=== PATIENT | female | born 1945 | race Caucasian/White ===

== ENCOUNTER 2019-11-03 15:00 | Outpatient (RCR) | payer MEDICARE, SELFPAY ==
[2019-10-22 11:57] VITALS: BP 162/68; PULSE 76; RESP 16
--- NOTE | 2019-10-22 12:27 | PCCPR ---
Christine states she has Reynauds and sclera derma unable to obtain an accurate pulse oxymetry 83% was what we obtained. She was on intermittent pulsating O2 - placed on our continuous O2 concentrator
[2019-10-22 12:39] VITALS: PULSE 72
--- NOTE | 2019-11-06 14:38 | PCCPR ---
Absent-bowel & bladder issues
--- NOTE | 2019-11-12 16:05 | PCCPR ---
Absent due to hospitalization Spoke with Christine who is currently hospitalized here at [facility] with a left hip fracture. States she went to get her blood drawn and tripped. She was later taken to hospital ED and found to have the hop fracture. she is awaiting plan for surgery. States they are having some difficulty with too much fluid and her oxygenation.
--- NOTE | 2019-11-13 10:44 | PCCPR ---
Early dc Spoke with Christine she has been transferred to [facility] for her surgery and management of her cardiovascular system.Discussed the unknown length of time she will be off after surgery as well as rehab. Explained we can get a new referral for her Pulmonary rehab to return once she is ready.
== END 2019-11-13 09:07 | disposition other institution (70) ==
LOC: ANHCPREHAB 15:00
PROVIDERS: PCP Family Medicine
DX: I27.20 Pulmonary hypertension, unspecified (principal)
CPT/HCPCS: 97150; G0239; G0424

== ENCOUNTER 2019-11-10 17:14 | Inpatient (IN) | payer MEDICARE, SELFPAY ==
[2019-11-10] VITALS (13 sets, daily range): BP systolic 93–134; BP diastolic 60–76; PULSE 69–79; RESP 14–35; TEMP 36.3–37; O2SAT 75–99; BMI 25.9; BMI 25.7
--- NOTE | ~2019-11-10 | XR_ITS ---
EXAMINATION: XR chest 1V INDICATION: Shortness of breath TECHNIQUE: Portable AP view of the chest is obtained. COMPARISON: None FINDINGS: There are airspace opacities in the mid and lower lung zones, left greater than right. Smal l pleural effusions are suggested. No pneumothorax is identified. The heart size is normal for techni que. IMPRESSION: 1. Airspace opacities of the mid and lower lung zones, left greater than right, consistent with atele ctasis versus pneumonia. Reviewed, dictated and finalized at location A. ER TURNER IMPRESSION: 1. Airspace opacities of the mid and lower lung zones, left greater than right, consistent with atelectasis versus pneumonia.
--- NOTE | ~2019-11-10 | XR_ITS ---
EXAMINATION: XR hip LT min 2V INDICATION: Left hip pain, initial encounter TECHNIQUE: Two views of the left hip are obtained COMPARISON: None available FINDINGS: There is there is an acute subcapital fracture of the left femoral neck. The femoral head i s seated in the acetabula. Soft tissue swelling surrounds the fracture. No additional acute osseous f indings are evident. IMPRESSION: 1. Acute subcapital left femoral neck fracture. Reviewed, dictated and finalized at location A. GHT UNLOADER
--- NOTE | ~2019-11-10 | XR_ITS ---
EXAMINATION: XR chest 1V portable DATE: 11/11/2019 07:30 INDICATION: Hypoxia TECHNIQUE: frontal view of the chest was obtained. COMPARISON: Chest radiograph dated 11/10/2019 FINDINGS: Resolution of prior right pleural effusion and likely decreased small left pleural effusion with grad ient of hazy airspace opacity in the left mid to lower lung zone. Airspace opacities in the bilateral lower lung zones more prominent in the left retrocardiac region which could represent atelectasis or pneumonia. No pneumothorax or evident pulmonary edema. Cardiomegaly. Peripherally calcified left sherry ast implant. IMPRESSION: 1. Opacities in the bilateral lower lung zones consistent with atelectasis and/or pneumonia. 2. Decreased small left and resolution of prior right pleural effusions. 3. Cardiomegaly. Reviewed, dictated and finalized at location A. DOWELING MACHINE OPERATOR IMPRESSION: 1. Opacities in the bilateral lower lung zones consistent with atelectasis and/ or pneumonia. 2. Decreased small left and resolution of prior right pleural effusions. 3. Cardiomegaly.
--- NOTE | ~2019-11-10 | US_ITS ---
EXAMINATION: US venous doppler LE EXAM DATE: 11/11/2019 13:32 INDICATION: Bilateral leg edema. TECHNIQUE: Multiple grayscale, color flow and Doppler images of the lower extremity deep venous syste ms bilaterally were obtained and reviewed. There is no prior study for comparison. FINDINGS: Right side: The right common femoral, femoral and profunda veins demonstrate normal color flow, respi ratory variation, augmentation and compressibility. Compressibility, color flow confirmed within the right popliteal, posterior tibial, peroneal, and greater saphenous veins. Left side: The left common femoral, femoral and profunda veins demonstrate normal color flow, respira tory variation, augmentation and compressibility. Compressibility, color flow confirmed within the l eft popliteal, posterior tibial, peroneal, and greater saphenous veins. IMPRESSION: 1. No lower extremity deep venous thrombosis bilaterally. Reviewed, dictated and finalized at location B. OR ESTIMATOR
--- NOTE | 2019-11-10 17:32 | ED.GENADULT ---
HPI - General Adult General Chief complaint: Unspecified Stated complaint: fall Time Seen by Provider: 11/10/19 17:32 Source: patient and family Mode of arrival: ambulatory Limitations: no limitations History of Present Illness HPI narrative: A 74 y/o female pt presents to the ED, via private car, with c/o SOB and a fall that occurred at 1400 today (3.5 hours ago). Per spouse at bedside, pt missed a step and fell leaving [facility], after having her blood drawn. Pt's spouse notes that pt had no LOC, but required assistance to get up and to get in and out of the car d/t her leg weakness. Pt's spouse states that, pt was having blood drawn because of her recent weight gain. Pt is currently complaining of SOB, leg weakness, lt hip pain, and chronic BLE swelling. Pt has a PMHx of Pulmonary Hypertension and Scleroderma. Pt notes being on 6 L of O2 via NC at all times, but pt's current O2 sat is 90% on 15L of O2, via non-rebreather in the ED bed. MD complaint: Fall Onset (ago): hour(s) (3.5) Location: pelvis (lt hip) Associated symptoms: shortness of breath, weakness (BLE) and other (difficulty walking, lt hip pain, chronic BLE swelling) Related Data Home Medications Medication Instructions Recorded Confirmed aspirin 81 mg tablet,delayed 81 mg PO DAILY 09/05/19 10/22/19 release calcium carbonate 500 mg calcium 500 mg PO BID 09/05/19 (1,250 mg) tablet diltiazem HCl 180 mg capsule,24 180 mg PO DAILY 09/05/19 10/22/19 hr,extended release metoprolol succinate 25 mg 25 mg PO DAILY 09/05/19 10/22/19 tablet,extended release 24 hr omeprazole 20 mg capsule,delayed 20 mg PO DAILY 09/05/19 10/22/19 release ambrisentan 10 mg PO DAILY 10/22/19 10/22/19 cholecalciferol (vitamin D3) 1,000 unit PO DAILY 10/22/19 10/22/19 [Vitamin D3] cyanocobalamin (vitamin B-12) 500 mcg PO DAILY 10/22/19 10/22/19 [Vitamin B-12] hydroxychloroquine [Plaquenil] 100 mg PO BID 10/22/19 10/22/19 mycophenolate mofetil [CellCept] 1,000 mg PO Q12H 10/22/19 10/22/19 tadalafil 40 mg PO DAILY 10/22/19 11/03/19 Allergies Allergy/AdvReac Type Severity Reaction Status Date / Time No Known Allergies Allergy Verified 11/10/19 17:40 Review of Systems Review of Systems: All systems reviewed & are unremarkable except as noted in HPI and below Constitutional: Constitutional: Reports weakness (BLE) and Reports weight gain Respiratory: Respiratory: Reports dyspnea Musculoskeletal: Musculoskeletal: Reports arthralgias (lt hip) and Reports other (difficulty walking) Integumentary/Breasts: Skin/Breast: Reports swelling (chronic BLE) Neurologic: Denies other (LOC) [facility] Social History Social History (Updated 11/10/19 @ 18:59 by Abhishek Urbano, [place]) Smoking status: Never smoker Alcohol intake: current Living arrangements: with family Gender identity (if verbalized by the patient): Female Exam Narrative: Exam Narrative: General appearance: Well-developed, well-nourished, in labored breathing, family at the bedside Skin: Normal color, tight skin of the distal extremities, Raynaud's phenomena with cyanotic discoloration of the hands and feet, cold 2+ edema lower extremity bilaterally up to the thigh Head: Normocephalic, nontraumatic Eyes: Clear conjunctiva ENT: Oropharynx normal, ears normal, nose normal Neck: Supple, nontender Chest and respiratory: Airway patent, mild respiratory distress, mild accessory muscle use Heart: Regular rate/rhythm Abdomen: Soft, nontender, no organomegaly, quiet bowel sounds Vascular: Normal peripheral pulses, normal capillary refill. Musculoskeletal: Normal range of motion, nontender back Neurologic: Alert and oriented ?3, MEDICAL ADMINISTRATIVE TECHNICIAN is normal as tested, no gross motor deficit
--- NOTE | 2019-11-10 17:39 | PC.NURSE ---
Unable to establish IVx3, requesting RN to start IV with ultrasound. EDP notified.
--- NOTE | 2019-11-10 17:46 | ECG_ITS ---
Measurements Intervals [place] Rate: 71 P: 66 DC: 173 QRS: 108 QRSD: 104 T: 60 QT: 416 QTc: 455 Interpretive Statements SINUS RHYTHM POSSIBLE LEFT ATRIAL ENLARGEMENT RIGHT AXIS DEVIATION LOW QRS VOLTAGE IN PRECORDIAL LEADS INCOMPLETE RIGHT BUNDLE BRANCH BLOCK NONSPECIFIC ST & T-WAVE ABNORMALITY- ANT/INF LEADS BASELINE ARTIFACT- I, II, III, AVR, AVL, AVF, V1-V2 BORDERLINE ECG Electronically Signed On 11-11-2019 7:03:13 CERTIFIED BREASTFEEDING EDUCATOR by Fermín Hernandes D.O.
[2019-11-10 18:12] LABS: Basophils Percent Auto 0.3 % (0.2-1.2); Hematocrit 35.2 % (37.0-47.0); Hemoglobin 10.5 g/dL (12.0-15.0); Immature Granulocyte Absolute 0.05 K/mm3 (0.00-0.031); Immature Granulocyte Percent A 0.6 % (0-0.5); Lymphocytes Absolute Auto 0.39 K/mm3 (0.9-3.2); Lymphocytes Percent Auto 4.3 % (18.3-44.2); Mean Corpuscular HGB Conc 29.8 g/dl (32-36); Mean Corpuscular Hemoglobin 26.6 pg (26-34); Mean Corpuscular Volume 89.1 fl (80-100); Mean Platelet Volume 11.4 fl (7.4-10.4); Monocytes Absolute Auto 0.6 K/mm3 (0.1-0.6); Monocytes Percent Auto 6.3 % (2.6-8.5); Neutrophils Percent Auto 88.5 % (45.5-73.1); Platelet Count Result 163 k/mm3 (150-375); Red Blood Count 3.95 M/mm3 (4.2-5.4); Red Cell Distribution Width 17.9 % (11.5-14.5)
[2019-11-10] MEDS: FUROSEMIDE INJ 40 MG/4 ML VIAL 60 MG IV PUSH (18:21)
[2019-11-10] MEDS: ONDANSETRON INJ 4 MG/2 ML VIAL IV PUSH (18:21)
[2019-11-10] MEDS: NITROGLYCERIN OINTMENT 1 INCH DOSE 0.5 INCH TRANSDERM (18:22)
[2019-11-10 18:25] LABS: Alveolar/Arterial O2 Gradient 630.7 mmHg; Base Excess ABG -3.1 mEq/l (+/-2.0); Fractional Inspired Oxygen 100 %; HCO3 ABG 20.7 mEq/l (22.0-26.0); Oxygen Content ABG 13.5 %vol (16.0-22.0); Oxyhemoglobin 83.5 % THb (90.0-100.0); PCO2 ABG 32.6 mmHg (35.0-45.0); Total Hemoglobin 11.5 g/dL (12.0-18.0)
[2019-11-10 18:26] LABS: INR 1.3; Prothrombin Time 15.4 Seconds (11.1-14.7)
[2019-11-10 18:27] LABS: Partial Thromboplastin Time 25.7 SECONDS (22.3-36.8)
[2019-11-10 18:27] LABS: Modified Allen's Test Pass; Oxygen Saturation ABG 86.4 % (95.0-100.0); PO2 ABG 49.7 mmHg (80.0-100.0); Site Drawn LEFT RADIAL
[2019-11-10 18:28] LABS: Alanine Aminotransferase 30 U/L (4-35); Albumin Level 3.4 g/dL (3.5-5.1); Alkaline Phosphatase 78 U/L (38-126); Aspartate Amino Transferase 38 U/L (14-36); Bilirubin,Total 0.7 mg/dL (0.2-1.3); Blood Urea Nitrogen 19 mg/dL (7-17); Carbon Dioxide 20 mmol/L (22-30); Chloride 102 mmol/L (98-107); Estimated Glomerular Filt Rate > 60; Glucose 107 mg/dL (65-105); Potassium 3.8 mmol/L (3.4-5.0); Sodium 136 mmol/L (137-145)
[2019-11-10 18:28] LABS: Device NON-REBREATHER MASK
[2019-11-10 18:37] LABS: NT Pro B Type Natriuretic Pept 6630 PG/ML (5-100)
[2019-11-10 19:13] LABS: Add Urine Microscopic? YES; Appearance Urine Clear (Clear); Bacteria Urine Trace /hpf; Bilirubin Urine Negative (Negative); Blood Urine Negative (Negative); Color Urine Straw (Yellow); Glucose Urine UA Negative (Negative); Ketones Urine Negative (Negative); Leukocyte Esterase Ur Negative LEU/UL (Negative); Mucus Urine Rare /lpf; Nitrate Urine Negative (Negative); Protein Urine 1+ mg/dL (Negative); RBC Urine 0-2 /hpf (0-2); Specific Grav Ur 1.012 (1.001-1.035); Squamous Epithelial Cell Urine Rare /hpf (Few); Urobilinogen Urine Negative mg/dL (<2.0); WBC Urine 0-3 /hpf
[2019-11-10 19:27] LABS: Burr Cells 3+ (NORMAL)
[2019-11-10 19:29] LABS: Ovalocytes 1+ (NORMAL); Platelet Estimate Adequate (Adequate)
--- NOTE | 2019-11-10 19:40 | PC.NURSE ---
assume care of pt at this time. RACHEL Love
--- NOTE | 2019-11-10 20:30 | PM.IMHP ---
H&P: HPI History of Present Illness Chief complaint: Left hip pain after fall. Narrative: Christine Ellis is a very pleasant 74 year old female with CREST syndrome, pulmonary hypertension, chronic respiratory failure with hypoxia on home oxygen, hypothyroidism, hypertension, and history of breast cancer who presented to the emergency department earlier this evening via private vehicle for evaluation of left hip pain after a fall. She had labs drawn earlier this afternoon, presumably to evaluate her electrolytes as she was started on furosemide within the past several weeks due to weight gain and lower extremity edema. She used her backside to push open the door while exiting the lab as her hands were full with her oxygen tank and purse. Unfortunately, she lost her balance down onto her left side. She has difficult time getting up, and had help from bystanders. She was able to walk to the car, albeit was in quite a bit of pain in the left hip, and came in for evaluation. On arrival to the emergency department, she was complaining of increasing shortness of breath with an SpO2 of 78% on her 6 liters nasal cannula. She demonstrated pursed lip breathing and was started on a BiPAP, which has helped her significantly. It sounds as though she was diagnosed with pulmonary hypertension fairly recently, and has been on oxygen at home for about 6 months. She is followed by a generalist and roof shingler out of [facility], and she notes having a right heart catheterization fairly recently. Not long after that, she developed significant lower extremity edema and has had a 10 pound weight gain. She was thus started on furosemide as detailed above, however she has not had much benefit from that. In fact, she thinks her urine output has been dropping off a bit. With regards to the shortness of breath, she notes that this has progressively gotten worse since she developed the edema, and says it is not unusual for her SpO2 to drop to 85% at times. She feels better at this time, and her main complaint is of an aching pain in the left hip. She denies head trauma and loss of consciousness with the fall. She sustained no other injuries to her knowledge. No cold or flu symptoms. She denies chest pain and pleuritic pain. No calf pain or tenderness. No palpitations or feeling of racing heart. She denies nausea, vomiting, and diarrhea. Review of Systems Review of Systems: All systems reviewed & are unremarkable except as noted in HPI and below PMFSH Past Medical History Medical History (Updated 11/11/19 @ 03:19 by Sandie Palomo PA-C) Anxiety Chronic respiratory failure with hypoxia CREST syndrome GERD (gastroesophageal reflux disease) History of breast cancer Status post chemotherapy and mastectomy. Hypertension Hypothyroidism Osteopenia Other spondylosis, cervical region Pulmonary hypertension Surgical History Surgical History Cataract extraction status (11/05/18) H/O bilateral mastectomy (08/31/00) H/O: hysterectomy (1997) History of appendectomy (1953) Family History Family History Father Diabetes mellitus Family history of Alzheimer's disease Mother Diabetes mellitus Family history of chronic obstructive pulmonary disease Family history of cardiomyopathy Grandparent Family history of malignant neoplasm of breast Social History Social History (Updated 11/11/19 @ 03:15 by Sandie Palomo PA-C) Social History: The patient lives in [place] with her . He is in poor health and she has to help take care of him. She designates her as her surrogate decision maker and she wishes to be a full code. She is a lifelong nonsmoker and denies alcohol and drug abuse. Spiritual care concerns: No Agree to blood products: Yes Meds Home Medications and Allergies Home Medications
--- NOTE | 2019-11-10 21:15 | PC.NURSE ---
called respiratory to take pt up to ICU
--- NOTE | 2019-11-10 21:25 | PC.NURSE ---
required redraw on pt to send pt up to unit after blood draw
--- NOTE | 2019-11-10 21:37 | PC.NURSE ---
respiratory called to take patient up w/ another patient at time.
--- NOTE | 2019-11-10 21:40 | PC.NURSE ---
pt placed on NRB pt's pulse oxy dropped to 83%. pt placed back on bipap. ed respiratory at bedside and to get a transportable bipap.
[2019-11-10 21:46] LABS: INR 1.4; Prothrombin Time 16.4 Seconds (11.1-14.7)
[2019-11-10 21:47] LABS: Partial Thromboplastin Time 31.9 SECONDS (22.3-36.8)
[2019-11-10 21:48] LABS: Lactic Acid Reflex 1.9 mmol/L (0.7-2.1)
--- NOTE | 2019-11-10 22:00 | ADMGEN ---
This patient, Christine Ellis, was admitted to Intensive Care Unit-8. Patient/family oriented to hospital policies and general routines including ID bracelet, bed and alarms, visiting hours, pain management, procedures, bathroom and other care routines, personal items, smoking policy, room service/diet, and visiting hours. Valuables list has been completed. Information on how to activate the Rapid Response Team has been discussed. Patient/Family are encouraged to report perceived risks to care and to ask questions if they do not understand what they are told or what they should do.
[2019-11-10 22:02] LABS: CRP 1.6 mg/dL (<1.0)
[2019-11-11] VITALS (26 sets, daily range): BP systolic 96–117; BP diastolic 54–95; PULSE 71–100; RESP 15–20; TEMP 36.5–36.8; O2SAT 90–97
--- NOTE | 2019-11-11 | ECHO_ITS ---
Patient Info Name: Christine Ellis Age: 74 years : 1945 Gender: Female Ht: 64 in Wt: 150 lbs BSA: 1.77 m2 HR: 90 bpm BP: 101 / 60 mmHg Heart Rhythm: Sinus Rhythm Technical Quality: Good Exam Date: 11/11/2019 9:21 AM Exam Location: [facility] Pulmonary Patient Status: Inpatient Admit Date: 11/10/2019 Staff Ordering Physician: Mario Oliver MD Sterilizer Operator: David Weir RDCS Attending Provider: Nathaniel Ibarra MD Referring Physician: Benito HERRERA; Exam Type: CA echo doppler color flow Study Info Indications R60.0 - Localized edema Complete two-dimensional, color flow and Doppler transthoracic echocardiogram is performed. History/Risk Factors LLE Edema; Chronic respiratory failure w/ hypoxia, HTN, pHTN, CREST Syndrome, SOB>. Summary 1. Left ventricular chamber dimension is normal. 2. Left ventricular systolic function is normal, estimated at 65-70%. 3. D shape LV septum with systole and diastole suggesting RV volume and pressure overload. 4. The left ventricular diastolic function is grade I diastolic dysfunction. 5. E/e' 12 is mildly elevated. 6. Right ventricular systolic function is severely reduced. 7. Right ventricular chamber dimension is severely enlarged. 8. Left atrial chamber dimension is mildly enlarged. 9. Right atrial chamber dimension is severely enlarged. 10. There is moderate aortic valve sclerosis. 11. There is mild aortic valve stenosis with a peak velocity of 199 cm/s, mean gradient of 8 mmHg, and aortic valve area of 2.0 cm2. 12. The mitral valve has moderately calcified annulus. 13. TV annulus is dilated at 6.2 cm. 14. There is moderate tricuspid valve regurgitation. 15. Severe pulmonary hypertension, estimated pulmonary arterial systolic pressure is 75 mmHg. 16. Small atheroma in anterior and posterior aortic root. 17. Dilated inferior vena cava with >50% collapse upon inspiration consistent with elevated right atrial pressure, 10 mmHg. 18. There is small pericardial effusion. Left Ventricle E/e' 12 is mildly elevated. D shape LV septum with systole and diastole suggesting RV volume and pressure overload. Left ventricular chamber dimension is normal. Left ventricular systolic function is normal, estimated at 65-70%. The left ventricular diastolic function is grade I diastolic dysfunction. Right Ventricle Right ventricular systolic function is severely reduced. Right ventricular chamber dimension is severely enlarged. Left Atria Left atrial chamber dimension is mildly enlarged. Right Atria Right atrial chamber dimension is severely enlarged. Atrial Septum Bowing of interatrial septum to left suggests increase in right atrial pressure. Aortic Valve The aortic valve is trileaflet. There is moderate aortic valve sclerosis. There is mild aortic valve stenosis with a peak velocity of 199 cm/s, mean gradient of 8 mmHg, and aortic valve area of 2.0 cm2. There is no aortic valve regurgitation. Pulmonic Valve There is no pulmonic regurgitation. Mitral Valve The mitral valve has moderately calcified annulus. There is no mitral valve stenosis. There is no mitral valve regurgitation. Tricuspid Valve TV annulus is dilated at 6.2 cm. There is moderate tricuspid valve regurgitation. Severe pulmonary hypertension, estimated pulmonary arterial systolic pressure is 75 mmHg. Pericardium/Pleural There is small pericardial effusion. Inferior Vena Cava Dilated inferior vena cava w
--- NOTE | 2019-11-11 06:00 | ECG_ITS ---
Measurements Intervals [place] Rate: 86 P: 53 MT: 156 QRS: 94 QRSD: 112 T: 3 QT: 367 QTc: 440 Interpretive Statements SINUS RHYTHM POSSIBLE LEFT ATRIAL ENLARGEMENT RIGHT AXIS DEVIATION INCOMPLETE RIGHT BUNDLE BRANCH BLOCK BORDERLINE ST-T WAVE ABNORMALITY- ANT/INF LEADS BASELINE ARTIFACT- V1-V2 BORDERLINE ECG Electronically Signed On 11-11-2019 10:09:43 EYEWEAR MANUFACTURING SUPERVISOR by Fermín Hernandes D.O.
[2019-11-11 07:26] LABS: Free T4 Free Thyroxine Reflex 1.77 ng/dL (0.78-2.19)
[2019-11-11 07:27] LABS: Basophils Percent Auto 0.4 % (0.2-1.2); Eosinophils Percent Auto 0.1 % (0-4.4); Hematocrit 30.9 % (37.0-47.0); Hemoglobin 9.4 g/dL (12.0-15.0); Immature Granulocyte Absolute 0.02 K/mm3 (0.00-0.031); Immature Granulocyte Percent A 0.3 % (0-0.5); Lymphocytes Absolute Auto 0.52 K/mm3 (0.9-3.2); Lymphocytes Percent Auto 6.8 % (18.3-44.2); Mean Corpuscular HGB Conc 30.4 g/dl (32-36); Mean Corpuscular Volume 88.8 fl (80-100); Mean Platelet Volume 11.8 fl (7.4-10.4); Monocytes Absolute Auto 0.8 K/mm3 (0.1-0.6); Monocytes Percent Auto 10.1 % (2.6-8.5); Neutrophils Absolute Auto 6.3 K/mm3 (1.3-6.7); Neutrophils Percent Auto 82.3 % (45.5-73.1); Platelet Count Result 149 k/mm3 (150-375); Red Blood Count 3.48 M/mm3 (4.2-5.4); White Blood Count 7.6 K/mm3 (4.5-10.0)
[2019-11-11 07:39] LABS: INR 1.3; Prothrombin Time 15.8 Seconds (11.1-14.7)
[2019-11-11 07:41] LABS: Partial Thromboplastin Time 30.8 SECONDS (22.3-36.8)
[2019-11-11 07:47] LABS: Alanine Aminotransferase 26 U/L (4-35); Albumin Level 2.8 g/dL (3.5-5.1); Alkaline Phosphatase 61 U/L (38-126); Aspartate Amino Transferase 32 U/L (14-36); Bilirubin,Total 0.5 mg/dL (0.2-1.3); Blood Urea Nitrogen 19 mg/dL (7-17); Calcium 8.8 mg/dL (8.4-10.2); Carbon Dioxide 21 mmol/L (22-30); Chloride 102 mmol/L (98-107); Estimated CRCL calculation 54 ml/min; Estimated Glomerular Filt Rate > 60; Glucose 66 mg/dL (65-105); Magnesium 1.9 mg/dL (1.6-2.3); Phosphorus 4.2 mg/dL (2.5-4.5); Potassium 3.9 mmol/L (3.4-5.0); Sodium 136 mmol/L (137-145)
[2019-11-11 07:49] LABS: Alveolar/Arterial O2 Gradient 314.9 mmHg; Base Excess ABG -2.2 mEq/l (+/-2.0); Carboxyhemoglobin 0.3 % THb (0-2.0); Fractional Inspired Oxygen 60 %; HCO3 ABG 21.7 mEq/l (22.0-26.0); Methemoglobin ABG 0.5 %THb (0-1.5); Oxygen Content ABG 14.3 %vol (16.0-22.0); Oxygen Saturation ABG 95.5 % (95.0-100.0); Oxyhemoglobin 93.4 % THb (90.0-100.0); PO2 ABG 75.5 mmHg (80.0-100.0); PO2 FiO2 Ratio Arterial Blood 1.26 %; Reduced Hemoglobin 5.8 %THb (0-5.0); Total Hemoglobin 10.8 g/dL (12.0-18.0); pH ABG 7.422 (7.350-7.450)
[2019-11-11 07:50] LABS: Device NON-INVASIVE VENT; Modified Allen's Test Pass; Site Drawn LEFT RADIAL
[2019-11-11 07:51] LABS: Non-Invasive Expiratory Pressure 5 CMH2O; Non-Invasive Inspiratory Pressure 10 CMH2O; Non-Invasive Vent Rate 10 /MIN
[2019-11-11 08:27] LABS: Total Triiodothyronine (T3) 0.81 NG/ML (0.97-1.69)
--- NOTE | 2019-11-11 08:39 | WPDCNINT ---
Assessment and Plan Assessment and plan (1) Acute and chronic respiratory failure: Qualifiers: Respiratory failure complication: hypoxia Qualified Code(s): J96.21 - Acute and chronic respiratory failure with hypoxia Code(s): J96.20 - Acute and chronic respiratory failure, unspecified whether with hypoxia or hypercapnia Status: Acute Assessment and Plan: patient presented with hypoxia likely related to her chronic patient is such as congestive heart failure, pulmonary hypertension - patient has been on BiPAP with much improvement in the chest x-ray and respiratory status. - Will place patient on her home 6 L oxygen and evaluate. patient may have to alternate between BiPAP and nasal cannula - continue Symbicort and bronchodilators - patient also diuretics - patient also started azithromycin and ceftriaxone (2) Closed left hip fracture: Qualifiers: Encounter type: initial encounter Qualified Code(s): S72.002A - Fracture of unspecified part of neck of left femur, initial encounter for closed fracture Code(s): S72.002A - Fracture of unspecified part of neck of left femur, initial encounter for closed fracture Status: Acute Assessment and Plan: patient with closed hip fracture - pain is not been an issue - ortho has been consulted and await evaluation and recommendation (3) CHF (congestive heart failure): Qualifiers: Heart failure chronicity: unspecified Heart failure type: unspecified Qualified Code(s): I50.9 - Heart failure, unspecified Code(s): I50.9 - Heart failure, unspecified Status: Acute Assessment and Plan: patient with history of congestive heart failure, chest x-ray does not reveal pulmonary vascular congestion - continue diuretics - Will check echocardiogram - lower extremity edema, venous Dopplers ordered (4) Hypothyroidism, unspecified: Qualifiers: Hypothyroidism type: unspecified Qualified Code(s): E03.9 - Hypothyroidism, unspecified Code(s): E03.9 - Hypothyroidism, unspecified Status: Chronic Assessment and Plan: continue levothyroxine (5) Cr(e)st syndrome: Code(s): M34.1 - CR(E)ST syndrome Status: Chronic Assessment and Plan: patient with CREST SYNDROME, 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 She is aware that orthopedic is going to see her for her left hip fracture. Code status: Full code Critical care time spent: [address] Guzman Due to a high probability of clinically significant, life threatening deterioration, the patient required my highest level of preparedness to intervene emergently and I personally spent this critical care time directly and personally managing the patient. This critical care time included obtaining a history; examining the patient; pulse oximetry; ordering and review of studies; arranging urgent treatment with development of a management plan; evaluation of patient's response to treatment; frequent reassessment; and discussions with other providers. It was exclusive of separately billable procedures and treating other patients and teaching time. Please see Assessment and Plan section and the rest of the note for further information on patient assessment and treatment Etched Circuit Processor Consult Note Consult date: 0
--- NOTE | 2019-11-11 09:22 | PM.IMPN ---
Progress Note: A&P Assessment and Plan (1) Acute and chronic respiratory failure: Qualifiers: Respiratory failure complication: hypoxia Qualified Code(s): J96.21 - Acute and chronic respiratory failure with hypoxia Code(s): J96.20 - Acute and chronic respiratory failure, unspecified whether with hypoxia or hypercapnia Status: Acute Assessment and Plan: Improved with BiPAP overnight. Now stable. Discussed with testing analyst. Will transfer to IMU. Telemetry reviewed on 11/11/2019 with sinus rhythm. Pulmonology also consulted and appreciate input. (2) Closed left hip fracture: Qualifiers: Encounter type: initial encounter Qualified Code(s): S72.002A - Fracture of unspecified part of neck of left femur, initial encounter for closed fracture Code(s): S72.002A - Fracture of unspecified part of neck of left femur, initial encounter for closed fracture Status: Acute Assessment and Plan: Result of mechanical fall. Dr. Dhillon has been consulted and appreciate input. (3) Fall from ground level: Code(s): W18.30XA - Fall on same level, unspecified, initial encounter Status: Acute Assessment and Plan: Now with fractured hip as noted above. Fall precautions. (4) Pulmonary hypertension: Code(s): I27.20 - Pulmonary hypertension, unspecified Status: Acute Assessment and Plan: Known significant disease. Echocardiogram with EF 65-70 %, severe pulmonary hypertension. Pulmonology also following as noted above. (5) Cr(e)st syndrome: Code(s): M34.1 - CR(E)ST syndrome Status: Chronic Assessment and Plan: Venous Dopplers negative for DVT of the lower extremities. Continue Plaquenil and CellCept. (6) Hypertension: Qualifiers: Hypertension type: essential hypertension Qualified Code(s): I10 - Essential (primary) hypertension Code(s): I10 - Essential (primary) hypertension Status: Acute Assessment and Plan: Blood pressure reviewed on 11/11/2019 and stable. Will continue to monitor on metoprolol. (7) CHF (congestive heart failure): Qualifiers: Heart failure chronicity: unspecified Heart failure type: unspecified Qualified Code(s): I50.9 - Heart failure, unspecified Code(s): I50.9 - Heart failure, unspecified Status: Acute Assessment and Plan: Known history. Echocardiogram as noted above. Presently compensated. On IV Lasix. Will monitor. (8) Hypothyroidism, unspecified: Qualifiers: Hypothyroidism type: unspecified Qualified Code(s): E03.9 - Hypothyroidism, unspecified Code(s): E03.9 - Hypothyroidism, unspecified Status: Chronic Assessment and Plan: TSH elevated at 7.230 with free T4 normal at 1.77. Will continue levothyroxine. (9) DVT prophylaxis: Code(s): Z29.9 - Encounter for prophylactic measures, unspecified Status: Acute Assessment and Plan: Now on Lovenox after discussion between Orthopedics and testing analyst. Time Spent With Patient Time with patient: 15 - 25 minutes Subjective Date/time seen: 11/11/19 09:22 Interval history: Date of Service: 11/11/2019. Admitted with left hip fracture, acute on chronic respiratory failure. Still on BiPAP this morning but feeling better. Denies shortness of breath. No chest pain. No headache. No abdominal pain. No significant pain in left hip. Does have swelling in legs. Review of Systems Constitutional: Constitutional: Denies chills and Denies fever(s) ENT: Denies epistaxis Cardiovascular: Cardiovascular: Denies chest pain and Reports leg edema Respiratory: Respiratory: Denies dyspnea Gastrointestinal: Gastrointestinal: Denies abdominal pain, Denies nausea and Denies vomiting Genitourinary: Comments: catheter in place Musculoskeletal: Musculoskeletal: Reports arthralgias (no significant left hip pain) Integumentary/Breasts: Skin/Breast:
[2019-11-11] MEDS: PANTOPRAZOLE 40 MG TABLET PO (11:44)
[2019-11-11] MEDS: CHOLECALCIFEROL 1,000 UNIT TABLET 1000 UNITS PO (11:44)
[2019-11-11] MEDS: CYANOCOBALAMIN 500 MCG TABLET PO (11:44)
[2019-11-11] MEDS: METOPROLOL SUCCINATE EXT REL 25 MG TABCR PO (11:44)
[2019-11-11] MEDS: HYDROXYCHLOROQUINE SULFATE 200 MG TABLET PO (11:44)
[2019-11-11] MEDS: CALCIUM CARBONATE (OSCAL) 500 MG TABLET PO ×2 (11:44→17:18)
[2019-11-11] MEDS: LEVOTHYROXINE SODIUM 50 MCG TABLET PO (11:44)
[2019-11-11] MEDS: FUROSEMIDE INJ 40 MG/4 ML VIAL 20 MG IV PUSH (11:46)
[2019-11-11] MEDS: mycophenolate mofetiL 250 MG CAPSULE 1000 MG PO ×2 (12:00→21:47)
--- NOTE | 2019-11-11 15:40 | PM.CNOR ---
Assessment and Plan Assessment and plan (1) Closed left hip fracture: Qualifiers: Encounter type: initial encounter Qualified Code(s): S72.002A - Fracture of unspecified part of neck of left femur, initial encounter for closed fracture Code(s): S72.002A - Fracture of unspecified part of neck of left femur, initial encounter for closed fracture Status: Acute Assessment and Plan: Displaced left femoral neck fracture. Will benefit from bipolar hemiarthroplasty. Discussed the timing of surgery with anesthesia and contracts representative. We agree to stabilize the patient medically prior to proceeding with surgery. Plan for Sunday. Ok to treat with anticoagulation for VTE prophylaxis. I discussed the care plan with the patient and her family. We discussed the risks, benefits, and alternatives to surgery. 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 - Systemic sclerosis, unspecified Status: Acute (3) Acute and chronic respiratory failure with hypoxia: Code(s): J96.21 - Acute and chronic respiratory failure with hypoxia Status: Acute (4) CHF (congestive heart failure): Qualifiers: Heart failure chronicity: unspecified Heart failure type: unspecified Qualified Code(s): I50.9 - Heart failure, unspecified Code(s): I50.9 - Heart failure, unspecified Status: Acute (5) Cr(e)st syndrome: Code(s): M34.1 - CR(E)ST syndrome Status: Chronic (6) Osteopenia: Qualifiers: Osteopenia location: unspecified Qualified Code(s): M85.80 - Other specified disorders of bone density and structure, unspecified site Code(s): M85.80 - Other specified disorders of bone density and structure, unspecified site Status: Chronic History of Present Illness HPI Consult date: 11/11/19 Chief complaint: Left hip pain after fall. Narrative: Presents with left hip femoral neck fracture. Admitted to the ICU with respiratory distress. History of CREST syndrome, pulmonary hypertension, chronic respiratory failure with hypoxia on home oxygen, hypothyroidism, hypertension, and history of breast cancer. Now clinically improving. Denies hip pain at rest. Review of Systems Constitutional: Constitutional: Reports as per HPI Cardiovascular: Cardiovascular: Reports leg edema Respiratory: Respiratory: Reports chest congestion and Reports dyspnea Genitourinary: Genitourinary: Reports as per HPI Musculoskeletal: Musculoskeletal: Reports stiffness Neurologic: Denies numbness Psychiatric: Psychiatric: Denies confusion [facility] Past Medical History Medical History Anxiety Chronic respiratory failure with hypoxia CREST syndrome GERD (gastroesophageal reflux disease) History of breast cancer Status post chemotherapy and mastectomy. Hypertension Hypothyroidism Osteopenia Other spondylosis, cervical region Pulmonary hypertension Surgical History Surgical History Cataract extraction status (11/05/18) H/O bilateral mastectomy (08/31/00) H/O: hysterectomy (1997) History of appendectomy (1953) Family History Family History Father Diabetes mellitus Family history of Alzheimer's disease Mother Diabetes mellitus Family history of chronic obstructive pulmonary disease Family history of cardiomyopathy Grandparent Family history of malignant neoplasm of breast Social History Social History Social History: The patient lives in [place] with her . He is in poor health and she has to help take care of him. She designates her as her surrogate decision maker and she wishes to be a full code. She is a lifelong nonsmoker and denies alcohol and drug abuse. Spiritual care concerns: No Agree to blood products: Ye
--- NOTE | 2019-11-11 16:21 | PHAR ---
HOME MEDICATIONS VERIFIED BY PHARMACY: MYCOPHENOLATE 500MG TABLETS TAKE 2 TABS PO BID RX#[id number] TADALAFIL 20MG TABLET 1 TABLET DAILY INITIALLY THEN INCREASE TO 2 TABLETS DAILY IF TOLERATED RX#[id number] AMBRISENTAN 10MG TABLET 1 TABLET PO DAILY RX#[id number]
--- NOTE | 2019-11-11 18:57 | PM.CNPUL ---
Assessment and Plan Assessment and plan (1) Acute on chronic right heart failure: Code(s): I50.813 - Acute on chronic right heart failure Status: Acute Assessment and Plan: Echo shows marked pulmonary hypertension RVSP 75 mmHg, enlarged RV size with poor function, volume overload pattern, with increased risk of operative complications. This patient has severe pulmonary hypertension with multiple issues that put her at increased risk for hip surgery. Will contact her doctors at [facility] regarding transfer If she is not stable enough at the time of transfer, intubation is an option. Does not need intubation now. (2) Pneumonia: Qualifiers: Laterality: bilateral Lung location: unspecified part of lung Pneumonia type: due to unspecified organism Qualified Code(s): J18.9 - Pneumonia, unspecified organism Code(s): J18.9 - Pneumonia, unspecified organism Status: Acute Assessment and Plan: CXR has perihilar and lower lung infiltrates; with secretions, increased O2 need, this may be consistent with pneumonia. She is on ceftriaxone and aztihromycin; will check urine antigens for pneumonia pathogens; does not appear to have ARDS. She is tolerating the 15 L high flow cannula with saturation 91%. She is on bronchodilator therapy, and continues her pulmonary hypertension meds. No history of tobacco use. (3) Scleroderma involving lung: Code(s): M34.9 - Systemic sclerosis, unspecified Status: Acute Assessment and Plan: She reports increasing shortness of breath and lung involvement associated with scleroderma, likely interstitial lung disease although it is not visible on plain CXR. Seh is on immunosuppressive therapy with mycophenolate. I will contact her tune up mechanic for additional information and recommendations, as she is at increased risk for melecio-operative complications with hypoxemia, scleroderma-associated lung disease. (4) Acute and chronic respiratory failure with hypoxia: Code(s): J96.21 - Acute and chronic respiratory failure with hypoxia Status: Acute Assessment and Plan: She has been on O2 since July with increasing requirement over the last few months; worsened when she fell and broke her left hip on Nov 10. CXR does not show ARDS; (5) Closed left hip fracture: Qualifiers: Encounter type: initial encounter Qualified Code(s): S72.002A - Fracture of unspecified part of neck of left femur, initial encounter for closed fracture Code(s): S72.002A - Fracture of unspecified part of neck of left femur, initial encounter for closed fracture Status: Acute Assessment and Plan: She has a non-displaced left hip fracture after a fall yesterday, and surgery is planned for SundayNov 14 after stabilization of other medical issues. (6) Pulmonary hypertension: Code(s): I27.20 - Pulmonary hypertension, unspecified Status: Acute Assessment and Plan: She is on tadalafil (PDE type 5 inhibitor) for systemic sclerosis pulmonary hypertension. History of Present Illness History of Present Illness Consult date: 11/12/19 Requesting physician: Oralia Rivera MD Chief complaint: Left hip pain after fall. Narrative: NEW CONSULT: acute on chronic respiratory failure; scleroderma with lung involvement; This 74 yo woman has CREST syndrome, scleroderma x 25 years with increase in symptoms in December, pulmonary hypertension, on treatment. See meds below. She started using O2 in July at 2 L/min, now on 5-6 L/min. She has had increased shortness of
[2019-11-11] MEDS: HYDROXYCHLOROQUINE SULFATE 100 MG TABLET PO (21:48)
[2019-11-12] VITALS (28 sets, daily range): BP systolic 88–157; BP diastolic 46–90; PULSE 75–96; RESP 14–22; TEMP 36.6–37.2; O2SAT 91–98
[2019-11-12] MEDS: KETOROLAC 15 MG/ML VIAL (*BKC) IV PUSH (00:42)
[2019-11-12 05:02] LABS: Basophils Percent Auto 0.3 % (0.2-1.2); Eosinophils Percent Auto 0.1 % (0-4.4); Hematocrit 28.8 % (37.0-47.0); Hemoglobin 8.9 g/dL (12.0-15.0); Immature Granulocyte Absolute 0.03 K/mm3 (0.00-0.031); Immature Granulocyte Percent A 0.4 % (0-0.5); Immature Platelet Fraction Pct 6.2 % (0.9-11.2); Lymphocytes Absolute Auto 0.76 K/mm3 (0.9-3.2); Lymphocytes Percent Auto 10.9 % (18.3-44.2); Mean Corpuscular HGB Conc 30.9 g/dl (32-36); Mean Corpuscular Hemoglobin 26.7 pg (26-34); Mean Corpuscular Volume 86.5 fl (80-100); Mean Platelet Volume 11.9 fl (7.4-10.4); Monocytes Percent Auto 14.2 % (2.6-8.5); Neutrophils Absolute Auto 5.1 K/mm3 (1.3-6.7); Neutrophils Percent Auto 74.1 % (45.5-73.1); Platelet Count Result 127 k/mm3 (150-375); Red Blood Count 3.33 M/mm3 (4.2-5.4); Red Cell Distribution Width 17.9 % (11.5-14.5)
[2019-11-12] MEDS: LEVOTHYROXINE SODIUM 50 MCG TABLET PO (05:09)
[2019-11-12 05:12] LABS: Base Excess ABG -0.1 mEq/l (+/-2.0); Carboxyhemoglobin 0.2 % THb (0-2.0); Device NON-INVASIVE VENT; Fractional Inspired Oxygen 50 %; HCO3 ABG 23.7 mEq/l (22.0-26.0); Methemoglobin ABG 0.4 %THb (0-1.5); Modified Allen's Test Pass; Oxygen Content ABG 13.2 %vol (16.0-22.0); Oxygen Saturation ABG 96.3 % (95.0-100.0); PCO2 ABG 34.9 mmHg (35.0-45.0); PO2 ABG 79.2 mmHg (80.0-100.0); PO2 FiO2 Ratio Arterial Blood 1.58 %; Reduced Hemoglobin 5.4 %THb (0-5.0); Site Drawn LEFT RADIAL; Total Hemoglobin 9.9 g/dL (12.0-18.0); pH ABG 7.449 (7.350-7.450)
[2019-11-12 05:13] LABS: Non-Invasive Expiratory Pressure 5 CMH2O; Non-Invasive Inspiratory Pressure 10 CMH2O; Non-Invasive Vent Rate 10 /MIN
[2019-11-12 05:16] LABS: Blood Urea Nitrogen 23 mg/dL (7-17); Calcium 8.7 mg/dL (8.4-10.2); Carbon Dioxide 25 mmol/L (22-30); Chloride 100 mmol/L (98-107); Estimated CRCL calculation 43 ml/min; Estimated Glomerular Filt Rate > 60; Glucose 100 mg/dL (65-105); Potassium 3.7 mmol/L (3.4-5.0); Sodium 134 mmol/L (137-145)
--- NOTE | 2019-11-12 07:48 | PM.IMPN ---
Progress Note: A&P Assessment and Plan (1) Acute and chronic respiratory failure: Qualifiers: Respiratory failure complication: hypoxia Qualified Code(s): J96.21 - Acute and chronic respiratory failure with hypoxia Code(s): J96.20 - Acute and chronic respiratory failure, unspecified whether with hypoxia or hypercapnia Status: Acute Assessment and Plan: Appreciate help from pulmonology. Patient with severe underlying pulmonary issues. ABG today with pH 7.449, pCO2 34.9, PO2 79.2. When not on BiPAP, using high-flow oxygen at 15 L with adequate oxygenation. Discussed with pulmonology last night. Dr. Grande plans to speak with patient's regular hogshead filler at [facility] today for possible transfer. Telemetry reviewed on 11/12/2019 with sinus rhythm. Continue nebulizer treatments and Symbicort. Continue to monitor closely. (2) CHF (congestive heart failure): Qualifiers: Heart failure chronicity: acute on chronic Heart failure type: right-sided Qualified Code(s): I50.813 - Acute on chronic right heart failure Code(s): I50.9 - Heart failure, unspecified Status: Acute Assessment and Plan: Known history. Echocardiogram with EF 65-70 %, severe pulmonary hypertension with RVSP 75, diastolic dysfunction grade 1. Remains on IV Lasix daily. Continue to monitor. (3) Pneumonia: Qualifiers: Laterality: bilateral Lung location: unspecified part of lung Pneumonia type: due to unspecified organism Qualified Code(s): J18.9 - Pneumonia, unspecified organism Code(s): J18.9 - Pneumonia, unspecified organism Status: Acute Assessment and Plan: As noted, appreciate help from pulmonology. Imaging and other clinical findings consistent with pneumonia. Will add IV ceftriaxone and azithromycin. Continue other respiratory treatments. (4) Scleroderma involving lung: Code(s): M34.9 - Systemic sclerosis, unspecified Status: Acute Assessment and Plan: Known underlying disease. Continue home mycophenolate. Continue respiratory treatments as noted. (5) Pulmonary hypertension: Code(s): I27.20 - Pulmonary hypertension, unspecified Status: Acute Assessment and Plan: Known significant disease. Pulmonology following as noted above. On tadalfil at home and may use home supply here as non-formulary. (6) Cr(e)st syndrome: Code(s): M34.1 - CR(E)ST syndrome Status: Chronic Assessment and Plan: Venous Dopplers negative for DVT of the lower extremities. Continue Plaquenil and CellCept. (7) Closed left hip fracture: Qualifiers: Encounter type: initial encounter Qualified Code(s): S72.002A - Fracture of unspecified part of neck of left femur, initial encounter for closed fracture Code(s): S72.002A - Fracture of unspecified part of neck of left femur, initial encounter for closed fracture Status: Acute Assessment and Plan: Result of mechanical fall. Dr. Dhillon has been consulted and appreciate input. Will need eventual repair. (8) Fall from ground level: Code(s): W18.30XA - Fall on same level, unspecified, initial encounter Status: Acute Assessment and Plan: Now with fractured hip as noted above. Fall precautions. (9) Hypertension: Qualifiers: Hypertension type: essential hypertension Qualified Code(s): I10 - Essential (primary) hypertension Code(s): I10 - Essential (primary) hypertension Status: Acute Assessment and Plan: Blood pressure reviewed on 11/12/2019 and stable. Will continue to monitor on metoprolol. (10) Hypothyroidism, unspecified: Qualifiers: Hypothyroidism type: unspecified Qualified Code(s): E03.9 - Hypothyroidism, unspecified Code(s): E03.9 - Hypothyroidism, unspecified Status: Chronic Assessment and Plan: TSH elevated at 7.230 with free T4 normal at 1.77. Will con
[2019-11-12] MEDS: FUROSEMIDE INJ 40 MG/4 ML VIAL 20 MG IV PUSH (10:24)
[2019-11-12] MEDS: ENOXAPARIN 40 MG/0.4 ML SYRINGE SUB-Q (10:27)
[2019-11-12] MEDS: CALCIUM CARBONATE (OSCAL) 500 MG TABLET PO ×2 (10:29→17:41)
[2019-11-12] MEDS: CHOLECALCIFEROL 1,000 UNIT TABLET 1000 UNITS PO (10:31)
[2019-11-12] MEDS: METOPROLOL SUCCINATE EXT REL 25 MG TABCR PO (10:32)
[2019-11-12] MEDS: PANTOPRAZOLE 40 MG TABLET PO (10:42)
[2019-11-12] MEDS: HYDROXYCHLOROQUINE SULFATE 200 MG TABLET PO (10:51)
[2019-11-12] MEDS: CYANOCOBALAMIN 500 MCG TABLET PO (10:52)
[2019-11-12] MEDS: mycophenolate mofetiL 250 MG CAPSULE 1000 MG PO ×2 (12:33→20:58)
[2019-11-12 14:43] LABS: Troponin I 0.043 ng/mL (0.000-0.034)
--- NOTE | 2019-11-12 16:38 | PM.PNPUL ---
Progress Note: A&P Assessment and Plan (1) Acute on chronic right heart failure: Code(s): I50.813 - Acute on chronic right heart failure Status: Acute Assessment and Plan: Echo shows marked pulmonary hypertension RVSP 75 mmHg, enlarged RV size with poor function, volume overload pattern, with increased risk of operative complications. This patient has severe pulmonary hypertension with multiple issues that put her at increased risk for hip surgery. Will contact her doctors at [facility] regarding transfer We will wean her O2 prior to transfer. (2) Pneumonia: Qualifiers: Laterality: bilateral Lung location: unspecified part of lung Pneumonia type: due to unspecified organism Qualified Code(s): J18.9 - Pneumonia, unspecified organism Code(s): J18.9 - Pneumonia, unspecified organism Status: Acute Assessment and Plan: CXR has perihilar and lower lung infiltrates; with secretions, increased O2 need; not convinced she has pneumonia; She is on ceftriaxone and aztihromycin; urine antigens for pneumonia pathogens are pending. does not appear to have ARDS. She is tolerating the 15 L high flow cannula with 60%, with saturation 91%- 94%. She is on bronchodilator therapy, and continues her pulmonary hypertension meds. No history of tobacco use. (3) Scleroderma involving lung: Code(s): M34.9 - Systemic sclerosis, unspecified Status: Acute Assessment and Plan: She reports increasing shortness of breath and lung involvement associated with scleroderma, likely interstitial lung disease although it is not visible on plain CXR. Seh is on immunosuppressive therapy with mycophenolate. I spoke with Dr. Pendleton at [facility], her inside sales coordinator. (4) Acute and chronic respiratory failure with hypoxia: Code(s): J96.21 - Acute and chronic respiratory failure with hypoxia Status: Acute Assessment and Plan: She has been on O2 since July with increasing requirement over the last few months; worsened when she fell and broke her left hip on Nov 10. CXR shows perihilar atelectasis/infitlrate. (5) Closed left hip fracture: Qualifiers: Encounter type: initial encounter Qualified Code(s): S72.002A - Fracture of unspecified part of neck of left femur, initial encounter for closed fracture Code(s): S72.002A - Fracture of unspecified part of neck of left femur, initial encounter for closed fracture Status: Acute Assessment and Plan: She has a non-displaced left hip fracture after a fall 11/10/2019. (6) Pulmonary hypertension: Code(s): I27.20 - Pulmonary hypertension, unspecified Status: Acute Assessment and Plan: She is on tadalafil (PDE type 5 inhibitor) for systemic sclerosis pulmonary hypertension. Subjective Date/time seen: 11/12/19 16:38 Patient was seen at 15:50. This 74 yo female is seen in follow up for acute on chronic hypoxemic respiratory failure after falling and breaking left hip 11/10/2019 after leaving the lab at [facility]; she was having lab work for her worsening right heart failure due to systemic sclerosis with lung involvement and pulmonary hypertension. Her is at the beside. She is now in Room 213, step down unit, on high flow O2 system; 15 L/min and 60 L /min with sat 94%. I spoke with branch operations coordinator at [facility] after speaking with her inside sales coordinator Dr. Yony Mayer at [facility]. She is not febrile, has normal WBC 7K, mild hyponatremia 134, BP 98/44. She is taking her pulmonary hypertension meds which she brought from
--- NOTE | 2019-11-12 16:40 | PM.TDS ---
Transfer Discharge Sum: Prov Provider Date of admission: 11/10/19 20:22 Primary care physician: Laly Kenny DO Admitting clinician: Mark Ibarra MD Attending physician on admission: Nathaniel Ibarra Consults: 11/10/19 20:26 Consult to Physician Routine Comment: Consulting Provider: Minoo Grande Reason for consultation: Pneumonia, history of pulmonary hypertension secondary to scleroderma, on B Has provider been notified: Yes Consult to Physician Routine Comment: Consulting Provider: Orestes Dhillon Reason for consultation: Left hip fracture Has provider been notified: Yes Attending physician on discharge: Nina Lowry Discharging clinician: Nina Lowry Anticipated date of transfer: 11/12/19 Receiving physician/facility: Dr. Cummings at [facility] in [place], [place] DS: Diagnosis Admitting Diagnosis Admitting Diagnosis: Fracture of unspecified part of neck of left femur, initial encounter for closed fracture Discharge Diagnosis (1) Acute and chronic respiratory failure: Qualifiers: Respiratory failure complication: hypoxia Qualified Code(s): J96.21 - Acute and chronic respiratory failure with hypoxia Code(s): J96.20 - Acute and chronic respiratory failure, unspecified whether with hypoxia or hypercapnia Status: Acute (2) CHF (congestive heart failure): Qualifiers: Heart failure chronicity: acute on chronic Heart failure type: right-sided Qualified Code(s): I50.813 - Acute on chronic right heart failure Code(s): I50.9 - Heart failure, unspecified Status: Acute (3) Pneumonia: Qualifiers: Laterality: bilateral Lung location: unspecified part of lung Pneumonia type: due to unspecified organism Qualified Code(s): J18.9 - Pneumonia, unspecified organism Code(s): J18.9 - Pneumonia, unspecified organism Status: Acute (4) Scleroderma involving lung: Code(s): M34.9 - Systemic sclerosis, unspecified Status: Acute (5) Pulmonary hypertension: Code(s): I27.20 - Pulmonary hypertension, unspecified Status: Acute (6) Cr(e)st syndrome: Code(s): M34.1 - CR(E)ST syndrome Status: Chronic (7) Closed left hip fracture: Qualifiers: Encounter type: initial encounter Qualified Code(s): S72.002A - Fracture of unspecified part of neck of left femur, initial encounter for closed fracture Code(s): S72.002A - Fracture of unspecified part of neck of left femur, initial encounter for closed fracture Status: Acute (8) Fall from ground level: Code(s): W18.30XA - Fall on same level, unspecified, initial encounter Status: Acute (9) Hypertension: Qualifiers: Hypertension type: essential hypertension Qualified Code(s): I10 - Essential (primary) hypertension Code(s): I10 - Essential (primary) hypertension Status: Acute (10) Hypothyroidism, unspecified: Qualifiers: Hypothyroidism type: unspecified Qualified Code(s): E03.9 - Hypothyroidism, unspecified Code(s): E03.9 - Hypothyroidism, unspecified Status: Chronic Transfer Discharge Sum: Med Medications Active and Home Medications: Home Medications aspirin 81 mg tablet,delayed release 81 mg PO 2XW 09/05/19 [History Confirmed 11/10/19] calcium carbonate 500 mg calcium (1,250 mg) tablet 500 mg PO BID 09/05/19 [History Confirmed 11/10/19] diltiazem HCl 180 mg capsule,24 hr,extended release 180 mg PO DAILY 09/05/19 [History Confirmed 11/10/19] metoprolol succinate 25 mg tablet,extended release 24 hr 25 mg PO DAILY 09/05/19 [History Confirmed 11/10/19] omeprazole 20 mg capsule,delayed release 20 mg PO DAILY 09/05/19 [History Confirmed 11/10/19] levothyroxine 50 mcg tablet 50 mcg PO DAILY #90 tablet 10/15/19 [Rx Confirmed 11/10/19] ambrisentan 10 mg PO DAILY 10/22/19 [History Confirmed 11/10/19] cholecalciferol (vitamin D3) [Vitamin D3] 1,000 unit PO
--- NOTE | 2019-11-12 19:30 | PC.NURSE ---
Report called to RACHEL Suh at [facility] in [place].
[2019-11-12] MEDS: HYDROXYCHLOROQUINE SULFATE 100 MG TABLET PO (20:58)
[2019-11-13 03:33] VITALS: O2SAT 99
[2019-11-13 18:48] LABS: Pneumococcal Antigen Urine Not Detected (Not Detected)
[2019-11-13 22:20] LABS: Legionella pneumophila Ag Ur Not Detected (Not Detected)
== END 2019-11-12 22:45 | disposition short-term general hospital (02) | DRG 189 ==
LOC: ANHED 20:21 → ANHICU 21:15 → ANHIMU 11-12 11:24 → ANHICU 11-17 09:02 → ANHIMU 11-17 09:02
PROVIDERS: Internal Medicine; Internal Medicine Critical Care Medicine; Physician Assistant; Admitting Provider Internal Medicine; Emergency Provider Emergency Medicine; PCP Family Medicine; Visit Provider Hospitalist
DX: J96.21 Acute and chronic respiratory failure with hypoxia (principal); S72.012A Unspecified intracapsular fracture of left femur, initial encounter for closed fracture; J18.9 Pneumonia, unspecified organism; M34.81 Systemic sclerosis with lung involvement; I11.0 Hypertensive heart disease with heart failure; I50.813 Acute on chronic right heart failure; W10.8XXA Fall (on) (from) other stairs and steps, initial encounter; E03.9 Hypothyroidism, unspecified; M34.1 CR(E)ST syndrome; I27.20 Pulmonary hypertension, unspecified; K21.9 Gastro-esophageal reflux disease without esophagitis; I73.00 Raynaud's syndrome without gangrene; F41.9 Anxiety disorder, unspecified; M85.80 Other specified disorders of bone density and structure, unspecified site; M47.892 Other spondylosis, cervical region; Z99.81 Dependence on supplemental oxygen; Z85.3 Personal history of malignant neoplasm of breast; Z98.42 Cataract extraction status, left eye; Z98.41 Cataract extraction status, right eye; Z90.710 Acquired absence of both cervix and uterus
CPT/HCPCS: 36415; 36600; 71045; 73502; 80048; 80053; 81001; 82375; 82805; 83050; 83605; 83735; 83880; 84100; 84439; 84443; 84480; 84484; 85025; 85055; 85610; 85730; 86140; 87040; 87081; 87449; 87899; 93005; 93306; 93970; 94002; 94003; 94640; 94660; 96365; 96375; 99291; A9270; J0456; J0696; J1650; J1885; J1940; J2405; J7517

== ENCOUNTER 2019-12-26 12:16 | Outpatient (RCR) | payer MEDICARE, SELFPAY ==
[2019-12-26 12:58] VITALS: BMI 25.9
== END 2020-03-01 08:30 | disposition home health service (06) ==
LOC: ANHWOC 12:16
PROVIDERS: PCP Family Medicine; Visit Provider Family Medicine
DX: S91.302D Unspecified open wound, left foot, subsequent encounter (principal); S91.301D Unspecified open wound, right foot, subsequent encounter
CPT/HCPCS: 99212; G0463

== ENCOUNTER 2020-06-01 08:06 | Outpatient (RCR) | payer MEDICARE, SELFPAY ==
[2020-03-04 12:01] VITALS: BMI 22.3
== END 2020-06-02 23:59 | disposition home or self-care (01) ==
LOC: ANHWOC 08:06
PROVIDERS: PCP Family Medicine; Visit Provider Family Medicine
DX: L97.429 Non-pressure chronic ulcer of left heel and midfoot with unspecified severity (principal); L89.024 Pressure ulcer of left elbow, stage 4
CPT/HCPCS: 99212; G0463

== ENCOUNTER 2020-07-28 07:37 | Outpatient (RCR) | payer MEDICARE, SELFPAY ==
[2020-06-03 00:05] VITALS: BMI 22.3
== END 2020-09-08 13:25 | disposition home or self-care (01) ==
LOC: ANHWOC 07:37
PROVIDERS: PCP Family Medicine; Visit Provider Family Medicine
DX: L97.429 Non-pressure chronic ulcer of left heel and midfoot with unspecified severity (principal)
CPT/HCPCS: 99212; G0463

== ENCOUNTER 2021-04-08 11:00 | Outpatient (RCR) | payer MEDICARE, SELFPAY ==
[2020-12-10 15:55] VITALS: PULSE 67
== END 2021-04-08 23:59 | disposition home or self-care (01) ==
LOC: ANHCPREHAB 11:00
PROVIDERS: PCP Family Medicine
DX: I27.20 Pulmonary hypertension, unspecified (principal)
CPT/HCPCS: 97150; G0239; G0424

== ENCOUNTER 2021-04-12 10:16 | Outpatient (RCR) | payer MEDICARE, SELFPAY ==
[2021-04-10 00:05] VITALS: PULSE 67
== END 2021-04-12 14:45 | disposition home or self-care (01) ==
LOC: ANHCPREHAB 10:16
PROVIDERS: PCP Family Medicine
DX: I27.20 Pulmonary hypertension, unspecified (principal)
CPT/HCPCS: G0239

== ENCOUNTER 2021-05-04 12:49 | Outpatient (CLI) | payer MEDICARE, SELFPAY ==
--- NOTE | 2021-05-05 09:50 | WPDSIXMINUTE ---
Six Minute Walk Procedure Procedure Performed Pulmonary Stress Test (6 min walk) Six Minute Walk This is a 6 minutes walk test. The test was performed and interpreted in accordance with the 2014 ERS/ATS task force guidelines. The test was performed on 1 L nasal cannula oxygen through a portable oxygen concentrator and the patient used a wheeled walker. Findings: The patient's resting oxygen saturation on 1 L NC measured by pulse oximetry was 98% and her heart rate was 84 bpm. Patient ambulated for 183 meters and oxygen saturation remained 90 to 98%. Heart rate at the end of the study was 99 bpm. There are no prior studies for comparison.
== END 2021-05-04 12:50 | disposition home or self-care (01) ==
PROVIDERS: PCP Family Medicine
DX: I27.20 Pulmonary hypertension, unspecified (principal)
CPT/HCPCS: 94618

== ENCOUNTER 2021-08-30 11:00 | Outpatient (RCR) | payer MEDICARE, SELFPAY ==
--- NOTE | 2021-08-02 14:18 | PTOPEVAL ---
INITIAL PHYSICAL THERAPY EVALUATION and PLAN OF CARE Thank you for referring Christine Gillette to [facility].? Christine is scheduled to be seen for physical therapy? 1x/week for 6 weeks. Please review, sign, date and return this plan of care ALEKSANDR. I agree with and certify that the following plan of care is medically necessary. Referring Physician Date Admitting Provider: Attending Provider: KAITLYNN Mercedes Referring Provider: MIKA Outpatient Evaluation Start: 08/02/21 12:44 Freq: Status: Active Protocol: Document 08/02/21 12:44 MCKENZIE (Rec: 08/02/21 14:18 MCKENZIE [id number]) Therapy Assessment Status Assessment Status Assessment Status Evaluation Outpatient Past Medical History Past Medical History Source of Past Medical History Recalled from Previous Visit, Confirmed with Patient/Family Neurological History Hx Migraine Yes: in her teens 20's and 30' s no longer Cardiovascular History Hx Hypertension Yes: pulmonary arteriol hypertension Hx Other Cardiac Disorders Yes: pulmonary htn, Raynauds syndrome Respiratory History Hx Other Respiratory Disorders Yes: 08/2019 diagnosed with Pulmonary HTN,1 L O2 day, 2L O2 at night Gastrointestinal History Hx Appendectomy Yes: 1951 Hx Gastroesophageal Reflux Disease Yes Hx Irritable Bowel Yes: medication side effects Genitourinary History Hx Genitourinary Disorders No Significant History Musculoskeletal History Hx Fractures Yes: left hip 2019 Hx Other Musculoskeletal Disorders Yes: does say intermittent rt shoulder discomfort she feels lifting her Hematological History Hx Hematological Disorders No Significant History Endocrine History Hx Hypothyroidism Yes HEENT History Hx Cataracts Yes: both eyes Integumentary History Hx Other Skin Disorders Yes: bilateral heel pressure ulcers, scleroderma Reproductive History Hx Other Reproductive Disorders Yes: hysterectomy 1991 or 1992 Psychosocial History Hx Anxiety Yes: panic's with SOB Hx Depression Yes Hx Recent Lifestyle Changes Yes Pain History History of Any Previous or Ongoing No Significant History Instance of Pain Anesthesia History Hx Anesthesia Reactions No Significant History Other History Hx Cancer Yes: bilateral breast Ca 1999 Hx Chemotherapy Yes: 1999 Hx Implanted Device Yes: reconstructive breast implants Evaluation Information Problem Diagnosi
--- NOTE | 2021-08-31 11:31 | PCPTNOTE ---
Attending Provider: KAITLYNN Mercedes Patient:Christine Gillette Date of :1945 Patient has completed her treatments since 08/30/2021, therefore she will be discharged at this time. Patient?s initial visit was on 08/02/2021 12:30 and she had a total of 5 visits. The goals have been met. Pt has received education, strengthening, and functional use of breath and pelvic floor guidance. Thank you for referring this patient to [facility]. Please review, sign, date and return this discharge summary ALEKSANDR. I have been updated about the patient's current status and I agree with discharge from the above service at this time. Referring Physician Date
== END 2021-09-01 12:40 | disposition home or self-care (01) ==
LOC: ANHPT 11:00
PROVIDERS: PCP Family Medicine; Visit Provider Nurse Practitioner Family
DX: R15.9 Full incontinence of feces (principal); M34.9 Systemic sclerosis, unspecified
CPT/HCPCS: 97110; 97162

== ENCOUNTER 2022-05-04 15:44 | Outpatient (CLI) | payer MEDICARE, SELFPAY ==
--- NOTE | ~2022-05-04 | DEXA_ITS ---
Bone Density Report Name: GEENA CERVANTES Age: 76 Sex: Female Ethnicity: White Date of : 1945 Indication: postmenopausal; screening for osteoporosis; height loss; cancer; hysterectomy; Referring Provider: GENE RAMIREZ Study: Bone densitometry was performed. Exam Date: May 04, 2022 Accession number: [id number] Bone Density: Region BMD T-score Z-score Classification AP Spine(L1-L4) 0.856 -1.7 0.6 Osteopenia Femoral Neck (Right) 0.574 -2.5 -0.4 Osteoporosis Total Hip (Right) 0.672 -2.2 -0.4 Osteopenia World Health Organization criteria for BMD impression classify patients as: Normal (T-score at or above -1.0), Osteopenia (T-score between -1.0 and -2.5), or Osteoporosis (T-score at or below -2.5). 10-year Fracture Risk: FRAX not reported because: Some T-score for Spine Total or Hip Total or Femoral Neck at or below -2.5 Clinical Information Provided by Patient: Has used the following medications: Vitamin D, Calcium Has the following medical conditions: Cancer, Hysterectomy Patient maximum height was 65 Menopause Age: 42 Drinks caffeinated beverages Onset of menses at age 15 Number of children 1 Impression: The patient has osteoporosis, based on the Right Femoral Neck T-score. Discussion: INCREASED RISK OF FRACTURE. BONE DENSITY IS UNDESIRABLY LOW AT ONE OR MORE SKELETAL SITES, CONSISTENT WITH POSTMENOPAUSAL OSTEOPOROSIS. This patient's lowest T-score meets the World Health Organization's (WHO) criteria for osteoporosis at one or more sites (T-score -2.5 or below). In untreated patients, the risk of osteoporotic fracture increases approximately two-fold for each 1.0 SD decrease in T-score. Low bone density is not the only risk factor for fracture; also consider factors such as patient's age, frailty or poor health, risk of falling, risk of injury, previous osteoporotic fracture, family history of osteoporosis, cigarette smoking, low body weight, etc. Not everyone with low bone mineral density has osteoporosis; osteomalacia and other metabolic bone disorders should also be considered. Patients who have osteoporosis should be evaluated for specific diseases and conditions (secondary causes) that may cause or contribute to bone loss. The [place] Association [employer] Clinical Endocrinologists (AACE) and National Osteoporosis Foundation (NOF) recommend pharmacologic intervention for all postmenopausal women whose T-score is in this range. The patient should follow a healthful lifestyle (good nutrition with adequate calcium and vitamin D, and appropriate weight-bearing exercise). Follow-Up: Consider a repeat BMD and Vertebral Fracture Assessment (VFA) exam in 2 years or sooner if medically necessary, to reassess this patient's status. Reported by: RADHA on 05/04/2022 4:16:00 PM. Reviewed
== END 2022-05-04 15:45 | disposition home or self-care (01) ==
PROVIDERS: PCP Family Medicine; Visit Provider Physician Assistant
DX: Z78.0 Asymptomatic menopausal state (principal); M85.88 Other specified disorders of bone density and structure, other site; M81.0 Age-related osteoporosis without current pathological fracture; M85.851 Other specified disorders of bone density and structure, right thigh
CPT/HCPCS: 77080

== ENCOUNTER 2022-09-29 18:13 | Emergency (ER) | payer MEDICARE, SELFPAY ==
--- NOTE | ~2022-09-29 | CT_ITS ---
EXAMINATION: CT brain wo con DATE: 09/29/2022 18:51 INDICATION: Head injury. TECHNIQUE: Computed tomography (CT) of the head was performed without intravenous contrast. The mA wa s adjusted according to patient size. Iterative reconstruction technique was employed. The dose-lengt h product was 605.33 mGy-cm. COMPARISON: None FINDINGS: There is no intracranial hemorrhage, acute infarction, or abnormal intracranial mass lesion . There are scattered areas of low attenuation in the cerebral white matter, which is within normal l imits for the patient's age. The ventricles are normal in size. The paranasal sinuses are clear. Ther e are likely changes of ocular lens replacement surgeries. The mastoid air cells are normal. There is left periorbital soft tissue swelling. IMPRESSION: 1. Normal aging brain. Reviewed, dictated and finalized at location A. BER GASFITTER IMPRESSION: 1. Normal aging brain.
--- NOTE | ~2022-09-29 | CT_ITS ---
EXAMINATION: CT facial & cervical spine wo DATE: 09/29/2022 18:51 INDICATION: Head injury. TECHNIQUE: Computed tomography (CT) of the maxillofacial region and cervical spine was performed with out intravenous contrast. Automated exposure control and iterative reconstruction technique were empl oyed. The dose-length product was 106.26 mGy-cm. COMPARISON: None FINDINGS: MAXILLOFACIAL CT: There is left periorbital soft tissue swelling. There is leftward deviation of the nasal septum. No f racture. There are likely changes of ocular lens replacement surgeries. There is a small right mastoi d effusion. CERVICAL SPINE CT: There is mild scarring at the lung apices. There is 8 degrees levocurvature of cervical spine. There is hypolordosis of cervical spine. Vertebral body heights are normal. There is 2 mm anterolisthesis o f C5 on C6 and C6 on C7. There is mildly decreased disc height at C2-C3, C3-C4, and C4-C5. The follow ing disc levels are specifically discussed: C2-C3: There is mild bilateral uncovertebral joint osteoarthritis. There is severe bilateral facet andrew int osteoarthritis. There is mild right neural foraminal stenosis. There is no central canal stenosis . C3-C4: There is severe bilateral uncovertebral joint osteoarthritis. There is severe right and modera te left facet joint osteoarthritis. There is mild bilateral neural foraminal stenosis. There is mild central canal stenosis. C4-C5: There is moderate right and mild left uncovertebral joint osteoarthritis. There is severe bila teral facet joint osteoarthritis. There is mild bilateral neural foraminal stenosis. There is no cent ral canal stenosis. C5-C6: There is mild bilateral uncovertebral joint osteoarthritis. There is severe bilateral facet andrew int osteoarthritis. There is no neural foraminal stenosis. There is no central canal stenosis. C6-C7: There is no uncovertebral joint osteoarthritis. There is severe bilateral facet joint osteoart hritis. There is no neural foraminal stenosis. There is no central canal stenosis. C7-T1: There is no uncovertebral joint osteoarthritis. There is severe right and mild left facet join t osteoarthritis. There is mild right neural foraminal stenosis. There is no central canal stenosis. IMPRESSION: 1. No fracture. 2. Mild cervical spondylosis. Reviewed, dictated and finalized at location A. EWATER RAFTING GUIDE
[2022-09-29 18:21] VITALS: PULSE 73; RESP 14; TEMP 36.7; O2SAT 100
[2022-09-29] MEDS: LIDO 1%/EPINEPHRINE/PF 1:200,000 30 ML VIAL (20:54)
--- NOTE | 2022-09-29 20:57 | ED.FALL ---
HPI - Fall General Chief Complaint: Fall Stated Complaint: Fall Time Seen by Provider: 09/29/22 18:14 History of Present Illness HPI Narrative: Patient is a 77-year-old female who presents ER after mechanical fall. She was walking out of a local restaurant and tripped over a curb landing on her face and right knee. No LOC. She is not on blood thinner. No change in vision or hearing. No headache. Brought in by EMS. Patient denies any pain to her extremities. Related Data Home Medications Medication Instructions Recorded Confirmed aspirin 81 mg tablet,delayed 81 mg PO 2XW 09/05/19 09/18/22 release calcium carbonate 500 mg calcium 500 mg PO BID 09/05/19 09/18/22 (1,250 mg) tablet (Calcium 500) omeprazole 20 mg capsule,delayed 20 mg PO DAILY 09/05/19 09/18/22 release cholecalciferol (vitamin D3) 50 1,000 unit PO DAILY 10/22/19 09/18/22 mcg (2,000 unit) tablet (Vitamin D3) cyanocobalamin (vitamin B-12) 500 500 mcg PO DAILY 10/22/19 09/18/22 mcg tablet (Vitamin B-12) tadalafil 20 mg tablet 40 mg PO DAILY 10/22/19 09/18/22 fluticasone furoate 100 1 inh inhalation DAILY 11/10/19 09/18/22 mcg-vilanterol 25 mcg/dose inhalation powder (Breo Ellipta) ferrous sulfate 325 mg (65 mg 325 mg PO EVERY OTHER DAY 12/10/20 09/18/22 iron) tablet furosemide 40 mg tablet 40 mg PO BID 12/10/20 09/18/22 hydroxychloroquine 200 mg tablet 100 mg PO QPM 12/10/20 09/18/22 hydroxychloroquine 200 mg tablet 200 mg PO QAM 12/10/20 09/18/22 multivitamin 1 tablet PO DAILY 12/10/20 09/18/22 mycophenolate mofetil 500 mg tablet 500 mg PO Q12H 12/10/20 09/18/22 selexipag 1,600 mcg tablet 1,600 mcg PO BID 12/10/20 09/18/22 (Uptravi) macitentan 10 mg tablet (Opsumit) 10 mg PO DAILY 08/15/22 12/19/22 Allergies Allergy/AdvReac Type Severity Reaction Status Date / Time No Known Drug Allergies Allergy Unknown unknown Verified 09/18/22 15:30 Review of Systems Review of Systems: All systems reviewed & are unremarkable except as noted in HPI and below Constitutional: Constitutional: Denies chills, Denies fatigue and Denies fever(s) Eyes: Eyes: Denies change in vision and Denies photophobia Gastrointestinal: Gastrointestinal: Denies abdominal pain, Denies nausea and Denies vomiting Musculoskeletal: Musculoskeletal: Denies myalgias, Denies arthralgias and Denies joint swelling Integumentary/Breasts: Skin/Breast: Denies erythema and Denies rash Comments: Facial laceration, right knee skin tear. Neurologic: Denies syncope, Denies headache(s), Denies focal weakness and Denies numbness PMFSH Past Medical History Medical History Anxiety Chronic respiratory failure with hypoxia CREST syndrome GERD (gastroesophageal reflux disease) Hepatitis C antibody test negative (08/26/17) History of breast cancer Status post chemotherapy and mastectomy. Hypertension Hypothyroidism Irritable bowel syndrome with diarrhea Osteopenia Other spondylosis, cervical region Pulmonary hypertension Surgical History Surgical History Cataract extraction status (11/05/18) H/O bilateral mastectomy (08/31/00) H/O: hysterectomy (1997) History of appendectomy (1953) Family History Family History Father Diabetes mellitus Family history of Alzheimer's disease Mother Diabetes mellitus Family history of chronic obstructive pulmonary disease Family history of cardiomyopathy Grandparent Family history of malignant neoplasm of breast Social History Social History Social History: The patient lives in [place] with her . He is in poor health and she has to help take care of him. She designates her as her surrogate decision maker and she wishes to be a full code. She is a lifelong nonsmoker and denies alcohol and
[2022-09-29 21:50] VITALS: BP 136/55; PULSE 74; RESP 18; O2SAT 100
== END 2022-09-29 21:50 | disposition home or self-care (01) ==
PROVIDERS: Emergency Provider Emergency Medicine; PCP Family Medicine
DX: S01.82XA Laceration with foreign body of other part of head, initial encounter (principal); S01.122A Laceration with foreign body of left eyelid and periocular area, initial encounter; S81.011A Laceration without foreign body, right knee, initial encounter; J96.11 Chronic respiratory failure with hypoxia; I10 Essential (primary) hypertension; E03.9 Hypothyroidism, unspecified; I27.20 Pulmonary hypertension, unspecified; K58.0 Irritable bowel syndrome with diarrhea; M85.80 Other specified disorders of bone density and structure, unspecified site; K21.9 Gastro-esophageal reflux disease without esophagitis; Z90.13 Acquired absence of bilateral breasts and nipples; Z90.710 Acquired absence of both cervix and uterus; Z85.3 Personal history of malignant neoplasm of breast; Z92.21 Personal history of antineoplastic chemotherapy; Z98.49 Cataract extraction status, unspecified eye; Z79.82 Long term (current) use of aspirin; W10.1XXA Fall (on)(from) sidewalk curb, initial encounter
CPT/HCPCS: 12015; 70450; 70486; 72125; 99284

== ENCOUNTER 2024-06-07 10:08 | Outpatient (CLI) | payer MEDICARE, SELFPAY ==
--- NOTE | ~2024-06-07 | DEXA_ITS ---
Bone Density Report Name: GEENA CAMPOS Age: 78 Sex: Female Ethnicity: White Date of : 1945 Indication: postmenopausal; screening for osteoporosis; height loss; history of glucocorticoids; prior fracture; cancer; hysterectomy; Referring Provider: GIOVANNI FRENCH Study: Bone densitometry was performed. Exam Date: June 07, 2024 Accession number: [id number] Bone Density: Region BMD T-score Z-score Classification AP Spine(L1-L4) 0.852 -1.8 0.7 Osteopenia Femoral Neck (Right) 0.551 -2.7 -0.5 Osteoporosis Total Hip (Right) 0.663 -2.3 -0.4 Osteopenia World Health Organization criteria for BMD impression classify patients as: Normal (T-score at or above -1.0), Osteopenia (T-score between -1.0 and -2.5), or Osteoporosis (T-score at or below -2.5). 10-year Fracture Risk: FRAX not reported because: Some T-score for Spine Total or Hip Total or Femoral Neck at or below -2.5 Prior hip or vertebral fracture Clinical Information Provided by Patient: Have had a previous hip or vertebral fracture Has had a low trauma fracture Has taken Glucocorticoids Has used the following medications: Vitamin D, Calcium Has the following medical conditions: Cancer, Hysterectomy Patient maximum height was 65.5 Menopause Age: 42 Drinks caffeinated beverages Onset of menses at age 15 Number of children 1 Impression: The patient has established osteoporosis, based on the Right Femoral Neck T-score and the existence of a prior fracture. The patient has risk factors, including: previous fracture, history of glucocorticoid therapy. Discussion: HIGH RISK OF FRACTURE. BONE DENSITY IS UNDESIRABLY LOW AT ONE OR MORE SKELETAL SITES, CONSISTENT WITH POSTMENOPAUSAL OSTEOPOROSIS. This patient's lowest T-score, in a patient who has previously fractured, meets the World Health Organization's (WHO) criteria for severe osteoporosis. In untreated patients, the risk of osteoporotic fracture increases approximately two-fold for each 1.0 SD decrease in T-score. Low bone density is not the only risk factor for fracture; also consider factors such as patient's age, frailty or poor health, risk of falling, risk of injury, previous osteoporotic fracture, family history of osteoporosis, cigarette smoking, low body weight, etc. Not everyone with low bone mineral density has osteoporosis; osteomalacia and other metabolic bone disorders should also be considered. Patients who have osteoporosis should be evaluated for specific diseases and conditions (secondary causes) that may cause or contribute to bone loss. The [place] Association [employer] Clinical Endocrinologists (AACE) and National Osteoporosis Foundation (NOF) recommend pharmacologic intervention for all postmenopausal women with a previous hip or vertebral fracture and a T-score in this range. The patient should follow a healthful lifestyle (
== END 2024-06-07 10:09 | disposition home or self-care (01) ==
LOC: ANHIMG 10:09
PROVIDERS: PCP Family Medicine; Visit Provider Nurse Practitioner Family
DX: M85.88 Other specified disorders of bone density and structure, other site (principal); M81.0 Age-related osteoporosis without current pathological fracture; M85.851 Other specified disorders of bone density and structure, right thigh
CPT/HCPCS: 77080

== ENCOUNTER 2024-06-16 14:00 | Outpatient (RCR) | payer MEDICARE, SELFPAY ==
--- NOTE | 2024-03-31 15:08 | OPREHPOC ---
Outpatient Therapy Plan of Care This is a Multidisciplinary Plan of Care that may contain components documented by all disciplines (PT, OT, and ST.) PT Problem 1 PT Problem #1 Knowledge Deficit PT Goal 1 Goal 1. Patient will perform independent HEP Target Visit 3 PT Problem 2 PT Problem #2 Impaired Strength PT Goal 1 Goal 1. Pelvic floor strength to 4/5 to reduce fecal incontinence 2. Pelvic floor endurance to 10 seconds to reduce fecal incontinence Target Visit 4 PT Problem 3 PT Problem #3 Pain PT Goal 1 Goal 1. Patient will report no pain with sitting for at least 1 week regardless of type of chair Target Visit 4
--- NOTE | 2024-03-31 15:09 | PTOPEVAL1 ---
Assessment and note entered by Faith Light DPT Evaluation Information Assessment Status Evaluation Diagnosis k62.3, m62.89 Subjective Information Pt reports she thought the had hemorrhoids but has been diagnosed with a rectal prolapse. Recently saw a specialist at [facility] and was given some surgical options but due to heart/lung issues her legal service specialist recommends avoiding other surgeries. Is taking a diuretic and voids often, also has some fecal incontinence. Previous pelvic PT but was right around covid and only had a couple visits. Voids 7-8 times a day and 3 more at night. Can hold urge sometimes 5 minutes, sometimes less and barely gets to the bathroom. Does not think she really gets urinary incontinence, if any it's a tiny amount. Denies pain with urination. BM 1 -7 times a day, stool frequency varies. Pain at times depending on consistency. Fecal incontinence daily, more than a smear and wears pads all the time. 3-4 pads a day. States she takes extra bathroom trips just in case before going out in the community. Bleeding with BM at times and pain sitting on hard chairs. Denies history of pelvic pain. Pt has been 1 time, 1 vaginal delivery without complications. History of diverticulitis. Complete hysterectomy in the early . Pt has pulmonary arterial hypertension. Diet: drinks 1 glass of water (1 per day), iced tea (1-2 glasses a day), 1 cup of coffee a day, alcoholic drink 3 times a week. Does not drink soda. Does not eat 3 meals a day, eats in the morning to take her pills, afternoon snack and then meal in the evening. States there are no specific food groups she avoids. Patient goal: more confidence that I can manage prolapse and symptoms Returns to MD in 4 months. Reported Pain Level Pain Score 0: Self Report Assessment PT Clinical Summary The patient is presenting to skilled therapy with rectal prolapse and frequent fecal incontinence. She presents with decreased pelvic floor strength and endurance, as well as decreased overall hip and core strength which are contributing to her incontinence and symptoms of prolapse. She will benefit from therap
--- NOTE | 2024-04-28 13:53 | OPREHPOC ---
Outpatient Therapy Plan of Care This is a Multidisciplinary Plan of Care that may contain components documented by all disciplines (PT, OT, and ST.) PT Problem 1 PT Problem #1 Knowledge Deficit PT Goal 1 Goal 1. Patient will perform independent HEP Target Visit 3 Progress Met PT Problem 2 PT Problem #2 Impaired Strength PT Goal 1 Goal 1. Pelvic floor strength to 4/5 to reduce fecal incontinence 2. Pelvic floor endurance to 10 seconds to reduce fecal incontinence Target Visit 9 Progress Partially Met Comment 1. not met 2. met PT Problem 3 PT Problem #3 Pain PT Goal 1 Goal 1. Patient will report no pain with sitting for at least 1 week regardless of type of chair Target Visit 9 Progress Partially Met Comment 1. improved pain but not gone PT Problem 4 PT Problem #4 Impaired Functional ADLs PT Goal 1 Goal New goal 04/28/24 1. Patient will report no more than 1 instance of fecal incontinence per month Target Visit 9
--- NOTE | 2024-04-28 13:53 | PTOPPROG ---
Assessment and note entered by Faith Light DPT Evaluation Information Assessment Status Progress Diagnosis k62.3, m62.89 Subjective Information Pt reports she thinks she is improving some. States she feels more awareness of when she needs to have a BM. Fecal incontinence continues to occur daily. Also notices less bleeding and improved stool consistency. BM 3-4 times a day. Can hold urine 10 minutes. Using 3-4 liners a day. Continued pain with sitting but it has improved, 4/10 highest and lowest 0/10. Uses a cushion but thinks she would be able to sit longer in a regular chair. Assessment PT Clinical Summary The patient has made some progress in therapy and reports improvements in her ability to hold urge to urinate, improved stool consistency and frequency, and less pain with sitting. She demonstrates improved pelvic floor endurance as well as core strength. She does continue to report daily fecal incontinence and will benefit from further therapy to address strength in order to reduce incontinence and other prolapse symptoms in order to improve function. Plan of Care Interventions Manual Therapy,Neuro Re-education,Patient/ Caregiver Education,Therapeutic Activities, Therapeutic Exercise PT Services Indicated Yes Treatment Frequency and 1 time a week for 5 visits Duration These treatments will address the objective and functional deficits as defined above. The patient will be advanced safely and appropriately in order for the patient to progress towards his/her prior level of function. Additional exercises will be introduced and as well as a comprehensive home exercise program upon discharge, if needed, ?to ensure carryover of functional gains achieved in the clinic. This treatment plan has been reviewed and agreement upon by the patient.
--- NOTE | 2024-06-03 16:08 | OPREHPOC ---
Outpatient Therapy Plan of Care This is a Multidisciplinary Plan of Care that may contain components documented by all disciplines (PT, OT, and ST.) PT Problem 1 PT Problem #1 Knowledge Deficit PT Goal 1 Goal / Goal Update 1. Patient will perform independent HEP Target Visit 3 Progress Met PT Problem 2 PT Problem #2 Impaired Strength PT Goal 1 Goal / Goal Update 1. Pelvic floor strength to 4/5 to reduce fecal incontinence 2. Pelvic floor endurance to 10 seconds to reduce fecal incontinence Target Visit 9 Progress Met PT Problem 3 PT Problem #3 Pain PT Goal 1 Goal / Goal Update 1. Patient will report no pain with sitting for at least 1 week regardless of type of chair Target Visit 12 Progress Partially Met PT Problem 4 PT Problem #4 Impaired Functional ADLs PT Goal 1 Goal / Goal Update New goal 04/28/24 1. Patient will report no more than 1 instance of fecal incontinence per month update 06/03/24 1. 5 days out of 7 Target Visit 12 Progress Partially Met
--- NOTE | 2024-06-03 16:08 | PTOPPROG ---
Assessment and note entered by Faith Light DPT Evaluation Information Assessment Status Progress Diagnosis k62.3, m62.89 Subjective Information Pt continues to report improvements with therapy. Feeling better control her bladder and somewhat with her bowels. Fecal incontinence she thinks 5 days out of the last 7. Has noticed a correlation with stool consistency and the incontinence. A little bit of bleeding over the last week. BM 4-5 times a day. Can hold urine 15 minutes if she is out and using urge suppression strategies. Using 4 liners a day. Highest pain with sitting 4/10 and lowest 0/10. Assessment PT Clinical Summary The patient has continued to make good progress in therapy. She reports decreased frequency of fecal incontinence to 5 days out of 7 and reports less bleeding. She demonstrates improved pelvic floor strength. Due to her progress but continued incontinence, she will benefit from further therapy to reduce incontinence, pain with sitting, and improve overall function. Plan of Care Interventions Manual Therapy,Neuro Re-education,Patient/ Caregiver Education,Therapeutic Activities PT Services Indicated Yes Treatment Frequency and 1 visit every other week x 3 visits Duration These treatments will address the objective and functional deficits as defined above. The patient will be advanced safely and appropriately in order for the patient to progress towards his/her prior level of function. Additional exercises will be introduced and as well as a comprehensive home exercise program upon discharge, if needed, ?to ensure carryover of functional gains achieved in the clinic. This treatment plan has been reviewed and agreement upon by the patient.
--- NOTE | 2024-06-30 12:24 | PCPTNOTE ---
This treatment is being continued on visit number [id number]. Please see documentation on both accounts to view progress. Completed interventions, outcomes, and problems have been marked as Inactive to facilitate the copying of the Care plan routine for recurring accounts.
== END 2024-06-27 16:12 | disposition still patient (30) ==
LOC: ANHGOSHPT 14:00
PROVIDERS: PCP Family Medicine; Visit Provider Nurse Practitioner
DX: K62.3 Rectal prolapse (principal); M62.89 Other specified disorders of muscle
CPT/HCPCS: 97110; 97112; 97161; 97530

== ENCOUNTER 2024-07-15 15:00 | Outpatient (RCR) | payer MEDICARE, SELFPAY ==
--- NOTE | 2024-06-30 12:25 | PCPTNOTE ---
The treatment documented on this account is a continuation of the treatment documented on visit number [id number]. Please see documentation on both accounts to view progress. The Plan of Care has been transitioned and updated within the new V#. I have addressed and agree with the discipline specific Problems, Interventions, and Goals for the current certification period. Completed interventions, outcomes, and problems have been marked as Inactive to facilitate the copying of the Care plan routine for recurring accounts.
--- NOTE | 2024-07-15 15:44 | OPREHPOC ---
Outpatient Therapy Plan of Care This is a Multidisciplinary Plan of Care that may contain components documented by all disciplines (PT, OT, and ST.) PT Problem 1 PT Problem #1 Knowledge Deficit PT Goal 1 Goal / Goal Update 1. Patient will perform independent HEP Target Visit 3 Progress Met PT Problem 2 PT Problem #2 Impaired Strength PT Goal 1 Goal / Goal Update 1. Pelvic floor strength to 4/5 to reduce fecal incontinence 2. Pelvic floor endurance to 10 seconds to reduce fecal incontinence Target Visit 9 Progress Met PT Problem 3 PT Problem #3 Pain PT Goal 1 Goal / Goal Update 1. Patient will report no pain with sitting for at least 1 week regardless of type of chair Target Visit 12 Progress Partially Met PT Problem 4 PT Problem #4 Impaired Functional ADLs PT Goal 1 Goal / Goal Update New goal 04/28/24 1. Patient will report no more than 1 instance of fecal incontinence per month update 06/03/24 1. 5 days out of 7 update 07/15/24 1. 3-4 days out of 7 Target Visit 12 Progress Partially Met
--- NOTE | 2024-07-15 15:44 | PTOPEVAL1 ---
Assessment and note entered by Faith Light DPT Evaluation Information Assessment Status Discharge Diagnosis k62.3, m62.89 Subjective Information Pt reports she is not having as much incontinence and is better able to recognize when she needs to use the bathroom. Reports no bleeding over the last week. BM 3-4 times a day. Fecal incontinence 3-4 days of the last 7. Using 4 liners a day. Highest pain with sitting 4/10 and lowest 0/10. Also reports continued improved stool consistency and less diarrhea. Reported Pain Level Pain Score 0: Self Report Assessment PT Clinical Summary The patient has continued to make good progress in therapy and reports decreased frequency of fecal incontinence. She demonstrates overall improved pelvic floor strength and endurance as well as improved hip and core strength. Due to her progress, discharge is recommended at this time. She has been educated to follow up with MD and/or PT as needed. Plan of Care Interventions Patient/Caregiver Education,Manual Therapy,Neuro Re- education,Therapeutic Activities PT Services Indicated No Treatment Frequency and - Duration These treatments will address the objective and functional deficits as defined above. The patient will be advanced safely and appropriately in order for the patient to progress towards his/her prior level of function. Additional exercises will be introduced and as well as a comprehensive home exercise program upon discharge, if needed, ?to ensure carryover of functional gains achieved in the clinic. This treatment plan has been reviewed and agreement upon by the patient.
== END 2024-07-16 08:38 | disposition home or self-care (01) ==
LOC: ANHGOSHPT 15:00
PROVIDERS: PCP Family Medicine; Visit Provider Nurse Practitioner
DX: K62.3 Rectal prolapse (principal); M62.89 Other specified disorders of muscle
CPT/HCPCS: 97112; 97530

== ENCOUNTER 2025-03-11 11:44 | Inpatient (IN) | payer MEDICARE, SELFPAY ==
[2025-03-11] VITALS (15 sets, daily range): BP systolic 90–113; BP diastolic 40–78; PULSE 69–76; RESP 16–20; TEMP 36.8–37; O2SAT 92–100; BMI 21.7
--- NOTE | ~2025-03-11 | XR_ITS ---
Portable chest x-ray Comparison: 11/11/2019 Clinical History: Hypoxia Findings: Moderate left pleural effusion and possible minimal right pleural effusion are present. Th ere is central congestive change of bibasilar pulmonary edema/atelectasis. Cardiomediastinal silhoue tte is stable. Bones and soft tissues are unremarkable. Impression: Moderate left pleural effusion with bibasilar pulmonary edema/atelectasis and central congestive martinez ge. Possible minimal right pleural effusion. Reviewed, dictated and finalized at location M. Impression: Moderate left pleural effusion with bibasilar pulmonary edema/atelectasis and c entral congestive change. Possible minimal right pleural effusion.
--- NOTE | ~2025-03-11 | NM_ITS ---
EXAMINATION: NM bone scan whole body DATE: 03/13/2025 14:41 INDICATION: Sclerotic lesion at L5. TECHNIQUE: 22.3 mCi Tc-99m HDP was administered intravenously. Delayed whole-body scintigrams were o btained. COMPARISON: CT dated 03/11/2025 and 09/29/2022 FINDINGS: Mild likely degenerative joint centered uptake at the bilateral lower cervical facet joints, the radi al aspect of the right carpus and at the sternomanubrial articulation. No other lesions suspicious fo r metastatic disease. Specifically no abnormal uptake associated with the small sclerotic lesions in the the right hemipelvis where at the L5 vertebral body seen on the recent CT which most likely repre sent bone islands. No other atypical foci of abnormal bone uptake to suggest metastatic disease. Phot openic defect at the left hip and proximal femur corresponding to a bipolar type left hip hemiarthrop lasty. IMPRESSION: 1. No foci of abnormal bone uptake to suggest osseous metastatic disease. Reviewed, dictated and finalized at location A.
--- NOTE | ~2025-03-11 | CT_ITS ---
Clinical Indication: Pulmonary embolus CT Scan of the Chest with Contrast: Technique: Contiguous sections were acquired throughout the chest after intravenous administration of 100 cc of Omnipaque 350. Dose reduction technique was used on this scan by utilizing automated expos ure control and iterative reconstruction technique. The dose-length product (DLP) was 222.74 mGy-cm. Findings: There is no evidence of any significant mediastinal, hilar or axillary lymphadenopathy. There is no f illing defect in the pulmonary arterial tree to suggest pulmonary embolus. There is no evidence of ao rtic dissection or aneurysm. No pericardial effusion. There is extensive distention of the esophagus with debris or ingested material present. Moderate bilateral pleural effusions are present with bibasilar atelectatic change. There is hazy bia undglass opacities in the aerated lungs, compatible with pulmonary edema. Images through the upper abdomen reveal no abnormalities. Intracapsular rupture left breast implant n oted. Impression: No evidence of pulmonary embolus, aortic dissection, or aortic aneurysm. Moderate bilateral pleural effusions with bibasilar atelectasis and mild pulmonary edema. Distended esophagus with debris or ingested material. Stricture at the GE junction is a consideration . Consider esophagram for further evaluation as indicated. Reviewed, dictated and finalized at location . Impression: No evidence of pulmonary embolus, aortic dissection, or aortic aneurysm. Moderate bilateral pleural effusions with bibasilar atelectasis and mild pulmon annalisa edema. Distended esophagus with debris or ingested material. Stricture at the GE junct ion is a consideration. Consider esophagram for further evaluation as indicated .
--- NOTE | ~2025-03-11 | CT_ITS ---
EXAMINATION: CT abdomen pelvis w con DATE: 03/11/2025 14:02 INDICATION: Gastrointestinal bleed TECHNIQUE: Computed tomography (CT) of the abdomen and pelvis was performed with 100 mL Omnipaque-350 intravenous contrast. Automated exposure control and iterative reconstruction technique were employe d. The dose-length product was 206.44 mGy-cm. COMPARISON: None FINDINGS: Mild emphysema and dependent atelectasis in the bilateral lower lobes. Very small bilateral posterior layering pleural effusions. Cardiomegaly. Small pericardial effusion. Atherosclerotic coronary arter y calcification as well as aortic valve and dense mitral annular calcification. There is a large amou nt of ingested debris within the esophagus with relatively decompressed stomach. Bilateral breast imp lants with saline on the right and with high attenuation Silicone with intracapsular rupture and melecio pheral capsular calcifications on the left. There are a few small low-attenuation hepatic cysts measuring up to 1.1 cm in maximal diameter in the left hepatic lobe. There is mild intrahepatic biliary ductal dilation. No dilation the common bile d uct which measures up to 8 mm. Minimal perihepatic and pericholecystic ascites. The partially decompr essed gallbladder appears otherwise unremarkable with no wall thickening or surrounding from trace st randing to suggest acute cholecystitis. There are numerous small cystic lesions scattered throughout the pancreas and the head to the tail which suggests dilated pancreatic ductal side branches related to chronic pancreatitis. Spleen, bilateral adrenal glands and left kidney are normal. 8 mm cyst at th e upper pole of the right kidney and 3-4 mm nonobstructing stone at a lower pole calyx of the right k idney. There is mild edematous wall thickening of multiple loops of small bowel throughout the abdome n and pelvis, sparing the terminal ileum which is suspicious for an enteritis. Colon is unremarkable. The appendix is not visualized. No pericecal inflammatory change to suggest acute appendicitis. Blad yaz is normal. The uterus is not identified and has likely been surgically resected. No abscess or fr ee intraperitoneal gas. No pathologically enlarged abdominal or pelvic lymphadenopathy. Partially vis ualized bipolar type right hip hemiarthroplasty. Severe disc height loss at L5-S1. Otherwise mild spo ndylosis and more cephalad lumbar and lower thoracic spine. A few small sclerotic bone islands in the right pelvis and right femoral head. More subtle sclerotic lesion in the L5 vertebral body. IMPRESSION: 1. Enteritis which could be infectious or inflammatory in etiology. 2. Mild intrahepatic biliary ductal dilation but without evident dilation the common bile duct. Corre late with liver function tests and if clinically indicated could consider further evaluation with [facility] P. 3. Multiple cystic lesions diffusely throughout the pancreas which suggests dilated sidebranches rela alexa to chronic pancreatitis. Correlate with clinical history. This can be further evaluated same time with pre and postcontrast MRI/MRCP. 4. Cardiomegaly and small pericardial effusion. 5. Very small bilateral posterior layering pleural effusions and minimal hepatic and pericholecystic ascites. 6. Large amount of ingested debris within the stomach patulous distal esophagus and with relatively d ecompressed stomach which suggests possible esophageal dysmotility or stricture. 7. Silicone left breast implant with intracapsular rupture. 8. Indeterminate subtle sclerotic lesion at L5. The patient has known history of prior malignancy wou ld consider bone scan for further evaluation. Reviewed, dictated and finalized at location A. IMPRESSION: 1. Enteritis which could be infectious or inflammatory in etiology. 2. Mild intrahepatic biliary ductal dilation but without evident dilation the c ommon bile duct. Correlate with liver function tests and if clinically indicate d could consider further evaluation with MRCP. 3. Multiple cystic lesions diffusely throughout the pancreas which suggests dil ated sidebranches related to chronic pancreatitis. Correlate with clinical hist ory. This can be further evaluated same time with pre and postcontrast MRI/MRCP . 4. Cardiomegaly and small pericardial effusion. 5. Very small bilateral posterior layering pleural effusions and minimal hepati c and pericholecystic ascites. 6. Large amount of ingested debris within the stomach patulous distal esophagus and with relatively decompressed stomach which suggests possible esophageal dy smotility or stricture. 7. Silicone left breast implant with intracapsular rupture. 8. Indeterminate subtle sclerotic lesion at L5. The patient has known history o f prior malignancy would consider bone scan for further evaluation.
--- NOTE | 2025-03-11 12:00 | ECG_ITS ---
Test Date: 2025-03-11 12:01:48 Measurements Intervals Manning Rate: 68 P: 56 CA: 178 QRS: 85 QRSD: 122 T: 15 QT: 411 QTc: 439 Interpretive Statements SINUS RHYTHM RIGHT BUNDLE BRANCH BLOCK CANNOT R/O SEPTAL INFARCT, AGE INDETERMINATE MODERATE T-WAVE ABNORMALITY, CONSIDER ANTERIOR ISCHEMIA BASELINE ARTIFACT- I, II, III, AVR, AVL, AVF, V5 ABNORMAL ECG No previous ECG available for comparison Electronically Signed On 03-11-2025 12:47:22 CDT by Fermín Hernandes D.O.
[2025-03-11 12:38] LABS: Basophils Percent Auto 0.7 % (0.2-1.2); Eosinophils Percent Auto 0.2 % (0-4.4); Hematocrit 22.6 % (37.0-47.0); Lymphocytes Percent Auto 6.7 % (18.3-44.2); Mean Corpuscular HGB Conc 27.9 g/dl (32-36); Mean Corpuscular Hemoglobin 27.4 pg (26-34); Mean Corpuscular Volume 98.3 fl (80-100); Mean Platelet Volume 10.4 fl (7.4-10.4); Monocytes Absolute Auto 0.4 K/mm3 (0.1-0.6); Monocytes Percent Auto 6.4 % (2.6-8.5); Neutrophils Absolute Auto 4.8 K/mm3 (1.3-6.7); Nucleated Red Blood Cells Perc 0.7 % (0.0-0.2); Platelet Count Result 143 k/mm3 (150-375); Red Cell Distribution Width 17.5 % (11.5-14.5)
[2025-03-11 12:40] LABS: Hemoglobin 6.3 g/dL (12.0-15.0)
[2025-03-11 12:49] LABS: INR 1.2; Prothrombin Time 14.9 Seconds (11.1-14.7)
[2025-03-11 12:50] LABS: Partial Thromboplastin Time 27.6 Seconds (22.3-36.8)
[2025-03-11 12:54] LABS: Alanine Aminotransferase 8 U/L (6-35); Albumin Level 3.8 g/dL (3.5-5.1); Alkaline Phosphatase 39 U/L (38-126); Anion Gap 10 mmol/L (4-12); Aspartate Amino Transferase 19 U/L (14-36); Bilirubin,Total 0.2 mg/dL (0.2-1.3); Blood Urea Nitrogen 40 mg/dL (7-17); Calcium 8.8 mg/dL (8.4-10.2); Carbon Dioxide 27 mmol/L (22-30); Chloride 96 mmol/L (98-107); Estimated CRCL calculation 29 ml/min; Estimated Glomerular Filt Rate 45; Glucose 96 mg/dL (65-110); Potassium 2.5 mmol/L (3.4-5.0); Sodium 133 mmol/L (137-145); Total Protein 5.7 g/dL (6.3-8.2)
[2025-03-11 13:04] LABS: Anisocytosis 1+; Hypochromasia 2+; Platelet Estimate Slightly Decreased (Adequate)
[2025-03-11 13:05] LABS: Acanthocytes 1+; Ovalocytes 1+; Poikilocytosis 1+; Schistocytes Rare; Stomatocytes 1+; Tear Drop Cells 1+
--- NOTE | 2025-03-11 13:10 | ED_ITS ---
HPI - Recheck/Abnormal Lab/Rx General Chief Complaint: Recheck/Abnormal Lab/Rx Stated Complaint: LOW BLOOD COUNT Time Seen by Provider: 03/11/25 12:03 History of Present Illness HPI narrative: 79-year-old female with a past medical history including scleroderma, CKD, hypertension, hypothyroidism, pulmonary hypertension. Patient presents to the emergency department after having outpatient laboratory studies showing anemia. Patient was called by her primary care provider and told to go the hospital as she had a precipitous decline in her hemoglobin count. Patient has been complaining of feeling tired and having to use increased oxygen at night. She normally wears 1 L nasal cannula 247 but now increased to 2 L per she endorses having dark tarry stools and some diarrhea. No bright red blood per rectum. History of rectal prolapse. No abdominal pain, nausea, vomiting. No cough shortness of breath. She was otherwise in her normal state of health. She states her last colonoscopy was 3 years ago. No history of GI bleeding to her knowledge. Related Data Home Medications ?Medication ?Instructions ?Recorded ?Confirmed ?Last Taken ?Type calcium carbonate (Calcium 500) 500 mg PO BID 09/05/19 07/28/24 11/10/19 08:00 History omeprazole 20 mg capsule,delayed 20 mg PO DAILY 09/05/19 07/28/24 11/10/19 08:00 History release cholecalciferol (vitamin D3) 50 1,000 unit PO DAILY 10/22/19 07/28/24 11/10/19 08:00 History mcg (2,000 unit) tablet (Vitamin D3) tadalafil 20 mg tablet 40 mg PO DAILY 10/22/19 07/28/24 11/10/19 08:00 History ferrous sulfate 325 mg (65 mg 325 mg PO EVERY OTHER DAY 12/10/20 07/28/24 Unknown History iron) tablet furosemide 40 mg tablet 40 mg PO BID 12/10/20 07/28/24 Unknown History hydroxychloroquine 200 mg tablet 200 mg PO QAM 12/10/20 07/28/24 Unknown History multivitamin 1 tablet PO DAILY 12/10/20 07/28/24 Unknown History mycophenolate mofetil 500 mg tablet 500 mg PO Q12H 12/10/20 07/28/24 Unknown History selexipag 1,600 mcg tablet 1,600 mcg PO BID 12/10/20 07/28/24 Unknown History (Uptravi) macitentan 10 mg tablet (Opsumit) 10 mg PO DAILY 05/15/22 07/28/24 Unknown History aspirin 81 mg tablet,delayed 81 mg PO DAILY 03/19/23 07/28/24 Unknown History release fluticasone propionate 50 See Rx Instructions .Route 03/19/23 07/28/24 Unknown History mcg/actuation nasal .COMPLEX PRN spray,suspension metolazone 2.5 mg tablet 2.5 mg PO DAILY 07/19/23 07/28/24 Unknown History fluticasone 250 mcg-salmeterol 50 1 inh inhalation BID 11/24/24 11/24/24 Unknown History mcg/dose blistr powdr for inhalation (Wixela Inhub) sotatercept-csrk 45 mg 45 mg subcut .Q3PDEUS 11/24/24 11/24/24 Unknown History subcutaneous kit (Winrevair) Allergies Allergy/AdvReac Type Severity Reaction Status Date / Time No Known Drug Allergies Allergy Unknown unknown Verified 03/11/25 12:05 Review of Systems 2 Review of Systems: As reviewed above in [facility] Past Medical History Medical History Fecal incontinence Rectal bleeding Rectal prolapse Irritable bowel syndrome with diarrhea Hepatitis C antibody test negative (08/26/17) Chronic respiratory failure with hypoxia Pulmonary hypertension History of breast cancer Status post chemotherapy and mastectomy. Anxiety GERD (gastroesophageal reflux disease) Hypothyroidism Hypertension CREST syndrome Osteopenia Other spondylosis, cervical region Surgical History Surgical History Cataract extraction status (11/05/18) History of appendectomy (1953) H/O: hysterectomy (1997) H/O bilateral mastectomy (08/31/00) Family History Family History Father Diabetes mellitus Family history of Alzheimer's disease Mother Diabetes mellitus Family history of chronic obstructive pulmonary disease Family history of cardiomyopathy Grandparent Family history of malignant neoplasm of breast Social History Social History Social History: The patient lives in [place] with her . He is in poor health and she has to help take care of him. She designates her as her surrogate decision maker and she wishes to be a full code. She is a lifelong nonsmoker and denies alcohol and drug abuse. 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 Gender identity (if verbalized by the patient): Female Spiritual care concerns: No Agree to blood products: Yes Exam 2 Narrative: GENERAL: Elderly and chronically ill-appearing but not any acute distress HEAD: [Normocephalic, atraumatic.] EYES: [PERRLA and EOMI.] ENT: Nares clear, no rhinorrhea or epistaxis. Mucous membranes moist. NECK: Supple. CHEST: [Clear to auscultation. No respiratory distress.] HEART: [Regular rate and rhythm]. No murmur heard. [Normal peripheral pulses.] ABDOMEN: [Soft, nondistended], [nontender], [No rigidity or guarding] : Rectum with some surrounding erythema, dark stool on digital rectal examination with guaiac-positive on stool card. EXTREMITIES: Normal range of motion. [No edema.] SKIN: Warm, dry, no rash. NEURO: [No focal deficits]. Alert and oriented [x3.] PSYCH: [Normal mood and affect.] Course Vital Signs Vital signs: Vital Signs Temperature 36.8 C 03/11/25 12:02 Pulse Rate 69 03/11/25 12:02 Respiratory Rate 16 03/11/25 12:02 Blood Pressure 113/62 03/11/25 12:02 Pulse Oximetry 100 03/11/25 12:02 Oxygen Delivery Nasal Cannula 03/11/25 12:02 Oxygen Flow Rate 2 03/11/25 12:02 Temperature 36.8 C 03/11/25 12:02 Pulse Rate 70 03/11/25 14:29 Respiratory Rate 18 03/11/25 14:29 Blood Pressure 98/54 L 03/11/25 14:29 Pulse Oximetry 93 03/11/25 14:29 Oxygen Delivery Nasal Cannula 03/11/25 12:02 Oxygen Flow Rate 2 03/11/25 12:02 MDM - Recheck/Abnormal Lab/Rx MDM Narrative Medical decision making narrative: 79-year-old female with a past medical history including scleroderma, CKD, hypertension, hypothyroidism, pulmonary hypertension. Patient presents to the emergency department after having outpatient laboratory studies showing anemia. Patient's hemoglobin out outside labs were 6.8 with her previous levels being in the 9-10 range. Repeat blood draw here shows precipitous decline to 6.3. Patient endorses dark tarry stools but no history of rectal bleeding bright red blood or GI bleeding to her knowledge. She has a soft nontender nondistended abdomen. Her vital signs are reassuring without any tachycardia, fever, hypoxia or hypotension. Considerations presently for an active GI bleed, diverticular bleed, AVM, less likely ischemic bowel or other potential source of bleeding as she denies any other symptomatology. CT of the abdomen pelvis with contrast GI bleed protocol was ordered, CBC, CMP, PT, PTT, type and cross for 2 units of PRBCs obtained. Patient's CMP came back with profound hypokalemia. EKG shows ST depression likely secondary to demand ischemia from low blood count and needing additional oxygen. She was given IV and p.o. potassium. Vascular access was difficult requiring vascular access nurse to come to bedside for additional blood draw and IV. Chaperoned examination reveals rectum with some surrounding erythema, dark stool on digital rectal examination with guaiac- positive on stool card concerning for upper possible GI bleed. Patient is on aspirin. Patient's laboratory studies show a hemoglobin of 6.3 lower than her outpatient labs yesterday. She was given 2 units packed red blood cells. Platelets are slightly low at 143 but consistent with her normal levels. No leukocytosis. Coagulation panel with a slightly prolonged PT but otherwise normal INR PTT. Electrolytes are severely deranged with a potassium 2.5 and elevated BUN of 40 with a creatinine 1.16. Could be GI losses of blood causing both the hypokalemia and elevated BUN. CT scan shows numerous findings including diffuse enteritis likely inflammatory as she has no white count or fever. Mild biliary duct dilatation, cystic lesions throughout the pancreas, mild cardiomegaly and small pericardial effusion, layering pleural effusions and pericholecystic ascites, large amounts of ingested material in the stomach possibly dysmotility or stricture. Sclerotic lesions of L5, silicone breast implants with intracapsular rupture. Spoke to Dr. Vergara from Gastroenterology regarding patient's CT findings as well as guaiac-positive blood and hemoglobin drop. Patient will be made NPO and aspirin held for likely scope tomorrow morning. Patient agreeable to the plan and will be admitted for further care. He remains hemodynamically stable and blood products awaiting infusion from [facility]. Patient left repeat BMP for potassium correction and admitted to the IMU. EKG shows no signs of ectopy, sinus rhythm, right bundle branch block, possible ST depression V3 but not contiguous or any elevations. Awaiting discussion with hospitalist for admission. Spoke to the hospitalist who accepted the patient to the IMU after we went over patient's clinical exam, historical features, plan would Gastroenterology for scope tomorrow morning, plan for blood products and potassium replacement. Patient comfortable the plan as well. Medical Records Attestation: I reviewed the patient's medical records. Lab Data Attestation: I reviewed the patient's lab results. 03/11/25 12:23 03/11/25 12:22 Labs: Lab Results 03/11/25 03/11/25 Range/Units 12:22 12:23 WBC 6.0 (4.5-10.0) K/mm3 RBC 2.30 L (4.2-5.4) M/mm3 Hgb 6.3 L* (12.0-15.0) g/dL Hct 22.6 L (37.0-47.0) % MCV 98.3 (80-100) fl MCH 27.4 (26-34) pg MCHC 27.9 L (32-36) g/dl RDW 17.5 H (11.5-14.5) % Plt Count 143 L (150-375) k/mm3 MPV 10.4 (7.4-10.4) fl Immature Gran % (Auto) 5.0 H (0-0.5) % Neut % (Auto) 81.0 H (45.5-73.1) % Lymph % (Auto) 6.7 L (18.3-44.2) % Vance % (Auto) 6.4 (2.6-8.5) % Eos % (Auto) 0.2 (0-4.4) % Baso % (Auto) 0.7 (0.2-1.2) % Lymph # (Auto) 0.40 L (0.9-3.2) K/mm3 Vance # (Auto) 0.4 (0.1-0.6) K/mm3 Eos # (Auto) 0.0 (0-0.3) K/mm3 Baso # (Auto) 0.0 (0.0-0.1) K/mm3 Abs Immat Gran (auto) 0.30 H (0.00-0.031) K/mm3 Absolute Neuts (auto) 4.8 (1.3-6.7) K/mm3 Absolute Nucleated RBC 0.040 H (0.0-0.012) K/mm3 Band Neutrophils % Not Reportable Nucleated RBC % 0.7 H (0.0-0.2) % Platelet Estimate Slightly decreased (Adequate) Hypochromasia 2+ Poikilocytosis 1+ Anisocytosis 1+ Tear Drop Cells 1+ Ovalocytes 1+ Stomatocytes 1+ Acanthocytes (Spur) 1+ Schistocytes Rare PT 14.9 H (11.1-14.7) Seconds INR 1.2 APTT 27.6 (22.3-36.8) Seconds Sodium 133 L (137-145) mmol/L Potassium 2.5 L* (3.4-5.0) mmol/L Chloride 96 L (98-107) mmol/L Carbon Dioxide 27 (22-30) mmol/L Anion Gap 10 (4-12) mmol/L BUN 40 H D (7-17) mg/dL Creatinine 1.16 H (0.7-1.0) mg/dL Estim Creat Clear Calc 29 ml/min Estimated GFR 45 L (59 - ) Glucose 96 (65-110) mg/dL Calcium 8.8 (8.4-10.2) mg/dL Total Bilirubin 0.2 (0.2-1.3) mg/dL AST 19 (14-36) U/L ALT 8 (6-35) U/L Alkaline Phosphatase 39 (38-126) U/L Troponin I 0.022 (0.000-0.034) ng/mL Total Protein 5.7 L (6.3-8.2) g/dL Albumin 3.8 (3.5-5.1) g/dL Blood Type A Positive Antibody Screen Negative Crossmatch See Detail Imaging Data Attestation: I personally reviewed and interpreted this imaging study as follows: My impression: Impressions Abdomen/Pelvis CT 03/11/25 14:42 IMPRESSION: 1. Enteritis which could be infectious or inflammatory in etiology. 2. Mild intrahepatic biliary ductal dilation but without evident dilation the common bile duct. Correlate with liver function tests and if clinically indicated could consider further evaluation with MRCP. 3. Multiple cystic lesions diffusely throughout the pancreas which suggests dilated sidebranches related to chronic pancreatitis. Correlate with clinical history. This can be further evaluated same time with pre and postcontrast MRI/MRCP. 4. Cardiomegaly and small pericardial effusion. 5. Very small bilateral posterior layering pleural effusions and minimal hepatic and pericholecystic ascites. 6. Large amount of ingested debris within the stomach patulous distal esophagus and with relatively decompressed stomach which suggests possible esophageal dysmotility or stricture. 7. Silicone left breast implant with intracapsular rupture. 8. Indeterminate subtle sclerotic lesion at L5. The patient has known history of prior malignancy would consider bone scan for further evaluation. Critical Care Time Critical Care Time Critical Care Time: Yes Total Critical Care Time: 35 Discharge Plan Discharge Clinical Impression: GIB (gastrointestinal bleeding), ABLA (acute blood loss anemia), Enteritis, Acute hypokalemia Patient Disposition: Still a Patient Condition: Stable Patient Language: Thai Prescriptions: No Action omeprazole 20 mg capsule,delayed release(DR/EC) 20 mg PO DAILY calcium carbonate [Calcium 500] 500 mg calcium (1,250 mg) tablet 500 mg PO BID aspirin 81 mg tablet,delayed release (DR/EC) 81 mg PO DAILY Opsumit 10 mg tablet 10 mg PO DAILY fluticasone propionate 50 mcg/actuation spray,suspension See Rx Instructions .ROUTE .COMPLEX PRN Dose Instruction: SPRAY 2 SPRAYS IN EACH NOSTRIL DAILY Rx Instructions: SPRAY 2 SPRAYS IN EACH NOSTRIL DAILY PRN; metolazone 2.5 mg tablet 2.5 mg PO DAILY Rx Instructions: 1 tablet 2-3 times per week fluticasone propion-salmeterol [Wixela Inhub] 250-50 mcg/dose blister with device 1 inh inhalation BID Winrevair 45 mg kit 45 mg subcut .[id number] levothyroxine [Synthroid] 25 mcg tablet 25 mcg PO DAILY Qty: 90 1RF tadalafil 20 mg Tablet 40 mg PO DAILY cholecalciferol (vitamin D3) [Vitamin D3] 2,000 unit Tablet 1,000 unit PO DAILY multivitamin Tablet 1 tablet PO DAILY furosemide 40 mg Tablet 40 mg PO BID mycophenolate mofetil 500 mg Tablet 500 mg PO Q12H ferrous sulfate 325 mg (65 mg iron) Tablet 325 mg PO EVERY OTHER DAY hydroxychloroquine 200 mg Tablet 200 mg PO QAM Uptravi 1,600 mcg Tablet 1,600 mcg PO BID levothyroxine 50 mcg tablet See Rx Instructions .ROUTE .COMPLEX Qty: 90 0RF Dose Instruction: TAKE 1 TABLET BY MOUTH EVERY DAY Rx Instructions: TAKE 1 TABLET BY MOUTH EVERY DAY Follow-up/Referrals: Laly Kenny DO [Primary Care Provider] - Time of Disposition: 15:33
[2025-03-11] MEDS: POTASSIUM CHLORIDE INJ 40 MEQ in SODIUM CHLORIDE 0.9% IV 500 ML 130 MEQ IVPB (13:23)
--- OUTSIDE RECORDS SUMMARY | 2025-03-11 13:57 | XMS_ITS | Data Portability ---
Author Organization [facility] [employer], Main Office Address [address] [place] [address] Care Team Providers Care Rest Room Maid Name Role Phone RAMONE PORTILLO Primary Care Provider Assessment No assessment recorded. Plan of Treatment Reminders Order Date Submit Date Provider Last Modified By Organization Details Last Modified Time Details Appointments None record ed. Lab None record ed. Referral None record ed. Procedures None record ed. Surgeries None record ed. Imaging None record ed. Medication Orders None record ed. Patient TargetsNo targets recorded. Patient Instructions Encounter Date Encounter Id Patient Instructions Last Modified By Organization Details Last Modified Time 11/15/2023 [id number] She is cleared for hearing aids [email or web address] Not available 11/15/2023 16:20:19 Reason for Referral None Reported. Results Created Date Observation Date Name Description Value Unit Range Abnormal Flag Note LastModifiedBy Organization Detail LastModifiedTime 11/15/19 24 12/16/2017 audio gram + tympa nogra m No observ ation record ed. [email or web address] Not Available 2023 16:24:33 11/16/19 24 11/16/2023 audio gram + tympa nogra m No observ ation record ed. BARCODE Not Available 2023 08:30:35 11/21/19 24 11/21/2023 audio gram + tympa nogra m No observ ation record ed. BARCODE Not Available 2023 14:33:15 Result Notes None recorded. Problems Name Problem SNOMED Code Status Onset Date Resolution Date Notes Provider Name and Address Organization Details Recorded Time Sensorineural hearing loss [id number] Active 2023 Sesar Venegas MD [address] [place] [address], [facility] [address], [place], [address] , [facility] 16:19:55 Problem Notes None recorded. Procedures Surgical History Date Name Laterality Status Provider Name and Address Organization Details Recorded Time Appendectomy completed Sola alanis RN [facility] 11/15/2023 16:05:59 hysterectomy completed Sola alanis RN [facility] 11/15/2023 16:06:09 Masectomy completed Sola Garcia RN [facility] 11/15/2023 16:06:33 Imaging Results None recorded. Procedure Notes None recorded. Medical Equipment None Reported. Allergies No known drug allergies Medications Name Sig Start Date Stop Date Status Note LastModified by Organization Details LastModified Time furosemide 40 mg tablet Take 1 tablet every day by oral route. active Not Available Not Available No t Available metolazone 2.5 mg tablet Take 1 tablet 3 times a week by oral route. active Not Available Not Available Not Available nystatin 100,000 unit/mL oral suspension SWISH AND SWALLOW 1 MILLILITER BY MOUTH FOUR TIMES DAILY active Not Available Not Available No t Available mycophenolat e mofetil 500 mg tablet Take 1 tablet twice a day by oral route. active Not Available Not Available No t Available cyanocobalam in (vit B-12) 500 mcg tablet Take by oral route. active Not Available Not Available Not Available amoxicillin 250 mg/5 mL oral suspension TAKE 20 MILLILITERS BY MOUTH BEFORE APPOINTMENT FOR ANTIBIOTIC PROPHYLAXIS active Not Available Not Available Not Available levothyroxin e 50 mcg tablet Take 1 tablet every day by oral route. active Not Available Not Available No t Available ferrous sulfate 325 mg (65 mg iron) tablet Take 1 tablet every day by oral route. active Not Available Not Available No t Available omeprazole 20 mg capsule,poly yed release TAKE 1 CAPSULE BY MOUTH EVERY DAY active Not Available Not Available No t Available furosemide 20 mg tablet TAKE 2 TABLETS BY MOUTH TWICE A DAY active Not Available Not Available No t Available hydroxychlor oquine 200 mg tablet Take 1 tablet every day by oral route. active Not Available Not Available No t Available albuterol sulfate HFA 90 mcg/actuatio n aerosol inhaler TAKE 2 PUFFS BY MOUTH EVERY 6 HOURS NEEDED FOR SHORTNESS OF BREATH active Not Available Not Available No t Available amoxicillin 875 mg-potassium clavulanate 125 mg tablet TAKE 1 TABLET BY MOUTH TWICE A DAY active Not Available Not Available No t Available Denta 5000 Plus 1.1 % cream USE DIRECTED active Not Available Not Available No t Available tadalafil 20 mg tablet Take 1 tablet every day by oral route. active Not Available Not Available No t Available calcium carbonate 500 mg BID active Not Available Not Available Not Available omeprazole 20 mg daily active Not Available N ot Available Not Available fluticasone propionate 50 mcg / actuation PRN active Not Available Not Available No t Available Vitamin D3 2000 unit active Not Available Not Available Not Available multivitamin active Not Available Not Available Not Available Breo Ellipta 100 mcg-25 mcg/dose powder for inhalation Inhale 1 puff every day by inhalation route. active Not Available Not Available No t Available macitentan 10 mg tablet Take 1 tablet every day by oral route. active Not Available Not Available No t Available selexipag 1,600 mcg tablet Take 1 tablet twice a day by oral route. active Not Available Not Available No t Available tadalafil 20 mg tablet (pulmonary hypertension ) active Not Available Not Available Not Available aspirin 81 mg capsule Take 1 capsule every day by oral route. active Not Available Not Available No t Available hydroxychlor oquine 100 mg tablet Take 2 tablets every day by oral route. active Not Available Not Available No t Available Vitals Date Recorded Body height Body mass index (BMI) Body weight Body temperature Provider Name and Address Organization Details Last Updated DateTime 11/15/2023 160.02 cm 20 kg/m2 98673.94 g 98.8 [degF] Sola Garcia RN [place] [facility] 11/15/2023 16:07:10 Social History None recorded. Functional Status Question Answer Note LastModified by Organizat ion Details LastModified Time What is your level of alcohol consumption? Occasional [email or web address] Information not available 11/15/2023 Mental Status None recorded. Family History Relationship Description Onset Age of this Age Resolved Age Notes LastModified by Organization Details LastModified Time Father No current problems or disability [email or web address] Not available 11/15 16:03:54 Mother No current problems or disability [email or web address] Not available 11/15 16:03:54 Medical History Condition Response CANCER: SPECIFY Y Gynecological HistoryNo gynecological history recorded. Obstetrics History GPAL:G 0 P 0 0 0 0 Past Encounters Encounter ID Performer Location Encounter Start Date Encounter Closed Date Diagnosis/Indication Diagnosis SNOMED-CT Code Diagnosis ICD10 Code Diagnosis Note [id number] Sesar Venegas MD [facility] [place] [address] [place] [address] 11/15/2023 15:48:43 11/15/2023 17:01:07 Sensorineural hearing loss 48782181 H90.5 Health Concerns Section Related Observation LastModified by Organization Detai ls LastModified Time None Recorded Concern Status LastModified by Organization Details LastModified Time None Recorded Advance Directives Directive None Recorded Payers Encounter Date Sequence Insurance Name Policy Number Policy Groves Covered Member ID Groves Member ID Guarantor Name 11/15/2023 1 [employer] (MEDICARE REPLACEMENT/ ADVANTAGE - PPO) [id number] Christine ramirez [id number] Christine oneal Notes Date Note Type Note Provider Name and Address Organization Details Recorded Time 11/15/2023 text/html Progressing hearing loss. She is interested in hearing aids. Sesar Venegas MD [address] [place] [address], [place] [address], [place], [address], [place] [facility] 11/15/2023 16:20:37 OBGyn Episode No OBEpisode recorded.
--- OUTSIDE RECORDS SUMMARY | 2025-03-11 13:57 | XMS_ITS | Clinical Summary ---
Author Organization [place] [id number] [facility] Address [address] [place] [address] Care Team Providers Care Track Repairer Helper Name Role Phone Laly Kenny Primary Care Provider [phone] Danica Rehman NP Unavailable [phone] Avinash Becker MD Unavailable [phone] Sarthak Mueller MD Unavailable [phone] Allergies No known active allergies Medications aspirin 81 mg enteric coated tablet Take 1 tablet (81 mg total) by mouth daily Active cyanocobalamin (Vitamin B-12) 500 mcg tabletIndicatio ns:Prevention of Vitamin B12 Deficiency Take 1 tablet (500 mcg total) by mouth every other day Active hydroxychloroqu ine (PLAQUENIL) 200 mg tablet Take 1 tablet (200 mg total) by mouth daily Active multivitamin capsule Take 1 capsule by mouth daily Active omeprazole (PriLOSEC) 20 mg capsule Take 1 capsule (20 mg total) by mouth daily Active tadalafiL (CIALIS) 20 mg tablet Take 1 tablet (20 mg total) by mouth 2 (two) times a day Active ferrous sulfate 325 mg (65 mg of elemental iron) tabletIndicatio ns:Iron Deficiency Anemia Take 1 tablet (325 mg total) by mouth daily with breakfast Active furosemide (LASIX) 40 mg tablet Take 1 tablet (40 mg total) by mouth 2 (two) times a day Active mycophenolate mofetil (CELLCEPT) 500 mg tablet Take 1 tablet (500 mg total) by mouth 2 (two) times a day Active fluticasone prp-sod.chl,bic arb 50 mcg- 0.9 % kit,spray suspension and spray Active Breo Ellipta 100-25 mcg/dose diskus inhaler INHALE 1 PUFF BY MOUTH EVERY DAY 0 Active levothyroxine (SYNTHROID) 50 mcg tablet Take 1 tablet (50 mcg total) by mouth microchip specialist before breakfast Active selexipag (Uptravi) 1,600 mcg tablet 0 Active macitentan (Opsumit) 10 mg tablet 2 Active metOLazone (ZAROXOLYN) 5 mg tablet Take 1 tablet (5 mg total) by mouth 3 (three) times a week Active calcium carbonate-vitam in D3 1,250 mg (500 mg elemental)-400 unit tablet Take by mouth Acti ve Active Problems Problem Noted Date Diagnosed Date Nonrheumatic aortic valve stenosis 05/19/2022 Nonrheumatic mitral valve regurgitation 05/19/20 22 Pulmonary HTN (CMS/HCC) 01/30/2020 Chronic respiratory failure with hypoxia (CMS/HC C) 01/30/2020 Scleroderma (CMS/HCC) 01/30/2020 Chronic right-sided heart failure 01/30/2020 CREST syndrome (CMS/HCC) 01/30/2020 Anemia 01/30/2020 Acquired hypothyroidism 01/30/2020 History of malignant neoplasm of breast 06/29/20 15 Malignant neoplasm of breast 06/24/2013 Osteopenia 04/29/2012 Malignant neoplasm of upper-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 08/09/2011 Overview (01/10/2018): Description: Malignant Female Breast Neoplasm Of The Upper Outer Quadrant Surgical History Surgery Date Site/Laterality Comments APPENDECTOMY MASTECTOMY Bilateral HYSTERECTOMY BREAST SURGERY 1999 CATARACT EXTRACTION 2017 FRACTURE SURGERY 2019 Medical History Medical History Date Comments Malignant neoplasm of female breast (HCC) Breast cancer - (Added by TW Conv) Acid indigestion Anemia Hypertension Scleroderma (HCC) GERD (gastroesophageal reflux disease) 1993 Cataract 2018 Autoimmune disease 1994 Family History Medical History Relation Name Comments Alzheimer's disease Father Joaquin Adkins Diabetes Mother Luz Adkins Alzheimer's disease Sister Mayela Griffin Relation Name Status Comments Father Joaquin Adkins (Age 93) Mother Luz Adkins (Age 86) Sister Mayela Griffin Social History Tobacco Use Types Packs/Day Years Used Date Smoking Tobacco: Never Passive Smoke Exposure: Never Smokeless Tobacco: Never Tobacco Cessation:Counseling Given: Not Answered Alcohol Use Standard Drinks/Week Comments Yes 0 (1 standard drink = 0.6 oz pur e alcohol) Very rarely Comments Unknown Sex and Gender Information Value Date Recorded Sex Assigned at Not on file Legal Sex Female 8:05 PM INDOOR PLANT TECHNICIAN Gender Identity Female 10/04/2020 6:40 PM INDOOR PLANT TECHNICIAN Sexual Orientation Not on file Obstetrics History Last Filed Vital Signs Vital Sign Reading Time Taken Comments Blood Pressure 118/52 09/09/2024 10:56 AM INDOOR PLANT TECHNICIAN Pulse 68 09/09/2024 10:56 AM INDOOR PLANT TECHNICIAN Temperature 36.6 C (97.9 F) 11/23/2023 3:13 PM INDOOR PLANT TECHNICIAN Respiratory Rate 20 11/20/2022 2:19 PM INDOOR PLANT TECHNICIAN Oxygen Saturation 98% 01/03/2024 11:50 AM CDT Inhaled Oxygen Concentration - - Weight 49.2 kg (108 lb 8 oz) 09/09/2024 10:56 AM INDOOR PLANT TECHNICIAN Height 162.6 cm (5' 4) 09/09/2024 10:56 AM INDOOR PLANT TECHNICIAN Body Mass Index 18.62 09/09/2024 10:56 AM INDOOR PLANT TECHNICIAN Plan of Treatment Health Maintenance Due Date Last Done Comments Depression Screening 1945 Fall Risk Assessment 1945 Hepatitis C Screening 1945 Hepatitis B Screening 1965 Pneumococcal vaccine 65+ (1 of 2 - PCV) 1966 Zoster Vaccine (1 of 2) 1966 Well Visit 65+ 2012 DTaP/Tdap/Td Vaccine (1 - Tdap) 08/30/2018 8, 03/02/2005 Osteoporosis Screening-Bone Density Scan 02/24/2022 02/25/2020, 02/25/2020, 06/05/2018, Additional history exists Influenza Vaccine (Season Ended) 2025 07/22/2019, 07/14/2019, 06/10/2018, Additional history exists Procedures Procedure Name Priority Date/Time Associated Diagnosis Comments DEXA AXIAL SKELETON BONE DENSITY 1 OR MORE SITES Schedule Routine, Read Routine (OP Routine) 06/05/2018 10:14 AM CDT Post-menopause from Last 3 Months or Most Recently Relevant to Health Maintenance Results * Dexa Axial Skeleton Bone Density 1 or 2 Site (06/05/2018 10:14 AM CDT) Anatomical Region Laterality Modality Body N/A Digital Radiogra phy 06/05/2018 11:0 6 AM CDT Impressions 06/05/2018 11:44 AM CDT 1. The bone mineral density of the lumbar spine is normal. 2. The bone mineral density of the left femoral neck is mildly decreased. 3. The bone mineral density of the left total hip is mildly decreased. 4. Overall, the above findings are diagnostic of low bone mass (osteopenia) by WHO criteria. 5. Calculation of fracture risk using the FRAX model is not appropriate in certain settings. It was not performed in this patient because the patient met the following condition(s): Use of antiresorptive therapy. General comments regarding interpretation of bone density measurements: A) In children, premenopausal woman and males under age 50 not at increased risk for fractures only Z-scores, not T-scores are used to indicate risk. A Z-score above -2.0 is defined as within the expected range for age and Z-score at or less than -2.0 is below the expected range for age. A Z-score below the expected range for age in a patient with recent fractures and/or chronic corticosteroid treatment is consistent with a diagnosis of osteoporosis. B) In post menopausal women and males over 50, comparison of the measured bone mineral density with the average value in young normal subjects (the T-score) has been found to be useful in assessing fracture risk. Fracture risk approximately doubles for each 1.0 standard deviation (SD) in individual's hip or spine bone mineral density is below the average value of young normal subjects. The World Health Organization (WHO) has defined T-scores of -1.0 to -2.5 as diagnostic of low bone mass (OSTEOPENIA), and T-scores of -2.5 or lower to be diagnostic of OSTEOPOROSIS, based on the site of lowest bone density. Note that there will be a change in reporting format and reference databases as patients move from the younger population (group A) to the older population (group B) The National Osteoporosis Foundation (www.nof.org) recommends adequate intake of calcium and vitamin D and regular weight-bearing exercise in all patients. They recommend pharmacologic treatment in postmenopausal women and men age 50 and older presenting with any of the followin) Osteoporosis, after appropriate evaluation to exclude secondary causes. 2) A hip or vertebral (clinical or radiographic) fracture, regardless of the bone density. 3) Low bone mass (Osteopenia) and one or more of: other prior fractures, secondary causes associated with high risk of fracture (such as glucocorticoid use or total immobilization), or computed high risk of fracture (10-yr probability of hip fracture >= 3% or a 10-yr probability of any major osteoporosis-related fracture >= 20% based on the [place].-adapted WHO algorithm), available at http://www.shef.ac.uk/FRAX). Electronically signed by: Ellen Clark M.D. Narrative 06/05/2018 11:44 AM CDT BONE DENSITOMETRY OF THE SPINE AND HIP DATE OF STUDY: 06/05/2018 HISTORY: 72-year-old postmenopausal woman with hysterectomy and bilateral oophorectomy at age 44 and prior breast cancer treated with chemotherapy in the past. She is being treated with calcium, vitamin D, and raloxifene. Evaluate bone mineral density. Additional risk factors for fracture: none. FINDINGS (SPINE): The bone mineral density of L1-L4 was assessed by dual-energy x-ray absorptiometry. The average bone mineral density within this region is 0.960 gm/sq-cm. This is 1.4 standard deviations above the mean of the average bone mineral density for age- and gender-matched subjects (the Z-score). It is 0.8 standard deviations below the mean peak bone mineral density in young adults (the T-score). FINDINGS (FEMORAL NECK): The bone mineral density of the left femoral neck was assessed by dual-energy x-ray absorptiometry. The average bone mineral density within the femoral neck region is 0.642 gm/sq-cm. This is equal to the mean of the average bone mineral density for age- and gender-matched subjects (the Z-score). It is 1.9 standard deviations below the mean peak bone mineral density in young adults (the T-score). FINDINGS (TOTAL HIP): The bone mineral density of the left hip was assessed by dual-energy x-ray absorptiometry. The average bone mineral density within the total hip region is 0.745 gm/sq-cm. This is 0.1 standard deviations below the mean of the average bone mineral density for age- and gender-matched subjects (the Z-score). It is 1.6 standard deviations below the mean peak bone mineral density in young adults (the T-score). SUMMARY OF CURRENT RESULTS: Region BMD T-score Z-score AP Spine (L1-L4) 0.960 -0.8 1.4 Femoral Neck (Left) 0.642 -1.9 0.0 Total Hip (Left) 0.745 -1.6 -0.1 Procedure Note Ellen Clark MD - 06/05/2018 BONE DENSITOMETRY OF THE SPINE AND HIP DATE OF STUDY: 06/05/2018 HISTORY: 72-year-old postmenopausal woman with hysterectomy and bilateral oophorectomy at age 44 and prior breast cancer treated with chemotherapy in the past. She is being treated with calcium, vitamin D, and raloxifene. Evaluate bone mineral density. Additional risk factors for fracture: none. FINDINGS (SPINE): The bone mineral density of L1-L4 was assessed by dual-energy x-ray absorptiometry. The average bone mineral density within this region is 0.960 gm/sq-cm. This is 1.4 standard deviations above the mean of the average bone mineral density for age- and gender-matched subjects (the Z-score). It is 0.8 standard deviations below the mean peak bone mineral density in young adults (the T-score). FINDINGS (FEMORAL NECK): The bone mineral density of the left femoral neck was assessed by dual-energy x-ray absorptiometry. The average bone mineral density within the femoral neck region is 0.642 gm/sq-cm. This is equal to the mean of the average bone mineral density for age- and gender-matched subjects (the Z-score). It is 1.9 standard deviations below the mean peak bone mineral density in young adults (the T-score). FINDINGS (TOTAL HIP): The bone mineral density of the left hip was assessed by dual-energy x-ray absorptiometry. The average bone mineral density within the total hip region is 0.745 gm/sq-cm. This is 0.1 standard deviations below the mean of the average bone mineral density for age- and gender-matched subjects (the Z-score). It is 1.6 standard deviations below the mean peak bone mineral density in young adults (the T-score). SUMMARY OF CURRENT RESULTS: Region BMD T-score Z-score AP Spine (L1-L4) 0.960 -0.8 1.4 Femoral Neck (Left) 0.642 -1.9 0.0 Total Hip (Left) 0.745 -1.6 -0.1 IMPRESSION: 1. The bone mineral density of the lumbar spine is normal. 2. The bone mineral density of the left femoral neck is mildly decreased. 3. The bone mineral density of the left total hip is mildly decreased. 4. Overall, the above findings are diagnostic of low bone mass (osteopenia) by WHO criteria. 5. Calculation of fracture risk using the FRAX model is not appropriate in certain settings. It was not performed in this patient because the patient met the following condition(s): Use of antiresorptive therapy. General comments regarding interpretation of bone density measurements: A) In children, premenopausal woman and males under age 50 not at increased risk for fractures only Z-scores, not T-scores are used to indicate risk. A Z-score above -2.0 is defined as within the expected range for age and Z-score at or less than -2.0 is below the expected range for age. A Z-score below the expected range for age in a patient with recent fractures and/or chronic corticosteroid treatment is consistent with a diagnosis of osteoporosis. B) In post menopausal women and males over 50, comparison of the measured bone mineral density with the average value in young normal subjects (the T-score) has been found to be useful in assessing fracture risk. Fracture risk approximately doubles for each 1.0 standard deviation (SD) in individual's hip or spine bone mineral density is below the average value of young normal subjects. The World Health Organization (WHO) has defined T-scores of -1.0 to -2.5 as diagnostic of low bone mass (OSTEOPENIA), and T-scores of -2.5 or lower to be diagnostic of OSTEOPOROSIS, based on the site of lowest bone density. Note that there will be a change in reporting format and reference databases as patients move from the younger population (group A) to the older population (group B) The National Osteoporosis Foundation (www.nof.org) recommends adequate intake of calcium and vitamin D and regular weight-bearing exercise in all patients. They recommend pharmacologic treatment in postmenopausal women and men age 50 and older presenting with any of the followin) Osteoporosis, after appropriate evaluation to exclude secondary causes. 2) A hip or vertebral (clinical or radiographic) fracture, regardless of the bone density. 3) Low bone mass (Osteopenia) and one or more of: other prior fractures, secondary causes associated with high risk of fracture (such as glucocorticoid use or total immobilization), or computed high risk of fracture (10-yr probability of hip fracture >= 3% or a 10-yr probability of any major osteoporosis-related fracture >= 20% based on the [place].-adapted WHO algorithm), available at http://www.shef.ac.uk/FRAX). Electronically signed by: Ellen Clark M.D. Dejon Murcia MD IMG DXA PROCEDURES Final Res ult from Last 3 Months or Most Recently Relevant to Health Maintenance Insurance T MEDICARE T MEDICARE AETNA MEDICARE Care Teams Track Repairer Helper Relationship Specialty Start Date End Date Laly Kenny DO PCP - General Family Medicine 01/30/20 Danica Rehman NP [address] [place], [place] [id number] Nurse Practitioner 10/16/23 [place] [address] [place] [address] Consulting Physician Gastroenterology 11/15/23 Sarthak Mueller MD [address] [facility] [phone] [place] [address] Surgeon Colon and Rectal Surgery 11/23/23
--- OUTSIDE RECORDS SUMMARY | 2025-03-11 13:57 | XMS_ITS | Referral Summary ---
Author Organization [place] [id number] [facility] Address [address] [place] [address] Care Team Providers Care Biologics Specialist Name Role Phone Laly Kenny Primary Care Provider [phone] Danica Rehman NP Unavailable [phone] Avinash Becker MD Unavailable Sarthak Mueller MD Unavailable [phone] Allergies No known active allergies Medications [...] 1 tablet (50 mcg total) by mouth treatment coordinator before breakfast Active selexipag (Uptravi) 1,600 mcg [...] failure with hypoxia (CMS/HC C) 01/30/2020 Scleroderma ([facility]/HCC) 01/30/2020 Chronic right-sided heart failure 01/30/2020 CREST syndrome ([facility]/HCC) 01/30/2020 Anemia 01/30/2020 Acquired hypothyroidism 01/30/2020 History of malignant neoplasm of breast 06/29/20 15 Malignant neoplasm of breast 06/24/2013 Osteopenia 04/29/2012 Malignant neoplasm of upper-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 08/09/2011 Overview (01/10/2018): Description: Malignant Female Breast Neoplasm Of The Upper Outer Quadrant Social History Tobacco Use Types Packs/Day Years Used Date Smoking Tobacco: Never Passive Smoke Exposure: Never Smokeless Tobacco: Never Tobacco Cessation:Counseling Given: Not Answered Alcohol Use Standard Drinks/Week Comments Yes 0 (1 standard drink = 0.6 oz pur e alcohol) Very rarely Comments Unknown Sex and Gender Information Value Date Recorded Sex Assigned at Not on file Legal Sex Female 8:05 PM SENIOR SERVICE TECHNICIAN Gender Identity Female 10/04/2020 6:40 PM SENIOR SERVICE TECHNICIAN Sexual Orientation Not on file Last Filed Vital Signs Vital Sign Reading Time Taken Comments Blood Pressure 118/52 09/09/2024 10:56 AM SENIOR SERVICE TECHNICIAN Pulse 68 09/09/2024 10:56 AM SENIOR SERVICE TECHNICIAN Temperature 36.6 C (97.9 F) 11/23/2023 3:13 PM SENIOR SERVICE TECHNICIAN Respiratory Rate 20 11/20/2022 2:19 PM SENIOR SERVICE TECHNICIAN Oxygen Saturation 98% 01/03/2024 11:50 AM CDT Inhaled Oxygen Concentration - - Weight 49.2 kg (108 lb 8 oz) 09/09/2024 10:56 AM SENIOR SERVICE TECHNICIAN Height 162.6 cm (5' 4) 09/09/2024 10:56 AM SENIOR SERVICE TECHNICIAN Body Mass Index 18.62 09/09/2024 10:56 AM SENIOR SERVICE TECHNICIAN Plan of Treatment Not on file Procedures Procedure Name Priority Date/Time Associated Diagnosis [...] Relevant to Health Maintenance Insurance T MEDICARE [facility] MEDICARE Address: [facility] [id number] [place] [address] AETNA MEDICARE AETNA MEDICARE Care Teams Biologics Specialist Relationship Specialty Start Date End Date Laly Kenny DO PCP - General Family Medicine 01/30/20 Danica Rehman NP [address] [facility] [address] [place] [address] Nurse Practitioner 10/16/23 [place] [address] [place] [address] Consulting Physician Gastroenterology 11/15/23 Sarthak Mueller MD [address] [facility] [phone] [place] [address] Surgeon Colon and Rectal Surgery 11/23/23
--- OUTSIDE RECORDS SUMMARY | 2025-03-11 13:58 | XMS_ITS | Clinical Summary ---
Author Organization [facility] Care Team Providers Care Executive Chef Assistant Name Role Phone Unavailable Primary Care Provider Unavailabl e Social History Tobacco Use Types Packs/Day Years Used Date Smoking Tobacco: Never Assessed Comments Unknown Sex and Gender Information Value Date Recorded Sex Assigned at Not on file Legal Sex Female 1:52 PM LEARNING STRATEGIST Gender Identity Not on file Sexual Orientation Not on file Plan of Treatment Health Maintenance Due Date Last Done Comments DEXA Bone Density 1945 Hepatitis C Virus (HCV) Screening 1945 TdaP Immunization 1945 Pneumococcal Immunization (50+ years) (1 of 1 - PCV) 1997 Zoster Immunization (1 of 2) 1997 Respiratory Syncytial Virus (RSV) Immunization (Adult) (1 - 1-dose 75+ series) 2022 Influenza Immunization (#1) 06/01/202406/01, 07/14/2019, 06/10/2018, Additional history exists SARS-COV-2 Immunization ( season) 2024 06/02/2021, 12/07/2020, 11/03/2020 DTaP/Tdap/Td Immunization Discontinued 08/29/2018, 11/2004 Hepatitis B Immunization Aged Out No longer eligible based on patient's age to complete this topic Meningococcal Immunization (ACWY) Aged Out No longer eligible based on patient's age to complete this topic Rotavirus Immunization Aged Out No lo nger eligible based on patient's age to complete this topic
--- OUTSIDE RECORDS SUMMARY | 2025-03-11 13:58 | XMS_ITS | Clinical Summary ---
Author Organization [facility] Address [address] [place] [address] Phone Care Team Providers Care Policy Director Name Role Phone Laly Kenny DO Primary Care Provider [phone] Allergies No known active allergies Medications fluticasone propionate (FLONASE) 50 mcg/spray [place], Suspension nasal inhaler Administer 2 Sprays in each nostril daily. Active omeprazole (PriLOSEC) 20 mg Capsule, Delayed Release(E.C.) Take 20 mg by mouth daily. Active cholecalciferol , vitamin D3, (VITAMIN D3 ORAL) Take by mouth. Activ e cyanocobalamin (VITAMIN B-12) 500 mcg tablet Take 500 mcg by mouth daily. Active aspirin (ECOTRIN EC) 81 mg Tablet, Delayed Release (E.C.) Take 1 Tablet (81 mg) by mouth daily. 30 Tablet 12/11/19 20 Active hydroxychloroqu ine (PLAQUENIL) 200 mg tabletIndicatio ns:1 tab in AM an 1/2 Take 1 Tablet (200 mg) by mouth daily. 30 Tablet 12/10/19 20 Active Additional Information Patient taking differently:200 mg OralTWO TIMES DAILY, 1 IN AM 1/2 TAB PM, Indications: 1 tab in AM an 1/2, Reported on 09/08/2022 levothyroxine 50 mcg tablet Take 1 Tablet (50 mcg) by mouth daily line leader. 30 Tablet 12/10/19 20 Active mycophenolate mofetil (CellCept) 500 mg tablet Take 1 Tablet (500 mg) by mouth 2 times daily. 60 Tablet 12/10/19 20 Active multivitamin (DAILY-ELOISA) tablet 1 tab(s) Active ferrous sulfate 325 mg (65 mg iron) tablet Take 325 mg by mouth daily. Active metOLazone (ZAROXOLYN) 2.5 mg tablet TAKE 1 TABLET BY MOUTH DAILY NEEDED FOR 2 - 3 DAYS WHEN WEIGHT IS UP BY 5 LBS. 30 Tablet 3 10/31/19 23 Active albuterol sulfate HFA 90 mcg/actuation aerosol inhaler Take 2 Puffs by inhalation every 6 hours as needed for Shortness of Breath. 8.5 Gram 3 03/14/20 23 Active furosemide (LASIX) 20 mg tabletIndicatio ns:Pulmonary hypertension (CMS/HCC) take 2 tablets by mouth twice a day 360 Tablet 3 05/01/20 24 Active tadalafil (ADCIRCA) 20 mg Tablet tablet TAKE 2 TABLETS BY MOUTH 1 TIME A DAY 180 Tablet 3 09/11/20 24 Active sotatercept-desk representative k (Winrevair) 45 mg Kit Self inject 0.3 mL every 3 weeks subQ for the first 3 doses. After that increase to target dose of 0.7 mL every 3 weeks subQ 09/15/20 24 Active fluticasone propion-salmete roL (ADVAIR DISKUS,WIXELA INHUB) 250-50 mcg/dose disk inhalerIndicati ons:Pulmonary hypertension (CMS/HCC) Take 1 Puff by inhalation 2 times daily. 60 Each 6 10/08/19 25 Active selexipag (Uptravi) 1,600 mcg Tablet Take 1 tablet two times a day 60 Tablet 6 02/25/20 25 Active macitentan (Opsumit) 10 mg Tablet tablet TAKE 1 TABLET DAILY. 30 Tablet 5 03/06/20 25 Active selexipag (Uptravi) 1,600 mcg Tablet Take 1 tablet two times a day 60 Tablet 11 03/18/20 24 025 Discontinued Opsumit 10 mg Tablet tablet TAKE 1 TABLET DAILY. 30 Tablet 10 04/01/20 24 025 Discontinued Active Problems Problem Noted Date Diagnosed Date Protein-calorie malnutrition, moderate 0 Hypothyroidism 11/15/2019 Closed fracture of left hip 11/15/2019 Lung infiltrate Pulmonary hypertension Acute on chronic respiratory failure with hypoxi a Closed fracture of left femur SS (systemic sclerosis) Encounters Date Type Department Care Team Description 03/06/2025 Refill [facility] [address] [place] [address] Yony Mayer MD 03/02/2025 [facility] [address], [place] [address] Yony Mayer MD PAH (pulmonary artery hypertension) ([facility]); Encounter for medication monitoring 02/23/2025 [facility] [address], [place] [address] Yony Mayer MD 02/19/2025 External Device Data STL ABSTRACTION Provider, Abstract 02/18/2025 External Device Data STL ABSTRACTION Provider, Abstract 02/09/2025 [facility] [address], [place] [address] Yony Mayer MD PAH (pulmonary artery hypertension) ([facility]); Encounter for medication monitoring 01/27/2025 Telephone [facility] [address], [place] [address] Yony Mayer MD Medication Review 01/19/2025 Orders Only [facility] [address] [place] [address] Yony Mayer MD PAH (pulmonary artery hypertension) ([facility]); Encounter for medication monitoring 01/13/2025 External Device Data STL ABSTRACTION Provider, Abstract 12/29/2024 Orders Only [facility] [address], [place] [address] Yony Mayer MD PAH (pulmonary artery hypertension) ([facility]); Encounter for medication monitoring from Last 3 Months Immunizations Immunization Administration Dates Next Due (PREVNAR 13)(6 WKS UP) PNEUM OCOCCAL CONJUGATE (PCV13) 0.5 ML, IM 11/22/2019() INFLUENZA VACCINE HIGH DOSE QUADRIVALENT 65 YR U P PF IM 06/11/2020 Influenza Seasonal Unspecified Formulation IM Social History Tobacco Use Types Packs/Day Years Used Date Smoking Tobacco: Never Cigarettes Smokeless Tobacco: Never Tobacco Cessation:Counseling Given: Not Answered Alcohol Use Standard Drinks/Week Comments Not Currently 0 (1 standard drink = 0.6 oz pur e alcohol) Feeling Safe Answer Date Recorded Within the last year, have y ou been afraid of your partner or ex-partner? Patient declined 08/22/2019 Within the last year, have y ou been humiliated or emotionally abused in other ways by your partner or ex-partner? Patient declined 08/22/2019 Within the last year, have y ou been kicked, hit, slapped, or otherwise physically hurt by your partner or ex-partner? Patient declined 08/22/2019 Within the last year, have y ou been raped or forced to have any kind of sexual activity by your partner or ex-partner? Patient declined 08/22/2019 Social Connections Answer Date Recorded In a typical week, how many times do you talk on the phone with family, friends, or neighbors? Patient declined 08/22/2019 How often do you get togethe r with friends or relatives? Patient declined 08/22/2019 How often do you attend gnosticism or voodoo serv ices? Patient declined 08/22/2019 Do you belong to any clubs o r organizations such as gnosticism groups, unions, fraternal or athletic groups, or school groups? Patient declined 08/22/2019 How often do you attend meet ings of the clubs or organizations you belong to? Patient declined 08/22/2019 Are you , , di vorced, , never , or living with a partner? Patient declined 08/22/2019 Financial Resource Strain Answer Date R ecorded How hard is it for you to pa y for the very basics like food, housing, medical care, and heating? Patient declined 08/22/2019 Food Insecurity Answer Date Recorded Within the past 12 months, y ou worried that your food would run out before you got the money to buy more. Patient declined Within the past 12 months, t he food you bought just didn't last and you didn't have money to get more. Patient declined Transportation Needs Answer Date Record ed In the past 12 months, has l ack of transportation kept you from medical appointments or from getting medications? Patient declined 08/22/2019 In the past 12 months, has l ack of transportation kept you from meetings, work, or from getting things needed for daily living? Patient declined 08/22/2019 Comments No Sex and Gender Information Value Date Recorded Sex Assigned at Female 10/03/2024 12:21 PM CAMPAIGN MARKETING SPECIALIST Legal Sex Female 1:49 PM CDT Gender Identity Female 10/03/2024 12:21 PM CAMPAIGN MARKETING SPECIALIST Sexual Orientation Choose not to disclose 2024 12:21 PM CAMPAIGN MARKETING SPECIALIST Last Filed Vital Signs Vital Sign Reading Time Taken Comments Blood Pressure 92/40 09/11/2024 10:39 AM CAMPAIGN MARKETING SPECIALIST Pulse 91 09/11/2024 10:39 AM CAMPAIGN MARKETING SPECIALIST Temperature 36.4 C (97.6 F) 01/30/2020 4:03 PM CDT Respiratory Rate 18 09/08/2021 1:10 PM CAMPAIGN MARKETING SPECIALIST 1 L O2 pulse Oxygen Saturation 94% 03/14/2023 3:12 PM CDT Ox set at 1 Inhaled Oxygen Concentration - - Weight 49 kg (108 lb) 09/11/2024 10:39 AM CAMPAIGN MARKETING SPECIALIST Height 162.6 cm (5' 4) 09/11/2024 10:39 AM CAMPAIGN MARKETING SPECIALIST Body Mass Index 18.54 09/11/2024 10:39 AM CAMPAIGN MARKETING SPECIALIST Plan of Treatment Upcoming Encounters Date Type Department Care Team (Late st Contact Info) Description 03/16/2025 2:30 PM CDT Office Visit [facility] [address] [place] [address] Yony Mayer MD [address] [place] [address] Health Maintenance Due Date Last Done Comments DTAP/TDAP/TD VACCINES (1 - Tdap) 1966 PNEUMOCOCCAL VACCINE 50+ YEA RS (1 of 2 - PCV) 1966 ZOSTER VACCINE (1 of 2) 1966 RSV VACCINE (60+ or ) (1 - 1-dose 75+ series) 2022 INFLUENZA VACCINE (#1) 2024 06/11/2020, 2018 [place] Preventative Visit/Annual Wellness Visit 10/01/2024 OSTEOPOROSIS SCREENING 02/24/2025 0, 02/25/2020, 06/05/2018, Additional history exists Medical Devices Implanted Type Area Tile Applicator Device Identifier Shelf Expiration Date Model / Serial / Lot Head Fem Mod Cocr 28mm -3mm [id number] - [id number] Implanted:Qty: 1 on 11/17/2019 by Alvarez Braxton DO at [facility] Hip Left: Hip DESMOND BIOMET 10/14/2029 [id number] / / [id number] Stem Fem Echo Pf 13mm [id number] - [id number] Implanted:Qty: 1 on 11/17/2019 by Alvarez Braxton DO at [facility] Hip Left: Hip DESMOND BIOMET 10/30/[id number] / / [id number] Liner Acet Bipolar [id number] Implanted:Qty: 1 on 11/17/2019 by Alvarez Braxton DO at [facility] Hip Left: Hip DESMOND BIOMET 10/06/[id number] / / [id number] Procedures Procedure Name Priority Date/Time Associated Diagnosis Comments XR DEXA BONE DENSITY AXIAL 1 OR MORE SITES Routine 02/25/2020 10:43 AM CDT Closed fracture of neck of left femur with routine healing, subsequent encounter from Last 3 Months or Most Recently Relevant to Health Maintenance Results * XR DEXA BONE DENSITY AXIAL 1 OR MORE SITES (02/25/2020 10:43 AM CDT) Anatomical Region Laterality Modality Digital Radiogra phy 02/25/2020 10:4 4 AM CDT Narrative 02/25/2020 10:55 AM CDT XR DEXA BONE DENSITY AXIAL 1 OR MORE SITES DATE: 02/25/2020 10:43 AM HISTORY: 74 years old Female with post menopausal symptoms. PROCEDURE: Planar images of the lumbar spine, forearm and hip(s) using a [employer] DEXA scanner for bone mineral density determination (BMD). FINDINGS: Lumbar Spine (L1-L4) 1.026 gm/cm2, T-score: -1.3 Right femoral neck 0.750 gm/cm2, T-score: -2.1 Right Radius 33% 0.837 gm/cm2, T-score: -0.4 Comments: The left hip was excluded from bone mineral density measurements secondary to the presence of orthopedic hardware. IMPRESSION Osteopenic bone mineral density. DEFINITIONS: Normal: T-score above -1.0 Osteopenia T-score less than -1.0 and above -2.5 Osteoporosis: T-score < -2.5 FRAX FRACTURE RISK ASSESSMENT: Risk factors: History of fracture, secondary osteoporosis 10 Year Probability Of Fracture -Major Osteoporotic: 20.5% -Hip: 4.6% -Comparison population: [place], A major osteoporotic fracture is defined as a fracture of the spine, forearm, hip or shoulder. FOLLOW-UP RECOMMENDATIONS: Patients without high risk factors for osteoporosis: T-score -1.0 to -1.5 - Consider repeat BMD in 5-10 years T-score -1.5 to -2.0 - Consider repeat BMD in 3-5 years T-score -2.0 to - 2.5 - Consider repeat BMD every 2 years Patients on treatment for osteoporosis: 1-2 years after initiation of treatment and every 2 [address] Mark Geiger DO DICTATION LOCATION: Location 1 - [facility] Procedure Note Mark Geiger DO - 02/25/2020 XR DEXA BONE DENSITY AXIAL 1 OR MORE SITES DATE: 02/25/2020 10:43 AM HISTORY: 74 years old Female with post menopausal symptoms. PROCEDURE: Planar images of the lumbar spine, forearm and hip(s) using a [employer] DEXA scanner for bone mineral density determination (BMD). FINDINGS: Lumbar Spine (L1-L4) 1.026 gm/cm2, T-score: -1.3 Right femoral neck 0.750 gm/cm2, T-score: -2.1 Right Radius 33% 0.837 gm/cm2, T-score: -0.4 Comments: The left hip was excluded from bone mineral density measurements secondary to the presence of orthopedic hardware. IMPRESSION Osteopenic bone mineral density. DEFINITIONS: Normal: T-score above -1.0 Osteopenia T-score less than -1.0 and above -2.5 Osteoporosis: T-score < -2.5 FRAX FRACTURE RISK ASSESSMENT: Risk factors: History of fracture, secondary osteoporosis 10 Year Probability Of Fracture -Major Osteoporotic: 20.5% -Hip: 4.6% -Comparison population: [place], A major osteoporotic fracture is defined as a fracture of the spine, forearm, hip or shoulder. FOLLOW-UP RECOMMENDATIONS: Patients without high risk factors for osteoporosis: T-score -1.0 to -1.5 - Consider repeat BMD in 5-10 years T-score -1.5 to -2.0 - Consider repeat BMD in 3-5 years T-score -2.0 to - 2.5 - Consider repeat BMD every 2 years Patients on treatment for osteoporosis: 1-2 years after initiation of treatment and every 2 years thereafter [address] Mark Geiger DO DICTATION LOCATION: Location 1 - [facility] Nasreen Doe MD DIAGNOSTIC IMAGING [facility]AVAN [facility]ILKINS Final Result from Last 3 Months or Most Recently Relevant to Health Maintenance [facility] Advance Directives For more information, please contact: [phone] * Full Code (Latest Code Status on File) Date Activated Date Inactivated Comments 11/27/2019 3:25 PM 12/11/2019 4:25 PM * Full Code Date Activated Date Inactivated Comments 11/13/2019 12:50 AM 11/27/2019 2:59 PM Care Teams Policy Director Relationship Specialty Start Date End Date Laly Kenny DO [address] [place] [address] PCP - General Family Practice 05/16/21
--- NOTE | 2025-03-11 14:19 | PC.NURSE ---
waiting for vascular access to place a second line at this time
[2025-03-11] MEDS: POTASSIUM CHLORIDE 20 MEQ PACKET (FOR LIQUID) 40 MEQ PO (14:37)
--- OUTSIDE RECORDS SUMMARY | 2025-03-11 14:37 | XMS_ITS | Referral Summary ---
Author Organization [place] [id number] Address [address] [place] [address] Care Team Providers Care Rehab Spec Name Role Phone Laly Kenny Primary Care Provider [phone] Danica Rehman NP Unavailable [phone] Avniash Becker MD Unavailable [phone] Sarthak Mueller MD Unavailable [phone] Allergies No known active allergies Medications [...] 1 tablet (50 mcg total) by mouth automotive leasing sales representative before breakfast Active selexipag (Uptravi) 1,600 mcg [...] failure with hypoxia (CMS/HC C) 01/30/2020 Scleroderma ([facility]/HCC) 01/30/2020 Chronic right-sided heart failure 01/30/2020 CREST syndrome ([facility]/HCC) 01/30/2020 Anemia 01/30/2020 Acquired hypothyroidism 01/30/2020 History [...] on file Legal Sex Female 8:05 PM DIRECTOR OF OUTSIDE SALES Gender Identity Female 10/04/2020 6:40 PM DIRECTOR OF OUTSIDE SALES Sexual Orientation Not on file Last Filed Vital Signs Vital Sign Reading Time Taken Comments Blood Pressure 118/52 09/09/2024 10:56 AM DIRECTOR OF OUTSIDE SALES Pulse 68 09/09/2024 10:56 AM DIRECTOR OF OUTSIDE SALES Temperature 36.6 C (97.9 F) 11/23/2023 3:13 PM DIRECTOR OF OUTSIDE SALES Respiratory Rate 20 11/20/2022 2:19 PM DIRECTOR OF OUTSIDE SALES Oxygen Saturation 98% 01/03/2024 11:50 AM CDT Inhaled Oxygen Concentration - - Weight 49.2 kg (108 lb 8 oz) 09/09/2024 10:56 AM DIRECTOR OF OUTSIDE SALES Height 162.6 cm (5' 4) 09/09/2024 10:56 AM DIRECTOR OF OUTSIDE SALES Body Mass Index 18.62 09/09/2024 10:56 AM DIRECTOR OF OUTSIDE SALES Plan of Treatment Not on file Procedures [...] Relevant to Health Maintenance Insurance T MEDICARE [facility] Address: [facility] [id number] [place] [address] AETNA MEDICARE AETNA MEDICARE Care Teams Rehab Spec Relationship Specialty Start Date End Date Laly Kenny DO PCP - General Family Medicine 01/30/20 Danica Rehman NP [address] [facility] [address] [place] [address] Nurse Practitioner 10/16/23 [place] [address] [place] [address] Consulting Physician Gastroenterology 11/15/23 Sarthak Mueller MD [phone] [place] [address] Surgeon Colon and Rectal Surgery 11/23/23
--- OUTSIDE RECORDS SUMMARY | 2025-03-11 14:37 | XMS_ITS | Clinical Summary ---
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 30 Tablet 12/10/19 20 Active mycophenolate mofetil [...] DAY 180 Tablet 3 09/11/20 24 Active sotatercept-customer counter associate k (Winrevair) 45 mg Kit Self inject [...] Type Department Care Team Description 03/06/2025 Refill [facility] [address] [place] [address] Yony Mayer MD 03/02/20[address] Orders [facility] [address], [place] [address] Yony Mayer MD PAH (pulmonary artery hypertension) ([facility]); Encounter for medication monitoring 02/23/2025 Refill [facility] [address], [place] [address] Yony Mayer MD 02/19/2025 External Device Data STL ABSTRACTION Provider, Abstract 02/18/2025 External Device Data STL ABSTRACTION Provider, Abstract 02/09/2025 Orders Only [facility] [address], [place] [address] Yony Mayer MD PAH (pulmonary artery hypertension) ([facility]); Encounter for medication monitoring 01/27/2025 Telephone [facility] [address], [place] [address] Yony Mayer MD Medication Review 01/19/2025 Orders [facility] [address] [place] [address] Yony Mayer MD PAH (pulmonary artery hypertension) ([facility]); Encounter for medication monitoring 01/13/2025 External Device Data STL ABSTRACTION Provider, Abstract 12/29/2024 Orders Only [facility] [address], [place] [address] Yony Mayer MD PAH (pulmonary artery hypertension) ([facility]); Encounter for medication monitoring from Last 3 [...] declined 08/22/2019 How often do you attend quaker or hinduism serv ices? Patient declined 08/22/2019 Do you belong to any clubs o r organizations such as quaker groups, unions, fraternal or athletic groups, or [...] Sex Assigned at Female 10/03/2024 12:21 PM FWS FACULTY ASSISTANT Legal Sex Female 1:49 PM CDT Gender Identity Female 10/03/2024 12:21 PM FWS FACULTY ASSISTANT Sexual Orientation Choose not to disclose 2024 12:21 PM FWS FACULTY ASSISTANT Last Filed Vital Signs Vital Sign Reading Time Taken Comments Blood Pressure 92/40 09/11/2024 10:39 AM FWS FACULTY ASSISTANT Pulse 91 09/11/2024 10:39 AM FWS FACULTY ASSISTANT Temperature 36.4 C (97.6 F) 01/30/2020 4:03 PM CDT Respiratory Rate 18 09/08/2021 1:10 PM FWS FACULTY ASSISTANT 1 L O2 pulse Oxygen Saturation 94% 03/14/2023 3:12 PM CDT Ox set at 1 Inhaled Oxygen Concentration - - Weight 49 kg (108 lb) 09/11/2024 10:39 AM FWS FACULTY ASSISTANT Height 162.6 cm (5' 4) 09/11/2024 10:39 AM FWS FACULTY ASSISTANT Body Mass Index 18.54 09/11/2024 10:39 AM FWS FACULTY ASSISTANT Plan of Treatment Upcoming Encounters Date Type Department Care Team (Late st Contact Info) Description 03/16/2025 2:30 PM CDT Office Visit [facility] Pulmonology [facility] [address] [place] [address] Yony Mayer MD [address] [place] [address] Health Maintenance Due Date Last Done Comments DTAP/TDAP/TD VACCINES (1 - Tdap) 1964 PNEUMOCOCCAL VACCINE 50+ YEA RS (1 of 2 - PCV) 1966 ZOSTER VACCINE (1 of 2) 1966 RSV VACCINE (60+ or ) (1 - 1-dose 75+ series) 2022 INFLUENZA VACCINE (#1) 2024 06/11/2020, 2018 [place] Preventative Visit/Annual Wellness Visit 10/01/2024 OSTEOPOROSIS SCREENING 02/24/2025 0, 02/25/2020, 06/05/2018, Additional history exists Medical Devices Implanted Type Area Warehouse Shipping Associate Device Identifier Shelf Expiration Date Model / Serial / Lot Head Fem Mod Cocr 28mm -3mm [id number] - [id number] Implanted:Qty: 1 on 11/17/2019 by Alvarez Braxton DO at [facility] Hip Left: Hip DESMOND BIOMET 10/14/2029 [id number] / / [id number] Stem Fem Echo Pf 13mm [id number] - [id number] Implanted:Qty: 1 on 11/17/2019 by Alvarez Braxton DO at [facility] Hip Left: Hip DESMOND BIOMET 10/30/2024-342691 / / [id number] Liner Acet Bipolar [id number] Implanted:Qty: 1 on 11/17/2019 by Alvarez Braxton DO at [facility] Hip Left: Hip DESMOND BIOMET 10/06/[id number] / / [id number] Procedures Procedure Name Priority Date/Time Associated Diagnosis [...] lumbar spine, forearm and hip(s) using a [employer] DEXA scanner for bone mineral density determination [...] Geiger DO DICTATION LOCATION: Location 1 - [facility] Procedure Note Mark Geiger DO - 02/25/2020 XR DEXA BONE DENSITY AXIAL 1 OR MORE SITES DATE: 02/25/2020 10:43 AM HISTORY: 74 years old Female with post menopausal symptoms. PROCEDURE: Planar images of the lumbar spine, forearm and hip(s) using a [employer] DEXA scanner for bone mineral density determination [...] Geiger DO DICTATION LOCATION: Location 1 - [facility] Nasreen Doe MD DIAGNOSTIC IMAGING PAVAN WILKINS Final Result from Last 3 Months or Most Recently Relevant to Health Maintenance [facility] Advance Directives For more information, please contact: [phone] * Full Code (Latest Code Status on File) Date Activated Date Inactivated Comments 11/27/2019 3:25 PM 12/11/2019 4:25 PM * Full Code Date Activated Date Inactivated Comments 11/13/2019 12:50 AM 11/27/2019 2:59 PM Care Teams Medical Office Administrator Relationship Specialty Start Date End Date Laly Kenny DO [address] [place] [phone] PCP - General Family Practice 05/16/21
--- OUTSIDE RECORDS SUMMARY | 2025-03-11 14:37 | XMS_ITS ---
Author Organization [facility] Address [address] [place], [place] [id number] Care Team Providers Care House Calls Nurse Practitioner Name Role Phone Laly Kenny Primary Care Provider UnavailKatrina Mckeon Unavailable [phone] NADJA WATERMAN MD Unavailable Unavailable Elsa Hernandez Unavailable [phone] ALLERGIES No Known Allergies MEDICATIONS Medication SIG [...] Encounter Location Date Provider Diagnosis [facility] [address] [place], [place] [id number] 11/12/2024 Elsa Hernandez Other group home (current) drug therapy Z79.899 and CREST syndrome M34.1 ASSESSMENTS Encounter Date Diagnosis Assessment Notes Treatment Notes Treatment Clinical Notes Section Notes 11/12/2024 Other termite treater (current) drug therapy (ICD-10 - Z79.899) CREST [...] Up: 3 Months, Reason: Provider Name:Elsa hernandez, 06/10/2025 02:20:00 PM, [address] [facility], [address], [place], [place], [id number], Progress Notes * Examination Category Sub-Category Detail [...] be starting a new medication from her Rn Neonatal Icu. Winredair is an every 3 week injection. [...]
--- OUTSIDE RECORDS SUMMARY | 2025-03-11 14:37 | XMS_ITS | Clinical Summary ---
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 before breakfast Active selexipag (Uptravi) 1,600 mcg [...] on file Legal Sex Female 8:[address] MECHANIC Gender Identity Female 10/04/2020 6:[address] CAR MECHANIC Sexual Orientation Not on file Obstetrics History Last Filed Vital Signs Vital Sign Reading Time Taken Comments Blood Pressure 118/52 09/09/2024 10:[address] CAR MECHANIC Pulse 68 09/09/2024 10:[address] CAR MECHANIC Temperature 36.6 C (97.9 F) 11/23/2023 3:[address] CAR MECHANIC Respiratory Rate 20 11/20/2022 2:[address] CAR MECHANIC Oxygen Saturation 98% 01/03/2024 11:50 AM CDT Inhaled Oxygen Concentration - - Weight 49.2 kg (108 lb 8 oz) 09/09/2024 10:[address] CAR MECHANIC Height 162.6 cm (5' 4) 09/09/2024 10:[address] CAR MECHANIC Body Mass Index 18.62 09/09/2024 10:[address] CAR MECHANIC Plan of Treatment Health Maintenance Due Date [...] MEDICARE T MEDICARE AETNA MEDICARE Care Teams Lay Out Maker Relationship Specialty Start Date End Date Laly Kenny DO PCP - General Family Medicine 01/30/20 Danica Rehman NP [address] [place], [place] [address] Nurse Practitioner 10/16/23 [place] [address] [place] [address] Consulting Physician Gastroenterology 11/15/23 Sarthak Mueller MD [address] [facility] [phone] [place] [address] Surgeon Colon and Rectal Surgery 11/23/23
--- OUTSIDE RECORDS SUMMARY | 2025-03-11 14:37 | XMS_ITS ---
Author Organization [facility] Address [address] [place], [place] [address] Care Team Providers Care Nitroglycerin Distributor Name Role Phone PericobernardinoLaly Primary Care Provider UnavailKatrina Mckeon Unavailable [phone] NADJA WATERMAN MD Unavailable Unavailable Elsa Hernandez Unavailable [phone] ALLERGIES No Known Allergies RESULTS Component Value Reference Range Notes CBC With Differential/Platel et Reviewed date:03/11/2025 01:41:04 PM Interpretation: Performing Lab[facility], [address] [facility], [place], Phone - [phone], Director - PhDRicfrancis Notes/Report: WBC 6.8 3.4-10.8 [...] show increased immature granulocytes without clinical significance.) [facility] Hematology Comments: Comp. Metabolic Panel (14) Reviewed date:03/11/2025 01:41:10 PM Interpretation: Performing Lab:[facility] [place], [address] [facility], [place], Phone - [phone], Director - Jenifer Notes/Report: Glucose 92 70-99 [...] Location Date Provider Diagnosis [facility] 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 [facility], [address], [place], [place], [id number], Progress Notes * Examination Category Sub-Category Detail [...]
--- OUTSIDE RECORDS SUMMARY | 2025-03-11 14:37 | XMS_ITS | Patient Health Record ---
Author Organization [facility] Address [address] [facility] [facility] [address] [place], [place] [id number] Care Team Providers Care Extras Casting Director Name Role Phone Pericobernardino Laly Primary Care Provider UnavailKatrina Mckeon Unavailable [phone] COLUMBA JOHNSON, NADJA Lacy Unavailable Unavailable Elsa Hernandez Unavailable [phone] ALLERGIES No Known Allergies RESULTS Component Value Reference Range Notes CBC With Differential/Platel et Reviewed date:03/11/2025 01:41:04 PM Interpretation: Performing Lab:[facility] [place], [address] [facility], [place], Phone - [phone], Director - Jenifer Notes/Report: WBC 6.8 3.4-10.8 x10E3/uL Verified by [...] show increased immature granulocytes without clinical significance.) [facility] Hematology Comments: Comp. Metabolic Panel (14) Reviewed date:03/11/2025 01:41:10 PM Interpretation: Performing Lab:[facility] [place], [address] [facility], Phone - [phone], Director - Jenifer Notes/Report: Glucose 92 70-99 [...] ALT (SGPT) 7 0-32 IU/L REASON FOR REFERRAL No Information MEDICATIONS Medication SIG (Take, Route, Frequency, Duration) Notes Start Date End Date Status Vitamin D3 100 intl units 1 cap(s) orall y once a day Active Wixela Inhub 250 mcg-50 mcg/inh 1 INH inhaled 2 times a day Active Aspir 81 81 mg 1 tab(s) orally once a day Active ferrous sulfate 325 mg 1 tab(s) orally 3 times a day Active Winrevair csrk 45 mg (1 vial) as directed subcutaneously every 3 weeks Active mycophenolate mofetil 500 mg 1 tab orall y 2 times a day Active Opsumit 10 mg 1 tab(s) orally once a day Active omeprazole 20 mg 1 cap(s) orally once a day Active Uptravi 1600 mcg 1 tab(s) orally 2 ti mes a day Active tadalafil 20 mg 2tab(s) orally once a day Active multivitamin Multiple Vitamins 1 tab(s) orally once a day Active Vitamin B12 500 mcg 1 tab(s) orally once a day Active hydroxychloroquine 200 mg 1 tab in the m orning and 1/2 tab in the evening orally once a day Active furosemide 20 mg 2 tab(s) orally once a day Active PROBLEMS Problem Type ICD Code Onset Dates Problem Status W/U Status Risk SNOMED Code Notes Problem Other retirement (current) drug therapy (Z79.899) Active confirmed 624901479 Problem Cervicalgia (M54.2) Active confirmed 01037899 Problem Raynaud's syndrome (I73.00) Active confirmed 568878265 Problem CREST syndrome (M34.1) Active confirmed 53051141 Problem Never smoked cigarettes (Z78.9) Active confirmed 265729898 Problem 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) Active confirmed 8171243 VITAL SIGNS Heart Rate 90 /min 02/04/2025 Blood pressure diastolic 41 mm Hg 02/04/2025 Height 64 in 02/04/2025 Blood pressure systolic 88 mm Hg 02/04/2025 Weight 113 lbs 02/04/2025 BMI 19.39 kg/m2 02/04/2025 Encounters Encounter Location Date Provider [facility], [address] [phone] 07/02/2024 Elsa Hernandez CREST syndrome M34.1 and Other retirement (current) drug therapy Z79.899 [facility], [address] [phone] 11/12/2024 Elsa Hernandez Other terminal 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, [facility] [address] [place], [place] [id number] 02/04/2025 Elsa Hernandez Other terminal gauger (current) drug therapy Z79.899 ; CREST syndrome M34.1 and Raynaud's syndrome I73.00 [facility] [address] [place] [address], [address] [place], [place] [phone] 03/11/2025 Katrina Grace [facility] [address] [place], [place] [phone] 03/14/2024 Katrina Grace CREST syndrome M34.1 [facility] [address] [place], [place] [phone] 10/21/2024 Katrina Grace CREST syndrome M34.1 ASSESSMENTS Encounter Date Diagnosis Assessment Notes Treatment Notes Treatment Clinical Notes Section Notes 07/02/2024 Other retirement (current) drug therapy (ICD-10 - Z79.899) CREST syndrome-fairl y stable with MMF and HCQ. Drop HCQ to 1 tab daily per weight based dosing. Continue eye exams. Seeing Dr. Mayer regularly. On o2 and diuretics. Have labs to be done with PCP faxed. Continue Vit. D. Keep warm. F/u scheduled. 07/02/2024 CREST syndrome (ICD-10 - M34.1) CREST syndrome-fairl y stable with MMF and HCQ. Drop HCQ to 1 tab daily per weight based dosing. Continue eye exams. Seeing Dr. Mayer regularly. On o2 and diuretics. Have labs to be done with PCP faxed. Continue Vit. D. Keep warm. F/u scheduled. 11/12/2024 Other terminal gauger (current) drug therapy (ICD-10 - Z79.899) CREST [...] o2 and diuretics. Raynauds-Keep warm. F/u scheduled. 02/04/2025 Other retirement (current) drug therapy (ICD-10 - Z79.899) CREST [...] injections. Raynauds stable. Keep warm. F/u scheduled. 03/14/2024 CREST syndrome (ICD-10 - M34.1) 10/21/2024 CREST syndrome (ICD-10 - M34.1) 02/04/2025 Raynaud's syndrome (ICD-10 - I73.00) CREST syndrome-fairl y stable with MMF and HCQ. Continue current therapy and eye exams. Have labs to be done next month faxed. Pulm. per Dr. Mayer. On O2 and diuretics. Remains on Winrevair injections. Raynauds stable. Keep warm. F/u scheduled. PLAN OF TREATMENT Pending Test Test Name Order Date AST (SGOT) 01/13/2020 Creatinine, Serum 01/13/2020 Creatinine, Serum 09/13/2015 ALT (SGPT) 01/13/2020 Complement C4, Serum 12/29/2013 Complement, Total (CH50) 12/29/2013 CBC With Differential/Platelet 5 CBC With Differential/Platelet 0 CBC With Differential/Platelet 4 Sed Rate - Westergren 09/13/2015 Sed Rate - Westergren 01/13/2020 Sed Rate - Westergren 12/29/2013 Complement C3, Serum 12/29/2013 C-Reactive Protein, Quant 12/29/2013 C-Reactive Protein, Quant 01/13/2020 Comp. Metabolic Panel (14) 12/29/2013 MERON Panel (MERON+RAMON+Scl 70+SjoSSA+SjoSSB) 12/29/2013 DsDNA by Crithidia by indirect immunoflo resence 12/29/2013 Lab slip given 04/13/2022 Lab slip given 09/13/2015 Lab slip given 01/13/2020 lab slip given 10/26/2023 lab slip given 02/27/2024 lab slip given 12/27/2022 lab slip given 06/19/2023 Future Test Test Name Order Date Lab slip given 06/08/2020 Urinalysis, Complete 06/08/2020 AST (SGOT) 01/11/2022 Creatinine, Serum 01/11/2022 ALT (SGPT) 01/11/2022 CBC With Differential/Platelet 2 Sed Rate - Westergren 01/11/2022 C-Reactive Protein, Quant 01/11/2022 Next Appt Details Provider Name:Elsa Hough , 06/10/2025 02:20:00 PM, [address] [facility], [address], [place], [place], [id number], Insurance Providers Payer Name Payer Address Payer Phone Subscriber Number Group Number Insured Name Patient Relationship to Insured Coverage Start Date Coverage End Date [employer] MCR PPO [address] [place] [phone] [id number] Christine Davis Self - patient is the insured 4 MEDICAL (GENERAL) HISTORY Medical History History ICD Code loss of hearing Ringing in ears difficulty swallowing hoarseness breast lump poor circulation diarrhea indigestion measles chicken pox Surgical History Surgery Date(Month/Year) hip 2019 bilateral cataract surgery 2018 mastectomy 2000 hysterectomy 1989 laparoscopy 1976 appendectomy 1953 [facility]
--- OUTSIDE RECORDS SUMMARY | 2025-03-11 14:38 | XMS_ITS ---
Author Organization [facility] Address [address] [place], [place] [phone] Care Team Providers Care Rn Office Name Role Phone PericomagalysLaly carmona Primary Care Provider UnavailKatrina Mckeon Unavailable [phone] NADJA WATERMAN MD Unavailable Unavailable Encounters Encounter Location Date Provider Diagnosis [facility] [address], [address] [place], [place] [id number] 03/11/2025 Katrina Grace PLAN OF TREATMENT Next Appt Details Provider Name:Elsa hernandez, 06/10/2025 02:20:00 PM, [address], [address], [place], [place], [phone],
--- OUTSIDE RECORDS SUMMARY | 2025-03-11 14:38 | XMS_ITS | Clinical Summary ---
Author Organization [facility] Care Team Providers Care Psychologist Counseling Name Role Phone Unavailable Primary Care Provider Unavailabl e Social History Tobacco Use Types Packs/Day Years Used Date Smoking Tobacco: Never Assessed Comments Unknown Sex and Gender Information Value Date Recorded Sex Assigned at Not on file Legal Sex Female 1:52 PM [employer] Gender Identity Not on file Sexual Orientation [...]
[2025-03-11 14:50] LABS: Troponin I 0.022 ng/mL (0.000-0.034)
[2025-03-11] MEDS: LACTATED RINGERS 1,000 ML 999 ML IV CONT (15:45)
--- NOTE | 2025-03-11 16:24 | PC.NURSE ---
unable to gain 2nd IV access EDP aware, pt to get blood transfusion after completion of IV Potassium, per EDP
--- NOTE | 2025-03-11 18:40 | P.HP_ITS ---
H&P: HPI History of Present Illness Date/Time: 03/11/25 18:40 Chief Complaint: Abnormal Lab Narrative: 79 y/o F with PMH of pulmonary hypertension, breast cancer s/p chemotherapy and mastectomy, rectal prolapse, CREST syndrome, anxiety, GERD, hypothyroidism, hypertension and osteopenia presents here with abnormal lab - anemic. The patient presents here for further evaluation of low hemoglobin. The patient had outpatient lab work drawn yesterday, 03/10, which showed a hemoglobin of 6.8. When compared to her previous hemoglobin, 8.3, on 11/07/2024 the patient's anemia has significantly worsened. She reports associated dark tarry stools (on iron), diarrhea, dizziness, and mild shortness of breath for which she has had use increased oxygen at night. She is on 1L at baseline and has been using 2L. She denies associated bright red blood per rectum, fatigue, abdominal pain, nausea, vomiting, fever, chills, chest pain, or hemoptysis. She has no previous history of GI bleeds or gastric ulcers. Last colonoscopy on file was in 2019 which showed diverticulosis in the sigmoid colon, torturous sigmoid colon, 4 nonbleeding colonic angiectasias, and external/internal hemorrhoids. At that time repeat colonoscopy was not recommended due to markedly difficult procedure due to tortuosity. Initial VS at presentation: 98.2? F, HR 69, R 16, 113/62, and 100% on 2 L nasal cannula. ED workup showed: No leukocytosis, hemoglobin 6.3 (previously 8.3 on 11/07/2024), MCV 90.3, MCHC mildly low, INR 1.2, potassium 2.5, sodium 133, creatinine 1.16 and GFR 45 (previously 1.04 and GFR 55 on 11/07/2024). CT of the abdomen/pelvis had multiple findings, most significant finding for enteritis which could be infectious or inflammatory (see report for full impression/details). EKG showed sinus rhythm, RBBB, cannot rule out septal infarct age indeterminate, moderate T-wave abnormality consider anterior ischemia. Review of Systems Review of Systems: All systems reviewed & are unremarkable except as noted in HPI and below PMFSH Past Medical History Medical History Fecal incontinence Rectal bleeding Rectal prolapse Irritable bowel syndrome with diarrhea Hepatitis C antibody test negative (08/26/17) Chronic respiratory failure with hypoxia Pulmonary hypertension History of breast cancer Status post chemotherapy and mastectomy. Anxiety GERD (gastroesophageal reflux disease) Hypothyroidism Hypertension CREST syndrome Osteopenia Other spondylosis, cervical region Surgical History Surgical History Cataract extraction status (11/05/18) History of appendectomy (1953) H/O: hysterectomy (1997) H/O bilateral mastectomy (08/31/00) Family History Family History Father Diabetes mellitus Family history of Alzheimer's disease Mother Diabetes mellitus Family history of chronic obstructive pulmonary disease Family history of cardiomyopathy Grandparent Family history of malignant neoplasm of breast Social History Social History Social History: The patient lives in [place] with her . He is in poor health and she has to help take care of him. She designates her as her surrogate decision maker and she wishes to be a full code. She is a lifelong nonsmoker and denies alcohol and drug abuse. 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 Gender identity (if verbalized by the patient): Female Spiritual care concerns: No Agree to blood products: Yes Meds Home Medications and Allergies Home Medications ?Medication ?Instructions ?Recorded ?Confirmed ?Type calcium carbonate (Calcium 500) 500 mg PO BID 09/05/19 03/11/25 History omeprazole 20 mg capsule,delayed 20 mg PO DAILY 09/05/19 03/11/25 History release cholecalciferol (vitamin D3) 50 1,000 unit PO DAILY 10/22/19 03/11/25 History mcg (2,000 unit) tablet (Vitamin D3) tadalafil 20 mg tablet 40 mg PO DAILY 10/22/19 03/11/25 History ferrous sulfate 325 mg (65 mg 325 mg PO EVERY OTHER DAY 12/10/20 03/11/25 History iron) tablet furosemide 40 mg tablet 40 mg PO BID 12/10/20 03/11/25 History hydroxychloroquine 200 mg tablet 200 mg PO QAM 12/10/20 03/11/25 History multivitamin 1 tablet PO DAILY 12/10/20 03/11/25 History mycophenolate mofetil 500 mg tablet 500 mg PO Q12H 12/10/20 03/11/25 History selexipag 1,600 mcg tablet 1,600 mcg PO BID 12/10/20 03/11/25 History (Uptravi) macitentan 10 mg tablet (Opsumit) 10 mg PO DAILY 05/15/22 03/11/25 History aspirin 81 mg tablet,delayed 81 mg PO DAILY 03/19/23 03/11/25 History release fluticasone propionate 50 2 spray intranasal DAILY PRN nasal 03/19/23 03/11/25 History mcg/actuation nasal congestion spray,suspension metolazone 2.5 mg tablet 2.5 mg PO DAILY 07/19/23 03/11/25 History fluticasone 250 mcg-salmeterol 50 1 inh inhalation BID 11/24/24 03/11/25 History mcg/dose blistr powdr for inhalation (Wixela Inhub) levothyroxine 25 mcg tablet 25 mcg PO DAILY #90 tabs 11/24/24 03/11/25 Rx (Synthroid) sotatercept-csrk 45 mg 45 mg subcut .[id number] 11/24/24 03/11/25 History subcutaneous kit (Winrevair) levothyroxine 50 mcg tablet See Rx Instructions .Route 01/23/25 03/11/25 Rx .COMPLEX #90 tabs Allergies Allergy/AdvReac Type Severity Reaction Status Date / Time No Known Drug Allergies Allergy Unknown unknown Verified 03/11/25 12:05 Vital Signs Vital Signs - 24 hr 03/11/25 12:02 03/11/25 14:27 03/11/25 14:29 Temperature 98.2 F Pulse Rate 69 70 Respiratory Rate 16 18 18 Blood Pressure 113/62 98/54 L Pulse Oximetry 100 95 93 Oxygen Delivery Nasal Cannula Oxygen Flow Rate 2 03/11/25 17:25 03/11/25 18:00 Temperature Pulse Rate 70 73 Respiratory Rate 18 Blood Pressure 91/78 L Pulse Oximetry 95 Oxygen Delivery Oxygen Flow Rate Exam Const: General: comfortable and no acute distress Other: , female, nontoxic appearance HENMT: Face/Nose/Sinus: Normal nares present Mouth: Yes moist mucous membranes Eyes: General: appearance normal, both eyes and all related structures Sclera: sclerae normal Pupils: Equal, round and reactive pupils present EOM: EOMs intact bilaterally Resp: Effort & Inspection: normal respiratory effort Auscultation: clear to auscultation bilaterally Other: Nasal cannula place, tolerating well Cardio: Rate: regular rate Rhythm: regular rhythm Other: + murmur GI: Other: Abdomen soft, nondistended, nontender. Normoactive bowel sounds in all quadrants. Skin: General skin exam: no rashes or lesions noted Wounds: no wounds Other: Ready appearance. Skin diffusely thickened. Neuro: Speech: normal speech Motor exam (neuro): 5/5 motor strength present throughout Sensory Exam: normal sensation Other: A&O x4 Extrem: Other: Trace edema to bilateral lower extremities, nonpitting. Psych: Mental Status: mental status grossly normal Affect: normal affect Other: Good insight judgment, pleasant H&P: Results Labs Labs: Short CBC 03/11/25 Range/Units 12:23 WBC 6.0 (4.5-10.0) K/mm3 Hgb 6.3 L* (12.0-15.0) g/dL Hct 22.6 L (37.0-47.0) % Plt Count 143 L (150-375) k/mm3 BMP 03/11/25 12:22 Sodium 133 L Potassium 2.5 L* Chloride 96 L Carbon Dioxide 27 BUN 40 H D Creatinine 1.16 H Glucose 96 Calcium 8.8 Cardiac Enzymes 03/11/25 Range/Units 12:22 Troponin I 0.022 (0.000-0.034) ng/mL Liver Function 03/11/25 Range/Units 12:22 Total Bilirubin 0.2 (0.2-1.3) mg/dL AST 19 (14-36) U/L ALT 8 (6-35) U/L Alkaline Phosphatase 39 (38-126) U/L Albumin 3.8 (3.5-5.1) g/dL Assessment and Plan Assessment and plan (1) Anemia: Qualifiers: Anemia type: unspecified type Qualified Code(s): D64.9 - Anemia, unspecified Code(s): D64.9 - Anemia, unspecified Status: Acute Assessment and Plan: - Hgb 6.3, previously 8.3 on 11/07 - add iron, TIBC, ferritin, B12, folic acid - TSH WNL on 03/10 - transfuse if <7 plan for 2u PRBC on 03/11 - trend H&H post transfusions - stool occult/ALBERTINA positive, however negative on GI exam - GI consulted -per ED provider spoke with on-call language specialist is, and feels bleeding may be due more so to enteritis as his rectal exam showed brown stool. Will hold on upper scope unless hemoglobin dropping/changes on re- evaluation. will make clear liquid diet, NPO at midnight in case of need for procedure - continue iron supplement. Hold aspirin. (2) GIB (gastrointestinal bleeding): Qualifiers: GI bleed type/associated pathology: unspecified gastrointestinal hemorrhage type Qualified Code(s): K92.2 - Gastrointestinal hemorrhage, unspecified Code(s): K92.2 - Gastrointestinal hemorrhage, unspecified Status: Acute Assessment and Plan: - ALBERTINA/occult +, negative for GI - clear liquid diet -> NPO at midnight. Initial plan for scope, however GI now feels anemia more likely due to enteritis. - monitor H&H (3) Acute hypokalemia: Code(s): E87.6 - Hypokalemia Status: Acute Assessment and Plan: - K 2.5 - given 40 PO and 40 IVPB in ED, recheck this evening - presumed secondary to diarrhea - monitor (4) Enteritis: Code(s): K52.9 - Noninfective gastroenteritis and colitis, unspecified Status: Acute Assessment and Plan: - CT abd/pelvis: 1. Enteritis which could be infectious or inflammatory in etiology. 2. Mild intrahepatic biliary ductal dilation but without evident dilation the common bile duct. Correlate with liver function tests and if clinically indicated could consider further evaluation with MRCP. 3. Multiple cystic lesions diffusely throughout the pancreas which suggests dilated sidebranches related to chronic pancreatitis. Correlate with clinical history. This can be further evaluated same time with pre and postcontrast MRI/MRCP. 4. Cardiomegaly and small pericardial effusion. 5. Very small bilateral posterior layering pleural effusions and minimal hepatic and pericholecystic ascites. 6. Large amount of ingested debris within the stomach patulous distal esophagus and with relatively decompressed stomach which suggests possible esophageal dysmotility or stricture. 7. Silicone left breast implant with intracapsular rupture. 8. Indeterminate subtle sclerotic lesion at L5. The patient has known history of prior malignancy would consider bone scan for further evaluation. - check stool culture, c. diff, and calprotectin - hx of IBS w/diarrhea - IV fluids - replete electrolytes prn, hypoK noted - see above (5) Hypothyroidism, unspecified: Qualifiers: Hypothyroidism type: unspecified Qualified Code(s): E03.9 - Hypothyroidism, unspecified Code(s): E03.9 - Hypothyroidism, unspecified Status: Chronic Assessment and Plan: - TSH 3.1 on 6.10 - continue home medication: Synthroid (6) Chronic respiratory failure with hypoxia: Code(s): J96.11 - Chronic respiratory failure with hypoxia Status: Chronic Assessment and Plan: - chronic respiratory failure on 1 L nasal cannula at baseline, currently requiring 2 L for comfort. May wean O2 to baseline requirement as tolerated. (7) Hypertension: Qualifiers: Hypertension type: essential hypertension Qualified Code(s): I10 - Essential (primary) hypertension Code(s): I10 - Essential (primary) hypertension Status: Chronic Assessment and Plan: - chronic, currently 91/78 - not on antihypertensives, however on Lasix and metolazone due to history of CHF. Will continue Lasix only at this time and monitor BP closely, hold if BP less than 100/80. Hold metolazone until BP improved. Plan Diet: Clear liquid, NPO midnight GI Prophylaxis: Omeprazole p.o. DVT Prophylaxis: SCDs IV fluids: 1L bolus -> 90 mL/hour Lines/Tubes: Peripheral IV Code Status: Full code Quality VTE Prophylaxis VTE prophylaxis: mechanical ordered Hospitalist MIPS Advance Care Plan I have confirmed that the patient's Advanced Care Plan is present, code status is documented, or surrogate decision maker is listed in patient medical record.: Yes Medication Reconciliation I have utilized all available resources to obtain, update and review the patients current medications (includes all prescriptions, OTC, herbals, cannabis, and nutritional supplements).: Yes
[2025-03-11] MEDS: PANTOPRAZOLE SODIUM IV 40 MG VIAL IV PUSH (18:56)
[2025-03-11] MEDS: SODIUM CHLORIDE 0.9% IV 250 ML 30 ML IV CONT (20:03)
[2025-03-11] MEDS: TUBING, BLOOD PLUM PUMP TUBING 1 EACH XX (20:06)
[2025-03-11 20:26] LABS: Anion Gap 7 mmol/L (4-12); Blood Urea Nitrogen 36 mg/dL (7-17); Calcium 8.4 mg/dL (8.4-10.2); Carbon Dioxide 27 mmol/L (22-30); Chloride 99 mmol/L (98-107); Estimated CRCL calculation 35 ml/min; Estimated Glomerular Filt Rate 58; Glucose 104 mg/dL (65-110); Potassium 3.4 mmol/L (3.4-5.0); Sodium 133 mmol/L (137-145)
[2025-03-11] MEDS: mycophenolate mofetiL 250 MG CAPSULE 500 MG PO (20:35)
--- NOTE | 2025-03-11 20:52 | PHAR ---
PT'S HOME MED TADALAFIL 20 MG TABS VERIFIED BY PHARMACY
--- NOTE | 2025-03-11 22:05 | PHAR ---
Verified Macitentan [Opsumit] (#10) 10 mg tablet TAKE 1 TABLET BY MOUTH DAILY, & Selexipag [Uptravi] 1,600 mcg tablet (#3)TAKE 1 TABLET BY MOUTH TWICE DAILY. Sent back to IMU for inpatient use.
[2025-03-11] MEDS: SELEXIPAG 1600 MCG 1600 EACH PO (22:36)
[2025-03-12] VITALS (25 sets, daily range): BP systolic 100–119; BP diastolic 39–62; PULSE 68–88; RESP 16–20; TEMP 36.7–37.2; O2SAT 90–97
[2025-03-12] MEDS: FLUTICASONE PROPIONATE 0.05% NA SPR 16 GM BTL (*BKC) 2 SPRAY NASAL ×2 (00:18→16:48)
[2025-03-12] MEDS: TUBING, BLOOD PLUM PUMP TUBING 1 EACH XX (00:18)
[2025-03-12 01:45] LABS: Toxigenic C. Diff NEGATIVE (NEGATIVE)
[2025-03-12] MEDS: SODIUM CHLORIDE 0.9% IV 1,000 ML 90 ML IV CONT ×2 (03:10→13:58)
[2025-03-12 04:51] LABS: Basophils Absolute Auto 0.1 K/mm3 (0.0-0.1); Basophils Percent Auto 0.7 % (0.2-1.2); Eosinophils Percent Auto 0.1 % (0-4.4); Hematocrit 29.6 % (37.0-47.0); Hemoglobin 8.8 g/dL (12.0-15.0); Immature Granulocyte Absolute 0.44 K/mm3 (0.00-0.031); Immature Granulocyte Percent A 5.9 % (0-0.5); Lymphocytes Absolute Auto 0.68 K/mm3 (0.9-3.2); Lymphocytes Percent Auto 9.1 % (18.3-44.2); Mean Corpuscular HGB Conc 29.7 g/dl (32-36); Mean Corpuscular Hemoglobin 27.8 pg (26-34); Mean Corpuscular Volume 93.7 fl (80-100); Mean Platelet Volume 10.4 fl (7.4-10.4); Monocytes Absolute Auto 0.6 K/mm3 (0.1-0.6); Monocytes Percent Auto 7.6 % (2.6-8.5); Neutrophils Absolute Auto 5.7 K/mm3 (1.3-6.7); Neutrophils Percent Auto 76.6 % (45.5-73.1); Nucleated Red Blood Cells Perc 1.2 % (0.0-0.2); Platelet Count Result 121 k/mm3 (150-375); Red Blood Count 3.16 M/mm3 (4.2-5.4); Red Cell Distribution Width 18.5 % (11.5-14.5); White Blood Count 7.5 K/mm3 (4.5-10.0)
[2025-03-12 05:13] LABS: Alanine Aminotransferase 7 U/L (6-35); Albumin Level 3.2 g/dL (3.5-5.1); Alkaline Phosphatase 33 U/L (38-126); Anion Gap 8 mmol/L (4-12); Aspartate Amino Transferase 19 U/L (14-36); Bilirubin,Total 0.4 mg/dL (0.2-1.3); Blood Urea Nitrogen 33 mg/dL (7-17); Calcium 8.2 mg/dL (8.4-10.2); Carbon Dioxide 23 mmol/L (22-30); Chloride 103 mmol/L (98-107); Estimated CRCL calculation 33 ml/min; Estimated Glomerular Filt Rate 54; Glucose 87 mg/dL (65-110); Iron 35 ug/dL (37-170); Magnesium 2.1 mg/dL (1.6-2.3); Phosphorus 2.7 mg/dL (2.5-4.5); Potassium 2.9 mmol/L (3.4-5.0); Sodium 134 mmol/L (137-145)
[2025-03-12 05:21] LABS: Percent Iron Saturation 10 % (20-50)
[2025-03-12 05:27] LABS: Platelet Estimate Decreased (Adequate)
[2025-03-12 05:28] LABS: Anisocytosis 1+; Hypochromasia 1+; Ovalocytes 1+; Schistocytes None Seen
[2025-03-12] MEDS: LEVOTHYROXINE SODIUM 25 MCG TABLET PO (05:30)
[2025-03-12] MEDS: LEVOTHYROXINE SODIUM 50 MCG TABLET PO (05:30)
[2025-03-12 06:17] LABS: Folic Acid > 20.0 ng/mL (2.76->20)
[2025-03-12] MEDS: POTASSIUM CHLORIDE 20 MEQ PACKET (FOR LIQUID) 40 MEQ PO (06:22)
[2025-03-12] MEDS: POTASSIUM CHLORIDE INJ 40 MEQ in SODIUM CHLORIDE 0.9% IV 500 ML 130 MEQ IVPB (06:28)
[2025-03-12] MEDS: FLUTICASONE/SALMETEROL 115-21 MCG INHALER 1 PUFF 2 PUFF INHALATION ×2 (08:26→20:50)
[2025-03-12 08:38] LABS: Hematocrit 32.8 % (37.0-47.0); Hemoglobin 9.6 g/dL (12.0-15.0); Mean Corpuscular HGB Conc 29.3 g/dl (32-36); Mean Corpuscular Hemoglobin 27.4 pg (26-34); Mean Corpuscular Volume 93.7 fl (80-100); Platelet Count Result 137 k/mm3 (150-375); Red Cell Distribution Width 19.3 % (11.5-14.5); White Blood Count 8.8 K/mm3 (4.5-10.0)
[2025-03-12] MEDS: CHOLECALCIFEROL (VITAMIN D3) 25 MCG (1,000 UNITS) TABLET PO (08:56)
[2025-03-12] MEDS: FUROSEMIDE 40 MG TABLET PO ×2 (08:56→16:48)
[2025-03-12] MEDS: PANTOPRAZOLE SODIUM IV 40 MG VIAL IV PUSH ×2 (08:56→16:48)
[2025-03-12] MEDS: mycophenolate mofetiL 250 MG CAPSULE 500 MG PO ×2 (08:56→20:39)
[2025-03-12] MEDS: MULTIVITAMINS THERAPEUTIC TAB (*BKC) 1 TABLET PO (08:56)
[2025-03-12] MEDS: HYDROXYCHLOROQUINE SULFATE 200 MG TABLET PO (08:56)
[2025-03-12] MEDS: TADALAFIL 20 MG 2 EACH PO (08:57)
[2025-03-12] MEDS: SELEXIPAG 1600 MCG 1600 EACH PO ×2 (08:58→20:39)
--- NOTE | 2025-03-12 09:06 | P.PNIM_ITS ---
Progress Note: A&P Assessment and Plan (1) Anemia: Qualifiers: Anemia type: unspecified type Qualified Code(s): D64.9 - Anemia, unspecified Code(s): D64.9 - Anemia, unspecified Status: Acute Assessment and Plan: - Hgb 6.3 given 2 u PRBC on 03/11, previously 8.3 on 2/7 H/H 9.6/32.8 on am labs - Iron panel: iron 35, TIBC 347, % sat 10, ferritin 20.40 - B12, folic acid WNL - TSH WNL on 03/10 - transfuse if <7 - trend H&H post transfusions - stool occult/ALBERTINA positive, however negative on GI exam - GI consulted -per ED provider spoke with on-call backer up is, and feels bleeding may be due more so to enteritis as his rectal exam showed brown stool. Will hold on upper scope unless hemoglobin dropping/changes on re- evaluation. will make clear liquid diet, NPO at midnight in case of need for procedure - continue iron supplement. Hold aspirin. (2) GIB (gastrointestinal bleeding): Qualifiers: GI bleed type/associated pathology: unspecified gastrointestinal hemorrhage type Qualified Code(s): K92.2 - Gastrointestinal hemorrhage, unspecified Code(s): K92.2 - Gastrointestinal hemorrhage, unspecified Status: Acute Assessment and Plan: She reports associated dark tarry stools (on iron), diarrhea, dizziness, and mil d shortness of breath for which she has had use increased oxygen at night. She is on 1L at baseline and has been using 2L. - ALBERTINA/occult +, negative for GI - NPO. Initial plan for scope, however GI now feels anemia more likely due to enteritis. - Pantoprazole BID - DVT Px: SCDs. Avoid anti-coagulations, holding home ASA - Monitor serum electrolytes, CBC, hemoglobin/hematocrit q.8 hours. If hemo globin drops below 7 transfuse packed red blood cells - Monitor for bloody bowel movements,chest pain,SOB or dizziness/lightheadedness - GI consulted (3) Enteritis: Code(s): K52.9 - Noninfective gastroenteritis and colitis, unspecified Status: Acute Assessment and Plan: - CT abd/pelvis: 1. Enteritis which could be infectious or inflammatory in etiology. 2. Mild intrahepatic biliary ductal dilation but without evident dilation the common bile duct. (LFTs WNL.) 3. Multiple cystic lesions diffusely throughout the pancreas which suggests dilated side branches related to chronic pancreatitis. 4. Cardiomegaly and small pericardial effusion. 5. Very small bilateral posterior layering pleural effusions and minimal hepatic and pericholecystic ascites. 6. Large amount of ingested debris within the stomach patulous distal esophagus and with relatively decompressed stomach which suggests possible esophageal dysmotility or stricture. (History of CREST syndrome) - check stool culture pending, c. diff negative, and calprotectin - hx of IBS w/diarrhea - Monitor vital signs, I&Os, track stool output, watch for bloody stools, neuro status and patient is a fall risk - Monitor serum electrolytes and CBC (4) Acute hypokalemia: Code(s): E87.6 - Hypokalemia Status: Acute Assessment and Plan: - K 2.5 on admission. Given 40 PO and 40 IVPB in ED presumed secondary to diarrhea, patient is also on lasix 40 mg BID without potassium supplementation which could be contributing - K 2.9 on am labs, given 40 mg IV x1. Repeat K 4.3 - Tele - monitor (5) Lesion of lumbar spine: Code(s): M89.9 - Disorder of bone, unspecified Status: Acute Assessment and Plan: CT abd/pelvis showed indeterminate subtle sclerotic lesion at L5. The patient has known history of prior malignancy would consider bone scan for further evaluation. Bone scan ordered (6) Hypothyroidism, unspecified: Qualifiers: Hypothyroidism type: unspecified Qualified Code(s): E03.9 - Hypothyroidism, unspecified Code(s): E03.9 - Hypothyroidism, unspecified Status: Chronic Assessment and Plan: - TSH 3.1 on 6.10 - continue home medication: Synthroid (7) Chronic respiratory failure with hypoxia: Code(s): J96.11 - Chronic respiratory failure with hypoxia Status: Chronic Assessment and Plan: - chronic respiratory failure on 1 L nasal cannula at baseline, currently requiring 2 L for comfort. May wean O2 to baseline requirement as tolerated. (8) Hypertension: Qualifiers: Hypertension type: essential hypertension Qualified Code(s): I10 - Essential (primary) hypertension Code(s): I10 - Essential (primary) hypertension Status: Chronic Assessment and Plan: Chronic - not on antihypertensives, however on Lasix and metolazone due to history of CHF. Continue Lasix only at this time and monitor BP closely, hold if BP less than 100/80. Hold metolazone until BP improved. 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 Baseline oxygen supplementation of 1L NC, currently requiring 2L NC. Wean back to baseline as tolerated. Time Spent With Patient Time with patient: 25 - 35 minutes Subjective Date/time seen: 03/12/25 09:06 Interval history: 79 year old female with past medical history of pulmonary hypertension, breast cancer s/p chemotherapy and mastectomy, rectal prolapse, CREST syndrome, anxiety, GERD, hypothyroidism, hypertension and osteopenia presents here with abnormal lab - anemic. She reports associated dark tarry stools (on iron), diarrhea, dizziness, and mild shortness of breath for which she has had use inc reased oxygen at night. She is on 1L at baseline and has been using 2L. Patient is pleasant lying comfortably in bed. She remains on 2 L nasal cannula from baseline 1 L which she is on for her crest syndrome. She states that her shortness of breath has improved since admission. She continues to endorse dark diarrhea like stools but does note that she is on iron. She states she has a history of rectal prolapse for which she has not received surgery for and does have intermittent bright red blood. She has no other complaints denying chest pain, palpitations, nausea/vomiting, and abdominal pain. Review of Systems Review of Systems: All systems reviewed & are unremarkable except as noted in HPI and below Exam Narrative: AF HR 78 RR 18 SpO2 93 2L NC (baseline 1L NC) BP 109/51 General: female in no acute respiratory distress who is nontoxic appearing, lying semi recumbent in bed. HEENT: Normocephalic. Atraumatic. Extraocular movement intact. Sclera clear and anicteric. No facial asymmetry. Chest: Lungs are clear to auscultation bilaterally. No wheezes or crackles. CV: Heart was regular rate and rhythm. S1-S2. Murmurs. Abd: Abdomen was soft. Nontender. Nondistended. Positive bowel sounds. Ext: No clubbing, cyanosis, or edema. DP pulses bilaterally. Neuro: Patient is alert and oriented x3. Speech is clear. Objective Data Vital Signs Vital Signs: Vital Signs - 24 hr 03/11/25 12:02 03/11/25 14:27 03/11/25 14:29 Temperature 98.2 F Pulse Rate 69 70 Respiratory Rate 16 18 18 Blood Pressure 113/62 98/54 L Pulse Oximetry 100 95 93 Oxygen Delivery Nasal Cannula Oxygen Flow Rate 2 03/11/25 17:25 03/11/25 18:00 03/11/25 18:04 Temperature Pulse Rate 70 73 Respiratory Rate 18 Blood Pressure 91/78 L Pulse Oximetry 95 95 Oxygen Delivery Nasal Cannula Oxygen Flow Rate 2 03/11/25 19:52 03/11/25 19:54 03/11/25 20:00 Temperature 98.4 F 98.4 F Pulse Rate 72 74 Respiratory Rate 17 20 Blood Pressure 90/40 L 90/40 L Pulse Oximetry 94 92 94 Oxygen Delivery Nasal Cannula Oxygen Flow Rate 2 03/11/25 20:00 03/11/25 20:16 03/11/25 21:16 Temperature 98.2 F 98.3 F Pulse Rate 74 74 76 Respiratory Rate 16 16 Blood Pressure 99/53 L 102/43 L Pulse Oximetry 100 94 Oxygen Delivery Oxygen Flow Rate 03/11/25 22:00 03/11/25 22:16 03/11/25 23:16 Temperature 98.2 F 98.6 F Pulse Rate 72 76 71 Respiratory Rate 20 20 Blood Pressure 105/51 L 101/55 L Pulse Oximetry 95 98 Oxygen Delivery Oxygen Flow Rate 03/11/25 23:32 03/12/25 00:00 03/12/25 00:00 Temperature 98.4 F 98.1 F Pulse Rate 71 74 Respiratory Rate 20 20 Blood Pressure 100/53 L 110/53 L Pulse Oximetry 95 97 97 Oxygen Delivery Nasal Cannula Oxygen Flow Rate 2 03/12/25 00:00 03/12/25 00:15 03/12/25 00:30 Temperature 98.1 F 98.4 F Pulse Rate 70 74 71 Respiratory Rate 20 20 Blood Pressure 110/53 L 100/53 L Pulse Oximetry 97 95 Oxygen Delivery Oxygen Flow Rate 03/12/25 01:30 03/12/25 02:00 03/12/25 02:30 Temperature 98.3 F 98.2 F Pulse Rate 71 72 70 Respiratory Rate 20 18 Blood Pressure 102/50 L 107/62 Pulse Oximetry 96 96 Oxygen Delivery Oxygen Flow Rate 03/12/25 03:12 03/12/25 03:57 03/12/25 04:00 Temperature 98.4 F 98.2 F Pulse Rate 69 73 Respiratory Rate 20 17 Blood Pressure 102/53 L 119/39 L Pulse Oximetry 93 93 93 Oxygen Delivery Nasal Cannula Oxygen Flow Rate 2 03/12/25 04:00 03/12/25 06:00 03/12/25 07:36 Temperature 98.9 F Pulse Rate 73 74 78 Respiratory Rate 18 Blood Pressure 101/62 Pulse Oximetry 92 Oxygen Delivery Oxygen Flow Rate 03/12/25 08:26 03/12/25 08:26 Temperature Pulse Rate 69 69 Respiratory Rate 20 20 Blood Pressure Pulse Oximetry 90 Oxygen Delivery Nasal Cannula Oxygen Flow Rate 2 Intake/Output Intake/Output: Intake & Output 03/09/25 03/10/25 03/11/25 03/12/25 23:59 23:59 23:59 23:59 Intake Total 2350 350 Output Total 1 1 Balance 2349 349 Meds/Results Medications: Active Medications Generic Name Dose Route Start Last Admin Trade Name Freq PRN Reason Stop Dose Admin Acetaminophen 650 mg 03/11/25 15:34 Acetaminophen 325 Mg Tablet PO Q4H PRN Mild Pain (1-3) or Fever Calcium Carbonate 500 mg 03/12/25 12:00 Calcium Carbonate (Oscal) 500 Mg Tablet PO 1200,1800 GUSTAVO Ferrous Sulfate 325 mg 03/12/25 12:00 Ferrous Sulfate [address] PO Q48H GUSTAVO Fluticasone Propionate 2 spray 03/11/25 19:09 03/12/25 00:18 Fluticasone Propionate 0.05% Na Spr 16 Gm Btl (*Bkc) NASAL 2 spray DAILY PRN Administration nasal congestion Furosemide 40 mg 03/12/25 09:00 Furosemide 40 Mg Tablet PO BID GUSTAVO Hydroxychloroquine Sulfate 200 mg 03/12/25 09:00 Hydroxychloroquine Sulfate 200 Mg Tablet PO QAM GUSTAVO Sodium Chloride 1,000 mls @ 90 mls/hr 03/11/25 15:35 03/12/25 03:10 Normal Saline Iv IV CONT 90 mls/hr .Q11H7M GUSTAVO Administration Potassium Chloride 40 meq/ 520 mls @ 130 mls/hr 03/12/25 06:16 03/12/25 06:28 Sodium Chloride IVPB 03/12/25 10:15 130 mls/hr ONCE ONE Administration Levothyroxine Sodium 50 mcg 03/12/25 06:30 03/12/25 05:30 Levothyroxine Sodium 50 Mcg Tablet PO 50 mcg DAILY@0630 GUSTAVO Administration Levothyroxine Sodium 25 mcg 03/12/25 06:30 03/12/25 05:30 Levothyroxine Sodium 25 Mcg Tablet PO 25 mcg DAILY@0630 GUSTAVO Administration Miscellaneous Information 1 each 03/12/25 00:01 Hold Home Omeprazole? Pt On Iv Protonix XX 04/11/25 00:00 CLARIFY GUSTAVO Multivitamins Therapeutic 1 tablet 03/12/25 09:00 Multivitamins Therapeutic Tab (*Bkc) PO DAILY GUSTAVO Mycophenolate Mofetil 500 mg 03/11/25 21:00 03/11/25 20:35 Mycophenolate Mofetil 250 Mg Capsule PO 500 mg Q12H GUSTAVO Administration Non-Formulary Medication 20 mg 03/12/25 09:00 Omeprazole PO 04/11/25 08:59 DAILY GUSTAVO Home Med (Selexipag 1,600 mcg 03/11/25 22:25 03/11/25 22:36 [Uptravi] 1,600 Mcg PO 04/10/25 22:24 1,600 mcg Tablet) Q12HR GUSTAVO Administration Non-Formulary ( 2 each 03/12/25 09:00 Tadalafil 20 Mg Oral PO 04/11/25 08:59 Tablet) DAILY [facility] Home Med (Macitentan 10 mg 03/12/25 09:00 [Opsumit] 10 Mg PO 04/11/25 08:59 Tablet) DAILY GUSTAVO Ondansetron HCl 4 mg 03/11/25 15:34 Ondansetron Inj 4 Mg/2 Ml Vial IV PUSH Q4H PRN Nausea Pantoprazole Sodium 40 mg 03/11/25 17:00 03/11/25 18:56 Pantoprazole Sodium Iv 40 Mg Vial IV PUSH 40 mg BID GUSTAVO Administration Fluticasone/Salmeterol 2 puff 03/11/25 20:00 03/12/25 08:26 Fluticasone/Salmeterol 115-21 Mcg Inhaler 1 Puff INHALATION 2 puff Q12HRT GUSTAVO Administration Vitamin D 25 mcg 03/12/25 09:00 Cholecalciferol (Vitamin D3) 25 Mcg (1,000 Units) Tablet PO DAILY GUSTAVO Radiology Results: ITS Impressions Abdomen/Pelvis CT 03/11/25 14:42 IMPRESSION: 1. Enteritis which could be infectious or inflammatory in etiology. 2. Mild intrahepatic biliary ductal dilation but without evident dilation the common bile duct. Correlate with liver function tests and if clinically indicated could consider further evaluation with MRCP. 3. Multiple cystic lesions diffusely throughout the pancreas which suggests dilated sidebranches related to chronic pancreatitis. Correlate with clinical history. This can be further evaluated same time with pre and postcontrast MRI/MRCP. 4. Cardiomegaly and small pericardial effusion. 5. Very small bilateral posterior layering pleural effusions and minimal hepatic and pericholecystic ascites. 6. Large amount of ingested debris within the stomach patulous distal esophagus and with relatively decompressed stomach which suggests possible esophageal dysm otility or stricture. 7. Silicone left breast implant with intracapsular rupture. 8. Indeterminate subtle sclerotic lesion at L5. The patient has known history of prior malignancy would consider bone scan for further evaluation. Labs Labs: Laboratory Results - last 24 hr 03/11/25 03/11/25 03/11/25 12:22 12:23 19:50 WBC 6.0 RBC 2.30 L Hgb 6.3 L* Hct 22.6 L MCV 98.3 MCH 27.4 MCHC 27.9 L RDW 17.5 H Plt Count 143 L MPV 10.4 Immature Gran % (Auto) 5.0 H Neut % (Auto) 81.0 H Lymph % (Auto) 6.7 L [place] % (Auto) 6.4 Eos % (Auto) 0.2 Baso % (Auto) 0.7 Lymph # (Auto) 0.40 L [place] # (Auto) 0.4 Eos # (Auto) 0.0 Baso # (Auto) 0.0 Abs Immat Gran (auto) 0.30 H Absolute Neuts (auto) 4.8 Absolute Nucleated RBC 0.040 H Band Neutrophils % Not Reportable Nucleated RBC % 0.7 H Platelet Estimate Slightly decreased Hypochromasia 2+ Poikilocytosis 1+ Anisocytosis 1+ Tear Drop Cells 1+ Ovalocytes 1+ Stomatocytes 1+ Acanthocytes (Spur) 1+ Schistocytes Rare PT 14.9 H INR 1.2 APTT 27.6 Sodium 133 L 133 L Potassium 2.5 L* 3.4 Chloride 96 L 99 Carbon Dioxide 27 27 Anion Gap 10 7 BUN 40 H D 36 H Creatinine 1.16 H 0.94 Estim Creat Clear Calc 29 35 Estimated GFR 45 L 58 L Glucose 96 104 Calcium 8.8 8.4 Phosphorus Magnesium Iron TIBC % Saturation Ferritin Total Bilirubin 0.2 AST 19 ALT 8 Alkaline Phosphatase 39 Troponin I 0.022 Total Protein 5.7 L Albumin 3.8 Vitamin B12 Folate C. difficile (PCR) Blood Type A Positive Antibody Screen Negative Crossmatch See Detail 03/11/25 03/12/25 03/12/25 23:45 04:35 08:26 WBC 7.5 8.8 RBC 3.16 L 3.50 L Hgb 8.8 L 9.6 L Hct 29.6 L 32.8 L MCV 93.7 93.7 MCH 27.8 27.4 MCHC 29.7 L 29.3 L RDW 18.5 H 19.3 H Plt Count 121 L 137 L MPV 10.4 10.0 Immature Gran % (Auto) 5.9 H Neut % (Auto) 76.6 H Lymph % (Auto) 9.1 L [place] % (Auto) 7.6 Eos % (Auto) 0.1 Baso % (Auto) 0.7 Lymph # (Auto) 0.68 L [place] # (Auto) 0.6 Eos # (Auto) 0.0 Baso # (Auto) 0.1 Abs Immat Gran (auto) 0.44 H Absolute Neuts (auto) 5.7 Absolute Nucleated RBC 0.090 H Band Neutrophils % Not Reportable Nucleated RBC % 1.2 H Platelet Estimate Decreased Hypochromasia 1+ Poikilocytosis Anisocytosis 1+ Tear Drop Cells Ovalocytes 1+ Stomatocytes Acanthocytes (Spur) Schistocytes None seen PT INR APTT Sodium 134 L Potassium 2.9 L Chloride 103 Carbon Dioxide 23 Anion Gap 8 BUN 33 H Creatinine 1.00 Estim Creat Clear Calc 33 Estimated GFR 54 L Glucose 87 Calcium 8.2 L Phosphorus 2.7 Magnesium 2.1 Iron 35 L TIBC 347 % Saturation 10 L Ferritin 20.40 Total Bilirubin 0.4 AST 19 ALT 7 Alkaline Phosphatase 33 L Troponin I Total Protein 5.0 L Albumin 3.2 L Vitamin B12 918.0 Folate > 20.0 H C. difficile (PCR) Negative Blood Type Antibody Screen Crossmatch Quality VTE Prophylaxis VTE prophylaxis: mechanical ordered
[2025-03-12] MEDS: MACITENTAN 10 MG 10 EACH PO (09:10)
[2025-03-12 12:03] LABS: Anion Gap 8 mmol/L (4-12); Blood Urea Nitrogen 28 mg/dL (7-17); Calcium 8.3 mg/dL (8.4-10.2); Carbon Dioxide 20 mmol/L (22-30); Chloride 107 mmol/L (98-107); Estimated CRCL calculation 35 ml/min; Estimated Glomerular Filt Rate 58; Glucose 96 mg/dL (65-110); Potassium 4.3 mmol/L (3.4-5.0); Sodium 135 mmol/L (137-145)
[2025-03-12] MEDS: CALCIUM CARBONATE (OSCAL) 500 MG TABLET PO ×2 (13:53→16:48)
[2025-03-12] MEDS: FERROUS SULFATE 325 MG TABLET DR PO (13:53)
[2025-03-12 15:15] LABS: Hematocrit 33.4 % (37.0-47.0); Hemoglobin 9.7 g/dL (12.0-15.0); Immature Platelet Fraction Pct 3.7 % (0.9-11.2); Mean Corpuscular Hemoglobin 27.5 pg (26-34); Mean Corpuscular Volume 94.6 fl (80-100); Mean Platelet Volume 10.3 fl (7.4-10.4); Platelet Count Result 147 k/mm3 (150-375); Red Blood Count 3.53 M/mm3 (4.2-5.4); Red Cell Distribution Width 19.5 % (11.5-14.5); White Blood Count 10.6 K/mm3 (4.5-10.0)
[2025-03-12] MEDS: LOPERAMIDE HCL 2 MG CAPSULE PO (16:48)
--- NOTE | 2025-03-12 18:30 | P.CONGI_ITS ---
Assessment and Plan Assessment and plan (1) Iron deficiency anemia: Code(s): D50.9 - Iron deficiency anemia, unspecified Status: Acute Assessment and Plan: Her iron deficiency anemia was initially addressed in 2019, revealing AVMs but no pre-neoplastic lesions. 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 Repeating a colonoscopy is not advised due to her pulmonary hypertension and frailty, which make her a high sedation risk especially considering the apparent technical difficulty, which puts the patient on an unnecesary risk for perforation. Therefore, will hold off on further endoscopic procedures unless overt GI bleeding occurs, recommending regular hemoglobin checks and iron infusions to maintain her status. Her diarrhea, a likely manifestation of scleroderma-related small bowel dysmotility and bacterial overgrowth, appears to be a chronic issue with an acute exacerbation. We will send stool cultures and leukocyte studies and begin empiric Bactrim BID for 5-7 days to treat presumed bacterial overgrowth. GI Consult Note Consult date/time: 03/12/25 18:30 Reason for consult: Anemia -diarrhea HPI: Christine Ellis is a 79-year-old female with a significant medical history including scleroderma, hypothyroidism, and severe pulmonary hypertension, being treated with hydroxychloroquine. She was referred to our emergency room for [id number] anemia. Her hemoglobin recently declined from 8.3 g/dL (November 07, 2024) to 6.3 g/dL. She has since received 2 units of packed red blood cells, with her hemoglobin now at 9.7 g/dL. Her iron saturation is 10%, suggesting iron deficiency. A colonoscopy in 2019 was notably challenging due to severe diverticulosis and angulation. It identified small polyps, multiple diverticula, and 4 AVMs in the ascending colon and cecum. Due to the extreme difficulty and the patient's age, repeat colonoscopy was not recommended. She reports chronic, recurrent episodes of brownish, liquid diarrhea associated with distension but not abdominal pain. She manages these episodes with loperamide, occasionally experiencing constipation. While hospitalized, this morning she started developing frequent liquid brown diarrhea, up to 6 episodes so far. Review of Systems 2 Review of Systems: All systems reviewed & are unremarkable except as noted in HPI and below PMFSH Past Medical History Medical History Fecal incontinence Rectal bleeding Rectal prolapse Irritable bowel syndrome with diarrhea Hepatitis C antibody test negative (08/26/17) Chronic respiratory failure with hypoxia Pulmonary hypertension History of breast cancer Status post chemotherapy and mastectomy. Anxiety GERD (gastroesophageal reflux disease) Hypothyroidism Hypertension CREST syndrome Osteopenia Other spondylosis, cervical region Surgical History Surgical History Cataract extraction status (11/05/18) History of appendectomy (1953) H/O: hysterectomy (1997) H/O bilateral mastectomy (08/31/00) Family History Family History Father Diabetes mellitus Family history of Alzheimer's disease Mother Diabetes mellitus Family history of chronic obstructive pulmonary disease Family history of cardiomyopathy Grandparent Family history of malignant neoplasm of breast Social History Social History Social History: The patient lives in [place] with her . He is in poor health and she has to help take care of him. She designates her as her surrogate decision maker and she wishes to be a full code. She is a lifelong nonsmoker and denies alcohol and drug abuse. 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 Gender identity (if verbalized by the patient): Female Spiritual care concerns: No Agree to blood products: Yes Meds Home Medications and Allergies Home Medications ?Medication ?Instructions ?Recorded ?Confirmed ?Type calcium carbonate (Calcium 500) 500 mg PO BID 09/05/19 03/11/25 History omeprazole 20 mg capsule,delayed 20 mg PO DAILY 09/05/19 03/11/25 History release cholecalciferol (vitamin D3) 50 1,000 unit PO DAILY 10/22/19 03/11/25 History mcg (2,000 unit) tablet (Vitamin D3) tadalafil 20 mg tablet 40 mg PO DAILY 10/22/19 03/11/25 History ferrous sulfate 325 mg (65 mg 325 mg PO EVERY OTHER DAY 12/10/20 03/11/25 History iron) tablet furosemide 40 mg tablet 40 mg PO BID 12/10/20 03/11/25 History hydroxychloroquine 200 mg tablet 200 mg PO QAM 12/10/20 03/11/25 History multivitamin 1 tablet PO DAILY 12/10/20 03/11/25 History mycophenolate mofetil 500 mg tablet 500 mg PO Q12H 12/10/20 03/11/25 History selexipag 1,600 mcg tablet 1,600 mcg PO BID 12/10/20 03/11/25 History (Uptravi) macitentan 10 mg tablet (Opsumit) 10 mg PO DAILY 05/15/22 03/11/25 History aspirin 81 mg tablet,delayed 81 mg PO DAILY 03/19/23 03/11/25 History release fluticasone propionate 50 2 spray intranasal DAILY PRN nasal 03/19/23 03/11/25 History mcg/actuation nasal congestion spray,suspension metolazone 2.5 mg tablet 2.5 mg PO DAILY 07/19/23 03/11/25 History fluticasone 250 mcg-salmeterol 50 1 inh inhalation BID 11/24/24 03/11/25 History mcg/dose blistr powdr for inhalation (Wixela Inhub) levothyroxine 25 mcg tablet 25 mcg PO DAILY #90 tabs 11/24/24 03/11/25 Rx (Synthroid) sotatercept-csrk 45 mg 45 mg subcut .[id number] 11/24/24 03/11/25 History subcutaneous kit (Winrevair) levothyroxine 50 mcg tablet See Rx Instructions .Route 01/23/25 03/11/25 Rx .COMPLEX #90 tabs Allergies Allergy/AdvReac Type Severity Reaction Status Date / Time No Known Drug Allergies Allergy Unknown unknown Verified 03/11/25 12:05 Vital Signs Vital Signs - 24 hr 03/11/25 19:52 03/11/25 19:54 03/11/25 20:00 Temperature 98.4 F 98.4 F Pulse Rate 72 74 Respiratory Rate 17 20 Blood Pressure 90/40 L 90/40 L Pulse Oximetry 94 92 94 Oxygen Delivery Nasal Cannula Oxygen Flow Rate 2 03/11/25 20:00 03/11/25 20:16 03/11/25 21:16 Temperature 98.2 F 98.3 F Pulse Rate 74 74 76 Respiratory Rate 16 16 Blood Pressure 99/53 L 102/43 L Pulse Oximetry 100 94 Oxygen Delivery Oxygen Flow Rate 03/11/25 22:00 03/11/25 22:16 03/11/25 23:16 Temperature 98.2 F 98.6 F Pulse Rate 72 76 71 Respiratory Rate 20 20 Blood Pressure 105/51 L 101/55 L Pulse Oximetry 95 98 Oxygen Delivery Oxygen Flow Rate 03/11/25 23:32 03/12/25 00:00 03/12/25 00:00 Temperature 98.4 F 98.1 F Pulse Rate 71 74 Respiratory Rate 20 20 Blood Pressure 100/53 L 110/53 L Pulse Oximetry 95 97 97 Oxygen Delivery Nasal Cannula Oxygen Flow Rate 2 03/12/25 00:00 03/12/25 00:15 03/12/25 00:30 Temperature 98.1 F 98.4 F Pulse Rate 70 74 71 Respiratory Rate 20 20 Blood Pressure 110/53 L 100/53 L Pulse Oximetry 97 95 Oxygen Delivery Oxygen Flow Rate 03/12/25 01:30 03/12/25 02:00 03/12/25 02:30 Temperature 98.3 F 98.2 F Pulse Rate 71 72 70 Respiratory Rate 20 18 Blood Pressure 102/50 L 107/62 Pulse Oximetry 96 96 Oxygen Delivery Oxygen Flow Rate 03/12/25 03:12 03/12/25 03:57 03/12/25 04:00 Temperature 98.4 F 98.2 F Pulse Rate 69 73 Respiratory Rate 20 17 Blood Pressure 102/53 L 119/39 L Pulse Oximetry 93 93 93 Oxygen Delivery Nasal Cannula Oxygen Flow Rate 2 03/12/25 04:00 03/12/25 06:00 03/12/25 07:36 Temperature 98.9 F Pulse Rate 73 74 78 Respiratory Rate 18 Blood Pressure 101/62 Pulse Oximetry 92 Oxygen Delivery Oxygen Flow Rate 03/12/25 08:00 03/12/25 08:00 03/12/25 08:26 Temperature Pulse Rate 72 69 Respiratory Rate 20 Blood Pressure Pulse Oximetry 90 90 Oxygen Delivery Nasal Cannula Nasal Cannula Oxygen Flow Rate 2 2 03/12/25 08:26 03/12/25 10:00 03/12/25 11:54 Temperature 98.2 F Pulse Rate 69 68 74 Respiratory Rate 20 18 Blood Pressure 109/51 L Pulse Oximetry 93 Oxygen Delivery Oxygen Flow Rate 03/12/25 12:00 03/12/25 12:00 03/12/25 14:00 Temperature Pulse Rate 72 78 Respiratory Rate Blood Pressure Pulse Oximetry 91 Oxygen Delivery Nasal Cannula Oxygen Flow Rate 2 03/12/25 15:40 03/12/25 16:00 03/12/25 16:00 Temperature 98.2 F Pulse Rate 74 77 Respiratory Rate 16 Blood Pressure 107/53 L Pulse Oximetry 91 93 Oxygen Delivery Nasal Cannula Oxygen Flow Rate 2 Exam 2 Narrative: Alert and oriented, cooperative, with typical Scleroderma skin changes noticeable in her perioral region and hands. lungs: Clear to auscultation. Abdomen: Distended, tympanitic, bowel sounds present, nontender, no hepatosplenomegaly. Rest of the exam within normal limits. Results Labs 03/12/25 15:03 03/12/25 11:44 Labs: Short CBC 03/12/25 03/12/25 03/12/25 Range/Units 04:35 08:26 15:03 WBC 7.5 8.8 10.6 H (4.5-10.0) K/mm3 Hgb 8.8 L 9.6 L 9.7 L (12.0-15.0) g/dL Hct 29.6 L 32.8 L 33.4 L (37.0-47.0) % Plt Count 121 L 137 L 147 L (150-375) k/mm3 BMP 03/11/25 03/12/25 03/12/25 19:50 04:35 11:44 Sodium 133 L 134 L 135 L Potassium 3.4 2.9 L 4.3 Chloride 99 103 107 Carbon Dioxide 27 23 20 L BUN 36 H 33 H 28 H Creatinine 0.94 1.00 0.93 Glucose 104 87 96 Calcium 8.4 8.2 L 8.3 L Liver Function 03/12/25 Range/Units 04:35 Total Bilirubin 0.4 (0.2-1.3) mg/dL AST 19 (14-36) U/L ALT 7 (6-35) U/L Alkaline Phosphatase 33 L (38-126) U/L Albumin 3.2 L (3.5-5.1) g/dL
[2025-03-12] MEDS: SULFAMETHOXAZOLE/TRIMETHOPRIM 800/160 MG DS TABLET 1 TAB PO (20:40)
--- NOTE | 2025-03-12 21:19 | PHAR ---
home med verified omeprazole 20mg one daily
[2025-03-13] VITALS (19 sets, daily range): BP systolic 100–124; BP diastolic 50–68; PULSE 68–99; RESP 18–23; TEMP 36.8–37.7; O2SAT 90–95
[2025-03-13] MEDS: SODIUM CHLORIDE 0.9% IV 1,000 ML 90 ML IV CONT ×2 (00:51→17:11)
[2025-03-13 05:42] LABS: Alanine Aminotransferase 7 U/L (6-35); Albumin Level 3.1 g/dL (3.5-5.1); Alkaline Phosphatase 33 U/L (38-126); Anion Gap 6 mmol/L (4-12); Aspartate Amino Transferase 22 U/L (14-36); Bilirubin,Total 0.4 mg/dL (0.2-1.3); Blood Urea Nitrogen 20 mg/dL (7-17); Carbon Dioxide 20 mmol/L (22-30); Chloride 110 mmol/L (98-107); Estimated CRCL calculation 35 ml/min; Estimated Glomerular Filt Rate 57; Glucose 87 mg/dL (65-110); Potassium 3.4 mmol/L (3.4-5.0); Sodium 136 mmol/L (137-145)
[2025-03-13] MEDS: LEVOTHYROXINE SODIUM 25 MCG TABLET PO (06:07)
[2025-03-13] MEDS: LEVOTHYROXINE SODIUM 50 MCG TABLET PO (06:07)
[2025-03-13] MEDS: FLUTICASONE/SALMETEROL 115-21 MCG INHALER 1 PUFF 2 PUFF INHALATION ×2 (07:46→20:23)
[2025-03-13 08:45] LABS: Hematocrit 31.3 % (37.0-47.0); Hemoglobin 9.2 g/dL (12.0-15.0); Mean Corpuscular HGB Conc 29.4 g/dl (32-36); Mean Corpuscular Hemoglobin 27.9 pg (26-34); Mean Corpuscular Volume 94.8 fl (80-100); Platelet Count Result 146 k/mm3 (150-375); White Blood Count 9.7 K/mm3 (4.5-10.0)
--- NOTE | 2025-03-13 09:09 | P.PNIM_ITS ---
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 Repeating a colonoscopy is not advised due to her pulmonary hypertension and frailty, which make her a high sedation risk especially considering the apparent technical difficulty, which puts the patient on an unnecessary risk for perforation. Therefore, will hold off on further endoscopic procedures unless overt GI bleeding occurs, recommending regular hemoglobin checks and iron infusions to maintain her status. - continue iron supplement. (2) GIB (gastrointestinal bleeding): Qualifiers: GI bleed type/associated pathology: unspecified gastrointestinal hemorrhage type Qualified Code(s): K92.2 - Gastrointestinal hemorrhage, unspecified Code(s): K92.2 - Gastrointestinal hemorrhage, unspecified Status: Acute Assessment and Plan: She reports associated dark tarry stools (on iron), diarrhea, dizziness, and mild shortness of breath for which she has had use increased oxygen at night. She is on 1L at baseline and has been using 2L. - ALBERTINA/occult +, negative for GI - Pantoprazole BID - DVT Px: SCDs. Avoid anti-coagulations, holding home ASA - Monitor serum electrolytes, CBC, hemoglobin/hematocrit q.8 hours. 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 Repeating a colonoscopy is not advised due to her pulmonary hypertension and frailty, which make her a high sedation risk especially considering the apparent technical difficulty, which puts the patient on an unnecesary risk for perforation. Therefore, will hold off on further endoscopic procedures unless overt GI bleeding occurs, recommending regular hemoglobin checks and iron infusions to maintain her status. (3) Enteritis: Code(s): K52.9 - Noninfective gastroenteritis and colitis, unspecified Status: Acute Assessment and Plan: Crest can cause small bowel dysmotility and associated bacterial overgrowth - CT abd/pelvis: 1. Enteritis which could be infectious or inflammatory in etiology. 2. Mild intrahepatic biliary ductal dilation but without evident dilation the common bile duct. (LFTs WNL.) 3. Multiple cystic lesions diffusely throughout the pancreas which suggests dilated side branches related to chronic pancreatitis. 4. Cardiomegaly and small pericardial effusion. 5. Very small bilateral posterior layering pleural effusions and minimal hepatic and pericholecystic ascites. 6. Large amount of ingested debris within the stomach patulous distal esophagus and with relatively decompressed stomach which suggests possible esophageal dysmotility or stricture. (History of CREST syndrome) - check stool culture pending, c. 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 We will send stool cultures and leukocyte studies and begin empiric Bactrim BID for 5-7 days to treat presumed bacterial overgrowth. Diarrhea improving. (4) Acute hypokalemia: Code(s): E87.6 - Hypokalemia Status: Acute Assessment and Plan: - K 2.5 on admission. Given 40 PO and 40 IVPB in ED presumed secondary to diarrhea, patient is also on lasix 40 mg BID without potassium supplementation which could be contributing - K 2.9 on 03/12 labs, given 40 mg IV x1. Repeat K 4.3 - K 3.4 on am labs - Tele - monitor (5) Lesion of lumbar spine: Code(s): M89.9 - Disorder of bone, unspecified Status: Acute Assessment and Plan: CT abd/pelvis showed indeterminate subtle sclerotic lesion at L5. The patient has known history of prior malignancy would consider bone scan for further evaluation. Bone scan showed no foci of abnormal bone uptake to suggest osseous metastatic disease (6) Hypothyroidism, unspecified: Qualifiers: Hypothyroidism type: unspecified Qualified Code(s): E03.9 - Hypothyroidism, unspecified Code(s): E03.9 - Hypothyroidism, unspecified Status: Chronic Assessment and Plan: - TSH 3.1 on 6.10 - continue home medication: Synthroid (7) Chronic respiratory failure with hypoxia: Code(s): J96.11 - Chronic respiratory failure with hypoxia Status: Chronic Assessment and Plan: - chronic respiratory failure on 1 L nasal cannula at baseline, currently requ iring 2 L for comfort. May wean O2 to baseline requirement as tolerated. (8) Hypertension: Qualifiers: Hypertension type: essential hypertension Qualified Code(s): I10 - Essential (primary) hypertension Code(s): I10 - Essential (primary) hypertension Status: Chronic Assessment and Plan: Chronic - not on antihypertensives, however on Lasix and metolazone due to history of CHF. Continue Lasix only at this time and monitor BP closely, hold if BP less than 100/80. Hold metolazone until BP improved. 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 Baseline oxygen supplementation of 1L NC, currently requiring 2L NC. Wean back to baseline as tolerated. Time Spent With Patient Time with patient: 25 - 35 minutes Subjective Date/time seen: 03/13/25 09:09 Interval history: 79 year old female with past medical history of pulmonary hypertension, breast cancer s/p chemotherapy and mastectomy, rectal prolapse, CREST syndrome, anxiety, GERD, hypothyroidism, hypertension and osteopenia presents here with abnormal lab - anemic. She reports associated dark tarry stools (on iron), diarrhea, dizziness, and mild shortness of breath for which she has had use increased oxygen at night. She is on 1L at baseline and has been using 2L. Patient is pleasant sitting up comfortably on the side of her bed. She states that her diarrhea has improved and has now become less frequent is more of a soft stool then watery diarrhea. She denies any associated nausea/vomiting or abdominal pain. She also denies any noted blood in the stool. She has no other complaints denying chest pain, shortness a breath, and palpitations. Patient also denies any back pain, tingling/numbness in the lower extremities, and loss of bowel or bladder. Review of Systems Review of Systems: All systems reviewed & are unremarkable except as noted in HPI and below Exam Narrative: AF HR 80 RR 20 SPO2 93 3L NC (baseline 1-2) BP 108/55 General: female in no acute respiratory distress who is nontoxic appearing, lying semi recumbent in bed. HEENT: Normocephalic. Atraumatic. Extraocular movement intact. Sclera clear and anicteric. No facial asymmetry. Chest: Lungs are clear to auscultation bilaterally. No wheezes or crackles. CV: Heart was regular rate and rhythm. S1-S2. Murmurs. Abd: Abdomen was soft. Nontender. Nondistended. Positive bowel sounds. Ext: No clubbing, cyanosis, or edema. DP pulses bilaterally. Neuro: Patient is alert and oriented x3. Speech is clear. Objective Data Vital Signs Vital Signs: Vital Signs - 24 hr 03/12/25 10:00 03/12/25 11:54 03/12/25 12:00 Temperature 98.2 F Pulse Rate 68 74 72 Respiratory Rate 18 Blood Pressure 109/51 L Pulse Oximetry 93 Oxygen Delivery Oxygen Flow Rate 03/12/25 12:00 03/12/25 14:00 03/12/25 15:40 Temperature 98.2 F Pulse Rate 78 74 Respiratory Rate 16 Blood Pressure 107/53 L Pulse Oximetry 91 91 Oxygen Delivery Nasal Cannula Oxygen Flow Rate 2 03/12/25 16:00 03/12/25 16:00 03/12/25 18:00 Temperature Pulse Rate 77 81 Respiratory Rate Blood Pressure Pulse Oximetry 93 Oxygen Delivery Nasal Cannula Oxygen Flow Rate 2 03/12/25 19:46 03/12/25 20:00 03/12/25 20:00 Temperature 99 F Pulse Rate 79 75 Respiratory Rate 20 Blood Pressure 112/44 L Pulse Oximetry 92 92 Oxygen Delivery Nasal Cannula Oxygen Flow Rate 2 03/12/25 21:29 03/12/25 21:33 03/12/25 22:00 Temperature Pulse Rate 88 88 78 Respiratory Rate 18 18 Blood Pressure Pulse Oximetry 91 Oxygen Delivery Nasal Cannula Oxygen Flow Rate 3 03/13/25 00:00 03/13/25 00:00 03/13/25 00:00 Temperature 99.8 F H Pulse Rate 93 99 Respiratory Rate 20 Blood Pressure 100/50 L Pulse Oximetry 90 93 Oxygen Delivery Nasal Cannula Oxygen Flow Rate 3 03/13/25 02:00 03/13/25 04:00 03/13/25 04:00 Temperature 98.4 F Pulse Rate 73 70 Respiratory Rate 20 Blood Pressure 104/68 Pulse Oximetry 95 94 Oxygen Delivery Nasal Cannula Oxygen Flow Rate 3 03/13/25 04:00 03/13/25 06:00 03/13/25 07:50 Temperature 99.0 F Pulse Rate 69 70 82 Respiratory Rate 22 H Blood Pressure 111/62 Pulse Oximetry 90 Oxygen Delivery Oxygen Flow Rate Intake/Output Intake/Output: Intake & Output 03/10/25 03/11/25 03/12/25 03/13/25 23:59 23:59 23:59 23:59 Intake Total 2350 1322 979.5 Output Total 1 1 901 Balance 2349 1321 78.5 Meds/Results Medications: Active Medications Generic Name Dose Route Start Last Admin Trade Name Freq PRN Reason Stop Dose Admin Acetaminophen 650 mg 03/11/25 15:34 Acetaminophen 325 Mg Tablet PO Q4H PRN Mild Pain (1-3) or Fever Calcium Carbonate 500 mg 03/12/25 12:00 03/12/25 16:48 Calcium Carbonate (Oscal) 500 Mg Tablet PO 500 mg 1200,1800 GUSTAVO Administration Ferrous Sulfate 325 mg 03/12/25 12:00 03/12/25 13:53 Ferrous Sulfate [address] PO 325 mg Q48H GUSTAVO Administration Fluticasone Propionate 2 spray 03/11/25 19:09 03/12/25 16:48 Fluticasone Propionate 0.05% Na Spr 16 Gm Btl (*Bkc) NASAL 2 spray DAILY PRN Administration nasal congestion Furosemide 40 mg 03/12/25 09:00 03/12/25 16:48 Furosemide 40 Mg Tablet PO 40 mg BID GUSTAVO Administration Hydroxychloroquine Sulfate 200 mg 03/12/25 09:00 03/12/25 08:56 Hydroxychloroquine Sulfate 200 Mg Tablet PO 200 mg QAM GUSTAVO Administration Sodium Chloride 1,000 mls @ 90 mls/hr 03/11/25 15:35 03/13/25 00:51 Normal Saline Iv IV CONT 90 mls/hr .Q11H7M GUSTAVO Administration Levothyroxine Sodium 50 mcg 03/12/25 06:30 03/13/25 06:07 Levothyroxine Sodium 50 Mcg Tablet PO 50 mcg DAILY@0630 GUSTAVO Administration Levothyroxine Sodium 25 mcg 03/12/25 06:30 03/13/25 06:07 Levothyroxine Sodium 25 Mcg Tablet PO 25 mcg DAILY@0630 GUSTAVO Administration Loperamide HCl 2 mg 03/12/25 16:27 03/12/25 16:48 Loperamide Hcl 2 Mg Capsule PO 2 mg PRN PRN Administration Diarrhea Multivitamins Therapeutic 1 tablet 03/12/25 09:00 03/12/25 08:56 Multivitamins Therapeutic Tab (*Bkc) PO 1 tablet DAILY GUSTAVO Administration Mycophenolate Mofetil 500 mg 03/11/25 21:00 03/12/25 20:39 Mycophenolate Mofetil 250 Mg Capsule PO 500 mg Q12H GUSTAVO Administration Home Med Omeprazole 20 mg 03/12/25 09:00 03/12/25 23:04 20 Mg Capsule PO 04/11/25 08:59 Not Given DAILY GUSTAVO Home Med (Selexipag 1,600 mcg 03/11/25 22:25 03/12/25 20:39 [Uptravi] 1,600 Mcg PO 04/10/25 22:24 1,600 mcg Tablet) Q12HR GUSTAVO Administration Non-Formulary ( 2 each 03/12/25 09:00 03/12/25 08:57 Tadalafil 20 Mg Oral PO 04/11/25 08:59 2 each Tablet) DAILY GUSTAVO Administration Home Med (Macitentan 10 mg 03/12/25 09:00 03/12/25 09:10 [Opsumit] 10 Mg PO 04/11/25 08:59 10 mg Tablet) DAILY GUSTAVO Administration Ondansetron HCl 4 mg 03/11/25 15:34 Ondansetron Inj 4 Mg/2 Ml Vial IV PUSH Q4H PRN Nausea Fluticasone/Salmeterol 2 puff 03/11/25 20:00 03/13/25 07:46 Fluticasone/Salmeterol 115-21 Mcg Inhaler 1 Puff INHALATION 2 puff Q12HRT GUSTAVO Administration Trimethoprim/Sulfamethoxazole 1 tab 03/12/25 21:00 03/12/25 20:40 Sulfamethoxazole/Trimethoprim 800/160 Mg Ds Tablet PO 1 tab Q12HR GUSTAVO Administration Vitamin D 25 mcg 03/12/25 09:00 03/12/25 08:56 Cholecalciferol (Vitamin D3) 25 Mcg (1,000 Units) Tablet PO 25 mcg DAILY GUSTAVO Administration Radiology Results: ITS Impressions Abdomen/Pelvis CT 03/11/25 14:42 IMPRESSION: 1. Enteritis which could be infectious or inflammatory in etiology. 2. Mild intrahepatic biliary ductal dilation but without evident dilation the common bile duct. Correlate with liver function tests and if clinically indicated could consider further evaluation with MRCP. 3. Multiple cystic lesions diffusely throughout the pancreas which suggests dilated sidebranches related to chronic pancreatitis. Correlate with clinical history. This can be further evaluated same time with pre and postcontrast MRI/MRCP. 4. Cardiomegaly and small pericardial effusion. 5. Very small bilateral posterior layering pleural effusions and minimal hepatic and pericholecystic ascites. 6. Large amount of ingested debris within the stomach patulous distal esophagus and with relatively decompressed stomach which suggests possible esophageal dysmotility or stricture. 7. Silicone left breast implant with intracapsular rupture. 8. Indeterminate subtle sclerotic lesion at L5. The patient has known history of prior malignancy would consider bone scan for further evaluation. Labs Labs: Laboratory Results - last 24 hr 03/12/25 03/12/25 03/13/25 11:44 15:03 04:54 WBC 10.6 H RBC 3.53 L Hgb 9.7 L Hct 33.4 L MCV 94.6 MCH 27.5 MCHC 29.0 L RDW 19.5 H Plt Count 147 L MPV 10.3 % Immature Plt Fraction 3.7 Sodium 135 L 136 L Potassium 4.3 3.4 Chloride 107 110 H Carbon Dioxide 20 L 20 L Anion Gap 8 6 BUN 28 H 20 H Creatinine 0.93 0.95 Estim Creat Clear Calc 35 35 Estimated GFR 58 L 57 L Glucose 96 87 Calcium 8.3 L 8.0 L Total Bilirubin 0.4 AST 22 ALT 7 Alkaline Phosphatase 33 L Total Protein 5.0 L Albumin 3.1 L 03/13/25 08:39 WBC 9.7 RBC 3.30 L Hgb 9.2 L Hct 31.3 L MCV 94.8 MCH 27.9 MCHC 29.4 L RDW 19.0 H Plt Count 146 L MPV 10.0 % Immature Plt Fraction Sodium Potassium Chloride Carbon Dioxide Anion Gap BUN Creatinine Estim Creat Clear Calc Estimated GFR Glucose Calcium Total Bilirubin AST ALT Alkaline Phosphatase Total Protein Albumin Quality VTE Prophylaxis VTE prophylaxis: mechanical ordered
[2025-03-13] MEDS: MULTIVITAMINS THERAPEUTIC TAB (*BKC) 1 TABLET PO (09:15)
[2025-03-13] MEDS: SULFAMETHOXAZOLE/TRIMETHOPRIM 800/160 MG DS TABLET 1 TAB PO ×2 (09:16→20:27)
[2025-03-13] MEDS: mycophenolate mofetiL 250 MG CAPSULE 500 MG PO ×2 (09:16→20:29)
[2025-03-13] MEDS: FUROSEMIDE 40 MG TABLET PO ×2 (09:16→17:10)
[2025-03-13] MEDS: CHOLECALCIFEROL (VITAMIN D3) 25 MCG (1,000 UNITS) TABLET PO (09:16)
[2025-03-13] MEDS: TADALAFIL 20 MG 2 EACH PO (09:17)
[2025-03-13] MEDS: SELEXIPAG 1600 MCG 1600 EACH PO ×2 (09:17→20:27)
[2025-03-13] MEDS: MACITENTAN 10 MG 10 EACH PO (09:18)
[2025-03-13] MEDS: OMEPRAZOLE 20 MG 20 EACH PO (09:19)
[2025-03-13] MEDS: FLUTICASONE PROPIONATE 0.05% NA SPR 16 GM BTL (*BKC) 2 SPRAY NASAL (09:20)
[2025-03-13 11:12] LABS: Toxigenic C. Diff NEGATIVE (NEGATIVE)
--- NOTE | 2025-03-13 11:51 | WPDGIPROGNO ---
Progress Note: A&P Assessment and Plan (1) Diarrhea: Code(s): R19.7 - Diarrhea, unspecified Status: Acute Assessment and Plan: The patient's diarrhea appears to be an [id number] exacerbation, likely related to her underlying scleroderma. As discussed yesterday, scleroderma can cause small bowel dysmotility and associated small bowel bacterial overgrowth. Bactrim was initiated as one antibiotic option and she seems to be responding well. We'll monitor her clinical response; if favorable and she no longer requires loperamide, she can be discharged in 24 hours with follow-up at the GI clinic. No colonoscopy indicated for now given the high risk/benefit ratio in her particular case (see yesterday's note). Subjective Date/time seen: 03/13/25 11:51 Interval history: The patient started Bactrim yesterday and received only 1 dose of loperamide. She has not had any bowel movement since. She feels well, no fever, nausea vomiting or abdominal pain. Exam Narrative: Abdomen: Unchanged from baseline. Objective Data Vital Signs Vital Signs: Vital Signs - 24 hr 03/12/25 11:54 03/12/25 12:00 03/12/25 12:00 Temperature 98.2 F Pulse Rate 74 72 Respiratory Rate 18 Blood Pressure 109/51 L Pulse Oximetry 93 91 Oxygen Delivery Nasal Cannula Oxygen Flow Rate 2 03/12/25 14:00 03/12/25 15:40 03/12/25 16:00 Temperature 98.2 F Pulse Rate 78 74 Respiratory Rate 16 Blood Pressure 107/53 L Pulse Oximetry 91 93 Oxygen Delivery Nasal Cannula Oxygen Flow Rate 2 03/12/25 16:00 03/12/25 18:00 03/12/25 19:46 Temperature 99 F Pulse Rate 77 81 79 Respiratory Rate 20 Blood Pressure 112/44 L Pulse Oximetry 92 Oxygen Delivery Oxygen Flow Rate 03/12/25 20:00 03/12/25 20:00 03/12/25 21:29 Temperature Pulse Rate 75 88 Respiratory Rate 18 Blood Pressure Pulse Oximetry 92 91 Oxygen Delivery Nasal Cannula Nasal Cannula Oxygen Flow Rate 2 3 03/12/25 21:33 03/12/25 22:00 03/13/25 00:00 Temperature 99.8 F H Pulse Rate 88 78 93 Respiratory Rate 18 20 Blood Pressure 100/50 L Pulse Oximetry 90 Oxygen Delivery Oxygen Flow Rate 03/13/25 00:00 03/13/25 00:00 03/13/25 02:00 Temperature Pulse Rate 99 73 Respiratory Rate Blood Pressure Pulse Oximetry 93 Oxygen Delivery Nasal Cannula Oxygen Flow Rate 3 03/13/25 04:00 03/13/25 04:00 03/13/25 04:00 Temperature 98.4 F Pulse Rate 70 69 Respiratory Rate 20 Blood Pressure 104/68 Pulse Oximetry 95 94 Oxygen Delivery Nasal Cannula Oxygen Flow Rate 3 03/13/25 06:00 03/13/25 07:50 03/13/25 08:00 Temperature 99.0 F Pulse Rate 70 82 Respiratory Rate 22 H Blood Pressure 111/62 Pulse Oximetry 90 93 Oxygen Delivery Nasal Cannula Oxygen Flow Rate 3 03/13/25 08:00 03/13/25 10:00 03/13/25 11:35 Temperature 98.3 F Pulse Rate 86 78 88 Respiratory Rate 23 H Blood Pressure 104/62 Pulse Oximetry 93 Oxygen Delivery Oxygen Flow Rate Intake/Output Intake/Output: Intake & Output 03/10/25 03/11/25 03/12/25 03/13/25 23:59 23:59 23:59 23:59 Intake Total 2350 1322 1219.5 Output Total 1 1 901 Balance 2349 1321 318.5 Meds/Results Medications: Active Medications Generic Name Dose Route Start Last Admin Trade Name Freq PRN Reason Stop Dose Admin Acetaminophen 650 mg 03/11/25 15:34 Acetaminophen 325 Mg Tablet PO Q4H PRN Mild Pain (1-3) or Fever Calcium Carbonate 500 mg 03/12/25 12:00 03/12/25 16:48 Calcium Carbonate (Oscal) 500 Mg Tablet PO 500 mg 1200,1800 GUSTAVO Administration Ferrous Sulfate 325 mg 03/12/25 12:00 03/12/25 13:53 Ferrous Sulfate [address] PO 325 mg Q48H GUSTAVO Administration Fluticasone Propionate 2 spray 03/11/25 19:09 03/13/25 09:20 Fluticasone Propionate 0.05% Na Spr 16 Gm Btl (*Bkc) NASAL 2 spray DAILY PRN Administration nasal congestion Furosemide 40 mg 03/12/25 09:00 03/13/25 09:16 Furosemide 40 Mg Tablet PO 40 mg BID GUSTAVO Administration Hydroxychloroquine Sulfate 200 mg 03/12/25 09:00 03/12/25 08:56 Hydroxychloroquine Sulfate 200 Mg Tablet PO 200 mg QAM GUSTAVO Administration Sodium Chloride 1,000 mls @ 90 mls/hr 03/11/25 15:35 03/13/25 00:51 Normal Saline Iv IV CONT 90 mls/hr .Q11H7M GUSTAVO Administration Levothyroxine Sodium 50 mcg 03/12/25 06:30 03/13/25 06:07 Levothyroxine Sodium 50 Mcg Tablet PO 50 mcg DAILY@0630 GUSTAVO Administration Levothyroxine Sodium 25 mcg 03/12/25 06:30 03/13/25 06:07 Levothyroxine Sodium 25 Mcg Tablet PO 25 mcg DAILY@0630 GUSTAVO Administration Loperamide HCl 2 mg 03/12/25 16:27 03/12/25 16:48 Loperamide Hcl 2 Mg Capsule PO 2 mg PRN PRN Administration Diarrhea Multivitamins Therapeutic 1 tablet 03/12/25 09:00 03/13/25 09:15 Multivitamins Therapeutic Tab (*Bkc) PO 1 tablet DAILY GUSTAVO Administration Mycophenolate Mofetil 500 mg 03/11/25 21:00 03/13/25 09:16 Mycophenolate Mofetil 250 Mg Capsule PO 500 mg Q12H GUSTAVO Administration Home Med Omeprazole 20 mg 03/12/25 09:00 03/13/25 09:19 20 Mg Capsule PO 04/11/25 08:59 20 mg DAILY GUSTAVO Administration Home Med (Selexipag 1,600 mcg 03/11/25 22:25 03/13/25 09:17 [Uptravi] 1,600 Mcg PO 04/10/25 22:24 1,600 mcg Tablet) Q12HR GUSTAVO Administration Non-Formulary ( 2 each 03/12/25 09:00 03/13/25 09:17 Tadalafil 20 Mg Oral PO 04/11/25 08:59 2 each Tablet) DAILY GUSTAVO Administration Home Med (Macitentan 10 mg 03/12/25 09:00 03/13/25 09:18 [Opsumit] 10 Mg PO 04/11/25 08:59 10 mg Tablet) DAILY GUSTAVO Administration Ondansetron HCl 4 mg 03/11/25 15:34 Ondansetron Inj 4 Mg/2 Ml Vial IV PUSH Q4H PRN Nausea Fluticasone/Salmeterol 2 puff 03/11/25 20:00 03/13/25 07:46 Fluticasone/Salmeterol 115-21 Mcg Inhaler 1 Puff INHALATION 2 puff Q12HRT GUSTAVO Administration Trimethoprim/Sulfamethoxazole 1 tab 03/12/25 21:00 03/13/25 09:16 Sulfamethoxazole/Trimethoprim 800/160 Mg Ds Tablet PO 1 tab Q12HR GUSTAVO Administration Vitamin D 25 mcg 03/12/25 09:00 03/13/25 09:16 Cholecalciferol (Vitamin D3) 25 Mcg (1,000 Units) Tablet PO 25 mcg DAILY GUSTAVO Administration Radiology Results: ITS Impressions Abdomen/Pelvis CT 03/11/25 14:42 IMPRESSION: 1. Enteritis which could be infectious or inflammatory in etiology. 2. Mild intrahepatic biliary ductal dilation but without evident dilation the common bile duct. Correlate with liver function tests and if clinically indicated could consider further evaluation with MRCP. 3. Multiple cystic lesions diffusely throughout the pancreas which suggests dilated sidebranches related to chronic pancreatitis. Correlate with clinical history. This can be further evaluated same time with pre and postcontrast MRI/MRCP. 4. Cardiomegaly and small pericardial effusion. 5. Very small bilateral posterior layering pleural effusions and minimal hepatic and pericholecystic ascites. 6. Large amount of ingested debris within the stomach patulous distal esophagus and with relatively decompressed stomach which suggests possible esophageal dysmotility or stricture. 7. Silicone left breast implant with intracapsular rupture. 8. Indeterminate subtle sclerotic lesion at L5. The patient has known history of prior malignancy would consider bone scan for further evaluation. Labs Labs: Laboratory Results - last 24 hr 03/12/25 03/12/25 03/13/25 11:44 15:03 04:54 WBC 10.6 H RBC 3.53 L Hgb 9.7 L Hct 33.4 L MCV 94.6 MCH 27.5 MCHC 29.0 L RDW 19.5 H Plt Count 147 L MPV 10.3 % Immature Plt Fraction 3.7 Sodium 135 L 136 L Potassium 4.3 3.4 Chloride 107 110 H Carbon Dioxide 20 L 20 L Anion Gap 8 6 BUN 28 H 20 H Creatinine 0.93 0.95 Estim Creat Clear Calc 35 35 Estimated GFR 58 L 57 L Glucose 96 87 Calcium 8.3 L 8.0 L Total Bilirubin 0.4 AST 22 ALT 7 Alkaline Phosphatase 33 L Total Protein 5.0 L Albumin 3.1 L C. difficile (PCR) 03/13/25 03/13/25 08:39 10:13 WBC 9.7 RBC 3.30 L Hgb 9.2 L Hct 31.3 L MCV 94.8 MCH 27.9 MCHC 29.4 L RDW 19.0 H Plt Count 146 L MPV 10.0 % Immature Plt Fraction Sodium Potassium Chloride Carbon Dioxide Anion Gap BUN Creatinine Estim Creat Clear Calc Estimated GFR Glucose Calcium Total Bilirubin AST ALT Alkaline Phosphatase Total Protein Albumin C. difficile (PCR) Negative
[2025-03-13] MEDS: CALCIUM CARBONATE (OSCAL) 500 MG TABLET PO ×2 (13:53→17:10)
[2025-03-14] VITALS (16 sets, daily range): BP systolic 99–124; BP diastolic 48–82; PULSE 72–87; RESP 20–24; TEMP 36.7–38; O2SAT 90–97
[2025-03-14] MEDS: FLUTICASONE PROPIONATE 0.05% NA SPR 16 GM BTL (*BKC) 2 SPRAY NASAL ×2 (01:43→08:43)
[2025-03-14] MEDS: SODIUM CHLORIDE 0.9% IV 1,000 ML 90 ML IV CONT ×2 (04:04→16:50)
[2025-03-14 05:21] LABS: Hematocrit 28.9 % (37.0-47.0); Hemoglobin 8.2 g/dL (12.0-15.0); Mean Corpuscular HGB Conc 28.4 g/dl (32-36); Mean Corpuscular Hemoglobin 27.2 pg (26-34); Mean Platelet Volume 10.5 fl (7.4-10.4); Platelet Count Result 132 k/mm3 (150-375); Red Blood Count 3.01 M/mm3 (4.2-5.4); Red Cell Distribution Width 18.4 % (11.5-14.5); White Blood Count 8.2 K/mm3 (4.5-10.0)
[2025-03-14 05:42] LABS: Alanine Aminotransferase 7 U/L (6-35); Albumin Level 2.8 g/dL (3.5-5.1); Alkaline Phosphatase 34 U/L (38-126); Anion Gap 7 mmol/L (4-12); Aspartate Amino Transferase 17 U/L (14-36); Bilirubin,Total 0.2 mg/dL (0.2-1.3); Blood Urea Nitrogen 15 mg/dL (7-17); Calcium 7.5 mg/dL (8.4-10.2); Carbon Dioxide 19 mmol/L (22-30); Chloride 107 mmol/L (98-107); Estimated CRCL calculation 34 ml/min; Estimated Glomerular Filt Rate 55; Glucose 81 mg/dL (65-110); Potassium 2.8 mmol/L (3.4-5.0); Sodium 133 mmol/L (137-145); Total Protein 4.6 g/dL (6.3-8.2)
[2025-03-14] MEDS: POTASSIUM CHLORIDE 20 MEQ PACKET (FOR LIQUID) 40 MEQ PO ×2 (06:10→10:40)
[2025-03-14] MEDS: LEVOTHYROXINE SODIUM 25 MCG TABLET PO (06:11)
[2025-03-14] MEDS: LEVOTHYROXINE SODIUM 50 MCG TABLET PO (06:11)
[2025-03-14] MEDS: SULFAMETHOXAZOLE/TRIMETHOPRIM 800/160 MG DS TABLET 1 TAB PO ×2 (08:43→20:27)
[2025-03-14] MEDS: MULTIVITAMINS THERAPEUTIC TAB (*BKC) 1 TABLET PO (08:43)
[2025-03-14] MEDS: CHOLECALCIFEROL (VITAMIN D3) 25 MCG (1,000 UNITS) TABLET PO (08:43)
[2025-03-14] MEDS: FUROSEMIDE 40 MG TABLET PO ×2 (08:43→16:50)
[2025-03-14] MEDS: mycophenolate mofetiL 250 MG CAPSULE 500 MG PO ×2 (08:44→20:26)
[2025-03-14] MEDS: OMEPRAZOLE 20 MG 20 EACH PO (08:45)
[2025-03-14] MEDS: SELEXIPAG 1600 MCG 1600 EACH PO ×2 (08:46→20:28)
[2025-03-14] MEDS: MACITENTAN 10 MG 10 EACH PO (08:47)
--- NOTE | 2025-03-14 08:47 | P.PNIM_ITS ---
Progress Note: A&P Assessment and Plan (1) Anemia: Qualifiers: Anemia type: unspecified type Qualified Code(s): D64.9 - Anemia, unspecified Code(s): D64.9 - Anemia, unspecified Status: Acute Assessment and Plan: - Hgb 6.3 given 2 u PRBC on 03/11, previously 8.3 on 11/07 H/H 8.2/28.9 on am labs (9.2 yesterday), given concern for GI bleed will repeat H/H. 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 Repeating a colonoscopy is not advised due to her pulmonary hypertension and frailty, which make her a high sedation risk especially considering the apparent technical difficulty, which puts the patient on an unnecessary risk for perforation. Therefore, will hold off on further endoscopic procedures unless overt GI bleeding occurs, recommending regular hemoglobin checks and iron infusions to maintain her status. - continue iron supplement. (2) GIB (gastrointestinal bleeding): Qualifiers: GI bleed type/associated pathology: unspecified gastrointestinal hemorrhage type Qualified Code(s): K92.2 - Gastrointestinal hemorrhage, unspecified Code(s): K92.2 - Gastrointestinal hemorrhage, unspecified Status: Acute Assessment and Plan: She reports associated dark tarry stools (on iron), diarrhea, dizziness, and mild shortness of breath for which she has had use increased oxygen at night. She is on 1L at baseline and has been using 2L. - ALBERTINA/occult +, negative for GI - Pantoprazole BID - DVT Px: SCDs. Avoid anti-coagulations, holding home ASA - Monitor serum electrolytes, CBC, hemoglobin/hematocrit q.8 hours. 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 Repeating a colonoscopy is not advised due to her pulmonary hypertension and frailty, which make her a high sedation risk especially considering the apparent technical difficulty, which puts the patient on an unnecesary risk for perforation. Therefore, will hold off on further endoscopic procedures unless overt GI bleeding occurs, recommending regular hemoglobin checks and iron infusions to maintain her status. (3) Enteritis: Code(s): K52.9 - Noninfective gastroenteritis and colitis, unspecified Status: Acute Assessment and Plan: Crest can cause small bowel dysmotility and associated bacterial overgrowth - CT abd/pelvis: 1. Enteritis which could be infectious or inflammatory in etiology. 2. Mild intrahepatic biliary ductal dilation but without evident dilation the common bile duct. (LFTs WNL.) 3. Multiple cystic lesions diffusely throughout the pancreas which suggests dilated side branches related to chronic pancreatitis. 4. Cardiomegaly and small pericardial effusion. 5. Very small bilateral posterior layering pleural effusions and minimal hepatic and pericholecystic ascites. 6. Large amount of ingested debris within the stomach patulous distal esophagus and with relatively decompressed stomach which suggests possible esophageal dysmotility or stricture. (History of CREST syndrome) - check stool culture pending, c. 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 We will send stool cultures and leukocyte studies and begin empiric Bactrim BID for 5-7 days to treat presumed bacterial overgrowth. (4) Acute hypokalemia: Code(s): E87.6 - Hypokalemia Status: Acute Assessment and Plan: - K 2.5 on admission. Given 40 PO and 40 IVPB in ED presumed secondary to diarrhea, patient is also on lasix 40 mg BID without potassium supplementation which could be contributing - K 2.9 on 12 labs, given 40 mg IV x1. Repeat K 4.3 - K 2.8 on am labs, given 40meq IV and 40 meq PO x 1 - Tele - monitor (5) Lesion of lumbar spine: Code(s): M89.9 - Disorder of bone, unspecified Status: Acute Assessment and Plan: CT abd/pelvis showed indeterminate subtle sclerotic lesion at L5. The patient has known history of prior malignancy would consider bone scan for further evaluation. Bone scan showed no foci of abnormal bone uptake to suggest osseous metastatic disease (6) Hypothyroidism, unspecified: Qualifiers: Hypothyroidism type: unspecified Qualified Code(s): E03.9 - Hypothyroidism, unspecified Code(s): E03.9 - Hypothyroidism, unspecified Status: Chronic Assessment and Plan: - TSH 3.1 on 6.10 - continue home medication: Synthroid (7) Chronic respiratory failure with hypoxia: Code(s): J96.11 - Chronic respiratory failure with hypoxia Status: Chronic Assessment and Plan: - chronic respiratory failure on 1 L nasal cannula at baseline, currently requiring 2 L for comfort. May wean O2 to baseline requirement as tolerated. (8) Hypertension: Qualifiers: Hypertension type: essential hypertension Qualified Code(s): I10 - Essential (primary) hypertension Code(s): I10 - Essential (primary) hypertension Status: Chronic Assessment and Plan: Chronic - not on antihypertensives, however on Lasix and metolazone due to history of CHF. Continue Lasix only at this time and monitor BP closely, hold if BP less than 100/80. Hold metolazone until BP improved. 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 Baseline oxygen supplementation of 1L NC, currently requiring 2L NC. Wean back to baseline as tolerated. Time Spent With Patient Time with patient: 25 - 35 minutes Subjective Date/time seen: 03/14/25 08:47 Interval history: 79 year old female with past medical history of pulmonary hypertension, breast cancer s/p chemotherapy and mastectomy, rectal prolapse, CREST syndrome, anxiety, GERD, hypothyroidism, hypertension and osteopenia presents here with abnormal lab - anemic. She reports associated dark tarry stools (on iron), tracie rrhea, dizziness, and mild shortness of breath for which she has had use increased oxygen at night. She is on 1L at baseline and has been using 2L. Patient is pleasant sitting up comfortably on the side bed. She states that her diarrhea has increased in frequency today. She required potassium supplementation. She has no other complaints denying chest pain, palpitations, nausea/vomiting, shortness a breath, abdominal pain. Review of Systems Review of Systems: All systems reviewed & are unremarkable except as noted in HPI and below Exam Narrative: AF HR 79 RR 24 Spo2 90 2L NC BP 112/73 General: female in no acute respiratory distress who is nontoxic appearing, sitting on side of bed HEENT: Normocephalic. Atraumatic. Extraocular movement intact. Sclera clear and anicteric. No facial asymmetry. Chest: Lungs are clear to auscultation bilaterally. No wheezes or crackles. CV: Heart was regular rate and rhythm. S1-S2. Murmurs. Abd: Abdomen was soft. Nontender. Nondistended. Positive bowel sounds. Ext: No clubbing, cyanosis, or edema. DP pulses bilaterally. Neuro: Patient is alert and oriented x3. Speech is clear. Objective Data Vital Signs Vital Signs: Vital Signs - 24 hr 03/13/25 10:00 03/13/25 11:35 03/13/25 12:00 Temperature 98.3 F Pulse Rate 78 88 Respiratory Rate 23 H Blood Pressure 104/62 Pulse Oximetry 93 93 Oxygen Delivery Nasal Cannula Oxygen Flow Rate 3 03/13/25 12:00 03/13/25 14:00 03/13/25 15:48 Temperature 98.4 F Pulse Rate 86 86 80 Respiratory Rate 20 Blood Pressure 108/55 L Pulse Oximetry 93 Oxygen Delivery Oxygen Flow Rate 03/13/25 16:00 03/13/25 16:00 03/13/25 18:00 Temperature Pulse Rate 73 83 Respiratory Rate Blood Pressure Pulse Oximetry 93 Oxygen Delivery Nasal Cannula Oxygen Flow Rate 3 03/13/25 19:42 03/13/25 20:00 03/13/25 20:27 Temperature 98.5 F Pulse Rate 89 68 Respiratory Rate 18 Blood Pressure 124/65 Pulse Oximetry 93 92 Oxygen Delivery Nasal Cannula Oxygen Flow Rate 3 03/13/25 20:30 03/13/25 21:59 03/14/25 00:00 Temperature Pulse Rate 75 Respiratory Rate Blood Pressure Pulse Oximetry 91 90 Oxygen Delivery Nasal Cannula Nasal Cannula Oxygen Flow Rate 5 5 03/14/25 00:00 03/14/25 00:00 03/14/25 02:00 Temperature 100.4 F H Pulse Rate 83 87 73 Respiratory Rate 20 Blood Pressure 106/48 L Pulse Oximetry 91 Oxygen Delivery Oxygen Flow Rate 03/14/25 04:00 03/14/25 04:00 03/14/25 04:00 Temperature 98.5 F Pulse Rate 86 72 Respiratory Rate 22 H Blood Pressure 104/51 L Pulse Oximetry 94 93 Oxygen Delivery Nasal Cannula Oxygen Flow Rate 4 03/14/25 05:10 03/14/25 06:00 03/14/25 08:00 Temperature 98.5 F Pulse Rate 80 76 Respiratory Rate 20 Blood Pressure 99/68 L Pulse Oximetry 95 95 Oxygen Delivery Nasal Cannula Oxygen Flow Rate 3 Intake/Output Intake/Output: Intake & Output 03/11/25 03/12/25 03/13/25 03/14/25 23:59 23:59 23:59 23:59 Intake Total 2350 1322 3009.5 1483 Output Total 1 1 1801 200 Balance 2349 1321 1208.5 1283 Meds/Results Medications: Active Medications Generic Name Dose Route Start Last Admin Trade Name Freq PRN Reason Stop Dose Admin Acetaminophen 650 mg 03/11/25 15:34 Acetaminophen 325 Mg Tablet PO Q4H PRN Mild Pain (1-3) or Fever Calcium Carbonate 500 mg 03/12/25 12:00 03/13/25 17:10 Calcium Carbonate (Oscal) 500 Mg Tablet PO 500 mg 1200,1800 GUSTAVO Administration Ferrous Sulfate 325 mg 03/12/25 12:00 03/12/25 13:53 Ferrous Sulfate [address] PO 325 mg Q48H GUSTAVO Administration Fluticasone Propionate 2 spray 03/11/25 19:09 03/14/25 01:43 Fluticasone Propionate 0.05% Na Spr 16 Gm Btl (*Bkc) NASAL 2 spray DAILY PRN Administration nasal congestion Furosemide 40 mg 03/12/25 09:00 03/13/25 17:10 Furosemide 40 Mg Tablet PO 40 mg BID GUSTAVO Administration Hydroxychloroquine Sulfate 200 mg 03/12/25 09:00 03/12/25 08:56 Hydroxychloroquine Sulfate 200 Mg Tablet PO 200 mg QAM GUSTAVO Administration Sodium Chloride 1,000 mls @ 90 mls/hr 03/11/25 15:35 03/14/25 06:56 Normal Saline Iv IV CONT 90 mls/hr .Q11H7M GUSTAVO Infusion Levothyroxine Sodium 50 mcg 03/12/25 06:30 03/14/25 06:11 Levothyroxine Sodium 50 Mcg Tablet PO 50 mcg DAILY@0630 GUSTAVO Administration Levothyroxine Sodium 25 mcg 03/12/25 06:30 03/14/25 06:11 Levothyroxine Sodium 25 Mcg Tablet PO 25 mcg DAILY@0630 GUSTAVO Administration Loperamide HCl 2 mg 03/12/25 16:27 03/12/25 16:48 Loperamide Hcl 2 Mg Capsule PO 2 mg PRN PRN Administration Diarrhea Multivitamins Therapeutic 1 tablet 03/12/25 09:00 03/13/25 09:15 Multivitamins Therapeutic Tab (*Bkc) PO 1 tablet DAILY GUSTAVO Administration Mycophenolate Mofetil 500 mg 03/11/25 21:00 03/13/25 20:29 Mycophenolate Mofetil 250 Mg Capsule PO 500 mg Q12H GUSTAVO Administration Home Med Omeprazole 20 mg 03/12/25 09:00 03/13/25 09:19 20 Mg Capsule PO 04/11/25 08:59 20 mg DAILY GUSTAVO Administration Home Med (Selexipag 1,600 mcg 03/11/25 22:25 03/13/25 20:27 [Uptravi] 1,600 Mcg PO 04/10/25 22:24 1,600 mcg Tablet) Q12HR GUSTAVO Administration Non-Formulary ( 2 each 03/12/25 09:00 03/13/25 09:17 Tadalafil 20 Mg Oral PO 04/11/25 08:59 2 each Tablet) DAILY GUSTAVO Administration Home Med (Macitentan 10 mg 03/12/25 09:00 03/13/25 09:18 [Opsumit] 10 Mg PO 04/11/25 08:59 10 mg Tablet) DAILY GUSTAVO Administration Ondansetron HCl 4 mg 03/11/25 15:34 Ondansetron Inj 4 Mg/2 Ml Vial IV PUSH Q4H PRN Nausea Fluticasone/Salmeterol 2 puff 03/11/25 20:00 03/13/25 20:23 Fluticasone/Salmeterol 115-21 Mcg Inhaler 1 Puff INHALATION 2 puff Q12HRT GUSTAVO Administration Trimethoprim/Sulfamethoxazole 1 tab 03/12/25 21:00 03/13/25 20:27 Sulfamethoxazole/Trimethoprim 800/160 Mg Ds Tablet PO 1 tab Q12HR GUSTAVO Administration Vitamin D 25 mcg 03/12/25 09:00 03/13/25 09:16 Cholecalciferol (Vitamin D3) 25 Mcg (1,000 Units) Tablet PO 25 mcg DAILY GUSTAVO Administration Radiology Results: ITS Impressions Abdomen/Pelvis CT 03/11/25 14:42 IMPRESSION: 1. Enteritis which could be infectious or inflammatory in etiology. 2. Mild intrahepatic biliary ductal dilation but without evident dilation the common bile duct. Correlate with liver function tests and if clinically indicated could consider further evaluation with MRCP. 3. Multiple cystic lesions diffusely throughout the pancreas which suggests dilated sidebranches related to chronic pancreatitis. Correlate with clinical hi story. This can be further evaluated same time with pre and postcontrast MRI/MRCP. 4. Cardiomegaly and small pericardial effusion. 5. Very small bilateral posterior layering pleural effusions and minimal hepatic and pericholecystic ascites. 6. Large amount of ingested debris within the stomach patulous distal esophagus and with relatively decompressed stomach which suggests possible esophageal dysmotility or stricture. 7. Silicone left breast implant with intracapsular rupture. 8. Indeterminate subtle sclerotic lesion at L5. The patient has known history of prior malignancy would consider bone scan for further evaluation. Bone Scan Nuclear Medicine 03/13/25 15:13 IMPRESSION: 1. No foci of abnormal bone uptake to suggest osseous metastatic disease. Labs Labs: Laboratory Results - last 24 hr 03/13/25 03/13/25 03/14/25 08:39 10:13 04:21 WBC 9.7 8.2 RBC 3.30 L 3.01 L Hgb 9.2 L 8.2 L Hct 31.3 L 28.9 L MCV 94.8 96.0 MCH 27.9 27.2 MCHC 29.4 L 28.4 L RDW 19.0 H 18.4 H Plt Count 146 L 132 L MPV 10.0 10.5 H Sodium 133 L Potassium 2.8 L* Chloride 107 Carbon Dioxide 19 L Anion Gap 7 BUN 15 D Creatinine 0.98 Estim Creat Clear Calc 34 Estimated GFR 55 L Glucose 81 Calcium 7.5 L Total Bilirubin 0.2 AST 17 ALT 7 Alkaline Phosphatase 34 L Total Protein 4.6 L Albumin 2.8 L C. difficile (PCR) Negative Quality VTE Prophylaxis VTE prophylaxis: mechanical ordered
[2025-03-14] MEDS: TADALAFIL 20 MG 2 EACH PO (08:48)
[2025-03-14] MEDS: FLUTICASONE/SALMETEROL 115-21 MCG INHALER 1 PUFF 2 PUFF INHALATION ×2 (09:17→20:36)
[2025-03-14 09:21] LABS: Hematocrit 31.7 % (37.0-47.0); Hemoglobin 9.4 g/dL (12.0-15.0)
[2025-03-14] MEDS: POTASSIUM CHLORIDE INJ 40 MEQ in SODIUM CHLORIDE 0.9% IV 500 ML 130 MEQ IVPB (10:40)
[2025-03-14] MEDS: LOPERAMIDE HCL 2 MG CAPSULE PO ×2 (10:41→16:57)
[2025-03-14] MEDS: FERROUS SULFATE 325 MG TABLET DR PO (11:53)
[2025-03-14] MEDS: CALCIUM CARBONATE (OSCAL) 500 MG TABLET PO ×2 (11:53→16:52)
--- NOTE | 2025-03-14 14:17 | WPDGIPROGNO ---
Progress Note: A&P Assessment and Plan (1) Diarrhea: Code(s): R19.7 - Diarrhea, unspecified Status: Acute Assessment and Plan: empirically on bactrim for possible sibo, she has risk factors including scleroderma, also imaging suggestive of dysmotility she is high risk to undergo scopes given pulmonaty htn and other factors can not use questran because will interfere with cellcept imodium prn repleting low k (2) Enteritis: Code(s): K52.9 - Noninfective gastroenteritis and colitis, unspecified Status: Acute (3) Gastrointestinal dysmotility: Code(s): K92.89 - Other specified diseases of the digestive system Status: Acute (4) Iron deficiency anemia: Code(s): D50.9 - Iron deficiency anemia, unspecified Status: Acute (5) Acute hypokalemia: Code(s): E87.6 - Hypokalemia Status: Acute Assessment and Plan: repleting (6) Cr(e)st syndrome: Code(s): M34.1 - CR(E)ST syndrome Status: Chronic Subjective Date/time seen: 03/14/25 14:17 Interval history: had more diarrhea after she took kcl supplement no other changes Review of Systems Review of Systems: All systems reviewed & are unremarkable except as noted in HPI and below Exam Const: General: comfortable HENMT: Face/Nose/Sinus: Normal nares present Eyes: Sclera: sclerae normal Neck: Neck: supple Resp: Effort & Inspection: normal respiratory effort Cardio: Rate: regular rate GI: GI Palp: Yes Soft to palpation and No Tenderness to palpation present (GI) Skin: Other: Skin diffusely thickened. Neuro: Speech: normal speech Extrem: General: normal to inspection Psych: Mental Status: mental status grossly normal Objective Data Vital Signs Vital Signs: Vital Signs - 24 hr 03/13/25 15:48 03/13/25 16:00 03/13/25 16:00 Temperature 98.4 F Pulse Rate 80 73 Respiratory Rate 20 Blood Pressure 108/55 L Pulse Oximetry 93 93 Oxygen Delivery Nasal Cannula Oxygen Flow Rate 3 03/13/25 18:00 03/13/25 19:42 03/13/25 20:00 Temperature 98.5 F Pulse Rate 83 89 68 Respiratory Rate 18 Blood Pressure 124/65 Pulse Oximetry 93 Oxygen Delivery Oxygen Flow Rate 03/13/25 20:27 03/13/25 20:30 03/13/25 21:59 Temperature Pulse Rate 75 Respiratory Rate Blood Pressure Pulse Oximetry 92 91 Oxygen Delivery Nasal Cannula Nasal Cannula Oxygen Flow Rate 3 5 03/14/25 00:00 03/14/25 00:00 03/14/25 00:00 Temperature 100.4 F H Pulse Rate 83 87 Respiratory Rate 20 Blood Pressure 106/48 L Pulse Oximetry 90 91 Oxygen Delivery Nasal Cannula Oxygen Flow Rate 5 03/14/25 02:00 03/14/25 04:00 03/14/25 04:00 Temperature Pulse Rate 73 86 Respiratory Rate Blood Pressure Pulse Oximetry 94 Oxygen Delivery Nasal Cannula Oxygen Flow Rate 4 03/14/25 04:00 03/14/25 05:10 03/14/25 06:00 Temperature 98.5 F Pulse Rate 72 80 Respiratory Rate 22 H Blood Pressure 104/51 L Pulse Oximetry 93 95 Oxygen Delivery Nasal Cannula Oxygen Flow Rate 3 03/14/25 08:00 03/14/25 09:20 03/14/25 09:20 Temperature 98.5 F Pulse Rate 76 84 Respiratory Rate 20 20 Blood Pressure 99/68 L Pulse Oximetry 95 96 Oxygen Delivery Nasal Cannula Oxygen Flow Rate 2 03/14/25 11:16 Temperature 98.0 F Pulse Rate 74 Respiratory Rate 20 Blood Pressure 102/58 L Pulse Oximetry 96 Oxygen Delivery Oxygen Flow Rate Intake/Output Intake/Output: Intake & Output 03/11/25 03/12/25 03/13/25 03/14/25 23:59 23:59 23:59 23:59 Intake Total 2350 1322 3009.5 1603 Output Total 1 1 1801 200 Balance 2349 1321 1208.5 1403 Meds/Results Medications: Active Medications Generic Name Dose Route Start Last Admin Trade Name Freq PRN Reason Stop Dose Admin Acetaminophen 650 mg 03/11/25 15:34 Acetaminophen 325 Mg Tablet PO Q4H PRN Mild Pain (1-3) or Fever Calcium Carbonate 500 mg 03/12/25 12:00 03/14/25 11:53 Calcium Carbonate (Oscal) 500 Mg Tablet PO 500 mg 1200,1800 GUSTAVO Administration Ferrous Sulfate 325 mg 03/12/25 12:00 03/14/25 11:53 Ferrous Sulfate [address] PO 325 mg Q48H GUSTAVO Administration Fluticasone Propionate 2 spray 03/11/25 19:09 03/14/25 08:43 Fluticasone Propionate 0.05% Na Spr 16 Gm Btl (*Bkc) NASAL 2 spray DAILY PRN Administration nasal congestion Furosemide 40 mg 03/12/25 09:00 03/14/25 08:43 Furosemide 40 Mg Tablet PO 40 mg BID GUSTAVO Administration Hydroxychloroquine Sulfate 200 mg 03/12/25 09:00 03/12/25 08:56 Hydroxychloroquine Sulfate 200 Mg Tablet PO 200 mg QAM GUSTAVO Administration Sodium Chloride 1,000 mls @ 90 mls/hr 03/11/25 15:35 03/14/25 06:56 Normal Saline Iv IV CONT 90 mls/hr .Q11H7M GUSTAVO Infusion Levothyroxine Sodium 50 mcg 03/12/25 06:30 03/14/25 06:11 Levothyroxine Sodium 50 Mcg Tablet PO 50 mcg DAILY@0630 GUSTAVO Administration Levothyroxine Sodium 25 mcg 03/12/25 06:30 03/14/25 06:11 Levothyroxine Sodium 25 Mcg Tablet PO 25 mcg DAILY@0630 GUSTAVO Administration Loperamide HCl 2 mg 03/12/25 16:27 03/14/25 10:41 Loperamide Hcl 2 Mg Capsule PO 2 mg PRN PRN Administration Diarrhea Multivitamins Therapeutic 1 tablet 03/12/25 09:00 03/14/25 08:43 Multivitamins Therapeutic Tab (*Bkc) PO 1 tablet DAILY GUSTAVO Administration Mycophenolate Mofetil 500 mg 03/11/25 21:00 03/14/25 08:44 Mycophenolate Mofetil 250 Mg Capsule PO 500 mg Q12H GUSTAVO Administration Home Med Omeprazole 20 mg 03/12/25 09:00 03/14/25 08:45 20 Mg Capsule PO 04/11/25 08:59 20 mg DAILY GUSTAVO Administration Home Med (Selexipag 1,600 mcg 03/11/25 22:25 03/14/25 08:46 [Uptravi] 1,600 Mcg PO 04/10/25 22:24 1,600 mcg Tablet) Q12HR GUSTAVO Administration Non-Formulary ( 2 each 03/12/25 09:00 03/14/25 08:48 Tadalafil 20 Mg Oral PO 04/11/25 08:59 2 each Tablet) DAILY GUSTAVO Administration Home Med (Macitentan 10 mg 03/12/25 09:00 03/14/25 08:47 [Opsumit] 10 Mg PO 04/11/25 08:59 10 mg Tablet) DAILY GUSTAVO Administration Ondansetron HCl 4 mg 03/11/25 15:34 Ondansetron Inj 4 Mg/2 Ml Vial IV PUSH Q4H PRN Nausea Fluticasone/Salmeterol 2 puff 03/11/25 20:00 03/14/25 09:17 Fluticasone/Salmeterol 115-21 Mcg Inhaler 1 Puff INHALATION 2 puff Q12HRT GUSTAVO Administration Trimethoprim/Sulfamethoxazole 1 tab 03/12/25 21:00 03/14/25 08:43 Sulfamethoxazole/Trimethoprim 800/160 Mg Ds Tablet PO 1 tab Q12HR GUSTAVO Administration Vitamin D 25 mcg 03/12/25 09:00 03/14/25 08:43 Cholecalciferol (Vitamin D3) 25 Mcg (1,000 Units) Tablet PO 25 mcg DAILY GUSTAVO Administration Radiology Results: ITS Impressions Abdomen/Pelvis CT 03/11/25 14:42 IMPRESSION: 1. Enteritis which could be infectious or inflammatory in etiology. 2. Mild intrahepatic biliary ductal dilation but without evident dilation the common bile duct. Correlate with liver function tests and if clinically indicated could consider further evaluation with MRCP. 3. Multiple cystic lesions diffusely throughout the pancreas which suggests dilated sidebranches related to chronic pancreatitis. Correlate with clinical history. This can be further evaluated same time with pre and postcontrast MRI/MRCP. 4. Cardiomegaly and small pericardial effusion. 5. Very small bilateral posterior layering pleural effusions and minimal hepatic and pericholecystic ascites. 6. Large amount of ingested debris within the stomach patulous distal esophagus and with relatively decompressed stomach which suggests possible esophageal dysmotility or stricture. 7. Silicone left breast implant with intracapsular rupture. 8. Indeterminate subtle sclerotic lesion at L5. The patient has known history of prior malignancy would consider bone scan for further evaluation. Bone Scan Nuclear Medicine 03/13/25 15:13 IMPRESSION: 1. No foci of abnormal bone uptake to suggest osseous metastatic disease. Labs Labs: Laboratory Results - last 24 hr 03/14/25 03/14/25 04:21 09:16 WBC 8.2 RBC 3.01 L Hgb 8.2 L 9.4 L Hct 28.9 L 31.7 L MCV 96.0 MCH 27.2 MCHC 28.4 L RDW 18.4 H Plt Count 132 L MPV 10.5 H Sodium 133 L Potassium 2.8 L* Chloride 107 Carbon Dioxide 19 L Anion Gap 7 BUN 15 D Creatinine 0.98 Estim Creat Clear Calc 34 Estimated GFR 55 L Glucose 81 Calcium 7.5 L Total Bilirubin 0.2 AST 17 ALT 7 Alkaline Phosphatase 34 L Total Protein 4.6 L Albumin 2.8 L
[2025-03-15] VITALS (15 sets, daily range): BP systolic 96–116; BP diastolic 52–57; PULSE 65–92; RESP 14–20; TEMP 37–37.1; O2SAT 80–100
[2025-03-15 04:42] LABS: Hematocrit 31.3 % (37.0-47.0); Hemoglobin 9.1 g/dL (12.0-15.0); Mean Corpuscular HGB Conc 29.1 g/dl (32-36); Mean Corpuscular Hemoglobin 27.7 pg (26-34); Mean Corpuscular Volume 95.4 fl (80-100); Mean Platelet Volume 10.4 fl (7.4-10.4); Platelet Count Result 118 k/mm3 (150-375); Red Blood Count 3.28 M/mm3 (4.2-5.4); Red Cell Distribution Width 18.4 % (11.5-14.5); White Blood Count 8.4 K/mm3 (4.5-10.0)
[2025-03-15 05:04] LABS: Alanine Aminotransferase 8 U/L (6-35); Alkaline Phosphatase 37 U/L (38-126); Anion Gap 7 mmol/L (4-12); Aspartate Amino Transferase 18 U/L (14-36); Bilirubin,Total 0.1 mg/dL (0.2-1.3); Blood Urea Nitrogen 9 mg/dL (7-17); Calcium 7.9 mg/dL (8.4-10.2); Carbon Dioxide 17 mmol/L (22-30); Chloride 111 mmol/L (98-107); Estimated CRCL calculation 36 ml/min; Estimated Glomerular Filt Rate > 60; Glucose 84 mg/dL (65-110); Potassium 3.8 mmol/L (3.4-5.0); Sodium 135 mmol/L (137-145)
[2025-03-15] MEDS: LEVOTHYROXINE SODIUM 50 MCG TABLET PO (05:47)
[2025-03-15] MEDS: LEVOTHYROXINE SODIUM 25 MCG TABLET PO (05:48)
[2025-03-15] MEDS: FLUTICASONE/SALMETEROL 115-21 MCG INHALER 1 PUFF 2 PUFF INHALATION ×2 (08:54→21:15)
[2025-03-15] MEDS: mycophenolate mofetiL 250 MG CAPSULE 500 MG PO ×2 (09:08→20:50)
[2025-03-15] MEDS: FUROSEMIDE 40 MG TABLET PO ×2 (09:08→16:51)
[2025-03-15] MEDS: LOPERAMIDE HCL 2 MG CAPSULE PO (09:12)
[2025-03-15] MEDS: CHOLECALCIFEROL (VITAMIN D3) 25 MCG (1,000 UNITS) TABLET PO (09:12)
[2025-03-15] MEDS: MULTIVITAMINS THERAPEUTIC TAB (*BKC) 1 TABLET PO (09:12)
[2025-03-15] MEDS: MACITENTAN 10 MG 10 EACH PO (09:13)
[2025-03-15] MEDS: SULFAMETHOXAZOLE/TRIMETHOPRIM 800/160 MG DS TABLET 1 TAB PO ×2 (09:13→20:50)
[2025-03-15] MEDS: OMEPRAZOLE 20 MG 20 EACH PO (09:14)
[2025-03-15] MEDS: SELEXIPAG 1600 MCG 1600 EACH PO ×2 (09:14→20:52)
[2025-03-15] MEDS: TADALAFIL 20 MG 2 EACH PO (09:14)
--- NOTE | 2025-03-15 09:19 | P.PNIM_ITS ---
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 Baseline oxygen supplementation of 1-2L NC. Patient has been requiring 2L since admission, denying shortness of breath. However overnight RN noted increased dyspnea and O2 was increased to 4L. - Suspected cause: worsening CREST, volume overload (fluid DC), PE, vs other - Chest XR: Moderate left pleural effusion with bibasilar pulmonary edema/atelectasis and central congestive change. Possible minimal right pleural effusion. - Chest CTA: No PE, aortic dissection, or aortic aneurysm. Moderate bilateral pleural effusion with bibasilar atelectasis and mild pulmonary edema. - Oxygen supplementation weaned back to 2L NC (baseline). Wean O2 as tolerated, keep Spo2 > 90% - Given lasix 40 mg IV x1 (2) Pleural effusion: Code(s): J90 - Pleural effusion, not elsewhere classified Status: Acute Assessment and Plan: - Symptoms: increased shortness of breath - BNP: 9280 - Chest XR: Moderate left pleural effusion with bibasilar pulmonary edema/atelectasis and central congestive change. Possible minimal right pleural effusion. - Chest CTA: No PE, aortic dissection, or aortic aneurysm. Moderate bilateral pleural effusion with bibasilar atelectasis and mild pulmonary edema. - Echo ordered - Monitor vital signs, I&Os, BUN/creatinine, daily weights, neuro status and patient is a fall risk - Monitor serum electrolytes, Keep serum Potassium>4 and serum Magnesium>2 and CBC (3) Anemia: Qualifiers: Anemia type: unspecified type Qualified Code(s): D64.9 - Anemia, unspecified Code(s): D64.9 - Anemia, unspecified Status: Acute Assessment and Plan: - Hgb 6.3 given 2 u PRBC on 03/11, previously 8.3 on 2/7 H/H 9.1 on am labs - Iron panel: iron 35, TIBC 347, % sat 10, ferritin 20.40 - B12, folic acid WNL - TSH WNL on 03/10 - transfuse if <7 - trend H&H post transfusions - stool occult/ALBERTINA positive, however negative on GI exam - GI consulted 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 Repeating a colonoscopy is not advised due to her pulmonary hypertension and frailty, which make her a high sedation risk especially considering the apparent technical difficulty, which puts the patient on an unnecessary risk for perforation. Therefore, will hold off on further endoscopic procedures unless overt GI bleeding occurs, recommending regular hemoglobin checks and iron infusions to maintain her status. - continue iron supplement. (4) GIB (gastrointestinal bleeding): Qualifiers: GI bleed type/associated pathology: unspecified gastrointestinal hemorrhage type Qualified Code(s): K92.2 - Gastrointestinal hemorrhage, unspe cified Code(s): K92.2 - Gastrointestinal hemorrhage, unspecified Status: Acute Assessment and Plan: She reports associated dark tarry stools (on iron), diarrhea, dizziness, and mild shortness of breath for which she has had use increased oxygen at night. She is on 1L at baseline and has been using 2L. - ALBERTINA/occult +, negative for GI - Pantoprazole BID - DVT Px: SCDs. Avoid anti-coagulations, holding home ASA - Monitor serum electrolytes, CBC, hemoglobin/hematocrit q.8 hours. 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 Repeating a colonoscopy is not advised due to her pulmonary hypertension and frailty, which make her a high sedation risk especially considering the apparent technical difficulty, which puts the patient on an unnecesary risk for perforation. Therefore, will hold off on further endoscopic procedures unless overt GI bleeding occurs, recommending regular hemoglobin checks and iron infusions to maintain her status. (5) Enteritis: Code(s): K52.9 - Noninfective gastroenteritis and colitis, unspecified Status: Acute Assessment and Plan: Crest can cause small bowel dysmotility and associated bacterial overgrowth - CT abd/pelvis: 1. Enteritis which could be infectious or inflammatory in etiology. 2. Mild intrahepatic biliary ductal dilation but without evident dilation the common bile duct. (LFTs WNL.) 3. Multiple cystic lesions diffusely throughout the pancreas which suggests dilated side branches related to chronic pancreatitis. 4. Cardiomegaly and small pericardial effusion. 5. Very small bilateral posterior layering pleural effusions and minimal hepatic and pericholecystic ascites. 6. Large amount of ingested debris within the stomach patulous distal esophagus and with relatively decompressed stomach which suggests possible esophageal dysmotility or stricture. (History of CREST syndrome) - check stool culture pending, c. 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 We will send stool cultures and leukocyte studies and begin empiric Bactrim BID for 5-7 days to treat presumed bacterial overgrowth. (6) Acute hypokalemia: Code(s): E87.6 - Hypokalemia Status: Acute Assessment and Plan: - K 2.5 on admission. Given 40 PO and 40 IVPB in ED presumed secondary to diarrhea, patient is also on lasix 40 mg BID without potassium supplementation which could be contributing - K 2.9 on 03/12 labs, given 40 mg IV x1. Repeat K 4.3 - K 2.8 on 03/14, given 40meq IV and 40 meq PO x 1 - 3.8 on am labs - Tele - monitor (7) Lesion of lumbar spine: Code(s): M89.9 - Disorder of bone, unspecified Status: Acute Assessment and Plan: CT abd/pelvis showed indeterminate subtle sclerotic lesion at L5. The patient has known history of prior malignancy would consider bone scan for further evaluation. Bone scan showed no foci of abnormal bone uptake to suggest osseous metastatic disease (8) Hypothyroidism, unspecified: Qualifiers: Hypothyroidism type: unspecified Qualified Code(s): E03.9 - Hypothyroidism, unspecified Code(s): E03.9 - Hypothyroidism, unspecified Status: Chronic Assessment and Plan: - TSH 3.1 on 03.10 - continue home medication: Synthroid (9) Hypertension: Qualifiers: Hypertension type: essential hypertension Qualified Code(s): I10 - Essential (primary) hypertension Code(s): I10 - Essential (primary) hypertension Status: Chronic Assessment and Plan: Chronic - not on antihypertensives, however on Lasix and metolazone due to history of CHF. Continue Lasix only at this time and monitor BP closely, hold if BP less than 100/80. Hold metolazone until BP improved. - Blood pressure reviewed and remains stable at this time Time Spent With Patient Time with patient: 25 - 35 minutes Subjective Date/time seen: 03/15/25 09:19 Interval history: 79 year old female with past medical history of pulmonary hypertension, breast cancer s/p chemotherapy and mastectomy, rectal prolapse, CREST syndrome, anxiety, GERD, hypothyroidism, hypertension and osteopenia presents here with abnormal lab - anemic. She reports associated dark tarry stools (on iron), diarrhea, dizziness, and mild shortness of breath for which she has had use increased oxygen at night. She is on 1L at baseline and has been using 2L. Patient is pleasant sitting up comfortably on the side of her bed. She required increased oxygen supplementation overnight up to 4 L nasal cannula. She states that her shortness of breath has somewhat increased at this point. Chest x-ray and CT showing pleural effusion development, IV fluids discontinued. Patient given a dose of 1 time IV Lasix in shortness breath has slightly improved. Patient is wean back to 2 L nasal cannula. She has no other complaints denying chest pain, palpitations, nausea/vomiting, and abdominal pain. Patient is ambulating throughout the room and denies dizziness/lightheadedness. Review of Systems Review of Systems: All systems reviewed & are unremarkable except as noted in HPI and below Exam Narrative: AF HR 68 RR 14 Spo2 94 2L NC (baseline) BP 110/58 General: female in no acute respiratory distress who is nontoxic appearing, sitting on side of bed HEENT: Normocephalic. Atraumatic. Extraocular movement intact. Sclera clear and anicteric. No facial asymmetry. Chest: Lungs are diminished to auscultation bilaterally. No wheezes or crackles. CV: Heart was regular rate and rhythm. S1-S2. Murmurs. Abd: Abdomen was soft. Nontender. Nondistended. Positive bowel sounds. Ext: No clubbing, cyanosis, or edema. DP pulses bilaterally. Neuro: Patient is alert and oriented x3. Speech is clear. Objective Data Vital Signs Vital Signs: Vital Signs - 24 hr 03/14/25 09:20 03/14/25 09:20 03/14/25 10:00 Temperature Pulse Rate 84 79 Respiratory Rate 20 Blood Pressure Pulse Oximetry 96 Oxygen Delivery Nasal Cannula Oxygen Flow Rate 2 Fraction of Inspired Oxygen 03/14/25 11:16 03/14/25 12:00 03/14/25 12:00 Temperature 98.0 F Pulse Rate 74 80 Respiratory Rate 20 Blood Pressure 102/58 L Pulse Oximetry 96 94 Oxygen Delivery Nasal Cannula Oxygen Flow Rate 3 Fraction of Inspired Oxygen 03/14/25 14:00 03/14/25 16:00 03/14/25 16:00 Temperature 98.2 F Pulse Rate 79 79 80 Respiratory Rate 24 H Blood Pressure 112/73 Pulse Oximetry 90 Oxygen Delivery Oxygen Flow Rate Fraction of Inspired Oxygen 03/14/25 20:00 03/14/25 20:35 03/14/25 20:39 Temperature 98.6 F Pulse Rate 76 74 Respiratory Rate 24 H Blood Pressure 124/82 Pulse Oximetry 97 93 Oxygen Delivery Nasal Cannula Oxygen Flow Rate 2 Fraction of Inspired Oxygen 03/14/25 20:39 03/14/25 23:33 03/15/25 00:00 Temperature Pulse Rate 83 73 Respiratory Rate 20 Blood Pressure Pulse Oximetry 94 Oxygen Delivery Oxygen Flow Rate 5 Fraction of Inspired Oxygen 03/15/25 01:05 03/15/25 04:00 03/15/25 04:44 Temperature 98.6 F Pulse Rate 83 80 Respiratory Rate 18 Blood Pressure 105/54 L Pulse Oximetry 95 98 Oxygen Delivery Nasal Cannula Oxygen Flow Rate 4 Fraction of Inspired Oxygen 03/15/25 07:35 03/15/25 08:54 03/15/25 08:54 Temperature 98.8 F Pulse Rate 77 86 Respiratory Rate 14 20 Blood Pressure 96/57 L Pulse Oximetry 94 94 Oxygen Delivery Nasal Cannula Oxygen Flow Rate 4 Fraction of Inspired Oxygen 36 Intake/Output Intake/Output: Intake & Output 03/12/25 03/13/25 03/14/25 03/15/25 23:59 23:59 23:59 23:59 Intake Total 1322 3009.5 3760 1980 Output Total 1 1801 200 400 Balance 1321 1208.5 3560 1580 Meds/Results Medications: Active Medications Generic Name Dose Route Start Last Admin Trade Name Freq PRN Reason Stop Dose Admin Acetaminophen 650 mg 03/11/25 15:34 Acetaminophen 325 Mg Tablet PO Q4H PRN Mild Pain (1-3) or Fever Calcium Carbonate 500 mg 03/12/25 12:00 03/14/25 16:52 Calcium Carbonate (Oscal) 500 Mg Tablet PO 500 mg 1200,1800 GUSTAVO Administration Ferrous Sulfate 325 mg 03/12/25 12:00 03/14/25 11:53 Ferrous Sulfate [address] PO 325 mg Q48H GUSTAVO Administration Fluticasone Propionate 2 spray 03/11/25 19:09 03/14/25 08:43 Fluticasone Propionate 0.05% Na Spr 16 Gm Btl (*Bkc) NASAL 2 spray DAILY PRN Administration nasal congestion Furosemide 40 mg 03/12/25 09:00 03/15/25 09:08 Furosemide 40 Mg Tablet PO 40 mg BID GUSTAVO Administration Hydroxychloroquine Sulfate 200 mg 03/12/25 09:00 03/12/25 08:56 Hydroxychloroquine Sulfate 200 Mg Tablet PO 200 mg QAM GUSTAVO Administration Levothyroxine Sodium 50 mcg 03/12/25 06:30 03/15/25 05:47 Levothyroxine Sodium 50 Mcg Tablet PO 50 mcg DAILY@0630 GUSTAVO Administration Levothyroxine Sodium 25 mcg 03/12/25 06:30 03/15/25 05:48 Levothyroxine Sodium 25 Mcg Tablet PO 25 mcg DAILY@0630 GUSTAVO Administration Loperamide HCl 2 mg 03/12/25 16:27 03/15/25 09:12 Loperamide Hcl 2 Mg Capsule PO 2 mg PRN PRN Administration Diarrhea Multivitamins Therapeutic 1 tablet 03/12/25 09:00 03/15/25 09:12 Multivitamins Therapeutic Tab (*Bkc) PO 1 tablet DAILY GUSTAVO Administration Mycophenolate Mofetil 500 mg 03/11/25 21:00 03/15/25 09:08 Mycophenolate Mofetil 250 Mg Capsule PO 500 mg Q12H GUSTAVO Administration Home Med Omeprazole 20 mg 03/12/25 09:00 03/15/25 09:14 20 Mg Capsule PO 04/11/25 08:59 20 mg DAILY GUSTAVO Administration Home Med (Selexipag 1,600 mcg 03/11/25 22:25 03/15/25 09:14 [Uptravi] 1,600 Mcg PO 04/10/25 22:24 1,600 mcg Tablet) Q12HR GUSTAVO Administration Non-Formulary ( 2 each 03/12/25 09:00 03/15/25 09:14 Tadalafil 20 Mg Oral PO 04/11/25 08:59 2 each Tablet) DAILY GUSTAVO Administration Home Med (Macitentan 10 mg 03/12/25 09:00 03/15/25 09:13 [Opsumit] 10 Mg PO 04/11/25 08:59 10 mg Tablet) DAILY GUSTAVO Administration Ondansetron HCl 4 mg 03/11/25 15:34 Ondansetron Inj 4 Mg/2 Ml Vial IV PUSH Q4H PRN Nausea Fluticasone/Salmeterol 2 puff 03/11/25 20:00 03/15/25 08:54 Fluticasone/Salmeterol 115-21 Mcg Inhaler 1 Puff INHALATION 2 puff Q12HRT GUSTAVO Administration Trimethoprim/Sulfamethoxazole 1 tab 03/12/25 21:00 03/15/25 09:13 Sulfamethoxazole/Trimethoprim 800/160 Mg Ds Tablet PO 1 tab Q12HR GUSTAVO Administration Vitamin D 25 mcg 03/12/25 09:00 03/15/25 09:12 Cholecalciferol (Vitamin D3) 25 Mcg (1,000 Units) Tablet PO 25 mcg DAILY GUSTAVO Administration Radiology Results: ITS Impressions Abdomen/Pelvis CT 03/11/25 14:42 IMPRESSION: 1. Enteritis which could be infectious or inflammatory in etiology. 2. Mild intrahepatic biliary ductal dilation but without evident dilation the common bile duct. Correlate with liver function tests and if clinically indicated could consider further evaluation with MRCP. 3. Multiple cystic lesions diffusely throughout the pancreas which suggests dilated sidebranches related to chronic pancreatitis. Correlate with clinical history. This can be further evaluated same time with pre and postcontrast MRI/MRCP. 4. Cardiomegaly and small pericardial effusion. 5. Very small bilateral posterior layering pleural effusions and minimal hepatic and pericholecystic ascites. 6. Large amount of ingested debris within the stomach patulous distal esophagus and with relatively decompressed stomach which suggests possible esophageal dysmotility or stricture. 7. Silicone left breast implant with intracapsular rupture. 8. Indeterminate subtle sclerotic lesion at L5. The patient has known history of prior malignancy would consider bone scan for further evaluation. Bone Scan Nuclear Medicine 03/13/25 15:13 IMPRESSION: 1. No foci of abnormal bone uptake to suggest osseous metastatic disease. Labs Labs: Laboratory Results - last 24 hr 03/14/25 03/15/25 09:16 04:21 WBC 8.4 RBC 3.28 L Hgb 9.4 L 9.1 L Hct 31.7 L 31.3 L MCV 95.4 MCH 27.7 MCHC 29.1 L RDW 18.4 H Plt Count 118 L MPV 10.4 Sodium 135 L Potassium 3.8 Chloride 111 H Carbon Dioxide 17 L Anion Gap 7 BUN 9 D Creatinine 0.90 Estim Creat Clear Calc 36 Estimated GFR > 60 Glucose 84 Calcium 7.9 L Total Bilirubin 0.1 L AST 18 ALT 8 Alkaline Phosphatase 37 L Total Protein 5.0 L Albumin 3.0 L Quality VTE Prophylaxis VTE prophylaxis: mechanical ordered
[2025-03-15 12:35] LABS: NT Pro B Type Natriuretic Pept 9280 pg/mL (19.9-100)
[2025-03-15] MEDS: CALCIUM CARBONATE (OSCAL) 500 MG TABLET PO ×2 (12:38→16:51)
[2025-03-15] MEDS: FUROSEMIDE INJ 40 MG/4 ML VIAL IV PUSH (12:38)
--- NOTE | 2025-03-15 14:03 | WPDGIPROGNO ---
Progress Note: A&P Assessment and Plan (1) Diarrhea: Code(s): R19.7 - Diarrhea, unspecified Status: Acute Assessment and Plan: empirically on bactrim for possible sibo, she has risk factors including scleroderma, also imaging suggestive of dysmotility she is high risk to undergo scopes given pulmonaty htn and other factors can not use questran because will interfere with cellcept imodium prn symptomatically better and eating will follow as needed (2) Enteritis: Code(s): K52.9 - Noninfective gastroenteritis and colitis, unspecified Status: Acute (3) Gastrointestinal dysmotility: Code(s): K92.89 - Other specified diseases of the digestive system Status: Acute (4) Iron deficiency anemia: Code(s): D50.9 - Iron deficiency anemia, unspecified Status: Acute Assessment and Plan: h/h stable no need to repeat scopes, she is high risk (5) Acute hypokalemia: Code(s): E87.6 - Hypokalemia Status: Acute Assessment and Plan: repleted (6) Cr(e)st syndrome: Code(s): M34.1 - CR(E)ST syndrome Status: Chronic (7) Pulmonary hypertension: Code(s): I27.20 - Pulmonary hypertension, unspecified Status: Acute Subjective Date/time seen: 03/15/25 14:03 Interval history: less frequent loose stools, she thinks that is improving K better today Review of Systems Review of Systems: All systems reviewed & are unremarkable except as noted in HPI and below Exam Const: General: comfortable HENMT: Face/Nose/Sinus: Normal nares present Eyes: Sclera: sclerae normal Neck: Neck: supple Resp: Effort & Inspection: normal respiratory effort Cardio: Rate: regular rate GI: GI Palp: Yes Soft to palpation and No Tenderness to palpation present (GI) Skin: Other: Skin diffusely thickened. Neuro: Speech: normal speech Extrem: General: normal to inspection Psych: Mental Status: mental status grossly normal Objective Data Vital Signs Vital Signs: Vital Signs - 24 hr 03/14/25 16:00 03/14/25 16:00 03/14/25 20:00 Temperature 98.2 F Pulse Rate 79 80 76 Respiratory Rate 24 H Blood Pressure 112/73 Pulse Oximetry 90 Oxygen Delivery Oxygen Flow Rate Fraction of Inspired Oxygen 03/14/25 20:35 03/14/25 20:39 03/14/25 20:39 Temperature 98.6 F Pulse Rate 74 83 Respiratory Rate 24 H 20 Blood Pressure 124/82 Pulse Oximetry 97 93 Oxygen Delivery Nasal Cannula Oxygen Flow Rate 2 Fraction of Inspired Oxygen 03/14/25 23:33 03/15/25 00:00 03/15/25 01:05 Temperature Pulse Rate 73 Respiratory Rate Blood Pressure Pulse Oximetry 94 95 Oxygen Delivery Nasal Cannula Oxygen Flow Rate 5 4 Fraction of Inspired Oxygen 03/15/25 04:00 03/15/25 04:44 03/15/25 07:35 Temperature 98.6 F 98.8 F Pulse Rate 83 80 77 Respiratory Rate 18 14 Blood Pressure 105/54 L 96/57 L Pulse Oximetry 98 94 Oxygen Delivery Oxygen Flow Rate Fraction of Inspired Oxygen 03/15/25 08:54 03/15/25 08:54 Temperature Pulse Rate 86 Respiratory Rate 20 Blood Pressure Pulse Oximetry 94 Oxygen Delivery Nasal Cannula Oxygen Flow Rate 4 Fraction of Inspired Oxygen 36 Intake/Output Intake/Output: Intake & Output 03/12/25 03/13/25 03/14/25 03/15/25 23:59 23:59 23:59 23:59 Intake Total 1322 3009.5 3760 2460 Output Total 1 1801 200 400 Balance 1321 1208.5 3560 2060 Meds/Results Medications: Active Medications Generic Name Dose Route Start Last Admin Trade Name Freq PRN Reason Stop Dose Admin Acetaminophen 650 mg 03/11/25 15:34 Acetaminophen 325 Mg Tablet PO Q4H PRN Mild Pain (1-3) or Fever Calcium Carbonate 500 mg 03/12/25 12:00 03/15/25 12:38 Calcium Carbonate (Oscal) 500 Mg Tablet PO 500 mg 1200,1800 GUSTAVO Administration Ferrous Sulfate 325 mg 03/12/25 12:00 03/14/25 11:53 Ferrous Sulfate [address] PO 325 mg Q48H GUSTAVO Administration Fluticasone Propionate 2 spray 03/11/25 19:09 03/14/25 08:43 Fluticasone Propionate 0.05% Na Spr 16 Gm Btl (*Bkc) NASAL 2 spray DAILY PRN Administration nasal congestion Furosemide 40 mg 03/12/25 09:00 03/15/25 09:08 Furosemide 40 Mg Tablet PO 40 mg BID GUSTAVO Administration Hydroxychloroquine Sulfate 200 mg 03/12/25 09:00 03/12/25 08:56 Hydroxychloroquine Sulfate 200 Mg Tablet PO 200 mg QAM GUSTAVO Administration Levothyroxine Sodium 50 mcg 03/12/25 06:30 03/15/25 05:47 Levothyroxine Sodium 50 Mcg Tablet PO 50 mcg DAILY@0630 GUSTAVO Administration Levothyroxine Sodium 25 mcg 03/12/25 06:30 03/15/25 05:48 Levothyroxine Sodium 25 Mcg Tablet PO 25 mcg DAILY@0630 GUSTAVO Administration Loperamide HCl 2 mg 03/12/25 16:27 03/15/25 09:12 Loperamide Hcl 2 Mg Capsule PO 2 mg PRN PRN Administration Diarrhea Multivitamins Therapeutic 1 tablet 03/12/25 09:00 03/15/25 09:12 Multivitamins Therapeutic Tab (*Bkc) PO 1 tablet DAILY GUSTAVO Administration Mycophenolate Mofetil 500 mg 03/11/25 21:00 03/15/25 09:08 Mycophenolate Mofetil 250 Mg Capsule PO 500 mg Q12H GUSTAVO Administration Home Med Omeprazole 20 mg 03/12/25 09:00 03/15/25 09:14 20 Mg Capsule PO 04/11/25 08:59 20 mg DAILY GUSTAVO Administration Home Med (Selexipag 1,600 mcg 03/11/25 22:25 03/15/25 09:14 [Uptravi] 1,600 Mcg PO 04/10/25 22:24 1,600 mcg Tablet) Q12HR GUSTAVO Administration Non-Formulary ( 2 each 03/12/25 09:00 03/15/25 09:14 Tadalafil 20 Mg Oral PO 04/11/25 08:59 2 each Tablet) DAILY GUSTAVO Administration Home Med (Macitentan 10 mg 03/12/25 09:00 03/15/25 09:13 [Opsumit] 10 Mg PO 04/11/25 08:59 10 mg Tablet) DAILY GUSTAVO Administration Ondansetron HCl 4 mg 03/11/25 15:34 Ondansetron Inj 4 Mg/2 Ml Vial IV PUSH Q4H PRN Nausea Fluticasone/Salmeterol 2 puff 03/11/25 20:00 03/15/25 08:54 Fluticasone/Salmeterol 115-21 Mcg Inhaler 1 Puff INHALATION 2 puff Q12HRT GUSTAVO Administration Trimethoprim/Sulfamethoxazole 1 tab 03/12/25 21:00 03/15/25 09:13 Sulfamethoxazole/Trimethoprim 800/160 Mg Ds Tablet PO 1 tab Q12HR GUSTAVO Administration Vitamin D 25 mcg 03/12/25 09:00 03/15/25 09:12 Cholecalciferol (Vitamin D3) 25 Mcg (1,000 Units) Tablet PO 25 mcg DAILY GUSTAVO Administration Radiology Results: ITS Impressions Abdomen/Pelvis CT 03/11/25 14:42 IMPRESSION: 1. Enteritis which could be infectious or inflammatory in etiology. 2. Mild intrahepatic biliary ductal dilation but without evident dilation the common bile duct. Correlate with liver function tests and if clinically indicated could consider further evaluation with MRCP. 3. Multiple cystic lesions diffusely throughout the pancreas which suggests dilated sidebranches related to chronic pancreatitis. Correlate with clinical history. This can be further evaluated same time with pre and postcontrast MRI/MRCP. 4. Cardiomegaly and small pericardial effusion. 5. Very small bilateral posterior layering pleural effusions and minimal hepatic and pericholecystic ascites. 6. Large amount of ingested debris within the stomach patulous distal esophagus and with relatively decompressed stomach which suggests possible esophageal dysmotility or stricture. 7. Silicone left breast implant with intracapsular rupture. 8. Indeterminate subtle sclerotic lesion at L5. The patient has known history of prior malignancy would consider bone scan for further evaluation. Bone Scan Nuclear Medicine 03/13/25 15:13 IMPRESSION: 1. No foci of abnormal bone uptake to suggest osseous metastatic disease. Chest X-Ray 03/15/25 09:40 Impression: Moderate left pleural effusion with bibasilar pulmonary edema/atelectasis and central congestive change. Possible minimal right pleural effusion. Labs Labs: Laboratory Results - last 24 hr 03/15/25 04:21 WBC 8.4 RBC 3.28 L Hgb 9.1 L Hct 31.3 L MCV 95.4 MCH 27.7 MCHC 29.1 L RDW 18.4 H Plt Count 118 L MPV 10.4 Sodium 135 L Potassium 3.8 Chloride 111 H Carbon Dioxide 17 L Anion Gap 7 BUN 9 D Creatinine 0.90 Estim Creat Clear Calc 36 Estimated GFR > 60 Glucose 84 Calcium 7.9 L Total Bilirubin 0.1 L AST 18 ALT 8 Alkaline Phosphatase 37 L NT-Pro-B Natriuret Pep 9280 H Total Protein 5.0 L Albumin 3.0 L
[2025-03-16] VITALS (16 sets, daily range): BP systolic 90–123; BP diastolic 48–71; PULSE 72–102; RESP 18–22; TEMP 36.6–37; O2SAT 90–100
--- NOTE | 2025-03-16 | ECHO_ITS ---
Patient Info Name: Christine Ellis Age: 79 years : 1945 Gender: Female Ht: 62 in Wt: 125 lbs BSA: 1.58 m2 HR: 72 bpm BP: 98 / 50 mmHg Heart Rhythm: Sinus Rhythm Technical Quality: Good Exam Date: 03/16/2025 10:48 AM Patient Status: I Admit Date: 03/11/2025 Exam Type: CA echo doppler color flow Complete two-dimensional, color flow and Doppler transthoracic echocardiogram is performed. Staff Referring Physician: Almaz Pugh Inside Sales Advertising Executive: Maranda Devi Attending Provider: Almaz Pugh Summary 1. Complete two-dimensional, color flow and Doppler transthoracic echocardiogram is performed. 2. Left ventricular hypertrophy with vigorous systolic function and grade 1 diastolic noncompliance. 3. Biatrial dilation right greater than left. 4. Right ventricular enlargement. 5. Heavily calcified mitral valve annulus with mild MR. 6. Mild aortic stenosis. 7. Tricuspid regurgitation velocity indicates severe pulmonary hypertension. 8. Compared with exam from November of 2019 the findings are similar. Left Ventricle Left ventricular chamber dimension is normal. Left ventricular systolic function is hyperdynamic, estimated at >70. There is mild concentric increased left ventricular wall thickness. The left ventricular diastolic function is grade I diastolic dysfunction. Right Ventricle Right ventricular chamber dimension is moderately enlarged. Right ventricular systolic function is reduced. Left Atria Left atrial chamber dimension is mildly enlarged. Right Atria Right atrial chamber dimension is severely enlarged. Aortic Valve The aortic valve is trileaflet. There is moderate aortic valve sclerosis. There is mild aortic valve stenosis with a peak velocity of 304 cm/s, mean gradient of 21 mmHg, and aortic valve area of 1.5 cm2. Pulmonic Valve The pulmonic valve is normal. There is mild pulmonic regurgitation. Mitral Valve The mitral valve has thickened leaflets. There is mild mitral valve regurgitation. The mitral valve annulus is moderately calcified. Tricuspid Valve The tricuspid valve leaflets are normal. There is mild tricuspid valve regurgitation. Severe pulmonary hypertension, estimated pulmonary arterial systolic pressure is 68 mmHg. Pericardium/Pleural There is small pericardial effusion. Aorta The aortic root size at the sinus of Valsalva is normal. Left Ventricular Outflow Tract Name Value Normal LVOT 2D LVOT Diameter 1.8 cm LVOT Doppler LVOT Peak Velocity 184 cm/s LVOT Peak Gradient 13 mmHg LVOT Mean Gradient 9 mmHg LVOT VTI 39 cm LVOT VTI/AV VTI Ratio 0.6 LVOT Stroke Volume 101 ml LVOT CO 7.7 l/min LVOT CI 4.9 l/min/m2 Pulmonic Valve Name Value Normal PV Doppler PV Peak Velocity 104 cm/s PV Peak Gradient 4 mmHg Mitral Valve Name Value Normal MV Doppler MV Peak Gradient 8 mmHg MV Mean Gradient 2 mmHg MV Area (Cont Eq VTI) 3.3 cm2 MV Regurgitation Doppler MR Peak Gradient 92 mmHg MV Diastolic Function MV E Peak Velocity 101 cm/s MV A Peak Velocity 133 cm/s MV E/A 0.8 MV Decel Time (PW) 327 ms MV Annular TDI MV E/e' (Septal) 21.5 MV E/e' (Lateral) 17.1 MV E/e' (Average) 19.3 Tricuspid Valve Name Value Normal TV Regurgitation Doppler TR Peak Velocity 380 cm/s TR Peak Gradient 58 mmHg Estimated PAP/RSVP RA Pressure 10 mmHg <=5 PA Systolic Pressure 68 mmHg <36 RV Systolic Pressure 68 mmHg <36 TV Annular TDI TV Lateral Genesis s' Velocity 10.9 cm/s >=9.5 Aortic Valve Name Value Normal AV Doppler AV Peak Velocity 304 cm/s AV Peak Gradient 37 mmHg AV Mean Gradient 21 mmHg AV VTI 69 cm AV Area (Cont Eq VTI) 1.5 cm2 >=3.0 AV Area (Cont Eq Bandar) 1.6 cm2 AV DI (Bandar) 0.61 AV Regurgitation 2D LVOT Area 2.6 cm2 Ventricles Name Value Normal LV Dimensions 2D/MM IVS Diastolic Thickness (2D) 0.9 cm 0.6-1.0 LVID Diastole (2D) 4.4 cm 3.8-5.2 LVIW Diastolic Thickness (2D) 0.8 cm 0.6-0.9 LVID Systole (2D) 2.6 cm 2.2-3.5 LVOT Diameter 1.8 cm LV Mass (2D Cubed) 125.30 g 67.00-162.00 LV Mass Index (2D Cubed) 79 g/m2 43-95 Relative Wall Thickness (2D) 0.38 <=0.42 LV Fractional Shortening/Ejection Fraction 2D/MM LV Fractional Shortening (2D) 40 % 27-45 LV EF (2D Teichholz) 70 % LV Diastolic Volume (4C MOD) 65 ml LV EF (4C MOD) 74 % LV Diastolic Volume (2C MOD) 62 ml LV EF (2C MOD) 68 % LV Diastolic Volume (BP MOD) 63 ml 46-106 LV Diastolic Volume Index (BP MOD) 40 ml/m2 29-61 LV Systolic Volume (BP MOD) 18 ml 14-42 LV Systolic Volume Index (BP MOD) 12 ml/m2 8-24 LV EF (BP MOD) 71 % 54-74 LV Diastolic Length (4C) 7.4 cm LV Systolic Length (4C) 6.1 cm LV Stroke Volume (4C MOD) 48 ml Atria Name Value Normal LA Dimensions LA Volume (4C A-L) 83 ml LA Volume (BP A-L) 88 ml RA Dimensions RA Systolic Major [place] Length (4C) 4.8 cm 2.2-2.8 RA Area (4C) 15.9 cm2 <=18.0 Report Signatures
[2025-03-16 04:21] LABS: Hematocrit 31.6 % (37.0-47.0); Immature Platelet Fraction Pct 3.7 % (0.9-11.2); Mean Corpuscular HGB Conc 28.5 g/dl (32-36); Mean Corpuscular Hemoglobin 27.3 pg (26-34); Mean Corpuscular Volume 95.8 fl (80-100); Mean Platelet Volume 10.3 fl (7.4-10.4); Platelet Count Result 134 k/mm3 (150-375); White Blood Count 7.7 K/mm3 (4.5-10.0)
[2025-03-16 05:00] LABS: Alanine Aminotransferase 8 U/L (6-35); Alkaline Phosphatase 39 U/L (38-126); Anion Gap 8 mmol/L (4-12); Aspartate Amino Transferase 18 U/L (14-36); Bilirubin,Total 0.2 mg/dL (0.2-1.3); Blood Urea Nitrogen 10 mg/dL (7-17); Calcium 8.7 mg/dL (8.4-10.2); Carbon Dioxide 19 mmol/L (22-30); Chloride 106 mmol/L (98-107); Estimated CRCL calculation 31 ml/min; Estimated Glomerular Filt Rate 50; Glucose 81 mg/dL (65-110); Potassium 3.2 mmol/L (3.4-5.0); Sodium 133 mmol/L (137-145); Total Protein 4.9 g/dL (6.3-8.2)
[2025-03-16] MEDS: LEVOTHYROXINE SODIUM 50 MCG TABLET PO (06:22)
[2025-03-16] MEDS: LEVOTHYROXINE SODIUM 25 MCG TABLET PO (06:22)
[2025-03-16] MEDS: FLUTICASONE/SALMETEROL 115-21 MCG INHALER 1 PUFF 2 PUFF INHALATION ×2 (07:45→20:52)
--- NOTE | 2025-03-16 08:49 | P.PNIM_ITS ---
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 Baseline oxygen supplementation of 1-2L NC. Patient has been requiring 2L since admission, denying shortness of breath. However overnight RN noted increased dyspnea and O2 was increased to 4L. - Suspected cause: worsening CREST, volume overload (fluid DC), PE, vs other - Chest XR: Moderate left pleural effusion with bibasilar pulmonary edema/atelectasis and central congestive change. Possible minimal right pleural effusion. - Chest CTA: No PE, aortic dissection, or aortic aneurysm. Moderate bilateral pleural effusion with bibasilar atelectasis and mild pulmonary edema. - Oxygen supplementation weaned back to 1L NC (baseline). Wean O2 as tolerated, keep Spo2 > 90% - See plan for pleural effusion below (2) Pleural effusion: Code(s): J90 - Pleural effusion, not elsewhere classified Status: Acute Assessment and Plan: - Symptoms: increased shortness of breath - Remains on lasix 40 mg PO BID, given 40 IV x1 - BNP: 9280 - Chest XR: Moderate left pleural effusion with bibasilar pulmonary edema/ate lectasis and central congestive change. Possible minimal right pleural effusion. - Chest CTA: No PE, aortic dissection, or aortic aneurysm. Moderate bilateral pleural effusion with bibasilar atelectasis and mild pulmonary edema. - Echo showed left ventricular hypertrophy with vigorous systolic function, grade I diastolic dysfunction, heavily calcified MV, mild , and severe pulmonary HTN (similar findings to prior exam from 11/2019). - Monitor vital signs, I&Os, BUN/creatinine, daily weights, neuro status and patient is a fall risk - Monitor serum electrolytes, Keep serum Potassium>4 and serum Magnesium>2 and CBC Has returned to baseline 1L NC. Shortness of breath has resolved. 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 Repeating a colonoscopy is not advised due to her pulmonary hypertension and frailty, which make her a high sedation risk especially considering the apparent technical difficulty, which puts the patient on an unnecessary risk for perforation. Therefore, will hold off on further endoscopic procedures unless overt GI bleeding occurs, recommending regular hemoglobin checks and iron infusions to maintain her status. - continue iron supplement. (4) GIB (gastrointestinal bleeding): Qualifiers: GI bleed type/associated pathology: unspecified gastrointestinal hemorrhage type Qualified Code(s): K92.2 - Gastrointestinal hemorrhage, unspecified Code(s): K92.2 - Gastrointestinal hemorrhage, unspecified Status: Acute Assessment and Plan: She reports associated dark tarry stools (on iron), diarrhea, dizziness, and mild shortness of breath for which she has had use increased oxygen at night. She is on 1L at baseline and has been using 2L. - ALBERTINA/occult +, negative for GI - Pantoprazole BID - DVT Px: SCDs. Avoid anti-coagulations, holding home ASA - Monitor serum electrolytes, CBC, hemoglobin/hematocrit q.8 hours. 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 Repeating a colonoscopy is not advised due to her pulmonary hypertension and frailty, which make her a high sedation risk especially considering the apparent technical difficulty, which puts the patient on an unnecesary risk for perforation. Therefore, will hold off on further endoscopic procedures unless overt GI bleeding occurs, recommending regular hemoglobin checks and iron infusions to maintain her status. (5) Enteritis: Code(s): K52.9 - Noninfective gastroenteritis and colitis, unspecified Status: Acute Assessment and Plan: Crest can cause small bowel dysmotility and associated bacterial overgrowth - CT abd/pelvis: 1. Enteritis which could be infectious or inflammatory in etiology. 2. Mild intrahepatic biliary ductal dilation but without evident dilation the common bile duct. (LFTs WNL.) 3. Multiple cystic lesions diffusely throughout the pancreas which suggests dilated side branches related to chronic pancreatitis. 4. Cardiomegaly and small pericardial effusion. 5. Very small bilateral posterior layering pleural effusions and minimal hepatic and pericholecystic ascites. 6. Large amount of ingested debris within the stomach patulous distal esophagus and with relatively decompressed stomach which suggests possible esophageal dysmotility or stricture. (History of CREST syndrome) - check stool culture pending, c. 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 Stool cultures negative thus far. Bactrim BID for 5-7 days to treat presumed bacterial overgrowth. Patient reporting less frequent diarrhea. Now reporting soft stools. (6) Acute hypokalemia: Code(s): E87.6 - Hypokalemia Status: Acute Assessment and Plan: - K 2.5 on admission. Given 40 PO and 40 IVPB in ED presumed secondary to diarrhea, patient is also on lasix 40 mg BID without potassium supplementation which could be contributing - K 2.9 on 03/12 labs, given 40 mg IV x1. Repeat K 4.3 - K 2.8 on 03/14, given 40meq IV and 40 meq PO x 1 - 3.2 on am labs - Tele - monitor (7) Lesion of lumbar spine: Code(s): M89.9 - Disorder of bone, unspecified Status: Acute Assessment and Plan: CT abd/pelvis showed indeterminate subtle sclerotic lesion at L5. The patient has known history of prior malignancy would consider bone scan for further evaluation. Bone scan showed no foci of abnormal bone uptake to suggest osseous metastatic disease (8) Hypothyroidism, unspecified: Qualifiers: Hypothyroidism type: unspecified Qualified Code(s): E03.9 - Hypothy roidism, unspecified Code(s): E03.9 - Hypothyroidism, unspecified Status: Chronic Assessment and Plan: - TSH 3.1 on 03.10 - continue home medication: Synthroid (9) Hypertension: Qualifiers: Hypertension type: essential hypertension Qualified Code(s): I10 - Essential (primary) hypertension Code(s): I10 - Essential (primary) hypertension Status: Chronic Assessment and Plan: Chronic - not on antihypertensives, however on Lasix and metolazone due to history of CHF. Continue Lasix only at this time and monitor BP closely, hold if BP less than 100/80. Hold metolazone until BP improved. - Blood pressure reviewed and remains stable at this time Time Spent With Patient Time with patient: 25 - 35 minutes Subjective Date/time seen: 03/16/25 08:49 Interval history: 79 year old female with past medical history of pulmonary hypertension, breast cancer s/p chemotherapy and mastectomy, rectal prolapse, CREST syndrome, anxiety, GERD, hypothyroidism, hypertension and osteopenia presents here with abnormal lab - anemic. She reports associated dark tarry stools (on iron), diarrhea, dizziness, and mild shortness of breath for which she has had use increased oxygen at night. She is on 1L at baseline and has been using 2L. Patient is pleasant sitting up comfortably in bed with a friend at bedside. She states that she is feeling much better today and denies any shortness of breath. She was able to be weaned back to her baseline 1 L nasal cannula today. She has no complaints denying chest pain, palpitations, nausea/vomiting, and abdominal pain. She also notes that she has been able to ambulate throughout the room independently and denies any dizziness/lightheadedness or weakness. Review of Systems Review of Systems: All systems reviewed & are unremarkable except as noted in HPI and below Exam Narrative: AF HR 82 RR 20 Spo2 100 1L NC BP 99/48 General: female in no acute respiratory distress who is nontoxic appearing, sitting up in bed HEENT: Normocephalic. Atraumatic. Extraocular movement intact. Sclera clear and anicteric. No facial asymmetry. Chest: Lungs are diminished to auscultation bilaterally to the bases. No wheezes or crackles. CV: Heart was regular rate and rhythm. S1-S2. Murmurs. Abd: Abdomen was soft. Nontender. Nondistended. Positive bowel sounds. Ext: No clubbing, cyanosis, or edema. DP pulses bilaterally. Neuro: Patient is alert and oriented x3. Speech is clear. Objective Data Vital Signs Vital Signs: Vital Signs - 24 hr 03/15/25 08:54 03/15/25 08:54 03/15/25 12:00 Temperature Pulse Rate 86 87 Respiratory Rate 20 Blood Pressure Pulse Oximetry 94 Oxygen Delivery Nasal Cannula Oxygen Flow Rate 4 Fraction of Inspired Oxygen 36 03/15/25 15:50 03/15/25 16:00 03/15/25 19:18 Temperature 98.8 F Pulse Rate 68 76 92 Respiratory Rate 14 18 Blood Pressure 116/52 L 105/56 L Pulse Oximetry 90 100 Oxygen Delivery Oxygen Flow Rate Fraction of Inspired Oxygen 03/15/25 20:00 03/15/25 20:00 03/15/25 21:00 Temperature Pulse Rate 76 Respiratory Rate Blood Pressure Pulse Oximetry 92 80 L Oxygen Delivery Nasal Cannula Nasal Cannula Oxygen Flow Rate 2 5 Fraction of Inspired Oxygen 03/15/25 21:16 03/15/25 21:18 03/16/25 00:00 Temperature Pulse Rate 88 91 Respiratory Rate 20 Blood Pressure Pulse Oximetry 96 98 Oxygen Delivery Nasal Cannula Oxygen Flow Rate 4 Fraction of Inspired Oxygen 36 03/16/25 00:00 03/16/25 03:56 03/16/25 03:59 Temperature 98.1 F Pulse Rate 74 83 72 Respiratory Rate 18 Blood Pressure 98/50 L Pulse Oximetry 98 Oxygen Delivery Oxygen Flow Rate Fraction of Inspired Oxygen 03/16/25 04:00 03/16/25 06:00 03/16/25 07:45 Temperature Pulse Rate Respiratory Rate Blood Pressure Pulse Oximetry 98 99 99 Oxygen Delivery Nasal Cannula Nasal Cannula Nasal Cannula Oxygen Flow Rate 4 3 3 Fraction of Inspired Oxygen 32 03/16/25 07:45 03/16/25 07:47 Temperature 98.6 F Pulse Rate 85 82 Respiratory Rate 20 20 Blood Pressure 106/58 L Pulse Oximetry 99 Oxygen Delivery Oxygen Flow Rate Fraction of Inspired Oxygen Intake/Output Intake/Output: Intake & Output 03/13/25 03/14/25 03/15/25 03/16/25 23:59 23:59 23:59 23:59 Intake Total 3009.5 3760 3490 150 Output Total 1801 200 400 Balance 1208.5 3560 3090 150 Meds/Results Medications: Active Medications Generic Name Dose Route Start Last Admin Trade Name Freq PRN Reason Stop Dose Admin Acetaminophen 650 mg 03/11/25 15:34 Acetaminophen 325 Mg Tablet PO Q4H PRN Mild Pain (1-3) or Fever Calcium Carbonate 500 mg 06/12/25 12:00 03/15/25 16:51 Calcium Carbonate (Oscal) 500 Mg Tablet PO 500 mg 1200,1800 GUSTAVO Administration Ferrous Sulfate 325 mg 03/12/25 12:00 03/14/25 11:53 Ferrous Sulfate [address] PO 325 mg Q48H GUSTAVO Administration Fluticasone Propionate 2 spray 03/11/25 19:09 03/14/25 08:43 Fluticasone Propionate 0.05% Na Spr 16 Gm Btl (*Bkc) NASAL 2 spray DAILY PRN Administration nasal congestion Furosemide 40 mg 03/12/25 09:00 03/15/25 16:51 Furosemide 40 Mg Tablet PO 40 mg BID GUSTAVO Administration Hydroxychloroquine Sulfate 200 mg 03/12/25 09:00 03/12/25 08:56 Hydroxychloroquine Sulfate 200 Mg Tablet PO 200 mg QAM GUSTAVO Administration Levothyroxine Sodium 50 mcg 03/12/25 06:30 03/16/25 06:22 Levothyroxine Sodium 50 Mcg Tablet PO 50 mcg DAILY@0630 GUSTAVO Administration Levothyroxine Sodium 25 mcg 03/12/25 06:30 03/16/25 06:22 Levothyroxine Sodium 25 Mcg Tablet PO 25 mcg DAILY@0630 GUSTAVO Administration Loperamide HCl 2 mg 03/12/25 16:27 03/15/25 09:12 Loperamide Hcl 2 Mg Capsule PO 2 mg PRN PRN Administration Diarrhea Multivitamins Therapeutic 1 tablet 03/12/25 09:00 03/15/25 09:12 Multivitamins Therapeutic Tab (*Bkc) PO 1 tablet DAILY GUSTAVO Administration Mycophenolate Mofetil 500 mg 03/11/25 21:00 03/15/25 20:50 Mycophenolate Mofetil 250 Mg Capsule PO 500 mg Q12H GUSTAVO Administration Home Med Omeprazole 20 mg 03/12/25 09:00 03/15/25 09:14 20 Mg Capsule PO 04/11/25 08:59 20 mg DAILY GUSTAVO Administration Home Med (Selexipag 1,600 mcg 03/11/25 22:25 03/15/25 20:52 [Uptravi] 1,600 Mcg PO 04/10/25 22:24 1,600 mcg Tablet) Q12HR GUSTAVO Administration Non-Formulary ( 2 each 03/12/25 09:00 03/15/25 09:14 Tadalafil 20 Mg Oral PO 04/11/25 08:59 2 each Tablet) DAILY GUTSAVO Administration Home Med (Macitentan 10 mg 03/12/25 09:00 03/15/25 09:13 [Opsumit] 10 Mg PO 04/11/25 08:59 10 mg Tablet) DAILY GUSTAVO Administration Ondansetron HCl 4 mg 03/11/25 15:34 Ondansetron Inj 4 Mg/2 Ml Vial IV PUSH Q4H PRN Nausea Perflutren Lipid Microsphere 0 ml 03/15/25 16:04 Perflutren Lipid Microspheres 1.5 Ml Vial Diluted To 10 Ml Total Volume IV PUSH 03/18/25 16:04 ONCE PRN adequate visualization Protocol Fluticasone/Salmeterol 2 puff 03/11/25 20:00 03/16/25 07:45 Fluticasone/Salmeterol 115-21 Mcg Inhaler 1 Puff INHALATION 2 puff Q12HRT GUSTAVO Administration Trimethoprim/Sulfamethoxazole 1 tab 03/12/25 21:00 03/15/25 20:50 Sulfamethoxazole/Trimethoprim 800/160 Mg Ds Tablet PO 1 tab Q12HR GUSTAVO Administration Vitamin D 25 mcg 03/12/25 09:00 03/15/25 09:12 Cholecalciferol (Vitamin D3) 25 Mcg (1,000 Units) Tablet PO 25 mcg DAILY GUSTAVO Administration Radiology Results: ITS Impressions Abdomen/Pelvis CT 03/11/25 14:42 IMPRESSION: 1. Enteritis which could be infectious or inflammatory in etiology. 2. Mild intrahepatic biliary ductal dilation but without evident dilation the common bile duct. Correlate with liver function tests and if clinically indicated could consider further evaluation with MRCP. 3. Multiple cystic lesions diffusely throughout the pancreas which suggests dilated sidebranches related to chronic pancreatitis. Correlate with clinical history. This can be further evaluated same time with pre and postcontrast MRI/MRCP. 4. Cardiomegaly and small pericardial effusion. 5. Very small bilateral posterior layering pleural effusions and minimal hepatic and pericholecystic ascites. 6. Large amount of ingested debris within the stomach patulous distal esophagus and with relatively decompressed stomach which suggests possible esophageal dysmotility or stricture. 7. Silicone left breast implant with intracapsular rupture. 8. Indeterminate subtle sclerotic lesion at L5. The patient has known history of prior malignancy would consider bone scan for further evaluation. Bone Scan Nuclear Medicine 03/13/25 15:13 IMPRESSION: 1. No foci of abnormal bone uptake to suggest osseous metastatic disease. Chest X-Ray 03/15/25 09:40 Impression: Moderate left pleural effusion with bibasilar pulmonary edema/atelectasis and central congestive change. Possible minimal right pleural effusion. Chest CTA 03/15/25 13:59 Impression: No evidence of pulmonary embolus, aortic dissection, or aortic aneurysm. Moderate bilateral pleural effusions with bibasilar atelectasis and mild pulmonary edema. Distended esophagus with debris or ingested material. Stricture at the GE junction is a consideration. Consider esophagram for further evaluation as indicated. Labs Labs: Laboratory Results - last 24 hr 03/15/25 03/16/25 04:21 03:57 WBC 7.7 RBC 3.30 L Hgb 9.0 L Hct 31.6 L MCV 95.8 MCH 27.3 MCHC 28.5 L RDW 18.0 H Plt Count 134 L MPV 10.3 % Immature Plt Fraction 3.7 Sodium 133 L Potassium 3.2 L Chloride 106 Carbon Dioxide 19 L Anion Gap 8 BUN 10 Creatinine 1.07 H Estim Creat Clear Calc 31 Estimated GFR 50 L Glucose 81 Calcium 8.7 Total Bilirubin 0.2 AST 18 ALT 8 Alkaline Phosphatase 39 NT-Pro-B Natriuret Pep 9280 H Total Protein 4.9 L Albumin 3.0 L Quality VTE Prophylaxis VTE prophylaxis: mechanical ordered
[2025-03-16] MEDS: CHOLECALCIFEROL (VITAMIN D3) 25 MCG (1,000 UNITS) TABLET PO (09:38)
[2025-03-16] MEDS: MULTIVITAMINS THERAPEUTIC TAB (*BKC) 1 TABLET PO (09:38)
[2025-03-16] MEDS: FUROSEMIDE 40 MG TABLET PO (09:38)
[2025-03-16] MEDS: SULFAMETHOXAZOLE/TRIMETHOPRIM 800/160 MG DS TABLET 1 TAB PO ×2 (09:38→20:32)
[2025-03-16] MEDS: mycophenolate mofetiL 250 MG CAPSULE 500 MG PO ×2 (09:38→20:32)
[2025-03-16] MEDS: SELEXIPAG 1600 MCG 1600 EACH PO ×2 (09:39→20:33)
[2025-03-16] MEDS: TADALAFIL 20 MG 2 EACH PO (09:40)
[2025-03-16] MEDS: OMEPRAZOLE 20 MG 20 EACH PO (09:40)
[2025-03-16] MEDS: MACITENTAN 10 MG 10 EACH PO (09:42)
[2025-03-16] MEDS: POTASSIUM CHLORIDE 20 MEQ PACKET (FOR LIQUID) 40 MEQ PO ×2 (09:50→17:14)
[2025-03-16] MEDS: FERROUS SULFATE 325 MG TABLET DR PO (12:19)
[2025-03-16] MEDS: CALCIUM CARBONATE (OSCAL) 500 MG TABLET PO ×2 (12:23→17:14)
--- NOTE | 2025-03-16 12:41 | PC.NURSE ---
Pt's BP is 99/48, repeat BP is 97/42. ALINA Condon at bedside with this RN. PA is informed of BP. New order to non-administer 1200 IVP Lasix due to SBP being less than 100. Continue to administer 40mg PO Lasix at 1700, if SBP is greater than 100
--- NOTE | 2025-03-16 17:34 | WPDGIPROGNO ---
Progress Note: A&P Assessment and Plan (1) Diarrhea: Code(s): R19.7 - Diarrhea, unspecified Status: Acute Assessment and Plan: empirically on bactrim for possible sibo, she has risk factors including scleroderma, also imaging suggestive of dysmotility she is high risk to undergo scopes given pulmonaty htn and other factors stool without infection imodium prn please call if questions (2) Enteritis: Code(s): K52.9 - Noninfective gastroenteritis and colitis, unspecified Status: Acute Assessment and Plan: clinically better good appetite (3) Gastrointestinal dysmotility: Code(s): K92.89 - Other specified diseases of the digestive system Status: Acute (4) Iron deficiency anemia: Code(s): D50.9 - Iron deficiency anemia, unspecified Status: Acute Assessment and Plan: h/h stable no need to repeat scopes, she is high risk (5) Acute hypokalemia: Code(s): E87.6 - Hypokalemia Status: Acute Assessment and Plan: repleting as needed (6) Cr(e)st syndrome: Code(s): M34.1 - CR(E)ST syndrome Status: Chronic (7) Pulmonary hypertension: Code(s): I27.20 - Pulmonary hypertension, unspecified Status: Acute Subjective Date/time seen: 03/16/25 17:34 Interval history: good appetite, feeling better less frequent BM Review of Systems Review of Systems: All systems reviewed & are unremarkable except as noted in HPI and below Exam Const: General: comfortable HENMT: Face/Nose/Sinus: Normal nares present Eyes: Sclera: sclerae normal Neck: Neck: supple Resp: Effort & Inspection: normal respiratory effort Cardio: Rate: regular rate GI: GI Palp: Yes Soft to palpation and No Tenderness to palpation present (GI) Skin: Other: Skin diffusely thickened. Neuro: Speech: normal speech Extrem: General: normal to inspection Psych: Mental Status: mental status grossly normal Objective Data Vital Signs Vital Signs: Vital Signs - 24 hr 03/15/25 19:18 03/15/25 20:00 03/15/25 20:00 Temperature Pulse Rate 92 76 Respiratory Rate 18 Blood Pressure 105/56 L Pulse Oximetry 100 92 Oxygen Delivery Nasal Cannula Oxygen Flow Rate 2 Fraction of Inspired Oxygen 03/15/25 21:00 03/15/25 21:16 03/15/25 21:18 Temperature Pulse Rate 88 Respiratory Rate 20 Blood Pressure Pulse Oximetry 80 L 96 Oxygen Delivery Nasal Cannula Nasal Cannula Oxygen Flow Rate 5 4 Fraction of Inspired Oxygen 36 03/16/25 00:00 03/16/25 00:00 03/16/25 03:56 Temperature 98.1 F Pulse Rate 91 74 83 Respiratory Rate 18 Blood Pressure 98/50 L Pulse Oximetry 98 98 Oxygen Delivery Oxygen Flow Rate Fraction of Inspired Oxygen 03/16/25 03:59 03/16/25 04:00 03/16/25 06:00 Temperature Pulse Rate 72 Respiratory Rate Blood Pressure Pulse Oximetry 98 99 Oxygen Delivery Nasal Cannula Nasal Cannula Oxygen Flow Rate 4 3 Fraction of Inspired Oxygen 03/16/25 07:45 03/16/25 07:45 03/16/25 07:47 Temperature 98.6 F Pulse Rate 85 82 Respiratory Rate 20 20 Blood Pressure 106/58 L Pulse Oximetry 99 99 Oxygen Delivery Nasal Cannula Oxygen Flow Rate 3 Fraction of Inspired Oxygen 32 03/16/25 08:00 03/16/25 08:00 03/16/25 10:05 Temperature Pulse Rate 82 82 Respiratory Rate 20 Blood Pressure Pulse Oximetry 99 100 Oxygen Delivery Nasal Cannula Nasal Cannula Oxygen Flow Rate 3 1 Fraction of Inspired Oxygen 03/16/25 12:00 03/16/25 12:45 03/16/25 16:16 Temperature 98.3 F Pulse Rate 82 102 H Respiratory Rate 20 Blood Pressure 99/48 L 90/71 L Pulse Oximetry 96 Oxygen Delivery Oxygen Flow Rate Fraction of Inspired Oxygen Intake/Output Intake/Output: Intake & Output 03/13/25 03/14/25 03/15/25 03/16/25 23:59 23:59 23:59 23:59 Intake Total 3009.5 3760 3490 910 Output Total 1801 200 400 1 Balance 1208.5 3560 3090 909 Meds/Results Medications: Active Medications Generic Name Dose Route Start Last Admin Trade Name Freq PRN Reason Stop Dose Admin Acetaminophen 650 mg 03/11/25 15:34 Acetaminophen 325 Mg Tablet PO Q4H PRN Mild Pain (1-3) or Fever Calcium Carbonate 500 mg 03/12/25 12:00 03/16/25 17:14 Calcium Carbonate (Oscal) 500 Mg Tablet PO 500 mg 1200,1800 GUSTAVO Administration Ferrous Sulfate 325 mg 03/12/25 12:00 03/16/25 12:19 Ferrous Sulfate [address] PO 325 mg Q48H GUSTAVO Administration Fluticasone Propionate 2 spray 03/11/25 19:09 03/14/25 08:43 Fluticasone Propionate 0.05% Na Spr 16 Gm Btl (*Bkc) NASAL 2 spray DAILY PRN Administration nasal congestion Furosemide 40 mg 03/12/25 09:00 03/16/25 16:46 Furosemide 40 Mg Tablet PO Not Given BID GUSTAVO Hydroxychloroquine Sulfate 200 mg 03/12/25 09:00 03/12/25 08:56 Hydroxychloroquine Sulfate 200 Mg Tablet PO 200 mg QAM GUSTAVO Administration Levothyroxine Sodium 50 mcg 03/12/25 06:30 03/16/25 06:22 Levothyroxine Sodium 50 Mcg Tablet PO 50 mcg DAILY@0630 GUSTAVO Administration Levothyroxine Sodium 25 mcg 03/12/25 06:30 03/16/25 06:22 Levothyroxine Sodium 25 Mcg Tablet PO 25 mcg DAILY@0630 GUSTAVO Administration Loperamide HCl 2 mg 03/12/25 16:27 03/15/25 09:12 Loperamide Hcl 2 Mg Capsule PO 2 mg PRN PRN Administration Diarrhea Multivitamins Therapeutic 1 tablet 03/12/25 09:00 03/16/25 09:38 Multivitamins Therapeutic Tab (*Bkc) PO 1 tablet DAILY GUSTAVO Administration Mycophenolate Mofetil 500 mg 03/11/25 21:00 03/16/25 09:38 Mycophenolate Mofetil 250 Mg Capsule PO 500 mg Q12H GUSTAVO Administration Home Med Omeprazole 20 mg 03/12/25 09:00 03/16/25 09:40 20 Mg Capsule PO 04/11/25 08:59 20 mg DAILY GUSTAVO Administration Home Med (Selexipag 1,600 mcg 03/11/25 22:25 03/16/25 09:39 [Uptravi] 1,600 Mcg PO 04/10/25 22:24 1,600 mcg Tablet) Q12HR GUSTAVO Administration Non-Formulary ( 2 each 03/12/25 09:00 03/16/25 09:40 Tadalafil 20 Mg Oral PO 04/11/25 08:59 2 each Tablet) DAILY GUSTAVO Administration Home Med (Macitentan 10 mg 03/12/25 09:00 03/16/25 09:42 [Opsumit] 10 Mg PO 04/11/25 08:59 10 mg Tablet) DAILY GUSTAVO Administration Ondansetron HCl 4 mg 03/11/25 15:34 Ondansetron Inj 4 Mg/2 Ml Vial IV PUSH Q4H PRN Nausea Perflutren Lipid Microsphere 0 ml 03/15/25 16:04 Perflutren Lipid Microspheres 1.5 Ml Vial Diluted To 10 Ml Total Volume IV PUSH 03/18/25 16:04 ONCE PRN adequate visualization Protocol Fluticasone/Salmeterol 2 puff 03/11/25 20:00 03/16/25 07:45 Fluticasone/Salmeterol 115-21 Mcg Inhaler 1 Puff INHALATION 2 puff Q12HRT GUSTAVO Administration Trimethoprim/Sulfamethoxazole 1 tab 03/12/25 21:00 03/16/25 09:38 Sulfamethoxazole/Trimethoprim 800/160 Mg Ds Tablet PO 1 tab Q12HR GUSTAVO Administration Vitamin D 25 mcg 03/12/25 09:00 03/16/25 09:38 Cholecalciferol (Vitamin D3) 25 Mcg (1,000 Units) Tablet PO 25 mcg DAILY GUSTAVO Administration Radiology Results: ITS Impressions Abdomen/Pelvis CT 03/11/25 14:42 IMPRESSION: 1. Enteritis which could be infectious or inflammatory in etiology. 2. Mild intrahepatic biliary ductal dilation but without evident dilation the common bile duct. Correlate with liver function tests and if clinically indicated could consider further evaluation with MRCP. 3. Multiple cystic lesions diffusely throughout the pancreas which suggests dilated sidebranches related to chronic pancreatitis. Correlate with clinical history. This can be further evaluated same time with pre and postcontrast MRI/MRCP. 4. Cardiomegaly and small pericardial effusion. 5. Very small bilateral posterior layering pleural effusions and minimal hepatic and pericholecystic ascites. 6. Large amount of ingested debris within the stomach patulous distal esophagus and with relatively decompressed stomach which suggests possible esophageal dysmotility or stricture. 7. Silicone left breast implant with intracapsular rupture. 8. Indeterminate subtle sclerotic lesion at L5. The patient has known history of prior malignancy would consider bone scan for further evaluation. Bone Scan Nuclear Medicine 03/13/25 15:13 IMPRESSION: 1. No foci of abnormal bone uptake to suggest osseous metastatic disease. Chest X-Ray 03/15/25 09:40 Impression: Moderate left pleural effusion with bibasilar pulmonary edema/atelectasis and central congestive change. Possible minimal right pleural effusion. Chest CTA 03/15/25 13:59 Impression: No evidence of pulmonary embolus, aortic dissection, or aortic aneurysm. Moderate bilateral pleural effusions with bibasilar atelectasis and mild pulmonary edema. Distended esophagus with debris or ingested material. Stricture at the GE junction is a consideration. Consider esophagram for further evaluation as indicated. Labs Labs: Laboratory Results - last 24 hr 03/16/25 03:57 WBC 7.7 RBC 3.30 L Hgb 9.0 L Hct 31.6 L MCV 95.8 MCH 27.3 MCHC 28.5 L RDW 18.0 H Plt Count 134 L MPV 10.3 % Immature Plt Fraction 3.7 Sodium 133 L Potassium 3.2 L Chloride 106 Carbon Dioxide 19 L Anion Gap 8 BUN 10 Creatinine 1.07 H Estim Creat Clear Calc 31 Estimated GFR 50 L Glucose 81 Calcium 8.7 Total Bilirubin 0.2 AST 18 ALT 8 Alkaline Phosphatase 39 Total Protein 4.9 L Albumin 3.0 L
[2025-03-17 04:27] LABS: Hematocrit 31.8 % (37.0-47.0); Hemoglobin 9.1 g/dL (12.0-15.0); Mean Corpuscular HGB Conc 28.6 g/dl (32-36); Mean Corpuscular Hemoglobin 27.3 pg (26-34); Mean Corpuscular Volume 95.5 fl (80-100); Mean Platelet Volume 10.5 fl (7.4-10.4); Platelet Count Result 144 k/mm3 (150-375); Red Blood Count 3.33 M/mm3 (4.2-5.4); Red Cell Distribution Width 17.6 % (11.5-14.5); White Blood Count 7.5 K/mm3 (4.5-10.0)
[2025-03-17 04:51] LABS: Alanine Aminotransferase 9 U/L (6-35); Albumin Level 3.1 g/dL (3.5-5.1); Alkaline Phosphatase 39 U/L (38-126); Anion Gap 8 mmol/L (4-12); Aspartate Amino Transferase 18 U/L (14-36); Bilirubin,Total 0.2 mg/dL (0.2-1.3); Blood Urea Nitrogen 12 mg/dL (7-17); Calcium 8.7 mg/dL (8.4-10.2); Carbon Dioxide 18 mmol/L (22-30); Chloride 107 mmol/L (98-107); Estimated CRCL calculation 30 ml/min; Estimated Glomerular Filt Rate 48; Glucose 88 mg/dL (65-110); Sodium 133 mmol/L (137-145)
[2025-03-17] MEDS: LEVOTHYROXINE SODIUM 50 MCG TABLET PO (06:15)
[2025-03-17] MEDS: LEVOTHYROXINE SODIUM 25 MCG TABLET PO (06:16)
[2025-03-17 07:57] VITALS: BP 101/55; PULSE 75; RESP 22; TEMP 36.7; O2SAT 99
[2025-03-17 08:00] VITALS: PULSE 75; RESP 22; O2SAT 99
[2025-03-17] MEDS: SELEXIPAG 1600 MCG 1600 EACH PO (08:15)
[2025-03-17] MEDS: FLUTICASONE PROPIONATE 0.05% NA SPR 16 GM BTL (*BKC) 2 SPRAY NASAL (08:15)
[2025-03-17] MEDS: OMEPRAZOLE 20 MG 20 EACH PO (08:16)
[2025-03-17] MEDS: MACITENTAN 10 MG 10 EACH PO (08:16)
[2025-03-17] MEDS: TADALAFIL 20 MG 2 EACH PO (08:16)
[2025-03-17] MEDS: FUROSEMIDE 40 MG TABLET PO (08:17)
[2025-03-17] MEDS: CHOLECALCIFEROL (VITAMIN D3) 25 MCG (1,000 UNITS) TABLET PO (08:17)
[2025-03-17] MEDS: mycophenolate mofetiL 250 MG CAPSULE 500 MG PO (08:17)
[2025-03-17] MEDS: SULFAMETHOXAZOLE/TRIMETHOPRIM 800/160 MG DS TABLET 1 TAB PO (08:18)
[2025-03-17] MEDS: MULTIVITAMINS THERAPEUTIC TAB (*BKC) 1 TABLET PO (08:18)
[2025-03-17 09:07] VITALS: O2SAT 95
[2025-03-17] MEDS: FLUTICASONE/SALMETEROL 115-21 MCG INHALER 1 PUFF 2 PUFF INHALATION (09:07)
[2025-03-17] MEDS: LOPERAMIDE HCL 2 MG CAPSULE PO (12:03)
[2025-03-17] MEDS: CALCIUM CARBONATE (OSCAL) 500 MG TABLET PO (12:03)
--- NOTE | 2025-03-17 14:36 | P.DS_ITS ---
DS: Admitting Diagnosis Discharge Date 03/17/2025 Admitting Diagnosis acute and chronic respiratory failure with hypoxa pleural effusion anemia GIB Enteritis Acute hypokalemia Lesion lumbar spine HTN DS: Discharge Diagnosis Discharge Diagnosis (1) Acute and chronic respiratory failure with hypoxia: Code(s): J96.21 - Acute and chronic respiratory failure with hypoxia Status: Acute (2) Pleural effusion: Code(s): J90 - Pleural effusion, not elsewhere classified Status: Acute (3) Anemia: Qualifiers: Anemia type: unspecified type Qualified Code(s): D64.9 - Anemia, unspecified Code(s): D64.9 - Anemia, unspecified Status: Acute (4) GIB (gastrointestinal bleeding): Qualifiers: GI bleed type/associated pathology: unspecified gastrointestinal hemorrhage type Qualified Code(s): K92.2 - Gastrointestinal hemorrhage, unspecified Code(s): K92.2 - Gastrointestinal hemorrhage, unspecified Status: Acute (5) Enteritis: Code(s): K52.9 - Noninfective gastroenteritis and colitis, unspecified Status: Acute (6) Acute hypokalemia: Code(s): E87.6 - Hypokalemia Status: Acute (7) Lesion of lumbar spine: Code(s): M89.9 - Disorder of bone, unspecified Status: Acute (8) Hypothyroidism, unspecified: Qualifiers: Hypothyroidism type: unspecified Qualified Code(s): E03.9 - Hypothyroidism, unspecified Code(s): E03.9 - Hypothyroidism, unspecified Status: Chronic (9) Hypertension: Qualifiers: Hypertension type: essential hypertension Qualified Code(s): I10 - Essential (primary) hypertension Code(s): I10 - Essential (primary) hypertension Status: Chronic DS: Summary Hospital Course Reason for hospitalization: acute and chronic respiratory failure with hypoxa pleural effusion anemia GIB Enteritis Acute hypokalemia Lesion lumbar spine HTN Hospital Course: 79 year old female with past medical history of pulmonary hypertension, breast cancer s/p chemotherapy and mastectomy, rectal prolapse, CREST syndrome, anxiety, GERD, hypothyroidism, hypertension and osteopenia presents here with abnormal lab - anemic. She reports associated dark tarry stools (on iron), diarrhea, dizziness, and mild shortness of breath for which she has had use increased oxygen at night. She is on 1L at baseline and has been using 2L. On admission patient was anemic and required a 2 unit blood transfusion. Iron panel showed deficiency and given IV iron. GI consulted for concern fo GI bleed as stool occult was positive. Per GI, considering scleroderma, diffuse small bowel telangiectasias are likely contributors to her chronic, recurrent blood loss. Repeating a colonoscopy is not advised due to her pulmonary hypertension and frailty, which make her a high sedation risk especially considering the apparent technical difficulty, which puts the patient on an unnecessary risk for perforation. Therefore, no endoscopic procedures was done. Patient hemoglobin stayed stable the rest of admission. She is to obtain regular H/H checks.Patient was started on oral iron supplementation and IV iron outpatient was ordered at discharge. Patient had recurrent diarrhea throughout admission. CT abdomen/pe lvis showed enteritis. Stool culture and c diff negative. Patient hypokalemic on admission likely secondary to diarrhea, patient is also on lasix 40 mg BID without potassium supplementation which could be contributing. Patients diarrhea resolved prior to discharge and potassium remained stable. Patient to obtain blood draw to reassess potassium in the outpatient setting. During admission patient continued to require more oxygen supplementation. A chest XR was obtained and showed moderate left pleural effusion with bibasilar pulmonary edema/atelectasis and central congestive change. Possible minimal right pleural effusion. A chest CTA showed no PE, aortic dissection, or aortic aneurysm. Moderate bilateral pleural effusion with bibasilar atelectasis and mild pulmonary edema. BNP was elevated. Echo showed left ventricular hypertrophy with vigorous systolic function, grade I diastolic dysfunction, heavily calcified MV, mild , and severe pulmonary HTN (similar findings to prior exam from 11/2019). Patient given lasix IV and was able to be weaned back to her baseline oxygen supplementation prior to discharge. During admission patient had a CT abd/pelvis showed indeterminate subtle sclerotic lesion at L5. The patient has known history of prior malignancy would consider bone scan for further evaluation. Bone scan showed no foci of abnormal bone uptake to suggest osseous metastatic disease. Patient to follow up with PCP. At time of discharge patient had no complaints denying chest pain, shortness a breath, palpitations, nausea/vomiting, abdominal pain, and diarrhea. Patient discharged home in a stable condition. She is to follow up with her primary care provider in 1 week and her specialists as scheduled. Status at Discharge Functional status at discharge: uses cane/walker Time Spent with Patient Time attestation: Total time spent providing and/or coordinating discharge services: Time spent: Greater than 30 minutes Exam Narrative: AF HR 75 RR 22 SpO2 95 1L NC BP 101/55 General: female in no acute respiratory distress who is nontoxic appearing, sitting up on the side of bed HEENT: Normocephalic. Atraumatic. Extraocular movement intact. Sclera clear and anicteric. No facial asymmetry. Chest: Lungs are clear but slightly diminished to auscultation bilaterally to the bases. No wheezes or crackles. CV: Heart was regular rate and rhythm. S1-S2. Murmurs. Abd: Abdomen was soft. Nontender. Nondistended. Positive bowel sounds. Ext: No clubbing, cyanosis, or edema. DP pulses bilaterally. Neuro: Patient is alert and oriented x3. Speech is clear. DS: Data Data Completed and Pending Completed studies during hospitalization: chest cta chest xr bone scan abdomen/pelvis ct Labs on day of discharge: Labs from last 24 hours 03/17/25 03:54 WBC 7.5 RBC 3.33 L Hgb 9.1 L Hct 31.8 L MCV 95.5 MCH 27.3 MCHC 28.6 L RDW 17.6 H Plt Count 144 L MPV 10.5 H Sodium 133 L Potassium 4.0 Chloride 107 Carbon Dioxide 18 L Anion Gap 8 BUN 12 Creatinine 1.11 H Estim Creat Clear Calc 30 Estimated GFR 48 L Glucose 88 Calcium 8.7 Total Bilirubin 0.2 AST 18 ALT 9 Alkaline Phosphatase 39 Total Protein 5.0 L Albumin 3.1 L Discharge Plan Discharge Attending physician on discharge: John Nur Consulting providers: Ben Vergara; Fermín Hernandes; Candice Layne; Aric Cohen; Ethan Tom; Keo Thapa; Juan Mccartney Discharging Clinician: Almaz Pugh Anticipated Discharge Date/Time: 03/17/25 14:24 Patient Disposition: Home Activity: as tolerated Diet: as tolerated and heart healthy Discharge Instructions: Discharge disposition: Patient admitted to the hospital for abnormal lab values - anemia with concern of GI bleed Evaluated by GI Will hold off on further endoscopic procedures unless overt GI bleeding occurs Recommending regular hemoglobin checks and iron infusions to maintain her status. Iron infusion has been ordered at the [facility], they are to call you to schedule an appointment Obtain a blood draw to reassess hemoglobin level in 5 days Follow up with GI Monitor your stool for signs of bleeding such as dark tarry stools Patient continued to have low potassium levels throughout admission Obtain a blood draw in 5 days to reassess Patient developed a pleural effusion during admission Echo unchanged from prior exam in 2019 Continue 1L NC oxygen supplementation Take medications as prescribed Follow up with educational specialist and warehouse attendant as scheduled During admission CT showed concern of lesion on lumbar spine Bone scan obtained and unremarkable Monitor blood pressures Take caution while standing, rising, or moving Change positions slowly taking a break between each position change If you standing feel dizzy sit back down and take a break Encouraged to continue with yearly vaccinations Return to the emergency department if he developed sudden shortness of breath, chest pain, nausea, vomiting, upset stomach or intractable diarrhea Return to the emergency department if you develop fever greater than 101.5 Follow-up with the primary care physician within 1-2 weeks Thank you for choosing [facility] for your healthcare needs Patient Instructions: Iron Sucrose (By injection), Gastrointestinal Bleeding (DC), Hypokalemia (DC), Iron Deficiency Anemia (GEN), Anemia (DC), Blood Transfusion (DC) Patient Language: Lithuanian Stand Alone Forms: General Discharge Information Follow-up/Referrals: Ben Vergara MD [Physician] - Call for Appointment Laly Kenny DO [Primary Care Provider] - 1 Week Discharge Medications: Continued omeprazole 20 mg capsule,delayed release(DR/EC) 20 mg PO DAILY calcium carbonate [Calcium 500] 500 mg calcium (1,250 mg) tablet 500 mg PO BID aspirin 81 mg tablet,delayed release (DR/EC) 81 mg PO DAILY Opsumit 10 mg tablet 10 mg PO DAILY fluticasone propionate 50 mcg/actuation spray,suspension 2 spray intranasal DAILY PRN (Reason: nasal congestion) Dose Instruction: SPRAY 2 SPRAYS IN EACH NOSTRIL DAILY metolazone 2.5 mg tablet 2.5 mg PO DAILY Rx Instructions: 1 tablet 2-3 times per week fluticasone propion-salmeterol [Wixela Inhub] 250-50 mcg/dose blister with device 1 inh inhalation BID Winrevair 45 mg kit 45 mg subcut .[id number] levothyroxine [Synthroid] 25 mcg tablet 25 mcg PO DAILY Qty: 90 1RF tadalafil 20 mg Tablet 40 mg PO DAILY cholecalciferol (vitamin D3) [Vitamin D3] 2,000 unit Tablet 1,000 unit PO DAILY multivitamin Tablet 1 tablet PO DAILY furosemide 40 mg Tablet 40 mg PO BID mycophenolate mofetil 500 mg Tablet 500 mg PO Q12H hydroxychloroquine 200 mg Tablet 200 mg PO QAM Uptravi 1,600 mcg Tablet 1,600 mcg PO BID No Action levothyroxine 50 mcg tablet 75 mcg .ROUTE .COMPLEX Rx Instructions: 75 mcg; ferrous sulfate 325 mg (65 mg iron) tablet 325 mg PO DAILY Other Ambulatory Orders: Basic Metabolic Panel (Routine) Timeframe: 5 Days Location: Determined by Patient Ordered By: Almaz Pugh Hemoglobin and Hematocrit (Routine) Timeframe: 5 Days Location: Determined by Patient Ordered By: Almaz Pugh Date of admission: 03/11/25 15:34 Primary Care Provider: Laly Kenny Admitting Provider: Marlen Doshi Attending physician on admission: Almaz Pugh Condition: Stable Hospitalist MIPS Heart Failure (Exclusion) Patient has history of Heart Transplant or Left Ventricular Assistive Device?: No IF YES, STOP HERE Heart Failure (Qualifier) Patient has current or prior documentation of LVEF less than or equal to 40%, or mod/servere depressed LVSF?: No IF NO, STOP HERE
[2025-03-19 17:13] LABS: Calprotectin, Stool 281 mcg/g
== END 2025-03-17 15:30 | disposition home or self-care (01) | DRG 392 ==
LOC: ANHED 15:33 → ANHIMU 15:59
PROVIDERS: Emergency Medicine; Student in an Organized Health Care Education/Training Program; Admitting Provider Internal Medicine; Emergency Provider Student in an Organized Health Care Education/Training Program; PCP Family Medicine; Visit Provider Student in an Organized Health Care Education/Training Program
DX: K52.9 Noninfective gastroenteritis and colitis, unspecified (principal); J90 Pleural effusion, not elsewhere classified; J96.11 Chronic respiratory failure with hypoxia; M34.1 CR(E)ST syndrome; D50.9 Iron deficiency anemia, unspecified; E03.9 Hypothyroidism, unspecified; E87.6 Hypokalemia; F41.9 Anxiety disorder, unspecified; I27.20 Pulmonary hypertension, unspecified; I10 Essential (primary) hypertension; K21.9 Gastro-esophageal reflux disease without esophagitis; M89.9 Disorder of bone, unspecified; M85.80 Other specified disorders of bone density and structure, unspecified site; Z99.81 Dependence on supplemental oxygen; Z79.82 Long term (current) use of aspirin; Z85.3 Personal history of malignant neoplasm of breast; Z92.21 Personal history of antineoplastic chemotherapy; Z90.13 Acquired absence of bilateral breasts and nipples
CPT/HCPCS: 36415; 36430; 71045; 71275; 74177; 78306; 80048; 80053; 82607; 82728; 82746; 83540; 83550; 83735; 83880; 83993; 84100; 84484; 85014; 85018; 85025; 85027; 85055; 85610; 85730; 86850; 86900; 86901; 86923; 87045; 87427; 87449; 87493; 89055; 93005; 93306; 94640; 96365; 96375; 99285; A9270; A9503; J1938; J2470; J3480; J7030; J7040; J7050; J7120; J7517; P9016; Q9967

== ENCOUNTER 2025-03-27 11:42 | Outpatient (CLI) | payer MEDICARE, SELFPAY ==
--- NOTE | ~2025-03-27 | XR_ITS ---
EXAM/PROCEDURE: XR chest 2V - 03/27/2025 11:54 CDT HISTORY: 79 years old Female with J90 - Pleural effusion, not elsewhere classified TECHNIQUE: Two view(s) of the chest. COMPARISON: None available. FINDINGS: LUNGS/ PLEURA: No focal consolidation. Mild perihilar bronchial wall thickening. No pleural effusion seen. HEART/ MEDIASTINUM: Heart appears normal in size. BONES: Degenerative changes. OTHER: Visualized upper abdomen is unremarkable. IMPRESSION: No focal consolidation. Mild perihilar bronchial wall thickening, findings suggestive of respiratory bronchiolitis. No pleural effusion seen. Reviewed, dictated and finalized at location A. IMPRESSION: No focal consolidation. Mild perihilar bronchial wall thickening, findings sugg estive of respiratory bronchiolitis. No pleural effusion seen.
== END 2025-03-27 11:43 | disposition home or self-care (01) ==
PROVIDERS: PCP Family Medicine; Visit Provider Nurse Practitioner
DX: J90 Pleural effusion, not elsewhere classified (principal)
CPT/HCPCS: 71046

== ENCOUNTER 2025-04-24 11:46 | Inpatient (IN) | payer MEDICARE, SELFPAY ==
[2025-04-24] VITALS (13 sets, daily range): BP systolic 81–155; BP diastolic 39–68; PULSE 70–99; RESP 16–70; TEMP 36.2–36.6; O2SAT 90–97; BMI 20.7
--- OUTSIDE RECORDS SUMMARY | 2025-04-24 11:49 | XMS_ITS | Encounter Summary ---
Author Organization [facility] Address [address] [place] [address] Care Team Providers Care Digital Photo Printer Name Role Phone Laly Kenny DO Primary Care Provider [phone] Reason for Visit * Reason Comments Med Refill Encounter Details Date Type Department Care Team (Late Contact Info) Description 04/24/2025 Refill [facility] Pulmonology [place] [id number] [address] [facility] [place] [address] Yony Mayre MD [address] [facility] [place] [address] Pulmonary hypertension (CMS/[facility]) Social History Tobacco Use Types Packs/Day Years Used Date Smoking Tobacco: Never Cigarettes Smokeless Tobacco: Never Alcohol Use Standard Drinks/Week Comments Not Currently 0 (1 standard drink = 0.6 oz pur e alcohol) Comments No Sex and Gender Information Value Date Recorded Sex Assigned at Female 10/03/2024 12:21 PM RELOCATION ASSOCIATE Legal Sex Female 1:49 PM CDT Gender Identity Female 10/03/2024 12:21 PM RELOCATION ASSOCIATE Sexual Orientation Choose not to disclose 2024 12:21 PM RELOCATION ASSOCIATE documented as of this encounter Plan of Treatment Upcoming Encounters Date Type Department Care Team (Late Contact Info) Description 10/05/2025 2:00 PM RELOCATION ASSOCIATE Office Visit [facility] Pulmonology [place] [address] [address] [place] [address] Yony Mayer MD [address] [place] [phone] documented as of this encounter Visit Diagnoses Diagnosis Pulmonary hypertension (CMS/HCC) Other chronic pulmonary heart diseases documented in this encounter Care Teams Digital Photo Printer Relationship Specialty Start Date End Date Laly Kenny DO [address] [place] [id number] PCP - General Family Practice 05/16/21 documented as of this encounter
--- OUTSIDE RECORDS SUMMARY | 2025-04-24 11:49 | XMS_ITS ---
Author Organization [facility] Address [address] [place], [place] [id number] Care Team Providers Care Community Relations Representative Name Role Phone PericomagalysLaly carmona Primary Care Provider UnavailKatrina Mckeon Unavailable [phone] NADJA WATERMAN MD Unavailable Unavailable Encounters Encounter Location Date Provider Diagnosis [facility] [address], [address] [place], [place] [id number] 03/13/2025 Katrina Grace PLAN OF TREATMENT Next Appt Details Provider Name:Elsa hernandez, 06/10/2025 02:20:00 PM, [address], [address], [place], [place], [id number],
--- OUTSIDE RECORDS SUMMARY | 2025-04-24 11:49 | XMS_ITS ---
Author Organization [facility] Address [address] [place], [place] [address] Care Team Providers Care Junior Mechanical Engineer Name Role Phone PericobernardinoLaly Primary Care Provider UnavailKatrina Mckeon Unavailable [phone] NADJA WATERMAN MD Unavailable Unavailable Elsa Hernandez Unavailable [phone] ALLERGIES No Known Allergies RESULTS Component Value Reference Range Notes CBC With Differential/Platel et Reviewed date:03/11/2025 01:41:04 PM Interpretation: Performing Lab:[facility], [address] [facility], [place], Phone - [phone], Director - PhDRicfrancis Notes/Report: WBC 6.8 3.4-10.8 [...] show increased immature granulocytes without clinical significance.) [facility] Hematology Comments: Comp. Metabolic Panel (14) Reviewed date:03/11/2025 01:41:10 PM Interpretation: Performing Lab:[facility] [place], [address] [facility], Phone - [phone], Director - Jenifer Notes/Report: Glucose 92 70-99 [...] Location Date Provider Diagnosis [facility] [address] [place] [address], [address] [place], [place] [id number] 02/04/2025 Elsa Hernandez Other intermodal customer service (current) drug therapy Z79.899 ; CREST syndrome M34.1 and Raynaud's syndrome I73.00 ASSESSMENTS Encounter Date Diagnosis Assessment Notes Treatment Notes Treatment Clinical Notes Section Notes 02/04/2025 Other skilled nursing (current) drug therapy (ICD-10 - Z79.899) CREST [...] Hough , 06/10/2025 02:20:00 PM, [address] [facility], [address], [place], [place], [id number], Progress Notes * Examination Category Sub-Category Detail [...]
--- OUTSIDE RECORDS SUMMARY | 2025-04-24 11:49 | XMS_ITS | Clinical Summary ---
Author Organization [place] [id number] [facility] Address [address] [place] [address] Care Team Providers Care Lead Refiner Name Role Phone Laly Kenny Primary Care Provider [phone] Danica Rehman NP Unavailable [phone] Avinash Becker MD Unavailable [phone] Sarthak Mueller MD Unavailable [phone] Allergies No known active allergies Medications [...] 1 tablet (50 mcg total) by mouth patient service coordinator before breakfast Active selexipag (Uptravi) 1,600 [...] on file Legal Sex Female 8:05 PM HEALTHCARE NETWORK PRICING CONSULTANT Gender Identity Female 10/04/2020 6:40 PM HEALTHCARE NETWORK PRICING CONSULTANT Sexual Orientation Not on file Obstetrics History Last Filed Vital Signs Vital Sign Reading Time Taken Comments Blood Pressure 118/52 09/09/2024 10:56 AM HEALTHCARE NETWORK PRICING CONSULTANT Pulse 68 09/09/2024 10:56 AM HEALTHCARE NETWORK PRICING CONSULTANT Temperature 36.6 C (97.9 F) 11/23/2023 3:13 PM HEALTHCARE NETWORK PRICING CONSULTANT Respiratory Rate 20 11/20/2022 2:19 PM HEALTHCARE NETWORK PRICING CONSULTANT Oxygen Saturation 98% 01/03/2024 11:50 AM CDT Inhaled Oxygen Concentration - - Weight 49.2 kg (108 lb 8 oz) 09/09/2024 10:56 AM HEALTHCARE NETWORK PRICING CONSULTANT Height 162.6 cm (5' 4) 09/09/2024 10:56 AM HEALTHCARE NETWORK PRICING CONSULTANT Body Mass Index 18.62 09/09/2024 10:56 AM HEALTHCARE NETWORK PRICING CONSULTANT Plan of Treatment Health Maintenance Due Date [...] 02/25/2020, 06/05/2018, Additional history exists Influenza Vaccine (#1) 2025 9, 07/14/2019, 06/10/2018, Additional history exists Procedures Procedure [...] (Left) 0.745 -1.6 -0.1 Procedure Note Ellen Clrak MD - 06/05/2018 BONE DENSITOMETRY OF THE [...] MEDICARE T MEDICARE AETNA MEDICARE Care Teams Lead Refiner Relationship Specialty Start Date End Date Laly Kenny DO PCP - General Family Medicine 01/30/20 Danica Rehman NP [address] [place], [place] [address] Nurse Practitioner 10/16/23 [place] [address] [place] [address] Consulting Physician Gastroenterology 11/15/23 Sarthak Mueller MD [address] [facility] [phone] [place] [address] Surgeon Colon and Rectal Surgery 11/23/23
--- OUTSIDE RECORDS SUMMARY | 2025-04-24 11:49 | XMS_ITS | Referral Summary ---
Author Organization [place] [id number] [facility] Address [address] [place] [address] Care Team Providers Care Aix Administrator Name Role Phone Laly Kenny Primary Care Provider [phone] Danica Rehman NP Unavailable [phone] Avinash Becker MD Unavailable [phone] Sarthak Mueller MD Unavailable Allergies No known active allergies Medications aspirin [...] 1 tablet (50 mcg total) by mouth community outreach worker before breakfast Active selexipag (Uptravi) 1,600 mcg [...] failure with hypoxia (CMS/HC C) 01/30/2020 Scleroderma ([facility]/HCC) 01/30/2020 Chronic right-sided heart failure 01/30/2020 CREST syndrome ([facility]/HCC) 01/30/2020 Anemia 01/30/2020 Acquired hypothyroidism 01/30/2020 History [...] on file Legal Sex Female 8:05 PM REGIONAL OPERATIONS MANAGER Gender Identity Female 10/04/2020 6:40 PM REGIONAL OPERATIONS MANAGER Sexual Orientation Not on file Last Filed Vital Signs Vital Sign Reading Time Taken Comments Blood Pressure 118/52 09/09/2024 10:56 AM REGIONAL OPERATIONS MANAGER Pulse 68 09/09/2024 10:56 AM REGIONAL OPERATIONS MANAGER Temperature 36.6 C (97.9 F) 11/23/2023 3:13 PM REGIONAL OPERATIONS MANAGER Respiratory Rate 20 11/20/2022 2:19 PM REGIONAL OPERATIONS MANAGER Oxygen Saturation 98% 01/03/2024 11:50 AM CDT Inhaled Oxygen Concentration - - Weight 49.2 kg (108 lb 8 oz) 09/09/2024 10:56 AM REGIONAL OPERATIONS MANAGER Height 162.6 cm (5' 4) 09/09/2024 10:56 AM REGIONAL OPERATIONS MANAGER Body Mass Index 18.62 09/09/2024 10:56 AM REGIONAL OPERATIONS MANAGER Plan of Treatment Not on file Procedures [...] Relevant to Health Maintenance Insurance T MEDICARE AETNA MEDICARE AETNA MEDICARE Care Teams Aix Administrator Relationship Specialty Start Date End Date Laly Kenny DO PCP - General Family Medicine 01/30/20 Danica Rehman NP [address] [facility] [address] [place] [address] Nurse Practitioner 10/16/23 [place] [address] [place] [address] Consulting Physician Gastroenterology 11/15/23 Sarthak Mueller MD [address] [facility] [phone] [place] [address] Surgeon Colon and Rectal Surgery 11/23/23
--- OUTSIDE RECORDS SUMMARY | 2025-04-24 11:49 | XMS_ITS ---
Author Organization [facility] Address [address] [place], [place] [address] Care Team Providers Care Pediatric Physical Therapist Name Role Phone PericomagalysLaly carmona Primary Care Provider UnavailKatrina Mckeon Unavailable [phone] NADJA WATERMAN MD Unavailable Unavailable Encounters Encounter Location Date Provider Diagnosis [facility] [address], [address] [place], [place] [id number] 03/11/2025 Katrina Grace PLAN OF TREATMENT Next Appt Details Provider Name:Elsa hernandez, 06/10/2025 02:20:00 PM, [address], [address], [place], [place], [phone],
--- OUTSIDE RECORDS SUMMARY | 2025-04-24 11:49 | XMS_ITS | Clinical Summary ---
Author Organization [facility] Care Team Providers Care Product Steward Name Role Phone Unavailable Primary Care Provider Unavailabl e Social History Tobacco Use Types Packs/Day Years Used Date Smoking Tobacco: Never Assessed Comments Unknown Sex and Gender Information Value Date Recorded Sex Assigned at Not on file Legal Sex Female 1:52 PM CHILI PEPPER GRINDER Gender Identity Not on file Sexual Orientation [...]
--- OUTSIDE RECORDS SUMMARY | 2025-04-24 11:49 | XMS_ITS | Patient Health Record ---
Author Organization [facility] Address [address] [facility] [address] [facility] [address] [place], [place] [id number] Care Team Providers Care Customer Consulting Manager Name Role Phone Pericobernardino Laly Primary Care Provider UnavailKatrina Mckeon Unavailable [phone] COLUMBA JOHNSON, NADJA Lacy Unavailable Unavailable Elsa Hernandez Unavailable [phone] ALLERGIES No Known Allergies RESULTS Component Value Reference Range Notes CBC With Differential/Platel et Reviewed date:03/11/2025 01:41:04 PM Interpretation: Performing Lab:[facility] [place], [address] [facility], [place], Phone - [phone], Director - Jenifer Notes/Report: WBC 6.8 3.4-10.8 [...] show increased immature granulocytes without clinical significance.) [facility] Hematology Comments: Comp. 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) Active confirmed 0285237 VITAL SIGNS Heart Rate 90 /min 02/04/2025 Blood pressure diastolic 41 mm Hg 02/04/2025 Height 64 in 02/04/2025 Blood pressure systolic 88 mm Hg 02/04/2025 Weight 113 lbs 02/04/2025 BMI 19.39 kg/m2 02/04/2025 Encounters Encounter Location Date Provider Diagnosis [facility], [address] [id number] 07/02/2024 Elsa Hernandez CREST syndrome M34.1 and Other custodial (current) drug therapy Z79.899 [facility], [address] [id number] 11/12/2024 Elsa Hernandez Other director of patient financial services (current) drug therapy Z79.899 and CREST syndrome M34.1 [facility] Kayley [address], [facility] [address] [place], [place] [id number] 02/04/2025 Elsa Hernandez Other director of patient financial services (current) drug therapy Z79.899 ; CREST syndrome M34.1 and Raynaud's syndrome I73.00 [facility] [address] [facility], [address] [place], [place] [phone] 03/11/2025 Katrina Grace [facility] [address] [facility] [place], [place] [phone] 03/13/2025 Katrina Grace [facility] [address] [facility] [place], [place] [phone] 10/21/2024 Katrina Grace CREST syndrome M34.1 ASSESSMENTS Encounter Date Diagnosis Assessment Notes Treatment Notes Treatment Clinical Notes Section Notes 07/02/2024 Other custodial (current) drug therapy (ICD-10 - Z79.899) CREST [...] D. Keep warm. F/u scheduled. 11/12/2024 Other custodial (current) drug therapy (ICD-10 - Z79.899) CREST [...] diuretics. Raynauds-Keep warm. F/u scheduled. 02/04/2025 Other custodial (current) drug therapy (ICD-10 - Z79.899) CREST [...] injections. Raynauds stable. Keep warm. F/u scheduled. 10/21/2024 CREST syndrome (ICD-10 - M34.1) 02/04/2025 [...] indirect immunoflo resence 12/29/2013 Lab slip given 09/13/2015 Lab slip given 04/13/2022 Lab slip given 01/13/2020 lab slip given [...] Hough , 06/10/2025 02:20:00 PM, [address] [facility], [address], [place], [place], [id number], Insurance Providers Payer Name Payer Address Payer Phone Subscriber Number Group Number Insured Name Patient Relationship to Insured Coverage Start Date Coverage End Date [employer] MCR PPO [address] [place] [address] [id number] Christine Davis Self - patient is the insured 4 MEDICAL (GENERAL) HISTORY Medical History History ICD Code loss of hearing Ringing in ears difficulty swallowing hoarseness breast lump poor circulation diarrhea indigestion measles chicken pox Surgical History Surgery Date(Month/Year) hip 2019 bilateral cataract surgery 2018 mastectomy 2000 hysterectomy 1990 laparoscopy 1976 appendectomy 1953 [facility]
--- OUTSIDE RECORDS SUMMARY | 2025-04-24 11:50 | XMS_ITS | Clinical Summary ---
Author Organization [facility] Address [address] [place] [address] Phone Care Team Providers Care Data Entry Name Role Phone Laly Kenny DO Primary Care Provider [phone] Allergies No known active allergies Medications fluticasone propionate (FLONASE) 50 mcg/spray [place], Suspension nasal inhaler Administer 2 Sprays in [...] 1 Tablet (50 mcg) by mouth daily early childhood worker. 30 Tablet 12/10/19 20 Active mycophenolate mofetil [...] DAY 180 Tablet 3 09/11/20 24 Active sotatercept-medical assistant secretary k (Winrevair) 45 mg Kit Self inject 0.3 mL every 3 weeks subQ for the first 3 doses. After that increase to target dose of 0.7 mL every 3 weeks subQ 09/15/20 24 Active selexipag (Uptravi) 1,600 mcg Tablet Take 1 tablet two times a day 60 Tablet 6 02/25/20 25 Active macitentan (Opsumit) 10 mg Tablet tablet TAKE 1 TABLET DAILY. 30 Tablet 5 03/06/20 25 Active potassium CHLORIDE (KLOR-CON) 10 mEq Extended Release tablet TAKE 2 TABLETS (20 MEQ) BY MOUTH DAILY WITH BREAKFAST. 60 Tablet 6 04/07/20 25 Active fluticasone propion-salmete roL (ADVAIR DISKUS,WIXELA INHUB) 250-50 mcg/dose disk inhalerIndicati ons:Pulmonary hypertension (CMS/HCC) TAKE 1 PUFF BY MOUTH TWICE A DAY 60 Each 04/20/20 25 Active fluticasone propion-salmete roL (ADVAIR DISKUS,WIXELA INHUB) 250-50 mcg/dose disk inhalerIndicati ons:Pulmonary hypertension (CMS/HCC) Take 1 Puff by inhalation 2 times daily. 60 Each 6 10/08/19 25 2024 Discontinued potassium CHLORIDE (K-TAB) 20 mEq Extended Release tablet Take 1 Tablet (20 mEq) by mouth daily with breakfast. 30 Tablet 11 03/25/20 25 2024 Discontinued(D ose/form adjustment) potassium CHLORIDE (KLOR-CON) 10 mEq Extended Release tablet Take 2 Tablets (20 mEq) by mouth daily with breakfast. 2 Tablet 03/31/20 25 2024 Discontinued Active Problems Problem Noted Date Diagnosed Date Protein-calorie malnutrition, moderate 0 Hypothyroidism 11/15/2019 Closed fracture of left hip 11/15/2019 Lung infiltrate Pulmonary hypertension Acute on chronic respiratory failure with hypoxi a Closed fracture of left femur SS (systemic sclerosis) Encounters Date Type Department Care Team Description 04/24/2025 Refill [facility] Pulmonology [address] [place] [address] Yony Mayer MD Pulmonary hypertension ([facility]) 04/20/2025 Refill [facility] Pulmonology [address] [place] [address] Yony Mayer MD Pulmonary hypertension ([facility]) 04/15/2025 External Device Data STL ABSTRACTION Provider, Abstract 04/14/2025 External Device Data STL ABSTRACTION Provider, Abstract 04/13/2025 Orders Only [facility] Pulmonology [address] [place] [address] Yony Mayer MD PAH (pulmonary artery hypertension) ([facility]); Encounter for medication monitoring 04/06/2025 Refill [facility] Pulmonology [address] [place] [address] Yony Mayer MD 03/30/2025 Telephone [facility] Pulmonology [address] [place] [address] Yony Mayer MD Results 03/27/2025 1:42 PM CDT - 03/27/2025 11:59 PM CDT Hospital Encounter [facility] Imaging Services [address] [place] [address] Yony Mayer MD Discharge Disposition: Home or Self Care 03/25/2025 [facility] [address] [place] [phone] Yony Mayer MD Results 03/24/2025 10:00 AM CDT [facility] [address] [address] Yony Mayer MD Pulmonary hypertension (CMS/HCC) (Primary Dx); Cr(e)st syndrome (CMS/HCC); Chronic hypoxemic respiratory failure (CMS/HCC) 03/24/2025 [facility] [address] [place] [phone] Yony Mayer MD Medical Records 03/23/2025 Orders Only [facility] [address] [place] [phone] Yony Mayer MD PAH (pulmonary artery hypertension) (CMS/HCC); Encounter for medication monitoring 03/17/2025 External Device Data STL ABSTRACTION Provider, Abstract 03/13/2025 [facility]phone [facility] [address] [place] [phone] Yony Mayer MD Information 03/06/2025 Refill [facility] Pulmonology [address] [address] Yony Mayer MD 03/02/2025 Orders [facility] [address] [place] [phone] Yony Mayer MD PAH (pulmonary artery hypertension) ([facility]/HCC); Encounter for medication monitoring 02/23/2025 [facility] [address] [address] Yony Mayer MD 02/19/2025 External Device Data STL ABSTRACTION Provider, Abstract 02/18/2025 External Device Data STL ABSTRACTION Provider, Abstract 02/09/2025 Orders Only [facility] Pulmonology [place] [address] [address] [address] [place] [address] Yony Mayer MD PAH (pulmonary artery hypertension) ([facility]); Encounter for medication monitoring 01/27/2025 Telephone [facility] Pulmonology [place] [address] [address] [address] [place] [address] Yoyn Mayer MD Medication Review from Last 3 Months Immunizations Immunization Administration [...] Sex Assigned at Female 10/03/2024 12:21 PM TOMATO PASTE MAKER Legal Sex Female 1:49 PM CDT Gender Identity Female 10/03/2024 12:21 PM TOMATO PASTE MAKER Sexual Orientation Choose not to disclose 2024 12:21 PM TOMATO PASTE MAKER Last Filed Vital Signs Vital Sign Reading Time Taken Comments Blood Pressure 92/40 09/11/2024 10:39 AM TOMATO PASTE MAKER Pulse 91 09/11/2024 10:39 AM TOMATO PASTE MAKER Temperature 36.4 C (97.6 F) 01/30/2020 4:03 PM CDT Respiratory Rate 18 09/08/2021 1:10 PM TOMATO PASTE MAKER 1 L O2 pulse Oxygen Saturation 94% 03/14/2023 3:12 PM CDT Ox set at 1 Inhaled Oxygen Concentration - - Weight 49 kg (108 lb) 09/11/2024 10:39 AM TOMATO PASTE MAKER Height 162.6 cm (5' 4) 09/11/2024 10:39 AM TOMATO PASTE MAKER Body Mass Index 18.54 09/11/2024 10:39 AM TOMATO PASTE MAKER Plan of Treatment Upcoming Encounters Date Type Department Care Team (Late st Contact Info) Description 10/05/2025 2:00 PM TOMATO PASTE MAKER Office Visit [facility] Pulmonology [facility] [address] [place] [address] Yony Mayer MD [address] [place] [address] Health Maintenance Due Date Last Done Comments DTAP/TDAP/TD VACCINES (1 - Tdap) 1966 PNEUMOCOCCAL VACCINE 50+ YEA RS (1 of 2 - PCV) 1966 ZOSTER VACCINE (1 of 2) 1966 RSV VACCINE (60+ or ) (1 - 1-dose 75+ series) 2022 OSTEOPOROSIS SCREENING 02/24/2025 , 02/25/2020, 06/05/2018, Additional history exists INFLUENZA VACCINE (#1) 2025 06/11/2020, 2018 Medical Devices Implanted Type Area Plastic Finisher Device Identifier Shelf Expiration Date Model / Serial / Lot Head Fem Mod Cocr 28mm -3mm [id number] - [id number] Implanted:Qty: 1 on 11/17/2019 by Alvarez Braxton DO at [facility] [place] [facility] Hip Left: Hip DESMOND BIOMET 10/14/2029 [id number] / / [id number] Stem Fem Echo Pf 13mm -[id number] - [id number] Implanted:Qty: 1 on 11/17/2019 by Alvarez Braxton DO at [facility] [place] [facility] Hip Left: Hip DESMOND BIOMET 10/30/2024 [id number] / / [id number] Liner Acet Bipolar [id number] -[id number] - [id number] Implanted:Qty: 1 on 11/17/2019 by Alvarez Braxton DO at [facility] Hip Left: Hip DESMOND BIOMET 10/06/[id number] / / [id number] Procedures Procedure Name Priority Date/Time Associated Diagnosis Comments XR CHEST PA AND LATERAL 2 VW Routine 03/27/2025 1:52 PM CDT XR DEXA BONE DENSITY AXIAL 1 OR MORE SITES Routine 02/25/2020 10:43 AM CDT Closed fracture of neck of left femur with routine healing, subsequent encounter from Last 3 Months or Most Recently Relevant to Health Maintenance Results * XR CHEST PA AND LATERAL 2 VW (03/27/2025 1:52 PM CDT) Anatomical Region Laterality Modality Chest Computed Radiogr aphy 03/27/2025 1:52 PM CDT Addenda Addendum by Christine Castanon MD on 04/08/2025 10:21 PM CDT CLINICAL HISTORY: Pulmonary hypertension. Impressions 03/30/2025 1:40 PM CDT IMPRESSION: Left breast prosthesis Unchanged hyperinflation. Otherwise, no active disease. Narrative 03/30/2025 1:40 PM CDT EXAM: XR CHEST PA AND LATERAL 2 VW DATE: 03/30/2025 1:35 PM HISTORY: See Reason for Exam COMPARISON: None FINDINGS: Heart size is within normal limits. Pulmonary vascularity is normal. There is a left breast prosthesis. The lungs are hyperinflated, unchanged. No infiltrate or pleural effusion is noted. Procedure Note Christine Castanon MD - 03/30/2025 EXAM: XR CHEST PA AND LATERAL 2 VW DATE: 03/30/2025 1:35 PM HISTORY: See Reason for Exam COMPARISON: None FINDINGS: Heart size is within normal limits. Pulmonary vascularity is normal. There is a left breast prosthesis. The lungs are hyperinflated, unchanged. No infiltrate or pleural effusion is noted. IMPRESSION: Left breast prosthesis Unchanged hyperinflation. Otherwise, no active disease. us Yony Mayer MD DIAGNOSTIC IMAGING ORDERABLES E dited Result - Final * XR DEXA BONE DENSITY AXIAL 1 [...] lumbar spine, forearm and hip(s) using a LUNGridPoint DEXA scanner for bone mineral density determination [...] DO DICTATION LOCATION: Location 1 - [facility] Procedure Note Mark Geiger DO - 02/25/2020 XR DEXA BONE DENSITY AXIAL 1 OR MORE SITES DATE: 02/25/2020 10:43 AM HISTORY: 74 years old Female with post menopausal symptoms. PROCEDURE: Planar images of the lumbar spine, forearm and hip(s) using a LUNGridPoint DEXA scanner for bone mineral density determination [...] 2 years thereafter Dictated by Dr. Mark Geiger, DICTATION LOCATION: Location 1 - [facility] Nasreen Doe MD [facility]AGNOSTIC IM[facility]ING [facility] Final Result from Last 3 Months or Most Recently Relevant to Health Maintenance Insurance [facility] Advance Directives For more information, please contact: [phone] * Full Code (Latest Code Status on File) Date Activated Date Inactivated Comments 11/27/2019 3:25 PM 12/11/2019 4:25 PM * Full Code Date Activated Date Inactivated Comments 11/13/2019 12:50 AM 11/27/2019 2:59 PM Care Teams Data Entry Relationship Specialty Start Date End Date Laly Kenny DO [address] [place] [phone] PCP - General Family Practice 05/16/21
--- OUTSIDE RECORDS SUMMARY | 2025-04-24 11:50 | XMS_ITS | Data Portability ---
Author Organization [place] [facility] [employer] [facility] Main Office Address [address] [place] [address] Care Team Providers Care Steam Box Hand Name Role Phone RAMONE PORTILLO Primary Care [...] By Organization Details Last Modified Time 11/15/2023 [id number] She is cleared for hearing aids [email or web address] [...] Organization Details Recorded Time Sensorineural hearing loss [id number] Active 2023 Sesar Venegas MD [address] [place] [address], [facility], [place], [address] [place] [address] 4 16:19:55 Problem Notes None recorded. Procedures Surgical History Date Name Laterality Status Provider Name and Address Organization Details Recorded Time Appendectomy completed Sola alanis RN [facility] 11/15/2023 16:05:59 hysterectomy completed Sola alanis RN [facility] 11/15/2023 16:06:09 Masectomy completed Sola Garcia RN [facility] 11/15/2023 16:06:33 Imaging Results None recorded. Procedure [...] Updated DateTime 11/15/2023 160.02 cm 20 kg/m2 71485.94 g 98.8 [degF] Sola Garcia RN [place] [facility] 11/15/2023 16:07:10 Social History None recorded. Functional [...] SNOMED-CT Code Diagnosis ICD10 Code Diagnosis Note [id number] Sesar Venegas MD [facility] H[facility]ctor Gandhi [address] [place] [address] 11/15/2023 15:48:43 11/15/2023 17:01:07 Sensorineural hearing loss [id number] H90.5 Health Concerns Section Related Observation LastModified by Organization Detai ls LastModified Time None Recorded Concern Status LastModified by Organization Details LastModified Time None Recorded Advance Directives Directive None Recorded Payers Insurance Date Sequence Insurance Name Policy Number Policy Groves Covered Member ID Groves Member ID Guarantor Name 11/14/2023 1 [employer] BETTER [employer] OF [place] WHITE ON OR AFTER 08/31/2020 (MEDICAID REPLACEMENT - HMO) [id number] Christine oneal 11/19/2023 1 [employer] (MEDICARE REPLACEMENT/AD VANTAGE - PPO) [id number] [facility] [id number] Christine oneal Notes Date Note Type Note Provider Name and Address Organization Details Recorded Time 11/15/2023 text/html Progressing hearing loss. She is interested in hearing aids. Sesar Venegas MD [address] [place] [address], [place] [address], [place], [address], [facility] 11/15/2023 16:20:37 OBGyn Episode No OBEpisode recorded.
--- OUTSIDE RECORDS SUMMARY | 2025-04-24 13:31 | XMS_ITS | Encounter Summary ---
Author Organization [facility] Address [address] [place] [address] Care Team Providers Care Bar Back Name Role Phone Laly Kenny DO Primary Care Provider [phone] Reason for Visit * Reason Comments Med Refill Encounter Details Date Type Department Care Team (Late Contact Info) Description 04/24/2025 Refill [facility] Pulmonology [place] [address] [place] [place] [place] [address] Yony Mayer MD [address] [facility] [place] [address] Pulmonary hypertension (CMS/[facility]) Social History Tobacco Use Types Packs/Day Years Used Date Smoking Tobacco: Never Cigarettes Smokeless Tobacco: Never Alcohol Use Standard Drinks/Week Comments Not Currently 0 (1 standard drink = 0.6 oz pur e alcohol) Comments No Sex and Gender Information Value Date Recorded Sex Assigned at Female 10/03/2024 12:21 PM ACCESS REGISTRAR Legal Sex Female 1:49 PM CDT Gender Identity Female 10/03/2024 12:21 PM ACCESS REGISTRAR Sexual Orientation Choose not to disclose 2024 12:21 PM ACCESS REGISTRAR documented as of this encounter Plan of Treatment Upcoming Encounters Date Type Department Care Team (Late Contact Info) Description 10/05/2025 2:00 PM ACCESS REGISTRAR Office Visit [facility] Pulmonology [place] [address] [place] [address] Yony Mayer MD [address] [place] [phone] documented as of this encounter Visit Diagnoses Diagnosis Pulmonary hypertension (CMS/HCC) Other chronic pulmonary heart diseases documented in this encounter Care Teams Bar Back Relationship Specialty Start Date End Date Laly Kenny DO [address] [place] [phone] PCP - General Family Practice 05/16/21 documented as of this encounter
--- OUTSIDE RECORDS SUMMARY | 2025-04-24 13:31 | XMS_ITS | Clinical Summary ---
Author Organization [place] [id number] [facility] Address [address] [place] [address] Care Team Providers Care Director Of Physician Practices Name Role Phone Laly Kenny Primary Care Provider [phone] Danica Rehman NP Unavailable [phone] Avinash Becker MD Unavailable [phone] Sarthak Mueller MD Unavailable [phone] Allergies No known active allergies Medications [...] 1 tablet (50 mcg total) by mouth senior product development scientist before breakfast Active selexipag (Uptravi) 1,600 mcg [...] on file Legal Sex Female 8:05 PM TECHNICAL SPECIALIST CYTOLOGY Gender Identity Female 10/04/2020 6:40 PM TECHNICAL SPECIALIST CYTOLOGY Sexual Orientation Not on file Obstetrics History Last Filed Vital Signs Vital Sign Reading Time Taken Comments Blood Pressure 118/52 09/09/2024 10:56 AM TECHNICAL SPECIALIST CYTOLOGY Pulse 68 09/09/2024 10:56 AM TECHNICAL SPECIALIST CYTOLOGY Temperature 36.6 C (97.9 F) 11/23/2023 3:13 PM TECHNICAL SPECIALIST CYTOLOGY Respiratory Rate 20 11/20/2022 2:19 PM TECHNICAL SPECIALIST CYTOLOGY Oxygen Saturation 98% 01/03/2024 11:50 AM CDT Inhaled Oxygen Concentration - - Weight 49.2 kg (108 lb 8 oz) 09/09/2024 10:56 AM TECHNICAL SPECIALIST CYTOLOGY Height 162.6 cm (5' 4) 09/09/2024 10:56 AM TECHNICAL SPECIALIST CYTOLOGY Body Mass Index 18.62 09/09/2024 10:56 AM TECHNICAL SPECIALIST CYTOLOGY Plan of Treatment Health Maintenance Due Date [...] MEDICARE T MEDICARE AETNA MEDICARE Care Teams Director Of Physician Practices Relationship Specialty Start Date End Date Laly Kenny DO PCP - General Family Medicine 01/30/20 Danica Rehman NP [address] [place], [place] [id number] Nurse Practitioner 10/16/23 [place] [address] [place] [address] Consulting Physician Gastroenterology 11/15/23 Sarthak Mueller MD [address] [facility] [phone] [place] [address] Surgeon Colon and Rectal Surgery 11/23/23
--- OUTSIDE RECORDS SUMMARY | 2025-04-24 13:31 | XMS_ITS | Referral Summary ---
Author Organization [place] [id number] [facility] Address [address] [place] [address] Care Team Providers Care Field Crew Chief Name Role Phone Laly Kenny Primary Care Provider [phone] Danica Rehman NP Unavailable [phone] Avinash Becker MD Unavailable [phone] Sarthak Mueller MD Unavailable [phone] Allergies No known active allergies Medications [...] 1 tablet (50 mcg total) by mouth drier operator before breakfast Active selexipag (Uptravi) 1,600 [...] failure with hypoxia (CMS/HC C) 01/30/2020 Scleroderma ([facility]/HCC) 01/30/2020 Chronic right-sided heart failure 01/30/2020 CREST syndrome ([facility]/HCC) 01/30/2020 Anemia 01/30/2020 Acquired hypothyroidism 01/30/2020 [...] on file Legal Sex Female 8:05 PM ARCHITECTURAL DRAFTING INSTRUCTOR Gender Identity Female 10/04/2020 6:40 PM ARCHITECTURAL DRAFTING INSTRUCTOR Sexual Orientation Not on file Last Filed Vital Signs Vital Sign Reading Time Taken Comments Blood Pressure 118/52 09/09/2024 10:56 AM ARCHITECTURAL DRAFTING INSTRUCTOR Pulse 68 09/09/2024 10:56 AM ARCHITECTURAL DRAFTING INSTRUCTOR Temperature 36.6 C (97.9 F) 11/23/2023 3:13 PM ARCHITECTURAL DRAFTING INSTRUCTOR Respiratory Rate 20 11/20/2022 2:19 PM ARCHITECTURAL DRAFTING INSTRUCTOR Oxygen Saturation 98% 01/03/2024 11:50 AM CDT Inhaled Oxygen Concentration - - Weight 49.2 kg (108 lb 8 oz) 09/09/2024 10:56 AM ARCHITECTURAL DRAFTING INSTRUCTOR Height 162.6 cm (5' 4) 09/09/2024 10:56 AM ARCHITECTURAL DRAFTING INSTRUCTOR Body Mass Index 18.62 09/09/2024 10:56 AM ARCHITECTURAL DRAFTING INSTRUCTOR Plan of Treatment Not on file Procedures [...] MEDICARE AETNA MEDICARE AETNA MEDICARE Care Teams Field Crew Chief Relationship Specialty Start Date End Date Laly Kenny DO PCP - General Family Medicine 01/30/20 Danica Rehman NP [address] [facility] [address] [place] [address] Nurse Practitioner 10/16/23 [place] [address] [place] [address] Consulting Physician Gastroenterology 11/15/23 Sarthak Mueller MD [phone] [place] [address] Surgeon Colon and Rectal Surgery 11/23/23
--- OUTSIDE RECORDS SUMMARY | 2025-04-24 13:31 | XMS_ITS | Clinical Summary ---
Author Organization [facility] Address [address] [place] [address] Phone Care Team Providers Care Metalizer Name Role Phone Laly Kenny DO Primary Care Provider [phone] Allergies No known active allergies Medications fluticasone propionate (FLONASE) 50 mcg/spray [place], Suspension nasal inhaler Administer 2 Sprays in [...] 1 Tablet (50 mcg) by mouth daily general scrap worker. 30 Tablet 12/10/19 20 Active mycophenolate [...] DAY 180 Tablet 3 09/11/20 24 Active sotatercept-emt b k (Winrevair) 45 mg Kit Self inject [...] Type Department Care Team Description 04/24/2025 Refill [facility] Pulmonology [address] [place] [address] Yony Mayer MD Pulmonary hypertension ([facility]) 04/20/2025 Refill [facility] Pulmonology [address] [place] [address] Yony Mayer MD Pulmonary hypertension ([facility]) 04/15/2025 External Device Data STL ABSTRACTION Provider, Abstract 04/14/2025 External Device Data STL ABSTRACTION Provider, Abstract 04/13/2025 Orders Only [facility] Pulmonology [address] [place] [address] Yony Mayer MD PAH (pulmonary artery hypertension) ([facility]); Encounter for medication monitoring 04/06/2025 Refill [facility] Pulmonology [address] [place] [address] Yony Mayer MD 03/30/2025 Telephone [facility] Pulmonology [address] [place] [address] Yony Mayer MD Results 03/27/2025 1:42 PM CDT - 03/27/2025 11:59 PM CDT Hospital Encounter [facility] [address] [place] [address] Yony Mayer MD Discharge Disposition: Home or Self Care 03/25/2025 [facility]phone [facility] [address] [place] [address] Yony Mayer MD Results 03/24/2025 10:00 AM CDT Office [facility] [address] [address] Yony Mayer MD Pulmonary hypertension (CMS/HCC) (Primary Dx); Cr(e)st syndrome (CMS/HCC); Chronic hypoxemic respiratory failure (CMS/HCC) 03/24/2025 Telephone [facility] [address] [place] [address] Yony Mayer MD Medical Records 03/23/2025 Orders Only [facility] [address] [place] [address] Yony Mayer MD PAH (pulmonary artery hypertension) (CMS/HCC); Encounter for medication monitoring 03/17/2025 External Device Data STL ABSTRACTION Provider, Abstract 03/13/2025 Telephone [facility] [address] [place] [address] Yony Mayer MD Information 03/06/2025 Refill [facility] Pulmonology [address] [address] Yony Mayer MD 03/02/2025 Orders Only [facility] [address] [place] [address] Yony Mayer MD PAH (pulmonary artery hypertension) ([facility]/HCC); Encounter for medication monitoring 02/23/2025 Refill [facility] [address] [address] Yony Mayer MD 02/19/2025 External Device Data STL ABSTRACTION Provider, Abstract 02/18/2025 External Device Data STL ABSTRACTION Provider, Abstract 02/09/2025 Orders Only [facility] Pulmonology [place] [address] [place] [address] Yony Mayer MD PAH (pulmonary artery hypertension) ([facility]); Encounter for medication monitoring 01/27/2025 Telephone [facility] Pulmonology [place] [address] [place] [address] Yony Mayer MD Medication Review from Last 3 [...] Sex Assigned at Female 10/03/2024 12:21 PM SYSTEMS PROGRAMMER Legal Sex Female 1:49 PM CDT Gender Identity Female 10/03/2024 12:21 PM SYSTEMS PROGRAMMER Sexual Orientation Choose not to disclose 2024 12:21 PM SYSTEMS PROGRAMMER Last Filed Vital Signs Vital Sign Reading Time Taken Comments Blood Pressure 92/40 09/11/2024 10:39 AM SYSTEMS PROGRAMMER Pulse 91 09/11/2024 10:39 AM SYSTEMS PROGRAMMER Temperature 36.4 C (97.6 F) 01/30/2020 4:03 PM CDT Respiratory Rate 18 09/08/2021 1:10 PM SYSTEMS PROGRAMMER 1 L O2 pulse Oxygen Saturation 94% 03/14/2023 3:12 PM CDT Ox set at 1 Inhaled Oxygen Concentration - - Weight 49 kg (108 lb) 09/11/2024 10:39 AM SYSTEMS PROGRAMMER Height 162.6 cm (5' 4) 09/11/2024 10:39 AM SYSTEMS PROGRAMMER Body Mass Index 18.54 09/11/2024 10:39 AM SYSTEMS PROGRAMMER Plan of Treatment Upcoming Encounters Date Type Department Care Team (Late st Contact Info) Description 10/05/2025 2:00 PM SYSTEMS PROGRAMMER Office Visit [facility] Pulmonology [facility] [address] [place] [address] Yony Mayer MD [address] [place] [address] Health Maintenance Due Date Last Done Comments DTAP/TDAP/TD VACCINES (1 - Tdap) 1966 PNEUMOCOCCAL VACCINE 50+ YEA RS (1 of 2 - PCV) 1966 ZOSTER VACCINE (1 of 2) 1966 RSV VACCINE (60+ or ) (1 - 1-dose 75+ series) 2022 OSTEOPOROSIS SCREENING 02/24/2025 , 02/25/2020, 06/05/2018, Additional history exists INFLUENZA VACCINE (#1) 2025 06/11/2020, 2018 Medical Devices Implanted Type Area Terminologist Device Identifier Shelf Expiration Date Model / Serial / Lot Head Fem Mod Cocr 28mm -3mm [id number] - [id number] Implanted:Qty: 1 on 11/17/2019 by Alvarez Braxton DO at [facility] Hip Left: Hip [employer]ESMOND [employer] 10/14/2029 [id number] / / [id number] Stem Fem Echo Pf 13mm -[id number] - [id number] Implanted:Qty: 1 on 11/17/2019 by Alvarez Braxton DO at [facility] Hip Left: Hip [employer]OND [employer] 10/30/2024 [id number] / / [id number] Liner Acet Bipolar [id number] -[id number] - [id number] Implanted:Qty: 1 on 11/17/2019 by Alvarez Braxton DO at [facility] Hip Left: Hip [employer]OND [employer] 10/06/[id number] / / [id number] Procedures Procedure Name Priority Date/Time Associated Diagnosis [...] lumbar spine, forearm and hip(s) using a LUNPharmMD DEXA scanner for bone mineral density determination [...] Geiger DO DICTATION LOCATION: Location 1 - [facility] Procedure Note Mark Geiger DO - 02/25/2020 XR DEXA BONE DENSITY AXIAL 1 OR MORE SITES DATE: 02/25/2020 10:43 AM HISTORY: 74 years old Female with post menopausal symptoms. PROCEDURE: Planar images of the lumbar spine, forearm and hip(s) using a LUNPharmMD DEXA scanner for bone mineral density determination [...] Mark Geiger, DICTATION LOCATION: Location 1 - [facility] Nasreen Doe MD DIAGNOSTIC IMAGING [place] [facility] Final Result from Last 3 Months or Most Recently Relevant to Health Maintenance Insurance [facility] Advance Directives For more information, please contact: [phone] * Full Code (Latest Code Status on File) Date Activated Date Inactivated Comments 11/27/2019 3:25 PM 12/11/2019 4:25 PM * Full Code Date Activated Date Inactivated Comments 11/13/2019 12:50 AM 11/27/2019 2:59 PM Care Teams Metalizer Relationship Specialty Start Date End Date Laly Kenny DO [address] [place] [phone] PCP - General Family Practice 05/16/21
--- OUTSIDE RECORDS SUMMARY | 2025-04-24 13:31 | XMS_ITS | Clinical Summary ---
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
[2025-04-24 13:57] LABS: Hematocrit 22.1 % (37.0-47.0); Immature Granulocyte Percent A 4.6 % (0-0.5); Lymphocytes Absolute Auto 0.45 K/mm3 (0.9-3.2); Mean Corpuscular HGB Conc 27.6 g/dl (32-36); Mean Corpuscular Hemoglobin 28.6 pg (26-34); Mean Corpuscular Volume 103.8 fl (80-100); Nucleated Red Blood Cells Absolute Auto 0.030 K/mm3 (0.0-0.012); Nucleated Red Blood Cells Perc 0.5 % (0.0-0.2); Platelet Count Result 176 k/mm3 (150-375); Red Blood Count 2.13 M/mm3 (4.2-5.4); White Blood Count 5.9 K/mm3 (4.5-10.0)
[2025-04-24 14:03] LABS: Hemoglobin 6.1 g/dL (12.0-15.0)
[2025-04-24 14:21] LABS: Hypochromasia 1+; Macrocytosis 1+ (NORMAL); Polychromasia 1+; Schistocytes None Seen; Target Cells 1+
--- NOTE | 2025-04-24 14:21 | ED_ITS ---
HPI - Recheck/Abnormal Lab/Rx General Chief Complaint: Recheck/Abnormal Lab/Rx Stated Complaint: abnormal lab Time Seen by Provider: 04/24/25 13:13 Source: patient, RN notes reviewed and old records reviewed Mode of arrival: ambulatory Limitations: no limitations History of Present Illness HPI narrative: This is a 79 year old female with history of chronic anemia, scleroderma, pulmonary hypertension who presents for evaluation of anemia. Patient was hospitalized 1 month ago for evaluation of anemia and hypokalemia. She states she was in hospital for over 1 week . She received transfusion at that time . She had outpatient labs done yesterday and she was called today. She was told to come to ER for low hemoglobin. She denies any bleeding or abnormal bruising. She states she feels fine and she feels better than she has in a while. She was 1 L NC oxygen chronically. Related Data Home Medications ?Medication ?Instructions ?Recorded ?Confirmed ?Last Taken ?Type calcium carbonate (Calcium 500) 500 mg PO BID 09/05/19 04/08/25 03/10/25 History omeprazole 20 mg capsule,delayed 20 mg PO DAILY 09/05/19 04/08/25 03/11/25 History release cholecalciferol (vitamin D3) 50 1,000 unit PO DAILY 10/22/19 04/08/25 03/10/25 History mcg (2,000 unit) tablet (Vitamin D3) tadalafil 20 mg tablet 40 mg PO DAILY 10/22/19 04/08/25 03/11/25 History furosemide 40 mg tablet 40 mg PO BID 12/10/20 04/08/25 03/11/25 History hydroxychloroquine 200 mg tablet 200 mg PO QAM 12/10/20 04/08/25 03/11/25 History multivitamin 1 tablet PO DAILY 12/10/20 04/08/25 03/10/25 History mycophenolate mofetil 500 mg tablet 500 mg PO Q12H 12/10/20 04/08/25 03/11/25 History selexipag 1,600 mcg tablet 1,600 mcg PO BID 12/10/20 04/08/25 03/11/25 History (Uptravi) macitentan 10 mg tablet (Opsumit) 10 mg PO DAILY 05/15/22 04/08/25 03/11/25 History aspirin 81 mg tablet,delayed 81 mg PO DAILY 03/19/23 04/08/25 03/10/25 History release fluticasone propionate 50 2 spray intranasal DAILY PRN nasal 03/19/23 04/08/25 03/11/25 History mcg/actuation nasal congestion spray,suspension metolazone 2.5 mg tablet 2.5 mg PO DAILY 07/19/23 04/08/25 03/10/25 History fluticasone 250 mcg-salmeterol 50 1 inh inhalation BID 11/24/24 04/08/25 03/11/25 History mcg/dose blistr powdr for inhalation (Wixela Inhub) sotatercept-csrk 45 mg 45 mg subcut .[id number] 11/24/24 04/08/25 03/02/25 History subcutaneous kit (Winrevair) levothyroxine 50 mcg tablet 75 mcg .Route .COMPLEX 03/23/25 04/08/25 Unknown History ferrous sulfate 325 mg (65 mg 325 mg PO BID 04/01/25 04/08/25 Unknown History iron) tablet Allergies Allergy/AdvReac Type Severity Reaction Status Date / Time No Known Drug Allergies Allergy Unknown unknown Verified 04/24/25 11:47 [facility] Past Medical History Medical History Gastrointestinal dysmotility Fecal incontinence Rectal bleeding Rectal prolapse Irritable bowel syndrome with diarrhea Hepatitis C antibody test negative (08/26/17) Chronic respiratory failure with hypoxia Pulmonary hypertension History of breast cancer Status post chemotherapy and mastectomy. Anxiety GERD (gastroesophageal reflux disease) Hypothyroidism Hypertension CREST syndrome Osteopenia Other spondylosis, cervical region Surgical History Surgical History Cataract extraction status (11/05/18) History of appendectomy (1953) H/O: hysterectomy (1997) H/O bilateral mastectomy (08/31/00) Family History Family History Father Diabetes mellitus Family history of Alzheimer's disease Mother Diabetes mellitus Family history of chronic obstructive pulmonary disease Family history of cardiomyopathy Grandparent Family history of malignant neoplasm of breast Social History Social History Social History: The patient lives in [place] with her . He is in poor health and she has to help take care of him. She designates her as her surrogate decision maker and she wishes to be a full code. She is a lifelong nonsmoker and denies alcohol and drug abuse. 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 Gender identity (if verbalized by the patient): Female Spiritual care concerns: No Agree to blood products: Yes Exam 2 Const: General: no acute distress and alert Nutritional Appearance: thin Orientation/consciousness: patient oriented x3 Limitations: no limitations HENMT: Head: normal to inspection Eyes: EOM: EOMs intact bilaterally Resp: Effort & Inspection: normal respiratory effort Auscultation: clear to auscultation bilaterally Cardio: Rate: regular rate Rhythm: regular rhythm Heart sounds: Murmur heart sound present GI: GI Palp: Yes Soft to palpation, No Tenderness to palpation present (GI), No Guarding due to palpation present (GI) and No Rigid due to palpation A uscultation: normal bowel sounds Skin: Wounds: no wounds Neuro: General: patient oriented x3, moves all extremities and CN's II-XI intact bilaterally Extrem: General: no pedal edema Psych: Mental Status: mental status grossly normal Affect: normal affect Attitude: cooperative Course Reevaluation(s) Reevaluation #1: PAtient found to have hemoglobin 6.3 yesterday and today it is 6.1. She does not seem symptomatic. She does need tranfusion due to lung and heart disease. I have ordered 2 units to be transfused. I have spoke with hospitalist Rut who accepts to service. Patient also had potassium 2.8 so oral 40 mEq ordered. Date: 04/24/25 Time: 14:54 Vital Signs Vital signs: Vital Signs Temperature 97.9 F 04/24/25 12:01 Pulse Rate 99 04/24/25 12:01 Respiratory Rate 16 04/24/25 12:01 Blood Pressure 114/61 04/24/25 12:01 Pulse Oximetry 95 04/24/25 12:01 Oxygen Delivery Nasal Cannula 04/24/25 12:01 Oxygen Flow Rate 2 04/24/25 12:01 Temperature 97.9 F 04/24/25 12:01 Pulse Rate 81 04/24/25 13:33 Respiratory Rate 16 04/24/25 13:33 Blood Pressure 103/68 04/24/25 13:33 Pulse Oximetry 97 04/24/25 13:33 Oxygen Delivery Nasal Cannula 04/24/25 12:01 Oxygen Flow Rate 2 04/24/25 12:01 MDM - Recheck/Abnormal Lab/Rx Differential Diagnosis Differential diagnosis: Likely other (anemia, iron deficiency, hypokalemia, hemorrhage) Medical Records Attestation: I reviewed the patient's medical records. Lab Data Attestation: I reviewed the patient's lab results. 04/24/25 13:46 04/24/25 13:46 Labs: Lab Results 04/24/25 Range/Units 13:46 WBC 5.9 (4.5-10.0) K/mm3 RBC 2.13 L (4.2-5.4) M/mm3 Hgb 6.1 L* D (12.0-15.0) g/dL Hct 22.1 L (37.0-47.0) % MCV 103.8 H (80-100) fl MCH 28.6 (26-34) pg MCHC 27.6 L (32-36) g/dl RDW 18.8 H (11.5-14.5) % Plt Count 176 (150-375) k/mm3 MPV 10.1 (7.4-10.4) fl Immature Gran % (Auto) 4.6 H (0-0.5) % Neut % (Auto) 79.5 H (45.5-73.1) % Lymph % (Auto) 7.6 L (18.3-44.2) % [place] % (Auto) 7.1 (2.6-8.5) % Eos % (Auto) 0.5 (0-4.4) % Baso % (Auto) 0.7 (0.2-1.2) % Lymph # (Auto) 0.45 L (0.9-3.2) K/mm3 [place] # (Auto) 0.4 (0.1-0.6) K/mm3 Eos # (Auto) 0.0 (0-0.3) K/mm3 Baso # (Auto) 0.0 (0.0-0.1) K/mm3 Abs Immat Gran (auto) 0.27 H (0.00-0.031) K/mm3 Absolute Neuts (auto) 4.7 (1.3-6.7) K/mm3 Absolute Nucleated RBC 0.030 H (0.0-0.012) K/mm3 Band Neutrophils % Not Reportable Nucleated RBC % 0.5 H (0.0-0.2) % Platelet Estimate Adequate (Adequate) Polychromasia 1+ Hypochromasia 1+ Macrocytosis 1+ (NORMAL) Target Cells 1+ Schistocytes None seen PT 14.2 (11.1-14.7) Seconds INR 1.1 APTT 29.4 (22.3-36.8) Seconds Sodium 133 L (137-145) mmol/L Potassium 2.8 L* (3.4-5.0) mmol/L Chloride 98 (98-107) mmol/L Carbon Dioxide 27 (22-30) mmol/L Anion Gap 8 (4-12) mmol/L BUN 31 H D (7-17) mg/dL Creatinine 0.96 (0.7-1.0) mg/dL Estim Creat Clear Calc 34 ml/min Estimated GFR 56 L (59 - ) Glucose 93 (65-110) mg/dL Calcium 8.9 (8.4-10.2) mg/dL Total Bilirubin < 0.1 L (0.2-1.3) mg/dL AST 21 (14-36) U/L ALT 9 (6-35) U/L Alkaline Phosphatase 44 (38-126) U/L Total Protein 5.6 L (6.3-8.2) g/dL Albumin 3.6 (3.5-5.1) g/dL Blood Type A Positive Antibody Screen Negative Crossmatch See Detail Critical Care Time Critical Care Time Critical Care Time: Yes Total Critical Care Time: 40 Discharge Plan Discharge Clinical Impression: Acute hypokalemia, Anemia Patient Disposition: Still a Patient Condition: Guarded Prognosis Patient Language: [place] Islander Prescriptions: No Action omeprazole 20 mg capsule,delayed release(DR/EC) 20 mg PO DAILY calcium carbonate [Calcium 500] 500 mg calcium (1,250 mg) tablet 500 mg PO BID aspirin 81 mg tablet,delayed release (DR/EC) 81 mg PO DAILY levothyroxine 50 mcg tablet 75 mcg .ROUTE .COMPLEX Rx Instructions: 75 mcg; ferrous sulfate 325 mg (65 mg iron) tablet 325 mg PO BID ofloxacin 0.3 % drops 5 drp RIGHT EAR TID 7 Days Qty: 10 1RF Rx Instructions: Pump them in after applying Opsumit 10 mg tablet 10 mg PO DAILY fluticasone propionate 50 mcg/actuation spray,suspension 2 spray intranasal DAILY PRN (Reason: nasal congestion) Dose Instruction: SPRAY 2 SPRAYS IN EACH NOSTRIL DAILY metolazone 2.5 mg tablet 2.5 mg PO DAILY Rx Instructions: 1 tablet 2-3 times per week fluticasone propion-salmeterol [Wixela Inhub] 250-50 mcg/dose blister with device 1 inh inhalation BID Winrevair 45 mg kit 45 mg subcut .[id number] levothyroxine [Synthroid] 25 mcg tablet 25 mcg PO DAILY Qty: 90 1RF tadalafil 20 mg Tablet 40 mg PO DAILY cholecalciferol (vitamin D3) [Vitamin D3] 2,000 unit Tablet 1,000 unit PO DAILY multivitamin Tablet 1 tablet PO DAILY furosemide 40 mg Tablet 40 mg PO BID mycophenolate mofetil 500 mg Tablet 500 mg PO Q12H hydroxychloroquine 200 mg Tablet 200 mg PO QAM Uptravi 1,600 mcg Tablet 1,600 mcg PO BID Follow-up/Referrals: Laly Kenny DO [Primary Care Provider] -
--- NOTE | 2025-04-24 14:28 | PC.NURSE ---
Patient not wanting IV started until absolutely necessary
[2025-04-24 14:31] LABS: Alanine Aminotransferase 9 U/L (6-35); Albumin Level 3.6 g/dL (3.5-5.1); Alkaline Phosphatase 44 U/L (38-126); Anion Gap 8 mmol/L (4-12); Aspartate Amino Transferase 21 U/L (14-36); Bilirubin,Total < 0.1 mg/dL (0.2-1.3); Blood Urea Nitrogen 31 mg/dL (7-17); Calcium 8.9 mg/dL (8.4-10.2); Carbon Dioxide 27 mmol/L (22-30); Chloride 98 mmol/L (98-107); Estimated CRCL calculation 34 ml/min; Estimated Glomerular Filt Rate 56; Glucose 93 mg/dL (65-110); Potassium 2.8 mmol/L (3.4-5.0); Sodium 133 mmol/L (137-145); Total Protein 5.6 g/dL (6.3-8.2)
[2025-04-24 14:42] LABS: INR 1.1; Partial Thromboplastin Time 29.4 Seconds (22.3-36.8); Prothrombin Time 14.2 Seconds (11.1-14.7)
--- NOTE | 2025-04-24 14:52 | P.HP_ITS ---
H&P: HPI History of Present Illness Date/Time: 04/24/25 14:52 Chief Complaint: Abnormal labs Narrative: 79-year-old female with history of iron deficiency anemia presents the hospital with abnormal labs. She had routine blood more done yesterday and was found to be anemic at 6.3 and was told to come to the emergency room today. She states that she was hospitalized about a month ago with colitis and iron deficiency anemia. She states that she has been taking her iron and potassium as directed. Patient denies dark tardy stools or vomiting blood. Lab work in the ED shows hemoglobin of 6.1, sodium of 133 potassium of 2.8, 2 units RBCs and potassium ordered. Review of Systems Review of Systems: 12 systems were reviewed and are negativ e except for as per HPI. [facility] Past Medical History Medical History Gastrointestinal dysmotility Fecal incontinence Rectal bleeding Rectal prolapse Irritable bowel syndrome with diarrhea Hepatitis C antibody test negative (08/26/17) Chronic respiratory failure with hypoxia Pulmonary hypertension History of breast cancer Status post chemotherapy and mastectomy. Anxiety GERD (gastroesophageal reflux disease) Hypothyroidism Hypertension CREST syndrome Osteopenia Other spondylosis, cervical region Surgical History Surgical History Cataract extraction status (11/05/18) History of appendectomy (1953) H/O: hysterectomy (1997) H/O bilateral mastectomy (08/31/00) Family History Family History Father Diabetes mellitus Family history of Alzheimer's disease Mother Diabetes mellitus Family history of chronic obstructive pulmonary disease Family history of cardiomyopathy Grandparent Family history of malignant neoplasm of breast Social History Social History Social History: The patient lives in [place] with her . He is in poor health and she has to help take care of him. She designates her as her surrogate decision maker and she wishes to be a full code. She is a lifelong nonsmoker and denies alcohol and drug abuse. 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 Gender identity (if verbalized by the patient): Female Spiritual care concerns: No Agree to blood products: Yes Meds Home Medications and Allergies Home Medications ?Medication ?Instructions ?Recorded ?Confirmed ?Type calcium carbonate (Calcium 500) 500 mg PO BID 09/05/19 04/24/25 History omeprazole 20 mg capsule,delayed 20 mg PO DAILY 09/05/19 04/24/25 History release cholecalciferol (vitamin D3) 50 1,000 unit PO DAILY 10/22/19 04/24/25 History mcg (2,000 unit) tablet (Vitamin D3) tadalafil 20 mg tablet 40 mg PO DAILY 10/22/19 04/24/25 History furosemide 40 mg tablet 40 mg PO BID 12/10/20 04/24/25 History hydroxychloroquine 200 mg tablet 200 mg PO QAM 12/10/20 04/24/25 History multivitamin 1 tablet PO DAILY 12/10/20 04/24/25 History mycophenolate mofetil 500 mg tablet 500 mg PO Q12H 12/10/20 04/24/25 History selexipag 1,600 mcg tablet 1,600 mcg PO BID 12/10/20 04/24/25 History (Uptravi) macitentan 10 mg tablet (Opsumit) 10 mg PO DAILY 05/15/22 04/24/25 History aspirin 81 mg tablet,delayed 81 mg PO DAILY 03/19/23 04/24/25 History release fluticasone propionate 50 2 spray intranasal DAILY PRN nasal 03/19/23 04/24/25 History mcg/actuation nasal congestion spray,suspension metolazone 2.5 mg tablet 2.5 mg PO DAILY 07/19/23 04/24/25 History fluticasone 250 mcg-salmeterol 50 1 inh inhalation BID 11/24/24 04/08/25 History mcg/dose blistr powdr for inhalation (Wixela Inhub) levothyroxine 25 mcg tablet 25 mcg PO DAILY #90 tabs 11/24/24 04/24/25 Rx (Synthroid) sotatercept-csrk 45 mg 45 mg subcut .[id number] 11/24/24 04/24/25 History subcutaneous kit (Winrevair) levothyroxine 50 mcg tablet 75 mcg .Route .COMPLEX 03/23/25 04/24/25 History ferrous sulfate 325 mg (65 mg 325 mg PO BID 04/01/25 04/24/25 History iron) tablet Allergies Allergy/AdvReac Type Severity Reaction Status Date / Time No Known Drug Allergies Allergy Unknown unknown Verified 04/24/25 11:47 Vital Signs Vital Signs - 24 hr 04/24/25 12:01 04/24/25 13:33 Temperature 97.9 F Pulse Rate 99 81 Respiratory Rate 16 16 Blood Pressure 114/61 103/68 Pulse Oximetry 95 97 Oxygen Delivery Nasal Cannula Oxygen Flow Rate 2 Exam Narrative: General: well appearing, appears stated age. HEENT: normocephalic, atraumatic. Mucous membranes moist. EOMI, PERRLA, bilateral sclera anicteric, no conjunctival injection. Neck supple without JVD, lymphadenopathy, or bruit. Respiratory: clear to ascultation bilaterally. No rales/rhonic/wheezes. Cardiovascular: Regular rate and rhythm, normal S1-S2 upon ascultation. No murmurs, rubs, or clicks. PMI is nondisplaced, capillary refill less than 3 second. Abdomen: Soft, round, no pulsatile masses, nondistended and nontender. No rebound, no guarding. No CVA tenderness, no hepatosplenomegaly. Bowel sounds present to all four quadrants. No high pitch or tinkling sounds, resonant to percussion. Extremities: No cyanosis, clubbing, Pulses are palpable 2/2. Active ROM to all four extremities. Three to 4+ lind edema Neuro: Alert and orientated x 4. PERRLA. Cranial nerves 2-12 intact without focal deficit. Skin: Warm, dry, and intact, without rash, erythema, or lesion. Psych: pleasant, cooperative, normal speech, normal affect, no hallucinations, no dysarthia H&P: Results Labs Labs: Short CBC 04/24/25 Range/Units 13:46 WBC 5.9 (4.5-10.0) K/mm3 Hgb 6.1 L* D (12.0-15.0) g/dL Hct 22.1 L (37.0-47.0) % Plt Count 176 (150-375) k/mm3 BMP 04/24/25 13:46 Sodium 133 L Potassium 2.8 L* Chloride 98 Carbon Dioxide 27 BUN 31 H D Creatinine 0.96 Glucose 93 Calcium 8.9 Liver Function 04/24/25 Range/Units 13:46 Total Bilirubin < 0.1 L (0.2-1.3) mg/dL AST 21 (14-36) U/L ALT 9 (6-35) U/L Alkaline Phosphatase 44 (38-126) U/L Albumin 3.6 (3.5-5.1) g/dL Assessment and Plan Assessment and plan (1) Iron deficiency anemia: Code(s): D50.9 - Iron deficiency anemia, unspecified Status: Acute Assessment and Plan: Hemoglobin on admission 6.1 Trans use 2 units RBCs H&H q.6 Transfuse for hemoglobin less than 7 Monitor for fluid overload (2) Acute hypokalemia: Code(s): E87.6 - Hypokalemia Status: Acute Assessment and Plan: 2.8 admission 40 IV and 20 p.o. given in emergency room Repeat potassium level 3.3 Forty mEq of IV BMP in the morning (3) CHF (congestive heart failure): Qualifiers: Heart failure chronicity: acute on chronic Heart failure type: right- sided Qualified Code(s): I50.813 - Acute on chronic right heart failure Code(s): I50.9 - Heart failure, unspecified Status: Acute Assessment and Plan: IV Lasix is b.i.d. (4) Pulmonary hypertension: Code(s): I27.20 - Pulmonary hypertension, unspecified Status: Acute Assessment and Plan: Continue home medication (5) Hypothyroidism, unspecified: Qualifiers: Hypothyroidism type: unspecified Qualified Code(s): E03.9 - Hypothyro idism, unspecified Code(s): E03.9 - Hypothyroidism, unspecified Status: Chronic Assessment and Plan: Continue Synthroid Quality VTE Prophylaxis VTE prophylaxis: mechanical ordered If No VTE Prophylaxis Answer both mechanical and pharmacologic: Reason no pharmacologic proph: medical contraindication Hospitalist MIPS Advance Care Plan I have confirmed that the patient's Advanced Care Plan is present, code status is documented, or surrogate decision maker is listed in patient medical record.: Yes Medication Reconciliation I have utilized all available resources to obtain, update and review the patients current medications (includes all prescriptions, OTC, herbals, cannabis, and nutritional supplements).: Yes
--- NOTE | 2025-04-24 15:34 | PC.NURSE ---
multiple attempts to start IV without success
[2025-04-24] MEDS: TUBING, BLOOD PLUM PUMP TUBING 1 EACH XX ×2 (15:35→19:04)
--- NOTE | 2025-04-24 15:51 | PC.NURSE ---
Patient unable to get potassium tablets down despite being broken in half and given with applesauce and water. Spoke with Dr Rivera about changes to liquid form
--- NOTE | 2025-04-24 15:57 | PC.NURSE ---
esthetician/spa coordinator called as requested by patient and advocate
[2025-04-24] MEDS: POTASSIUM CHLORIDE 20 MEQ PACKET (FOR LIQUID) 40 MEQ PO (16:16)
[2025-04-24] MEDS: SODIUM CHLORIDE 0.9% IV 250 ML 30 ML IV CONT (16:18)
--- NOTE | 2025-04-24 17:17 | PC.NURSE ---
[employer] operations specialist spoke at great length with patient patient and family
--- NOTE | 2025-04-24 18:53 | ADMGEN ---
This patient, Christine Ellis, was admitted to 3 Med Surg Room 317-02. Patient/family oriented to hospital policies and general routines including ID bracelet, bed and alarms, visiting hours, pain management, procedures, bathroom and other care routines, personal items, smoking policy, room service/diet, and visiting hours. Information on how to activate the Rapid Response Team has been discussed. Patient/Family are encouraged to report perceived risks to care and to ask questions if they do not understand what they are told or what they should do. received report from susan.
[2025-04-24] MEDS: SODIUM CHLORIDE 0.9% IV 250 ML 30 ML (19:05)
[2025-04-24 19:20] LABS: Hematocrit 26.9 % (37.0-47.0); Hemoglobin 7.7 g/dL (12.0-15.0)
[2025-04-24 19:29] LABS: Potassium 3.3 mmol/L (3.4-5.0)
[2025-04-24 19:32] LABS: Iron 27 ug/dL (37-170)
[2025-04-24 19:41] LABS: Percent Iron Saturation 7 % (20-50)
[2025-04-24] MEDS: IRON SUCROSE COMPLEX 200 MG, IRON SUCROSE COMPLEX 100 MG in SODIUM CHLORIDE 0.9% IV 250 ML 176.67 MG IVPB (22:26)
--- NOTE | 2025-04-24 22:37 | PHAR ---
VERIFIED (Selexipag [Uptravi] 1,600 mcg Tablet) TAKE 1 TABLET BY MOUTH TWICE DAILY. & (Tadalafil 20 mg Tablet) TAKE 2 TABLETS BY MOUTH ONCE DAILY in pharmacy and sent to 3 [facility] for inpatient use.
[2025-04-25] VITALS (8 sets, daily range): BP systolic 100–143; BP diastolic 46–77; PULSE 65–77; RESP 17–20; TEMP 36.3–36.9; O2SAT 93–100
[2025-04-25] MEDS: POTASSIUM CHLORIDE INJ 40 MEQ in SODIUM CHLORIDE 0.9% IV 500 ML 130 MEQ IVPB (00:27)
[2025-04-25 01:07] LABS: Hematocrit 31.5 % (37.0-47.0); Hemoglobin 9.3 g/dL (12.0-15.0)
[2025-04-25 01:19] LABS: IFOB Positive Control Positive; Immunochemical Fecal Occult Bl Positive (N)
[2025-04-25] MEDS: LEVOTHYROXINE SODIUM 75 MCG TABLET BY MOUTH (05:36)
[2025-04-25 06:41] LABS: Hematocrit 27.5 % (37.0-47.0); Hemoglobin 8.2 g/dL (12.0-15.0); Immature Granulocyte Percent A 2.9 % (0-0.5); Lymphocytes Absolute Auto 0.52 K/mm3 (0.9-3.2); Mean Corpuscular HGB Conc 29.8 g/dl (32-36); Mean Corpuscular Hemoglobin 28.8 pg (26-34); Mean Corpuscular Volume 96.5 fl (80-100); Nucleated Red Blood Cells Absolute Auto 0.050 K/mm3 (0.0-0.012); Nucleated Red Blood Cells Perc 0.9 % (0.0-0.2); Platelet Count Result 141 k/mm3 (150-375); Red Blood Count 2.85 M/mm3 (4.2-5.4); White Blood Count 5.8 K/mm3 (4.5-10.0)
[2025-04-25 07:01] LABS: Anion Gap 6 mmol/L (4-12); Blood Urea Nitrogen 26 mg/dL (7-17); Calcium 8.5 mg/dL (8.4-10.2); Carbon Dioxide 25 mmol/L (22-30); Chloride 104 mmol/L (98-107); Estimated CRCL calculation 39 ml/min; Estimated Glomerular Filt Rate > 60; Glucose 79 mg/dL (65-110); Potassium 3.6 mmol/L (3.4-5.0); Sodium 135 mmol/L (137-145)
[2025-04-25 07:49] LABS: Polychromasia 1+
[2025-04-25 07:50] LABS: Anisocytosis 2+; Hypochromasia 2+
[2025-04-25 07:52] LABS: Schistocytes Rare
[2025-04-25] MEDS: HYDROXYCHLOROQUINE SULFATE 200 MG TABLET PO (08:47)
[2025-04-25] MEDS: FUROSEMIDE INJ 40 MG/4 ML VIAL IV PUSH ×2 (08:47→17:22)
[2025-04-25] MEDS: PANTOPRAZOLE 40 MG TABLET PO (08:47)
[2025-04-25] MEDS: ASPIRIN 81 MG ENTERIC TABLET PO (08:47)
[2025-04-25] MEDS: POTASSIUM CHLORIDE 20 MEQ ER TABLET PO (08:47)
[2025-04-25] MEDS: TADALAFIL 20 MG 40 EACH PO (08:48)
[2025-04-25] MEDS: SELEXIPAG 1600 MCG 1600 EACH PO ×2 (08:48→17:22)
[2025-04-25] MEDS: IRON SUCROSE COMPLEX 200 MG, IRON SUCROSE COMPLEX 100 MG in SODIUM CHLORIDE 0.9% IV 250 ML 176.67 MG IVPB (09:19)
[2025-04-25] MEDS: FERROUS SULFATE 325 MG TABLET DR BY MOUTH ×2 (11:55→17:21)
[2025-04-25] MEDS: LOPERAMIDE HCL 2 MG CAPSULE PO (11:55)
--- NOTE | 2025-04-25 13:39 | P.PNIM_ITS ---
Progress Note: A&P Assessment and Plan (1) Iron deficiency anemia: Code(s): D50.9 - Iron deficiency anemia, unspecified Status: Acute Assessment and Plan: Hemoglobin on admission 6.1 Trans use 2 units RBCs H&H q.6 Transfuse for hemoglobin less than 7 Monitor for fluid overload 04/25/25: * Hgb this AM is increased to 8.2. * Occult blood positive. * No further transfusion is needed at this claire. * Continue Iron supplementation. * Consult GI. (2) Acute hypokalemia: Code(s): E87.6 - Hypokalemia Status: Resolved Assessment and Plan: 2.8 admission 40 IV and 20 p.o. given in emergency room Repeat potassium level 3.3 Forty mEq of IV BMP in the morning 04/25/25: * Resolved with Potassium this AM of 3.6. (3) CHF (congestive heart failure): Qualifiers: Heart failure chronicity: acute on chronic Heart failure type: right- sided Qualified Code(s): I50.813 - Acute on chronic right heart failure Code(s): I50.9 - Heart failure, unspecified Status: Chronic Assessment and Plan: IV Lasix is b.i.d. 04/25/25: * Continue IV Lasix. * Monitor and trend renal function. * Appears euvolemic (4) Pulmonary hypertension: Code(s): I27.20 - Pulmonary hypertension, unspecified Status: Chronic Assessment and Plan: Continue home medication (5) Hypothyroidism, unspecified: Qualifiers: Hypothyroidism type: unspecified Qualified Code(s): E03.9 - Hypothyroidism, unspecified Code(s): E03.9 - Hypothyroidism, unspecified Status: Chronic Assessment and Plan: Continue Synthroid Time Spent With Patient Time with patient: 15 - 25 minutes Subjective Date/time seen: 04/25/25 13:39 Interval history: This 79 year old female pt is examined today at the bedside after being admitted for weakness, diarrhea and acute anemia with Hgb of 6.1. She received 2 units PRBC's and was started on Iron supplementation and admitted. She also had Potassium of 2.8 that was corrected. Her weakness is improved but she continues to complain of diarrhea and reportedly has a rectal prolapse. Hgb this AM is 8.2. GI consult is placed. No other new complaints or symptoms to report today. She has positive occult blood in the stool. Her last colonoscopy was approximately 5 years ago and she states other than polyps was unremarkable. Review of Systems Review of Systems: All systems reviewed & are unremarkable except as noted in HPI and below Exam Narrative: General: well appearing, appears stated age. HEENT: normocephalic, atraumatic. Mucous membranes moist. EOMI, PERRLA, bilateral sclera anicteric, no conjunctival injection. Neck supple without JVD, lymphadenopathy, or bruit. Respiratory: clear to ascultation bilaterally. No rales/rhonic/wheezes. Cardiovascular: Regular rate and rhythm, normal S1-S2 upon ascultation. No murmurs, rubs, or clicks. PMI is nondisplaced, capillary refill less than 3 second. Abdomen: Soft, round, no pulsatile masses, nondistended and nontender. No rebound, no guarding. No CVA tenderness, no hepatosplenomegaly. Bowel sounds present to all four quadrants. No high pitch or tinkling sounds, resonant to percussion. Extremities: No cyanosis, clubbing, Pulses are palpable 2/2. Active ROM to all four extremities. Three to 4+ lind edema Neuro: Alert and orientated x 4. PERRLA. Cranial nerves 2-12 intact without focal deficit. Skin: Warm, dry, and intact, without rash, erythema, or lesion. Psych: pleasant, cooperative, normal speech, normal affect, no hallucinations, no dysarthia Objective Data Vital Signs Vital Signs: Vital Signs - 24 hr 04/24/25 16:24 04/24/25 16:42 04/24/25 17:30 Temperature 97.6 F 97.7 F 97.7 F Pulse Rate 73 77 70 Respiratory Rate 19 19 18 Blood Pressure 96/53 L 105/60 111/59 L Pulse Oximetry 92 94 Oxygen Delivery Oxygen Flow Rate 04/24/25 18:34 04/24/25 18:47 04/24/25 18:54 Temperature 97.6 F 97.7 F Pulse Rate 74 72 Respiratory Rate 60 H 20 Blood Pressure 110/50 L 106/56 L Pulse Oximetry 94 96 97 Oxygen Delivery Nasal Cannula Oxygen Flow Rate 1 04/24/25 19:54 04/24/25 20:00 04/24/25 20:00 Temperature 97.2 F L 97.2 F L Pulse Rate 76 76 Respiratory Rate 16 16 Blood Pressure 101/44 L 101/44 L Pulse Oximetry 90 90 97 Oxygen Delivery Nasal Cannula Oxygen Flow Rate 1 04/24/25 20:00 04/24/25 22:00 04/24/25 22:20 Temperature 97.7 F Pulse Rate 81 71 Respiratory Rate 70 H Blood Pressure 81/39 L Pulse Oximetry 96 97 Oxygen Delivery Nasal Cannula Oxygen Flow Rate 1 04/24/25 23:06 04/25/25 00:00 04/25/25 04:00 Temperature 97.7 F Pulse Rate 70 70 73 Respiratory Rate 20 Blood Pressure 155/56 H Pulse Oximetry 97 Oxygen Delivery Oxygen Flow Rate 04/25/25 04:00 04/25/25 08:00 04/25/25 09:00 Temperature 97.5 F L 97.3 F L Pulse Rate 65 71 Respiratory Rate 20 18 Blood Pressure 143/77 H 109/58 L Pulse Oximetry 100 93 93 Oxygen Delivery Nasal Cannula Oxygen Flow Rate 2 Intake/Output Intake/Output: Intake & Output 04/22/25 04/23/25 04/24/25 04/25/25 23:59 23:59 23:59 23:59 Intake Total 800 120 Balance 800 120 Meds/Results Medications: Active Medications Generic Name Dose Route Start Last Admin Trade Name Freq PRN Reason Stop Dose Admin Acetaminophen 650 mg 04/24/25 14:56 Acetaminophen 325 Mg Tablet PO Q4H PRN Mild Pain (1-3) or Fever Aspirin 81 mg 04/25/25 09:00 04/25/25 08:47 Aspirin 81 Mg Enteric Tablet PO 81 mg DAILY GUSTAVO Administration Docusate Sodium 100 mg 04/24/25 14:56 Docusate Sodium 100 Mg Capsule PO BID PRN Constipation Ferrous Sulfate 325 mg 04/25/25 12:00 04/25/25 11:55 Ferrous Sulfate [address] BY MOUTH 325 mg 1200,1700 GUSTAVO Administration Fluticasone Propionate 2 spray 04/24/25 18:54 Fluticasone Propionate 0.05% Na Spr 16 Gm Btl (*Bkc) NASAL DAILY PRN nasal congestion Furosemide 40 mg 04/25/25 09:00 Furosemide 40 Mg Tablet PO BID GUSTAVO Furosemide 40 mg 04/25/25 09:00 04/25/25 08:47 Furosemide Inj 40 Mg/4 Ml Vial IV PUSH 40 mg BID GUSTAVO Administration Hydroxychloroquine Sulfate 200 mg 04/25/25 09:00 04/25/25 08:47 Hydroxychloroquine Sulfate 200 Mg Tablet PO 200 mg QAM GUSTAVO Administration Levothyroxine Sodium 75 mcg 04/25/25 06:30 04/25/25 05:36 Levothyroxine Sodium 75 Mcg Tablet BY MOUTH 75 mcg DAILY@0630 GUSTAVO Administration Loperamide HCl 2 mg 04/25/25 11:00 04/25/25 11:55 Loperamide Hcl 2 Mg Capsule PO 2 mg PRN PRN Administration Diarrhea Mycophenolate Mofetil 500 mg 04/25/25 09:00 04/25/25 08:48 Mycophenolate Mofetil 250 Mg Capsule PO 500 mg Q12HR GUSTAVO Administration Home Med (Selexipag 1,600 mcg 04/25/25 09:00 04/25/25 08:48 [Uptravi] 1,600 Mcg PO 05/25/25 08:59 1,600 mcg Tablet) BID GUSTAVO Administration Home Med (Tadalafil 40 mg 04/25/25 09:00 04/25/25 08:48 20 Mg Tablet) PO 05/25/25 08:59 40 mg DAILY GUSTAVO Administration Non-Formulary Medication 10 mg 04/25/25 09:00 Macitentan [Opsumit] PO 05/25/25 08:59 DAILY [facility] Ondansetron HCl 4 mg 04/24/25 14:51 Ondansetron Inj 4 Mg/2 Ml Vial IV PUSH Q4H PRN Nausea Pantoprazole Sodium 40 mg 04/25/25 09:00 04/25/25 08:47 Pantoprazole 40 Mg Tablet PO 40 mg QAM GUSTAVO Administration Potassium Chloride 20 meq 04/25/25 08:00 04/25/25 08:47 Potassium Chloride 20 Meq Er Tablet PO 20 meq DAILY@0800 [facility] Administration Labs Labs: Laboratory Results - last 24 hr 04/24/25 04/24/25 04/25/25 13:46 18:07 00:45 WBC 5.9 RBC 2.13 L Hgb 6.1 L* D 7.7 L Hct 22.1 L 26.9 L MCV 103.8 H MCH 28.6 MCHC 27.6 L RDW 18.8 H Plt Count 176 MPV 10.1 Immature Gran % (Auto) 4.6 H Neut % (Auto) 79.5 H Lymph % (Auto) 7.6 L [place] % (Auto) 7.1 Eos % (Auto) 0.5 Baso % (Auto) 0.7 Lymph # (Auto) 0.45 L [place] # (Auto) 0.4 Eos # (Auto) 0.0 Baso # (Auto) 0.0 Abs Immat Gran (auto) 0.27 H Absolute Neuts (auto) 4.7 Absolute Nucleated RBC 0.030 H Band Neutrophils % Not Reportable Nucleated RBC % 0.5 H Platelet Estimate Adequate Polychromasia 1+ Hypochromasia 1+ Anisocytosis Macrocytosis 1+ Target Cells 1+ Schistocytes None seen PT 14.2 INR 1.1 APTT 29.4 Sodium 133 L Potassium 2.8 L* 3.3 L Chloride 98 Carbon Dioxide 27 Anion Gap 8 BUN 31 H D Creatinine 0.96 Estim Creat Clear Calc 34 Estimated GFR 56 L Glucose 93 Calcium 8.9 Iron 27 L TIBC 393 % Saturation 7 L Total Bilirubin < 0.1 L AST 21 ALT 9 Alkaline Phosphatase 44 Total Protein 5.6 L Albumin 3.6 Stl Occult Blood (IFOB) Positive H Blood Type A Positive Antibody Screen Negative Crossmatch See Detail 04/25/25 04/25/25 00:48 06:10 WBC 5.8 RBC 2.85 L Hgb 9.3 L 8.2 L Hct 31.5 L 27.5 L MCV 96.5 D MCH 28.8 MCHC 29.8 L RDW 22.0 H Plt Count 141 L MPV 10.1 Immature Gran % (Auto) 2.9 H Neut % (Auto) 76.2 H Lymph % (Auto) 8.9 L [place] % (Auto) 9.6 H Eos % (Auto) 1.5 Baso % (Auto) 0.9 Lymph # (Auto) 0.52 L [place] # (Auto) 0.6 Eos # (Auto) 0.1 Baso # (Auto) 0.1 Abs Immat Gran (auto) 0.17 H Absolute Neuts (auto) 4.5 Absolute Nucleated RBC 0.050 H Band Neutrophils % Not Reportable Nucleated RBC % 0.9 H Platelet Estimate Slightly decreased Polychromasia 1+ Hypochromasia 2+ Anisocytosis 2+ Macrocytosis Target Cells Schistocytes Rare PT INR APTT Sodium 135 L Potassium 3.6 Chloride 104 Carbon Dioxide 25 Anion Gap 6 BUN 26 H Creatinine 0.83 Estim Creat Clear Calc 39 Estimated GFR > 60 Glucose 79 Calcium 8.5 Iron TIBC % Saturation Total Bilirubin AST ALT Alkaline Phosphatase Total Protein Albumin Stl Occult Blood (IFOB) Blood Type Antibody Screen Crossmatch Quality VTE Prophylaxis VTE prophylaxis: mechanical ordered
--- NOTE | 2025-04-25 14:28 | P.CONGI_ITS ---
Assessment and Plan Assessment and plan (1) Anemia: Code(s): D64.9 - Anemia, unspecified Status: Acute (2) Iron deficiency: Code(s): E61.1 - Iron deficiency Status: Acute (3) Dark stools: Code(s): R19.5 - Other fecal abnormalities Status: Acute Plan We had a detailed discussion patient's friend who is at the bedside as well as the patient has several concerns. I did discuss with her about different possibilities of anemia especially iron deficiency anemia with dark and black stool off and on. Patient currently is not on any blood thinners. We had a detailed discussion and then patient's staff members were also brought so they can understand the patient's concerns especially the patient and her friend who is at the bedside. It appears that patient wants to see the doctors she has seen before in the past including her flag signalman and her studio couch frame builder. And she does not want to do any procedures and is very skeptical about any medications here to according to her she does not want to do anything done which is not needed and if it is not emergent she does not want to do any procedures either. I did discuss with her I advised the patient at this point will keep her on the PPI once a day patient already got IV iron will recheck H&H every 8hours to keep an eye on it. I advised the patient that because of her pulmonary hypertension and oxygen dependence for any procedure which will be needing a pulmonary clearance. Patient does not want any pulmonary consult at this point we will reassess the patient tomorrow as according to them they will contact their flag signalman in [place] as well as GI physician to get the procedures done outpatient unless it is emergently needed here At this point patient appears to be stable overall have multiple medical issues. Will reassess the patient tomorrow I also recommended that patient needs to see outpatient optomechanical technician for IV iron therapy are keeping an eye on the blood tests for anemia Full liquid diet Close monitoring of the patient's Seal H&H monitoring Thanks for the consult GI Consult Note Consult date/time: 04/25/25 14:28 Reason for consult: Anemia Dark stool Pulmonary hypertension CHF oxygen dependent Heme-positive stool History of breast cancer HPI: Christine Ellis is a 79 year old female got admitted to the hospital with anemia hemoglobin of 6.3 which was found on the routine blood testing patient did get 2units of blood and hemoglobin is 8.2. Patient has been complaining of dark and black stool off and on according to her she has been taking iron supplement initially she was on 1 pill a day and then the fundal was increased to twice a day. Patient denies any abdominal pain nausea vomiting according to her she has primary pulmonary hypertension and sees a flag signalman in [place] also according to her she has a GI doctor Rosita in [place] which she follows her regularly according to the last scopes she had was around 4 years ago and was told not to come back for repeat colonoscopies as the risk is more. Patient is not sure if she was anemic at that time. Records were reviewed with the patient patient soak also completed with her friend at the bedside. Patient is very reluctant to do any procedures or the medications here at [facility]. According to her she wants to follow-up with her own doctors including the flag signalman as well as the GI doctor. Which she has been seeing them for years Review of Systems 2 Review of Systems: All systems reviewed & are unremarkable except as noted in HPI and below Constitutional: Constitutional: Denies chills, Denies fatigue, Denies fever(s), Denies headache(s), Denies malaise, Denies weight gain and Denies weight loss Eyes: Eyes: Denies change in vision ENT: Denies dizziness, Denies headache(s) and Reports other (No change in hearing) Cardiovascular: Cardiovascular: Denies chest pain, Denies dyspnea and Reports other (denies palpitations, denies orthopnea) Respiratory: Respiratory: Denies cough, Denies dyspnea and Reports other (denies sputum production, denies hemoptysis) Gastrointestinal: Gastrointestinal: Reports as per HPI Genitourinary: Genitourinary: Denies hematuria, Denies dysuria and Denies urinary incontinence Musculoskeletal: Musculoskeletal: Reports other (denies extremity edema, denies myalgia) Integumentary/Breasts: Skin/Breast: Denies new lesions and Denies rash Neurologic: Denies dizziness, Denies headache(s) and Denies seizure-like activity Endocrine: Endocrine: Denies fatigue Hematologic/Lymphatic: Hematologic/Lymphatic: Denies easy bleeding and Denies easy bruising PMFSH Past Medical History Medical History Gastrointestinal dysmotility Fecal incontinence Rectal bleeding Rectal prolapse Irritable bowel syndrome with diarrhea Hepatitis C antibody test negative (08/26/17) Chronic respiratory failure with hypoxia Pulmonary hypertension History of breast cancer Status post chemotherapy and mastectomy. Anxiety GERD (gastroesophageal reflux disease) Hypothyroidism Hypertension CREST syndrome Osteopenia Other spondylosis, cervical region Surgical History Surgical History Cataract extraction status (11/05/18) History of appendectomy (1953) H/O: hysterectomy (1997) H/O bilateral mastectomy (08/31/00) Family History Family History Father Diabetes mellitus Family history of Alzheimer's disease Mother Diabetes mellitus Family history of chronic obstructive pulmonary disease Family history of cardiomyopathy Grandparent Family history of malignant neoplasm of breast Social History Social History Social History: The patient lives in [place] with her . He is in poor health and she has to help take care of him. She designates her as her surrogate decision maker and she wishes to be a full code. She is a lifelong nonsmoker and denies alcohol and drug abuse. 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 Gender identity (if verbalized by the patient): Female Spiritual care concerns: No Agree to blood products: Yes Meds Home Medications and Allergies Home Medications ?Medication ?Instructions ?Recorded ?Confirmed ?Type calcium carbonate (Calcium 500) 500 mg PO BID 09/05/19 04/24/25 History omeprazole 20 mg capsule,delayed 20 mg PO DAILY 09/05/19 04/24/25 History release cholecalciferol (vitamin D3) 50 1,000 unit PO DAILY 10/22/19 04/24/25 History mcg (2,000 unit) tablet (Vitamin D3) tadalafil 20 mg tablet 40 mg PO DAILY 10/22/19 04/24/25 History furosemide 40 mg tablet 40 mg PO BID 12/10/20 04/24/25 History hydroxychloroquine 200 mg tablet 200 mg PO QAM 12/10/20 04/24/25 History multivitamin 1 tablet PO DAILY 12/10/20 04/24/25 History mycophenolate mofetil 500 mg tablet 500 mg PO Q12H 12/10/20 04/24/25 History selexipag 1,600 mcg tablet 1,600 mcg PO BID 12/10/20 04/24/25 History (Uptravi) macitentan 10 mg tablet (Opsumit) 10 mg PO DAILY 05/15/22 04/24/25 History aspirin 81 mg tablet,delayed 81 mg PO DAILY 03/19/23 04/24/25 History release fluticasone propionate 50 2 spray intranasal DAILY PRN nasal 03/19/23 04/24/25 History mcg/actuation nasal congestion spray,suspension metolazone 2.5 mg tablet 2.5 mg PO DAILY 07/19/23 04/24/25 History fluticasone 250 mcg-salmeterol 50 1 inh inhalation BID 11/24/24 04/08/25 History mcg/dose blistr powdr for inhalation (Wixela Inhub) levothyroxine 25 mcg tablet 25 mcg PO DAILY #90 tabs 11/24/24 04/24/25 Rx (Synthroid) sotatercept-csrk 45 mg 45 mg subcut .[id number] 11/24/24 04/24/25 History subcutaneous kit (Winrevair) levothyroxine 50 mcg tablet 75 mcg .Route .COMPLEX 03/23/25 04/24/25 History ferrous sulfate 325 mg (65 mg 325 mg PO BID 04/01/25 04/24/25 History iron) tablet Allergies Allergy/AdvReac Type Severity Reaction Status Date / Time No Known Drug Allergies Allergy Unknown unknown Verified 04/24/25 11:47 Vital Signs Vital Signs - 24 hr 04/24/25 16:24 04/24/25 16:42 04/24/25 17:30 Temperature 97.6 F 97.7 F 97.7 F Pulse Rate 73 77 70 Respiratory Rate 19 19 18 Blood Pressure 96/53 L 105/60 111/59 L Pulse Oximetry 92 94 Oxygen Delivery Oxygen Flow Rate 04/24/25 18:34 04/24/25 18:47 04/24/25 18:54 Temperature 97.6 F 97.7 F Pulse Rate 74 72 Respiratory Rate 60 H 20 Blood Pressure 110/50 L 106/56 L Pulse Oximetry 94 96 97 Oxygen Delivery Nasal Cannula Oxygen Flow Rate 1 04/24/25 19:54 04/24/25 20:00 04/24/25 20:00 Temperature 97.2 F L 97.2 F L Pulse Rate 76 76 Respiratory Rate 16 16 Blood Pressure 101/44 L 101/44 L Pulse Oximetry 90 90 97 Oxygen Delivery Nasal Cannula Oxygen Flow Rate 1 04/24/25 20:00 04/24/25 22:00 04/24/25 22:20 Temperature 97.7 F Pulse Rate 81 71 Respiratory Rate 70 H Blood Pressure 81/39 L Pulse Oximetry 96 97 Oxygen Delivery Nasal Cannula Oxygen Flow Rate 1 04/24/25 23:06 04/25/25 00:00 04/25/25 04:00 Temperature 97.7 F Pulse Rate 70 70 73 Respiratory Rate 20 Blood Pressure 155/56 H Pulse Oximetry 97 Oxygen Delivery Oxygen Flow Rate 04/25/25 04:00 04/25/25 08:00 04/25/25 09:00 Temperature 97.5 F L 97.3 F L Pulse Rate 65 71 Respiratory Rate 20 18 Blood Pressure 143/77 H 109/58 L Pulse Oximetry 100 93 93 Oxygen Delivery Nasal Cannula Oxygen Flow Rate 2 Exam 2 Const: General: cooperative; No acute distress Orientation/consciousness: p atient oriented x3 HENMT: Head: normal to inspection Neck: Neck: supple Resp: Auscultation: clear to auscultation bilaterally Cardio: Rate: regular rate Rhythm: regular rhythm Other: Systolic murmur GI: Inspection: non-distended GI Palp: Yes Soft to palpation, No Tenderness to palpation present (GI) and No Palpable mass present Auscultation: normal bowel sounds Rectal Exam: deferred Skin: General skin exam: no rashes or lesions noted Neuro: General: patient oriented x3 Extrem: General: no edema Results Labs 04/25/25 06:10 07/26/25 06:10 Labs: Short CBC 04/24/25 04/25/25 04/25/25 Range/Units 18:07 00:48 06:10 WBC 5.8 (4.5-10.0) K/mm3 Hgb 7.7 L 9.3 L 8.2 L (12.0-15.0) g/dL Hct 26.9 L 31.5 L 27.5 L (37.0-47.0) % Plt Count 141 L (150-375) k/mm3 BMP 04/24/25 04/24/25 04/25/25 13:46 18:07 06:10 Sodium 133 L 135 L Potassium 2.8 L* 3.3 L 3.6 Chloride 98 104 Carbon Dioxide 27 25 BUN 31 H D 26 H Creatinine 0.96 0.83 Glucose 93 79 Calcium 8.9 8.5 Liver Function 04/24/25 Range/Units 13:46 Total Bilirubin < 0.1 L (0.2-1.3) mg/dL AST 21 (14-36) U/L ALT 9 (6-35) U/L Alkaline Phosphatase 44 (38-126) U/L Albumin 3.6 (3.5-5.1) g/dL
--- NOTE | 2025-04-25 15:26 | P.CONGI_ITS ---
Assessment and Plan Assessment and plan (1) Anemia: Code(s): D64.9 - Anemia, unspecified Status: Acute (2) Dark stools: Code(s): R19.5 - Other fecal abnormalities Status: Acute Plan Please see the detailed consultation note GI Consult Note Consult date/time: 04/25/25 15:26 HPI: Christine Ellis is a 79 year old female [facility] Past Medical History Medical History Gastrointestinal dysmotility Fecal incontinence Rectal bleeding Rectal prolapse Irritable bowel syndrome with diarrhea Hepatitis C antibody test negative (08/26/17) Chronic respiratory failure with hypoxia Pulmonary hypertension History of breast cancer Status post chemotherapy and mastectomy. Anxiety GERD (gastroesophageal reflux disease) Hypothyroidism Hypertension CREST syndrome Osteopenia Other spondylosis, cervical region Surgical History Surgical History Cataract extraction status (11/05/18) History of appendectomy (1953) H/O: hysterectomy (1997) H/O bilateral mastectomy (08/31/00) Family History Family History Father Diabetes mellitus Family history of Alzheimer's disease Mother Diabetes mellitus Family history of chronic obstructive pulmonary disease Family history of cardiomyopathy Grandparent Family history of malignant neoplasm of breast Social History Social History Social History: The patient lives in [place] with her . He is in poor health and she has to help take care of him. She designates her as her surrogate decision maker and she wishes to be a full code. She is a lifelong nonsmoker and denies alcohol and drug abuse. 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 Gender identity (if verbalized by the patient): Female Spiritual care concerns: No Agree to blood products: Yes Meds Home Medications and Allergies Home Medications ?Medication ?Instructions ?Recorded ?Confirmed ?Type calcium carbonate (Calcium 500) 500 mg PO BID 09/05/19 04/24/25 History omeprazole 20 mg capsule,delayed 20 mg PO DAILY 09/05/19 04/24/25 History release cholecalciferol (vitamin D3) 50 1,000 unit PO DAILY 10/22/19 04/24/25 History mcg (2,000 unit) tablet (Vitamin D3) tadalafil 20 mg tablet 40 mg PO DAILY 10/22/19 04/24/25 History furosemide 40 mg tablet 40 mg PO BID 12/10/20 04/24/25 History hydroxychloroquine 200 mg tablet 200 mg PO QAM 12/10/20 04/24/25 History multivitamin 1 tablet PO DAILY 12/10/20 04/24/25 History mycophenolate mofetil 500 mg tablet 500 mg PO Q12H 12/10/20 04/24/25 History selexipag 1,600 mcg tablet 1,600 mcg PO BID 12/10/20 04/24/25 History (Uptravi) macitentan 10 mg tablet (Opsumit) 10 mg PO DAILY 05/15/22 04/24/25 History aspirin 81 mg tablet,delayed 81 mg PO DAILY 03/19/23 04/24/25 History release fluticasone propionate 50 2 spray intranasal DAILY PRN nasal 03/19/23 04/24/25 History mcg/actuation nasal congestion spray,suspension metolazone 2.5 mg tablet 2.5 mg PO DAILY 07/19/23 04/24/25 History fluticasone 250 mcg-salmeterol 50 1 inh inhalation BID 11/24/24 04/08/25 History mcg/dose blistr powdr for inhalation (Wixela Inhub) levothyroxine 25 mcg tablet 25 mcg PO DAILY #90 tabs 11/24/24 04/24/25 Rx (Synthroid) sotatercept-csrk 45 mg 45 mg subcut .[id number] 11/24/24 04/24/25 History subcutaneous kit (Winrevair) levothyroxine 50 mcg tablet 75 mcg .Route .COMPLEX 03/23/25 04/24/25 History ferrous sulfate 325 mg (65 mg 325 mg PO BID 04/01/25 04/24/25 History iron) tablet Allergies Allergy/AdvReac Type Severity Reaction Status Date / Time No Known Drug Allergies Allergy Unknown unknown Verified 04/24/25 11:47 Vital Signs Vital Signs - 24 hr 04/24/25 16:24 04/24/25 16:42 04/24/25 17:30 Temperature 97.6 F 97.7 F 97.7 F Pulse Rate 73 77 70 Respiratory Rate 19 19 18 Blood Pressure 96/53 L 105/60 111/59 L Pulse Oximetry 92 94 Oxygen Delivery Oxygen Flow Rate 04/24/25 18:34 04/24/25 18:47 04/24/25 18:54 Temperature 97.6 F 97.7 F Pulse Rate 74 72 Respiratory Rate 60 H 20 Blood Pressure 110/50 L 106/56 L Pulse Oximetry 94 96 97 Oxygen Delivery Nasal Cannula Oxygen Flow Rate 1 04/24/25 19:54 04/24/25 20:00 04/24/25 20:00 Temperature 97.2 F L 97.2 F L Pulse Rate 76 76 Respiratory Rate 16 16 Blood Pressure 101/44 L 101/44 L Pulse Oximetry 90 90 97 Oxygen Delivery Nasal Cannula Oxygen Flow Rate 1 04/24/25 20:00 04/24/25 22:00 04/24/25 22:20 Temperature 97.7 F Pulse Rate 81 71 Respiratory Rate 70 H Blood Pressure 81/39 L Pulse Oximetry 96 97 Oxygen Delivery Nasal Cannula Oxygen Flow Rate 1 04/24/25 23:06 04/25/25 00:00 04/25/25 04:00 Temperature 97.7 F Pulse Rate 70 70 73 Respiratory Rate 20 Blood Pressure 155/56 H Pulse Oximetry 97 Oxygen Delivery Oxygen Flow Rate 04/25/25 04:00 04/25/25 08:00 04/25/25 09:00 Temperature 97.5 F L 97.3 F L Pulse Rate 65 71 Respiratory Rate 20 18 Blood Pressure 143/77 H 109/58 L Pulse Oximetry 100 93 93 Oxygen Delivery Nasal Cannula Oxygen Flow Rate 2 Results Labs 04/25/25 06:10 04/25/25 06:10 Labs: Short CBC 04/24/25 04/25/25 04/25/25 Range/Units 18:07 00:48 06:10 WBC 5.8 (4.5-10.0) K/mm3 Hgb 7.7 L 9.3 L 8.2 L (12.0-15.0) g/dL Hct 26.9 L 31.5 L 27.5 L (37.0-47.0) % Plt Count 141 L (150-375) k/mm3 BMP 04/24/25 04/25/25 18:07 06:10 Sodium 135 L Potassium 3.3 L 3.6 Chloride 104 Carbon Dioxide 25 BUN 26 H Creatinine 0.83 Glucose 79 Calcium 8.5
[2025-04-25 18:06] LABS: Hematocrit 33.4 % (37.0-47.0); Hemoglobin 9.9 g/dL (12.0-15.0)
[2025-04-26] VITALS (8 sets, daily range): BP systolic 98–119; BP diastolic 43–55; PULSE 66–87; RESP 14–18; TEMP 36.3–36.9; O2SAT 92–100
[2025-04-26 02:30] LABS: Hematocrit 28.2 % (37.0-47.0); Hemoglobin 8.5 g/dL (12.0-15.0)
[2025-04-26] MEDS: LEVOTHYROXINE SODIUM 75 MCG TABLET BY MOUTH (06:06)
--- NOTE | 2025-04-26 07:50 | P.PNIM_ITS ---
Progress Note: A&P Assessment and Plan (1) Iron deficiency anemia: Code(s): D50.9 - Iron deficiency anemia, unspecified Status: Acute Assessment and Plan: Hemoglobin on admission 6.1 Transfused use 2 units RBCs --Transfuse for hemoglobin less than 7 --Monitor for fluid overload --CBC daily --GI consulted, appreciate recommendations. Planning outpatient follow up --Stopped iron per GI Recs (2) Acute hypokalemia: Code(s): E87.6 - Hypokalemia Status: Resolved Assessment and Plan: 2.8 admission 40 IV and 20 p.o. given in emergency room Repeat potassium level 3.3 s/pForty mEq of IV BMP in the morning Started a PPI, continue for discharge (3) CHF (congestive heart failure): Qualifiers: Heart failure chronicity: acute on chronic Heart failure type: right- sided Qualified Code(s): I50.813 - Acute on chronic right heart failure Code(s): I50.9 - Heart failure, unspecified Status: Chronic Assessment and Plan: IV Lasix is b.i.d. --BMP in AM (4) Pulmonary hypertension: Code(s): I27.20 - Pulmonary hypertension, unspecified Status: Chronic Assessment and Plan: Continue home medication (5) Hypothyroidism, unspecified: Qualifiers: Hypothyroidism type: unspecified Qualified Code(s): E03.9 - Hypothyroidism, unspecified Code(s): E03.9 - Hypothyroidism, unspecified Status: Chronic Assessment and Plan: Continue Synthroid Time Spent With Patient Time: 53 minutes Subjective Date/time seen: 04/26/25 07:50 Interval history: On 2L O2. BP 99/53 Na 135, K+3.6 Home 2L O2, currently on 2L. Swelling improved from baseline. Hgb stable Having loose stools, close to baseline. Review of Systems Review of Systems: 12 systems were reviewed and are negativ e except for as per HPI. All systems reviewed & are unremarkable except as noted in HPI and below Exam Narrative: General - Awake and alert. No acute distress, on 2L O2 Eyes - PERRLA, EOM intact ENT - No thrush, No erythema Neck - No noticeable or palpable swelling Lymph Nodes - No lymphadenopathy Cardiovascular - RRR no m/r/g, no JVD Lungs: Clear to auscultation, No wheezing, use of accessory muscles, no crackles Skin - Skin warm and dry, no wounds or rashes Abdomen - Normal bowel sounds, abdomen soft and nontender Extremities - LE edema improved, no cyanosis or clubbing Musculoskeletal - 3/5 strength, normal range of motion, no swollen or regla thematous joints. Neurological ? Alert and oriented x 3, CN 2-12 grossly intact. Psych: Normal mood and affect Objective Data Vital Signs Vital Signs: Vital Signs - 24 hr 04/25/25 08:00 04/25/25 09:00 04/25/25 09:11 Temperature 97.3 F L Pulse Rate 71 70 Respiratory Rate 18 Blood Pressure 109/58 L Pulse Oximetry 93 93 Oxygen Delivery Nasal Cannula Oxygen Flow Rate 2 04/25/25 12:00 04/25/25 12:00 04/25/25 16:00 Temperature 97.6 F 98.4 F Pulse Rate 75 68 77 Respiratory Rate 18 18 Blood Pressure 100/46 L 100/56 L Pulse Oximetry 93 99 Oxygen Delivery Oxygen Flow Rate 04/25/25 16:00 04/25/25 20:00 04/25/25 20:00 Temperature 98.5 F Pulse Rate 72 76 Respiratory Rate 17 Blood Pressure 111/59 L Pulse Oximetry 99 99 Oxygen Delivery Nasal Cannula Oxygen Flow Rate 2 04/25/25 20:00 04/26/25 00:00 04/26/25 00:00 Temperature 98.1 F Pulse Rate 75 67 66 Respiratory Rate 14 Blood Pressure 100/54 L Pulse Oximetry 96 Oxygen Delivery Oxygen Flow Rate 04/26/25 04:00 04/26/25 04:00 Temperature 98.5 F Pulse Rate 80 75 Respiratory Rate 15 Blood Pressure 101/43 L Pulse Oximetry 94 Oxygen Delivery Oxygen Flow Rate Intake/Output Intake/Output: Intake & Output 04/23/25 04/24/25 04/25/25 04/26/25 23:59 23:59 23:59 23:59 Intake Total 800 480 400 Balance 800 480 400 Meds/Results Medications: Active Medications Generic Name Dose Route Start Last Admin Trade Name Freq PRN Reason Stop Dose Admin Acetaminophen 650 mg 04/24/25 14:56 Acetaminophen 325 Mg Tablet PO Q4H PRN Mild Pain (1-3) or Fever Aspirin 81 mg 04/25/25 09:00 04/25/25 08:47 Aspirin 81 Mg Enteric Tablet PO 81 mg DAILY GUSTAVO Administration Docusate Sodium 100 mg 04/24/25 14:56 Docusate Sodium 100 Mg Capsule PO BID PRN Constipation Ferrous Sulfate 325 mg 04/25/25 12:00 04/25/25 17:21 Ferrous Sulfate [address] BY MOUTH 325 mg 1200,1700 GUSTAVO Administration Fluticasone Propionate 2 spray 04/24/25 18:54 Fluticasone Propionate 0.05% Na Spr 16 Gm Btl (*Bkc) NASAL DAILY PRN nasal congestion Furosemide 40 mg 04/25/25 09:00 Furosemide 40 Mg Tablet PO BID GUSTAVO Furosemide 40 mg 04/25/25 09:00 04/25/25 17:22 Furosemide Inj 40 Mg/4 Ml Vial IV PUSH 40 mg BID GUSTAVO Administration Hydroxychloroquine Sulfate 200 mg 04/25/25 09:00 04/25/25 08:47 Hydroxychloroquine Sulfate 200 Mg Tablet PO 200 mg QAM GUSTAVO Administration Levothyroxine Sodium 75 mcg 04/25/25 06:30 04/26/25 06:06 Levothyroxine Sodium 75 Mcg Tablet BY MOUTH 75 mcg DAILY@0630 GUSTAVO Administration Loperamide HCl 2 mg 04/25/25 11:00 04/25/25 11:55 Loperamide Hcl 2 Mg Capsule PO 2 mg PRN PRN Administration Diarrhea Mycophenolate Mofetil 500 mg 04/25/25 09:00 04/25/25 20:53 Mycophenolate Mofetil 250 Mg Capsule PO 500 mg Q12HR GUSTAVO Administration Home Med (Selexipag 1,600 mcg 04/25/25 09:00 04/25/25 17:22 [Uptravi] 1,600 Mcg PO 05/25/25 08:59 1,600 mcg Tablet) BID GUSTAVO Administration Home Med (Tadalafil 40 mg 04/25/25 09:00 04/25/25 08:48 20 Mg Tablet) PO 05/25/25 08:59 40 mg DAILY GUSTAVO Administration Non-Formulary Medication 10 mg 04/25/25 09:00 Macitentan [Opsumit] PO 05/25/25 08:59 DAILY GUSTAVO Ondansetron HCl 4 mg 04/24/25 14:51 Ondansetron Inj 4 Mg/2 Ml Vial IV PUSH Q4H PRN Nausea Pantoprazole Sodium 40 mg 04/25/25 09:00 04/25/25 08:47 Pantoprazole 40 Mg Tablet PO 40 mg QAM GUSTAVO Administration Potassium Chloride 20 meq 04/25/25 08:00 04/25/25 08:47 Potassium Chloride 20 Meq Er Tablet PO 20 meq DAILY@0800 GUSTAVO Administration Labs Labs: Laboratory Results - last 24 hr 04/25/25 04/25/25 04/26/25 06:10 18:01 01:52 Hgb 9.9 L 8.5 L Hct 33.4 L 28.2 L Band Neutrophils % Not Reportable Platelet Estimate Slightly decreased Polychromasia 1+ Hypochromasia 2+ Anisocytosis 2+ Schistocytes Rare Quality VTE Prophylaxis VTE prophylaxis: mechanical ordered Hospitalist MIPS Advance Care Plan I have confirmed that the patient's Advanced Care Plan is present, code status is documented, or surrogate decision maker is listed in patient medical record.: Yes Medication Reconciliation I have utilized all available resources to obtain, update and review the patients current medications (includes all prescriptions, OTC, herbals, cannabis, and nutritional supplements).: Yes
[2025-04-26] MEDS: PANTOPRAZOLE 40 MG TABLET PO (08:33)
[2025-04-26] MEDS: FUROSEMIDE INJ 40 MG/4 ML VIAL IV PUSH ×2 (08:33→17:30)
[2025-04-26] MEDS: ASPIRIN 81 MG ENTERIC TABLET PO (08:33)
[2025-04-26] MEDS: HYDROXYCHLOROQUINE SULFATE 200 MG TABLET PO (08:34)
[2025-04-26] MEDS: TADALAFIL 20 MG 40 EACH PO (08:37)
[2025-04-26] MEDS: SELEXIPAG 1600 MCG 1600 EACH PO ×2 (08:38→17:30)
[2025-04-26 09:23] LABS: Hematocrit 31.9 % (37.0-47.0); Hemoglobin 9.4 g/dL (12.0-15.0)
--- NOTE | 2025-04-26 10:53 | P.PNGI_ITS ---
Progress Note: A&P Assessment and Plan (1) Dark stools: Code(s): R19.5 - Other fecal abnormalities Status: Acute (2) Anemia: Code(s): D64.9 - Anemia, unspecified Status: Acute (3) Iron deficiency: Code(s): E61.1 - Iron deficiency Status: Acute Plan Overall patient is stable at this point H&H is stable patient did get 2units of blood transfusion as well as IV iron. Patient's friend is not at bedside today patient wants to have all the testing done with her regular GI doctor and body and fender worker as she feels like they did know her better she does not want to do any testing which is not emergently needed Continue with PPI once a day Take MiraLax once or twice a day to have BM I would advise not to take p.o. iron as it makes her stool or dark or black IV iron has already been given Would recommend patient to see Hematology Oncology as outpatient Continue with PPI once a day Advanced diet to full liquid diet today Patient is going to contact her primary care tomorrow so that she can get the referrals for her GI doctor in [place] as well as get a pulmonary clearance Overall with her advanced age as well as multiple comorbidities she is at high risk for procedure related complications especially respiratory complications with pulmonary hypertension. Necessity of further workup has been discussed with the patient which can be done as outpatient if she says stable by tomorrow as she does not want to undergo any procedures here at [facility] and like to see her GI physician and body and fender worker as outpatient Regular GI Service Dr. 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 Review of Systems Constitutional: Constitutional: Denies chills, Denies fatigue, Denies fever(s), Denies headache(s), Denies malaise, Denies weight gain and Denies weight loss Eyes: Eyes: Denies change in vision ENT: Denies dizziness, Denies headache(s) and Reports other (No change in hearing) Cardiovascular: Cardiovascular: Denies chest pain, Denies dyspnea and Reports other (denies palpitations, denies orthopnea) Respiratory: Respiratory: Denies cough, Denies dyspnea and Reports other (denies sputum production, denies hemoptysis) Gastrointestinal: Gastrointestinal: Reports as per HPI Genitourinary: Genitourinary: Denies hematuria, Denies dysuria and Denies urinary incontinence Musculoskeletal: Musculoskeletal: Reports other (denies extremity edema, denies myalgia) Integumentary/Breasts: Skin/Breast: Denies new lesions and Denies rash Neurologic: Denies dizziness, Denies headache(s) and Denies seizure-like activity Endocrine: Endocrine: Denies fatigue Hematologic/Lymphatic: Hematologic/Lymphatic: Denies easy bleeding and Denies easy bruising Exam Const: General: cooperative; No acute distress Orientation/consciousness: patient oriented x3 HENMT: Head: normal to inspection Neck: Neck: supple Resp: Auscultation: clear to auscultation bilaterally Cardio: Rate: regular rate Rhythm: regular rhythm GI: Inspection: non-distended GI Palp: Yes Soft to palpation, No Tenderness to palpation present (GI) and No Palpable mass present Auscultation: normal bowel sounds Rectal Exam: deferred Skin: General skin exam: no rashes or lesions noted Neuro: General: patient oriented x3 Extrem: General: no edema Objective Data Vital Signs Vital Signs: Vital Signs - 24 hr 04/25/25 12:00 04/25/25 12:00 04/25/25 16:00 Temperature 97.6 F 98.4 F Pulse Rate 75 68 77 Respiratory Rate 18 18 Blood Pressure 100/46 L 100/56 L Pulse Oximetry 93 99 Oxygen Delivery Oxygen Flow Rate 04/25/25 16:00 04/25/25 20:00 04/25/25 20:00 Temperature 98.5 F Pulse Rate 72 76 Respiratory Rate 17 Blood Pressure 111/59 L Pulse Oximetry 99 99 Oxygen Delivery Nasal Cannula Oxygen Flow Rate 2 04/25/25 20:00 04/26/25 00:00 04/26/25 00:00 Temperature 98.1 F Pulse Rate 75 67 66 Respiratory Rate 14 Blood Pressure 100/54 L Pulse Oximetry 96 Oxygen Delivery Oxygen Flow Rate 04/26/25 04:00 04/26/25 04:00 04/26/25 08:00 Temperature 98.5 F 97.7 F Pulse Rate 80 75 73 Respiratory Rate 15 16 Blood Pressure 101/43 L 99/53 L Pulse Oximetry 94 98 Oxygen Delivery Oxygen Flow Rate 04/26/25 08:45 04/26/25 08:45 Temperature Pulse Rate 87 Respiratory Rate Blood Pressure Pulse Oximetry 94 Oxygen Delivery Nasal Cannula Oxygen Flow Rate 2 Intake/Output Intake/Output: Intake & Output 04/23/25 04/24/25 04/25/25 04/26/25 23:59 23:59 23:59 23:59 Intake Total 800 480 400 Balance 800 480 400 Meds/Results Medications: Active Medications Generic Name Dose Route Start Last Admin Trade Name Freq PRN Reason Stop Dose Admin Acetaminophen 650 mg 04/24/25 14:56 Acetaminophen 325 Mg Tablet PO Q4H PRN Mild Pain (1-3) or Fever Aspirin 81 mg 04/25/25 09:00 04/26/25 08:33 Aspirin 81 Mg Enteric Tablet PO 81 mg DAILY GUSTAVO Administration Docusate Sodium 100 mg 04/24/25 14:56 Docusate Sodium 100 Mg Capsule PO BID PRN Constipation Ferrous Sulfate 325 mg 04/25/25 12:00 04/25/25 17:21 Ferrous Sulfate [address] BY MOUTH 325 mg 1200,1700 GUSTAVO Administration Fluticasone Propionate 2 spray 04/24/25 18:54 Fluticasone Propionate 0.05% Na Spr 16 Gm Btl (*Bkc) NASAL DAILY PRN nasal congestion Furosemide 40 mg 04/25/25 09:00 Furosemide 40 Mg Tablet PO BID GUSTAVO Furosemide 40 mg 04/25/25 09:00 04/26/25 08:33 Furosemide Inj 40 Mg/4 Ml Vial IV PUSH 40 mg BID GUSTAVO Administration Hydroxychloroquine Sulfate 200 mg 04/25/25 09:00 04/26/25 08:34 Hydroxychloroquine Sulfate 200 Mg Tablet PO 200 mg QAM GUSTAVO Administration Levothyroxine Sodium 75 mcg 04/25/25 06:30 04/26/25 06:06 Levothyroxine Sodium 75 Mcg Tablet BY MOUTH 75 mcg DAILY@0630 GUSTAVO Administration Loperamide HCl 2 mg 04/25/25 11:00 04/25/25 11:55 Loperamide Hcl 2 Mg Capsule PO 2 mg PRN PRN Administration Diarrhea Mycophenolate Mofetil 500 mg 04/25/25 09:00 04/26/25 08:34 Mycophenolate Mofetil 250 Mg Capsule PO 500 mg Q12HR GUSTAVO Administration Home Med (Selexipag 1,600 mcg 04/25/25 09:00 04/26/25 08:38 [Uptravi] 1,600 Mcg PO 05/25/25 08:59 1,600 mcg Tablet) BID GUSTAVO Administration Home Med (Tadalafil 40 mg 04/25/25 09:00 04/26/25 08:37 20 Mg Tablet) PO 05/25/25 08:59 40 mg DAILY GUSTAVO Administration Non-Formulary Medication 10 mg 04/25/25 09:00 Macitentan [Opsumit] PO 05/25/25 08:59 DAILY GUSTAVO Ondansetron HCl 4 mg 04/24/25 14:51 Ondansetron Inj 4 Mg/2 Ml Vial IV PUSH Q4H PRN Nausea Pantoprazole Sodium 40 mg 04/25/25 09:00 04/26/25 08:33 Pantoprazole 40 Mg Tablet PO 40 mg QAM GUSTAVO Administration Potassium Chloride 20 meq 04/26/25 10:11 Potassium Chloride 20 Meq Packet (For Liquid) PO DAILY [facility] Labs Labs: Laboratory Results - last 24 hr 04/25/25 04/26/25 04/26/25 18:01 01:52 09:18 Hgb 9.9 L 8.5 L 9.4 L Hct 33.4 L 28.2 L 31.9 L
[2025-04-26] MEDS: FERROUS SULFATE 325 MG TABLET DR BY MOUTH (11:20)
[2025-04-26] MEDS: POTASSIUM CHLORIDE 20 MEQ PACKET (FOR LIQUID) PO (11:20)
[2025-04-26 17:50] LABS: Hematocrit 30.1 % (37.0-47.0); Hemoglobin 8.8 g/dL (12.0-15.0)
[2025-04-26 21:16] LABS: Hematocrit 31.6 % (37.0-47.0); Hemoglobin 9.2 g/dL (12.0-15.0)
[2025-04-26 22:38] LABS: Vitamin B12 740.0 pg/mL (239-931)
[2025-04-27] VITALS (10 sets, daily range): BP systolic 103–118; BP diastolic 52–70; PULSE 71–105; RESP 12–18; TEMP 36–36.8; O2SAT 91–99
[2025-04-27] MEDS: LEVOTHYROXINE SODIUM 75 MCG TABLET BY MOUTH (05:51)
[2025-04-27 06:31] LABS: Hematocrit 26.8 % (37.0-47.0); Hemoglobin 7.8 g/dL (12.0-15.0); Immature Granulocyte Percent A 3.6 % (0-0.5); Lymphocytes Absolute Auto 0.78 K/mm3 (0.9-3.2); Mean Corpuscular HGB Conc 29.1 g/dl (32-36); Mean Corpuscular Hemoglobin 29.0 pg (26-34); Mean Corpuscular Volume 99.6 fl (80-100); Nucleated Red Blood Cells Absolute Auto 0.020 K/mm3 (0.0-0.012); Nucleated Red Blood Cells Perc 0.4 % (0.0-0.2); Platelet Count Result 149 k/mm3 (150-375); Red Blood Count 2.69 M/mm3 (4.2-5.4); White Blood Count 5.5 K/mm3 (4.5-10.0)
[2025-04-27 06:43] LABS: Anion Gap 3 mmol/L (4-12); Blood Urea Nitrogen 26 mg/dL (7-17); Carbon Dioxide 26 mmol/L (22-30); Chloride 102 mmol/L (98-107); Estimated CRCL calculation 36 ml/min; Estimated Glomerular Filt Rate > 60; Potassium 3.3 mmol/L (3.4-5.0); Sodium 131 mmol/L (137-145)
[2025-04-27 06:55] LABS: Calcium 7.9 mg/dL (8.4-10.2); Glucose 82 mg/dL (65-110)
[2025-04-27 07:47] LABS: Anisocytosis 2+; Microcytosis 2+ (NORMAL)
--- NOTE | 2025-04-27 07:47 | P.PNIM_ITS ---
Progress Note: A&P Assessment and Plan (1) Iron deficiency anemia: Code(s): D50.9 - Iron deficiency anemia, unspecified Status: Acute Assessment and Plan: - Hemoglobin on admission 6.1 - Transfused use 2 units RBCs -Transfuse for hemoglobin less than 7 -Monitor for fluid overload -CBC daily -GI consulted, appreciate recommendations. Initial planned for outpatient follow-up however given acute drop in hemoglobin, will reconsider inpatient evaluation. -continue PPI -unclear indication for aspirin as patient has no history of CAD or CVA. Hold aspirin for now. -Stopped iron per GI Recs (2) Acute hypokalemia: Code(s): E87.6 - Hypokalemia Status: Resolved Assessment and Plan: - K 3.3 this AM, PO supplementation ordered (3) CHF (congestive heart failure): Qualifiers: Heart failure chronicity: acute on chronic Heart failure type: right- sided Qualified Code(s): I50.813 - Acute on chronic right heart failure Code(s): I50.9 - Heart failure, unspecified Status: Chronic Assessment and Plan: - s/p IV lasix - resume PO lasix (4) Pulmonary hypertension: Code(s): I27.20 - Pulmonary hypertension, unspecified Status: Chronic Assessment and Plan: -Continue home medication - on 1-2 L NC at baseline (5) Hypothyroidism, unspecified: Qualifiers: Hypothyroidism type: unspecified Qualified Code(s): E03.9 - Hypothyroidism, unspecified Code(s): E03.9 - Hypothyroidism, unspecified Status: Chronic Assessment and Plan: -Continue Synthroid Subjective Date/time seen: 04/27/25 07:47 Interval history: Patient seen examined at bedside. Feeling okay, denies abdominal pain. Still seeing some dark stools. Objective Data Vital Signs Vital Signs: Vital Signs - 24 hr 04/26/25 08:00 04/26/25 08:45 04/26/25 08:45 Temperature 97.7 F Pulse Rate 73 87 Respiratory Rate 16 Blood Pressure 99/53 L Pulse Oximetry 98 94 Oxygen Delivery Nasal Cannula Oxygen Flow Rate 2 04/26/25 12:00 04/26/25 12:00 04/26/25 16:00 Temperature 97.6 F Pulse Rate 81 81 76 Respiratory Rate 16 Blood Pressure 105/50 L Pulse Oximetry 94 Oxygen Delivery Oxygen Flow Rate 04/26/25 16:00 04/26/25 20:00 04/26/25 20:00 Temperature 97.7 F 98.0 F Pulse Rate 77 85 Respiratory Rate 16 18 Blood Pressure 98/55 L 119/49 L Pulse Oximetry 92 97 92 Oxygen Delivery Nasal Cannula Oxygen Flow Rate 2 04/26/25 20:00 04/26/25 22:00 04/27/25 00:00 Temperature 97.3 F L 98.2 F Pulse Rate 80 70 88 Respiratory Rate 18 18 Blood Pressure 106/43 L 108/57 L Pulse Oximetry 100 97 Oxygen Delivery Oxygen Flow Rate 04/27/25 00:00 04/27/25 04:00 04/27/25 04:00 Temperature 98.2 F Pulse Rate 79 88 71 Respiratory Rate 18 Blood Pressure 108/57 L Pulse Oximetry 97 Oxygen Delivery Oxygen Flow Rate 04/27/25 06:00 Temperature 97.7 F Pulse Rate 73 Respiratory Rate 18 Blood Pressure 103/52 L Pulse Oximetry 97 Oxygen Delivery Oxygen Flow Rate Intake/Output Intake/Output: Intake & Output 04/24/25 04/25/25 04/26/25 04/27/25 23:59 23:59 23:59 23:59 Intake Total 605 583 2583 Balance 182 522 3326 Meds/Results Medications: Active Medications Generic Name Dose Route Start Last Admin Trade Name Freq PRN Reason Stop Dose Admin Acetaminophen 650 mg 04/24/25 14:56 Acetaminophen 325 Mg Tablet PO Q4H PRN Mild Pain (1-3) or Fever Aspirin 81 mg 04/25/25 09:00 04/26/25 08:33 Aspirin 81 Mg Enteric Tablet PO 81 mg DAILY GUSTAVO Administration Docusate Sodium 100 mg 04/24/25 14:56 Docusate Sodium 100 Mg Capsule PO BID PRN Constipation Fluticasone Propionate 2 spray 04/24/25 18:54 Fluticasone Propionate 0.05% Na Spr 16 Gm Btl (*Bkc) NASAL DAILY PRN nasal congestion Furosemide 40 mg 04/25/25 09:00 Furosemide 40 Mg Tablet PO BID GUSTAVO Furosemide 40 mg 04/25/25 09:00 04/26/25 17:30 Furosemide Inj 40 Mg/4 Ml Vial IV PUSH 40 mg BID GUSTAVO Administration Hydroxychloroquine Sulfate 200 mg 04/25/25 09:00 04/26/25 08:34 Hydroxychloroquine Sulfate 200 Mg Tablet PO 200 mg QAM GUSTAVO Administration Levothyroxine Sodium 75 mcg 04/25/25 06:30 04/27/25 05:51 Levothyroxine Sodium 75 Mcg Tablet BY MOUTH 75 mcg DAILY@0630 GUSTAVO Administration Loperamide HCl 2 mg 04/25/25 11:00 04/25/25 11:55 Loperamide Hcl 2 Mg Capsule PO 2 mg PRN PRN Administration Diarrhea Mycophenolate Mofetil 500 mg 04/25/25 09:00 04/26/25 21:36 Mycophenolate Mofetil 250 Mg Capsule PO 500 mg Q12HR GUSTAVO Administration Home Med (Selexipag 1,600 mcg 04/25/25 09:00 04/26/25 17:30 [Uptravi] 1,600 Mcg PO 05/25/25 08:59 1,600 mcg Tablet) BID GUSTAVO Administration Home Med (Tadalafil 40 mg 04/25/25 09:00 04/26/25 08:37 20 Mg Tablet) PO 05/25/25 08:59 40 mg DAILY GUSTAVO Administration Non-Formulary Medication 10 mg 04/25/25 09:00 Macitentan [Opsumit] PO 05/25/25 08:59 DAILY GUSTAVO Ondansetron HCl 4 mg 04/24/25 14:51 Ondansetron Inj 4 Mg/2 Ml Vial IV PUSH Q4H PRN Nausea Pantoprazole Sodium 40 mg 04/25/25 09:00 04/26/25 08:33 Pantoprazole 40 Mg Tablet PO 40 mg QAM GUSTAVO Administration Potassium Chloride 20 meq 04/26/25 11:20 04/26/25 11:20 Potassium Chloride 20 Meq Packet (For Liquid) PO 20 meq DAILY GUSTAVO Administration Labs Labs: Laboratory Results - last 24 hr 04/26/25 04/26/25 04/26/25 09:18 17:38 21:06 WBC RBC Hgb 9.4 L 8.8 L 9.2 L Hct 31.9 L 30.1 L 31.6 L MCV MCH MCHC RDW Plt Count MPV Immature Gran % (Auto) Neut % (Auto) Lymph % (Auto) Johnston % (Auto) Eos % (Auto) Baso % (Auto) Lymph # (Auto) Johnston # (Auto) Eos # (Auto) Baso # (Auto) Abs Immat Gran (auto) Absolute Neuts (auto) Absolute Nucleated RBC Nucleated RBC % Sodium Potassium Chloride Carbon Dioxide Anion Gap BUN Creatinine Estim Creat Clear Calc Estimated GFR Glucose Calcium Vitamin B12 740.0 Folate 12.7 04/27/25 05:35 WBC 5.5 RBC 2.69 L Hgb 7.8 L Hct 26.8 L MCV 99.6 MCH 29.0 MCHC 29.1 L RDW 21.5 H Plt Count 149 L MPV 10.4 Immature Gran % (Auto) 3.6 H Neut % (Auto) 69.2 Lymph % (Auto) 14.1 L Johnston % (Auto) 9.1 H Eos % (Auto) 2.7 Baso % (Auto) 1.3 H Lymph # (Auto) 0.78 L Johnston # (Auto) 0.5 Eos # (Auto) 0.2 Baso # (Auto) 0.1 Abs Immat Gran (auto) 0.20 H Absolute Neuts (auto) 3.8 Absolute Nucleated RBC 0.020 H Nucleated RBC % 0.4 H Sodium 131 L Potassium 3.3 L Chloride 102 Carbon Dioxide 26 Anion Gap 3 L BUN 26 H Creatinine 0.90 Estim Creat Clear Calc 36 Estimated GFR > 60 Glucose 82 Calcium 7.9 L Vitamin B12 Folate Quality If No VTE Prophylaxis Answer both mechanical and pharmacologic: Reason no mechanical VTE proph: medical contraindication
[2025-04-27 07:48] LABS: Hypochromasia 2+
[2025-04-27] MEDS: POTASSIUM CHLORIDE 20 MEQ PACKET (FOR LIQUID) 40 MEQ PO (09:18)
[2025-04-27] MEDS: POTASSIUM CHLORIDE 20 MEQ PACKET (FOR LIQUID) PO (09:18)
[2025-04-27] MEDS: ASPIRIN 81 MG ENTERIC TABLET PO (09:21)
[2025-04-27] MEDS: PANTOPRAZOLE 40 MG TABLET PO (09:21)
[2025-04-27] MEDS: HYDROXYCHLOROQUINE SULFATE 200 MG TABLET PO (09:21)
[2025-04-27] MEDS: SELEXIPAG 1600 MCG 1600 EACH PO ×2 (09:24→16:46)
[2025-04-27] MEDS: TADALAFIL 20 MG 40 EACH PO (09:24)
[2025-04-27] MEDS: LOPERAMIDE HCL 2 MG CAPSULE PO ×2 (12:39→20:30)
--- NOTE | 2025-04-27 12:40 | P.CONONC_ITS ---
Assessment and Plan Assessment and plan (1) Anemia: Code(s): D64.9 - Anemia, unspecified Status: Acute Assessment and Plan: This is a 79-year-old female with history of right-sided breast cancer status post bilateral mastectomy 25 years ago and and chemotherapy. Patient also has history of crest syndrome rectal prolapse and IBS. She was admitted to the hospital last month for anemia and receive 1 unit of packed red blood cell. Her last colonoscopy was more than 4 years ago. She never had EGD done. Labs showed iron deficiency anemia with normal vitamin B12 and creatinine. She is taking oral iron 65 mg twice a day for 1 month duration without any improvement in iron studies. She denies any bleeding including melena hematochezia. She has occasional hemorrhoidal bleeding. I recommended GI evaluation with colonoscopy and EGD. She is concerned about EGD and colonoscopy due to her high risk situation with history of pulmonary hypertension. I would recommend evaluation by the GI service. In the meantime I will proceed with IV iron infusion. No need for bone marrow biopsy until iron deficiency is totally corrected.She will follow-up with me in the office as well. I have answered all the questions to patient's satisfaction. HPI Data of Consult Date/Time: 04/27/25 12:40 Requesting Physician: Carmel Arias MD Primary Care Provider: Laly Kenny DO Consult Narrative Narrative: Christine Ellis is a 79 year old female With history of scleroderma, rectal prolapse, irritable bowel syndrome and chronic respiratory failure came into the hospital with tiredness and fatigue. She was recently admitted to the hospital a month ago. Her hemoglobin was found to be 6.3 and receive blood transfusion. She had blood transfusion last month as well. She denies any melena and hematochezia. Her last colonoscopy was more than 4 years ago. She never had EGD done in the past. She has a history of breast cancer status post bilateral mastectomy and chemotherapy 25 years ago. Her other labs showed iron level of 27 with iron saturation of 7%. Vitamin B12 was normal at 7 and 40 and creatinine was normal at 0.9. Review of Systems 2 Review of Systems: Twelve point review of system was reviewed PMFSH Past Medical History Medical History Gastrointestinal dysmotility Fecal incontinence Rectal bleeding Rectal prolapse Irritable bowel syndrome with diarrhea Hepatitis C antibody test negative (08/26/17) Chronic respiratory failure with hypoxia Pulmonary hypertension History of breast cancer Status post chemotherapy and mastectomy. Anxiety GERD (gastroesophageal reflux disease) Hypothyroidism Hypertension CREST syndrome Osteopenia Other spondylosis, cervical region Surgical History Surgical History Cataract extraction status (11/05/18) History of appendectomy (1953) H/O: hysterectomy (1997) H/O bilateral mastectomy (08/31/00) Family History Family History Father Diabetes mellitus Family history of Alzheimer's disease Mother Diabetes mellitus Family history of chronic obstructive pulmonary disease Family history of cardiomyopathy Grandparent Family history of malignant neoplasm of breast Social History Social History Social History: The patient lives in [place] with her . He is in poor health and she has to help take care of him. She designates her as her surrogate decision maker and she wishes to be a full code. She is a lifelong nonsmoker and denies alcohol and drug abuse. 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 Gender identity (if verbalized by the patient): Female Spiritual care concerns: No Agree to blood products: Yes Meds Home Medications and Allergies Home Medications ?Medication ?Instructions ?Recorded ?Confirmed ?Type calcium carbonate (Calcium 500) 500 mg PO BID 09/05/19 04/24/25 History omeprazole 20 mg capsule,delayed 20 mg PO DAILY 09/05/19 04/24/25 History release cholecalciferol (vitamin D3) 50 1,000 unit PO DAILY 10/22/19 04/24/25 History mcg (2,000 unit) tablet (Vitamin D3) tadalafil 20 mg tablet 40 mg PO DAILY 10/22/19 04/24/25 History furosemide 40 mg tablet 40 mg PO BID 12/10/20 04/24/25 History hydroxychloroquine 200 mg tablet 200 mg PO QAM 12/10/20 04/24/25 History multivitamin 1 tablet PO DAILY 12/10/20 04/24/25 History mycophenolate mofetil 500 mg tablet 500 mg PO Q12H 12/10/20 04/24/25 History selexipag 1,600 mcg tablet 1,600 mcg PO BID 12/10/20 04/24/25 History (Uptravi) macitentan 10 mg tablet (Opsumit) 10 mg PO DAILY 05/15/22 04/24/25 History aspirin 81 mg tablet,delayed 81 mg PO DAILY 03/19/23 04/24/25 History release fluticasone propionate 50 2 spray intranasal DAILY PRN nasal 03/19/23 04/24/25 History mcg/actuation nasal congestion spray,suspension metolazone 2.5 mg tablet 2.5 mg PO DAILY 07/19/23 04/24/25 History fluticasone 250 mcg-salmeterol 50 1 inh inhalation BID 11/24/24 04/08/25 History mcg/dose blistr powdr for inhalation (Wixela Inhub) levothyroxine 25 mcg tablet 25 mcg PO DAILY #90 tabs 11/24/24 04/24/25 Rx (Synthroid) sotatercept-csrk 45 mg 45 mg subcut .[id number] 11/24/24 04/24/25 History subcutaneous kit (Winrevair) levothyroxine 50 mcg tablet 75 mcg .Route .COMPLEX 03/23/25 04/24/25 History ferrous sulfate 325 mg (65 mg 325 mg PO BID 04/01/25 04/24/25 History iron) tablet Allergies Allergy/AdvReac Type Severity Reaction Status Date / Time No Known Drug Allergies Allergy Unknown unknown Verified 04/24/25 11:47 Vital Signs Vital Signs - 24 hr 04/26/25 16:00 04/26/25 16:00 04/26/25 20:00 Temperature 36.5 C 36.7 C Pulse Rate 76 77 85 Respiratory Rate 16 18 Blood Pressure 98/55 L 119/49 L Pulse Oximetry 92 97 Oxygen Delivery Oxygen Flow Rate 04/26/25 20:00 04/26/25 20:00 04/26/25 22:00 Temperature 36.3 C L Pulse Rate 80 70 Respiratory Rate 18 Blood Pressure 106/43 L Pulse Oximetry 92 100 Oxygen Delivery Nasal Cannula Oxygen Flow Rate 2 04/27/25 00:00 04/27/25 00:00 04/27/25 04:00 Temperature 36.8 C 36.8 C Pulse Rate 88 79 88 Respiratory Rate 18 18 Blood Pressure 108/57 L 108/57 L Pulse Oximetry 97 97 Oxygen Delivery Oxygen Flow Rate 04/27/25 04:00 04/27/25 06:00 04/27/25 08:00 Temperature 36.5 C Pulse Rate 71 73 77 Respiratory Rate 18 Blood Pressure 103/52 L Pulse Oximetry 97 Oxygen Delivery Oxygen Flow Rate 04/27/25 10:36 Temperature Pulse Rate 84 Respiratory Rate Blood Pressure Pulse Oximetry 99 Oxygen Delivery Nasal Cannula Oxygen Flow Rate 1 Exam 2 Narrative: lungs are clear to auscultation bilaterally cardiovascular regular rate rhythm no murmurs abdomen soft nontender nondistended bowel sounds are positive extremities no edema Results Labs 04/27/25 05:35 04/27/25 05:35 Labs: Short CBC 04/26/25 04/26/25 04/27/25 Range/Units 17:38 21:06 05:35 WBC 5.5 (4.5-10.0) K/mm3 Hgb 8.8 L 9.2 L 7.8 L (12.0-15.0) g/dL Hct 30.1 L 31.6 L 26.8 L (37.0-47.0) % Plt Count 149 L (150-375) k/mm3 BMP 04/27/25 05:35 Sodium 131 L Potassium 3.3 L Chloride 102 Carbon Dioxide 26 BUN 26 H Creatinine 0.90 Glucose 82 Calcium 7.9 L
[2025-04-27] MEDS: IRON SUCROSE COMPLEX 400 MG, IRON SUCROSE COMPLEX 100 MG in SODIUM CHLORIDE 0.9% IV 250 ML 78.57 MG IVPB (13:33)
--- NOTE | 2025-04-27 14:01 | P.CDI_ITS ---
CDI Query Clarification Request Please clarify type of heart failure if known. * Systolic * Diastolic * Combined Systolic and Diastolic * Unknown The medical chart reflects the following: (3) CHF (congestive heart failure): Qualifiers: Heart failure chronicity: acute on chronic Heart failure type: right- sided Qualified Code(s): I50.813 - Acute on chronic right heart failure Code(s): I50.9 - Heart failure, unspecified Status: Chronic Assessment and Plan: IV Lasix is b.i.d. IV lasix x1 lasix po BID <Italia Bowie RN - Last Filed: 04/27/25 14:05> Clarified Diagnosis Clarified Diagnosis: - acute on chronic diastolic heart failure <ALINA Silva - Last Filed: 04/27/25 16:12>
--- NOTE | 2025-04-27 16:52 | WPDGIPROGNO ---
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, hopefully patient will be able to complete GI work up as outpatient will follow as needed (2) Iron deficiency anemia: Code(s): D50.9 - Iron deficiency anemia, unspecified Status: Acute (3) Cr(e)st syndrome: Code(s): M34.1 - CR(E)ST syndrome Status: Chronic (4) Acute and chronic respiratory failure with hypoxia: Code(s): J96.21 - Acute and chronic respiratory failure with hypoxia Status: Acute (5) Pulmonary hypertension: Code(s): I27.20 - Pulmonary hypertension, unspecified Status: Chronic (6) Hypokalemia: Code(s): E87.6 - Hypokalemia Status: Acute Subjective Date/time seen: 04/27/25 16:52 Interval history: patient does not want to have scopes just yet, she wants to talk to her family and she prefers to have former GI doctor in [facility], Dr Becker to do it if possible. She also is concerned about going under anesthesia given her h/o pulmonary HTN and other issues. She told me that if she changes her mind or can not get ahold of former GI doctor then will call our office. Review of Systems Review of Systems: All systems reviewed & are unremarkable except as noted in HPI and below Exam Const: General: comfortable and no acute distress Other: chronically ill appearing, using O2 HENMT: Face/Nose/Sinus: Normal nares present Eyes: General: appearance normal, both eyes and all related structures Neck: Neck: supple Resp: Auscultation: clear to auscultation bilaterally Cardio: Rate: regular rate Rhythm: regular rhythm GI: Inspection: non-distended GI Palp: Yes Soft to palpation and No Tenderness to palpation present (GI) Auscultation: normal bowel sounds Skin: General skin exam: normal color Neuro: Speech: normal speech Extrem: Other: clubbing fingers Psych: Mental Status: mental status grossly normal Objective Data Vital Signs Vital Signs: Vital Signs - 24 hr 07/27/25 20:00 04/26/25 20:00 04/26/25 20:00 Temperature 98.0 F Pulse Rate 85 80 Respiratory Rate 18 Blood Pressure 119/49 L Pulse Oximetry 97 92 Oxygen Delivery Nasal Cannula Oxygen Flow Rate 2 04/26/25 22:00 04/27/25 00:00 04/27/25 00:00 Temperature 97.3 F L 98.2 F Pulse Rate 70 88 79 Respiratory Rate 18 18 Blood Pressure 106/43 L 108/57 L Pulse Oximetry 100 97 Oxygen Delivery Oxygen Flow Rate 04/27/25 04:00 04/27/25 04:00 04/27/25 06:00 Temperature 98.2 F 97.7 F Pulse Rate 88 71 73 Respiratory Rate 18 18 Blood Pressure 108/57 L 103/52 L Pulse Oximetry 97 97 Oxygen Delivery Oxygen Flow Rate 04/27/25 08:00 04/27/25 10:36 04/27/25 12:00 Temperature Pulse Rate 77 84 79 Respiratory Rate Blood Pressure Pulse Oximetry 99 Oxygen Delivery Nasal Cannula Oxygen Flow Rate 1 04/27/25 14:00 04/27/25 16:00 Temperature 96.8 F L Pulse Rate 79 81 Respiratory Rate 18 Blood Pressure 103/57 L Pulse Oximetry 96 Oxygen Delivery Oxygen Flow Rate Intake/Output Intake/Output: Intake & Output 04/24/25 04/25/25 04/26/25 04/27/25 23:59 23:59 23:59 23:59 Intake Total 126 498 2531 480 Balance 131 234 9207 480 Meds/Results Medications: Active Medications Generic Name Dose Route Start Last Admin Trade Name Bolaq PRN Reason Stop Dose Admin Acetaminophen 650 mg 04/24/25 14:56 Acetaminophen 325 Mg Tablet PO Q4H PRN Mild Pain (1-3) or Fever Docusate Sodium 100 mg 04/24/25 14:56 Docusate Sodium 100 Mg Capsule PO BID PRN Constipation Fluticasone Propionate 2 spray 04/24/25 18:54 Fluticasone Propionate 0.05% Na Spr 16 Gm Btl (*Bkc) NASAL DAILY PRN nasal congestion Furosemide 40 mg 04/25/25 09:00 Furosemide 40 Mg Tablet PO BID GUSTAVO Hydroxychloroquine Sulfate 200 mg 04/25/25 09:00 04/27/25 09:21 Hydroxychloroquine Sulfate 200 Mg Tablet PO 200 mg QAM GUSTAVO Administration Levothyroxine Sodium 75 mcg 04/25/25 06:30 04/27/25 05:51 Levothyroxine Sodium 75 Mcg Tablet BY MOUTH 75 mcg DAILY@0630 GUSTAVO Administration Loperamide HCl 2 mg 04/25/25 11:00 04/27/25 12:39 Loperamide Hcl 2 Mg Capsule PO 2 mg PRN PRN Administration Diarrhea Mycophenolate Mofetil 500 mg 04/25/25 09:00 04/27/25 09:19 Mycophenolate Mofetil 250 Mg Capsule PO 500 mg Q12HR GUSTAVO Administration Home Med (Selexipag 1,600 mcg 04/25/25 09:00 04/27/25 16:46 [Uptravi] 1,600 Mcg PO 05/25/25 08:59 1,600 mcg Tablet) BID GUSTAVO Administration Home Med (Tadalafil 40 mg 04/25/25 09:00 04/27/25 09:24 20 Mg Tablet) PO 05/25/25 08:59 40 mg DAILY GUSTAVO Administration Non-Formulary Medication 10 mg 04/25/25 09:00 Macitentan [Opsumit] PO 05/25/25 08:59 DAILY [facility] Ondansetron HCl 4 mg 04/24/25 14:51 Ondansetron Inj 4 Mg/2 Ml Vial IV PUSH Q4H PRN Nausea Pantoprazole Sodium 40 mg 04/27/25 21:00 Pantoprazole Sodium Iv 40 Mg Vial IV PUSH Q12HR [facility] Potassium Chloride 20 meq 04/26/25 11:20 04/27/25 09:18 Potassium Chloride 20 Meq Packet (For Liquid) PO 20 meq DAILY GUSTAVO Administration Labs Labs: Laboratory Results - last 24 hr 04/26/25 04/26/25 04/27/25 17:38 21:06 05:35 WBC 5.5 RBC 2.69 L Hgb 8.8 L 9.2 L 7.8 L Hct 30.1 L 31.6 L 26.8 L MCV 99.6 MCH 29.0 MCHC 29.1 L RDW 21.5 H Plt Count 149 L MPV 10.4 Immature Gran % (Auto) 3.6 H Neut % (Auto) 69.2 Lymph % (Auto) 14.1 L Hughes % (Auto) 9.1 H Eos % (Auto) 2.7 Baso % (Auto) 1.3 H Lymph # (Auto) 0.78 L Hughes # (Auto) 0.5 Eos # (Auto) 0.2 Baso # (Auto) 0.1 Abs Immat Gran (auto) 0.20 H Absolute Neuts (auto) 3.8 Absolute Nucleated RBC 0.020 H Band Neutrophils % Not Reportable Nucleated RBC % 0.4 H Platelet Estimate Slightly decreased Hypochromasia 2+ Anisocytosis 2+ Microcytosis 2+ Schistocytes Not Reportable Sodium 131 L Potassium 3.3 L Chloride 102 Carbon Dioxide 26 Anion Gap 3 L BUN 26 H Creatinine 0.90 Estim Creat Clear Calc 36 Estimated GFR > 60 Glucose 82 Calcium 7.9 L Vitamin B12 740.0 Folate 12.7
[2025-04-27 18:06] LABS: Hematocrit 31.5 % (37.0-47.0); Hemoglobin 9.2 g/dL (12.0-15.0)
[2025-04-27] MEDS: PANTOPRAZOLE SODIUM IV 40 MG VIAL IV PUSH (20:29)
[2025-04-28] VITALS (7 sets, daily range): BP systolic 96–102; BP diastolic 55–59; PULSE 67–90; RESP 12–14; TEMP 36.7–36.8; O2SAT 98–100
[2025-04-28] MEDS: LEVOTHYROXINE SODIUM 75 MCG TABLET BY MOUTH (06:07)
[2025-04-28 06:23] LABS: Hematocrit 27.2 % (37.0-47.0); Hemoglobin 7.7 g/dL (12.0-15.0); Immature Granulocyte Percent A 4.7 % (0-0.5); Lymphocytes Absolute Auto 0.69 K/mm3 (0.9-3.2); Mean Corpuscular HGB Conc 28.3 g/dl (32-36); Mean Corpuscular Hemoglobin 28.8 pg (26-34); Mean Corpuscular Volume 101.9 fl (80-100); Nucleated Red Blood Cells Absolute Auto 0.000 K/mm3 (0.0-0.012); Nucleated Red Blood Cells Perc 0.0 % (0.0-0.2); Platelet Count Result 144 k/mm3 (150-375); Red Blood Count 2.67 M/mm3 (4.2-5.4); White Blood Count 6.0 K/mm3 (4.5-10.0)
[2025-04-28 06:47] LABS: Anion Gap 4 mmol/L (4-12); Blood Urea Nitrogen 18 mg/dL (7-17); Calcium 7.6 mg/dL (8.4-10.2); Carbon Dioxide 24 mmol/L (22-30); Chloride 110 mmol/L (98-107); Estimated CRCL calculation 41 ml/min; Estimated Glomerular Filt Rate > 60; Glucose 83 mg/dL (65-110); Potassium 4.0 mmol/L (3.4-5.0); Sodium 138 mmol/L (137-145)
[2025-04-28 06:47] LABS: Anisocytosis 2+; Macrocytosis 1+ (NORMAL); Schistocytes None Seen
[2025-04-28 06:48] LABS: Hypochromasia 2+
[2025-04-28] MEDS: PANTOPRAZOLE SODIUM IV 40 MG VIAL IV PUSH (08:26)
[2025-04-28] MEDS: HYDROXYCHLOROQUINE SULFATE 200 MG TABLET PO (08:27)
[2025-04-28] MEDS: FUROSEMIDE 40 MG TABLET PO (08:27)
[2025-04-28] MEDS: POTASSIUM CHLORIDE 20 MEQ PACKET (FOR LIQUID) PO (08:27)
[2025-04-28] MEDS: CALCIUM/VITAMIN D 500 MG/5 MCG (200 I.U.) TABLET PO (08:30)
[2025-04-28] MEDS: SELEXIPAG 1600 MCG 1600 EACH PO (08:31)
[2025-04-28] MEDS: TADALAFIL 20 MG 40 EACH PO (08:31)
[2025-04-28 12:08] LABS: Hematocrit 33.5 % (37.0-47.0); Hemoglobin 9.4 g/dL (12.0-15.0)
--- NOTE | 2025-04-28 13:15 | PM.DS ---
DS: Admitting Diagnosis Discharge Date 04/25/25 Admitting Diagnosis -iron deficiency anemia -hypokalemia -chronic right-sided heart failure -pulmonary hypertension -hypothyroidism DS: Discharge Diagnosis Discharge Diagnosis (1) Iron deficiency anemia: Code(s): D50.9 - Iron deficiency anemia, unspecified Status: Acute (2) Acute hypokalemia: Code(s): E87.6 - Hypokalemia Status: Resolved (3) CHF (congestive heart failure): Qualifiers: Heart failure chronicity: acute on chronic Heart failure type: right-sided Qualified Code(s): I50.813 - Acute on chronic right heart failure Code(s): I50.9 - Heart failure, unspecified Status: Chronic (4) Pulmonary hypertension: Code(s): I27.20 - Pulmonary hypertension, unspecified Status: Chronic (5) Hypothyroidism, unspecified: Qualifiers: Hypothyroidism type: unspecified Qualified Code(s): E03.9 - Hypothyroidism, unspecified Code(s): E03.9 - Hypothyroidism, unspecified Status: Chronic (6) Anemia: Code(s): D64.9 - Anemia, unspecified Status: Acute (7) Hypokalemia: Code(s): E87.6 - Hypokalemia Status: Acute DS: Summary Hospital Course Reason for hospitalization: -iron deficiency anemia -hypokalemia -chronic right-sided heart failure -pulmonary hypertension -hypothyroidism Hospital Course: Patient is a 79 yo female with history of pulmonary hypertension on 1-2L O2 NC, right-sided heart failure, hypothyroidism who presented to the emergency department with abnormal labs. Patient recently hospitalized with anemia. On admission, Hgb 6.1, potassium 2.8 She recieved 2 u PRBCs and was admitted for further evaluation. Patient complained of dark stools. Occult stool +. GI was consulted. After thorough discussions, it was decided that patient would follow-up with GI, Dr. Becker at [facility] who she has seen previously. GI recommended stopping PO iron. She was also evaluated by hematology who ordered IV venofer and recommended outpatient iron transfusions. Her hemoglobin and vitals remained stable. She had a bowel movement on the day of discharge that was brown in color. She was instructed to continue omeprazole. She was also encouraged to discuss stopping aspirin with her PCP as she has no history of CAD, CVA or TIA. A CBC was ordered to be obtained in 3 days as an outpatient. Her potassium was replaced and she was discharged on oral potassium supplements. A BMP was ordered to be obtained in 3 days as an outpatient. Time Spent with Patient Time attestation: Total time spent providing and/or coordinating discharge services: DS: Data Data Completed and Pending Labs on day of discharge: Labs from last 24 hours 04/28/25 04/28/25 04/28/25 12:00 06:03 06:01 WBC 6.0 RBC 2.67 L Hgb 9.4 L 7.7 L Hct 33.5 L 27.2 L MCV 101.9 H MCH 28.8 MCHC 28.3 L RDW 21.8 H Plt Count 144 L MPV 10.1 Immature Gran % (Auto) 4.7 H Neut % (Auto) 71.1 Lymph % (Auto) 11.5 L [place] % (Auto) 8.7 H Eos % (Auto) 3.0 Baso % (Auto) 1.0 Lymph # (Auto) 0.69 L [place] # (Auto) 0.5 Eos # (Auto) 0.2 Baso # (Auto) 0.1 Abs Immat Gran (auto) 0.28 H Absolute Neuts (auto) 4.3 Absolute Nucleated RBC 0.000 Band Neutrophils % Not Reportable Nucleated RBC % 0.0 Platelet Estimate Slightly decreased Hypochromasia 2+ Anisocytosis 2+ Macrocytosis 1+ Schistocytes None seen Sodium 138 Potassium 4.0 Chloride 110 H Carbon Dioxide 24 Anion Gap 4 BUN 18 H Creatinine 0.79 Estim Creat Clear Calc 41 Estimated GFR > 60 Glucose 83 Calcium 7.6 L 04/27/25 18:00 WBC RBC Hgb 9.2 L Hct 31.5 L MCV MCH MCHC RDW Plt Count MPV Immature Gran % (Auto) Neut % (Auto) Lymph % (Auto) [place] % (Auto) Eos % (Auto) Baso % (Auto) Lymph # (Auto) [place] # (Auto) Eos # (Auto) Baso # (Auto) Abs Immat Gran (auto) Absolute Neuts (auto) Absolute Nucleated RBC Band Neutrophils % Nucleated RBC % Platelet Estimate Hypochromasia Anisocytosis Macrocytosis Schistocytes Sodium Potassium Chloride Carbon Dioxide Anion Gap BUN Creatinine Estim Creat Clear Calc Estimated GFR Glucose Calcium Discharge Plan Discharge Attending physician on discharge: John Nur Consulting providers: Juan Luis Hudson; Tianna Stern; Jose Antonio Chauhan; Meredith Agosto Discharging Clinician: Meredith Agosto Anticipated Discharge Date/Time: 04/28/25 13:01 Patient Disposition: Home Activity: as tolerated Diet: as tolerated and regular Discharge Instructions: Take all medications as prescribed. Finish antibiotics if prescribed, even if you are feeling better. Follow-up with Dr. Becker as soon as possible. Follow-up with your primary care provider in 5-7 days. Have your lab work repeated in 3-5 days to check your hemoglobin and potassium levels. You have been started on a daily potassium supplement to avoid low potassium Talk to your doctor to determine if a baby aspirin is still needed. Return to the emergency department if you develop chest pain, shortness of breath, persistent fever >100.4, confusion, loss of consciousness, lightheadedness, blood in the stool. Patient Instructions: Antibiotic Form, Anemia (DC) Patient Language: Persian Stand Alone Forms: General Discharge Information Follow-up/Referrals: Jose Antonio Chauhan MD [Physician] - Call for Appointment (to discuss iron transfusions) Laly Kenny DO [Primary Care Provider] - Call for Appointment Discharge Medications: New potassium chloride 10 mEq capsule, extended release 20 meq PO DAILY Qty: 60 0RF Continued omeprazole 20 mg capsule,delayed release(DR/EC) 20 mg PO DAILY calcium carbonate [Calcium 500] 500 mg calcium (1,250 mg) tablet 500 mg PO BID levothyroxine 50 mcg tablet 75 mcg .ROUTE .COMPLEX Rx Instructions: 75 mcg; Opsumit 10 mg tablet 10 mg PO DAILY fluticasone propionate 50 mcg/actuation spray,suspension 2 spray intranasal DAILY PRN (Reason: nasal congestion) Dose Instruction: SPRAY 2 SPRAYS IN EACH NOSTRIL DAILY metolazone 2.5 mg tablet 2.5 mg PO DAILY Rx Instructions: 1 tablet 2-3 times per week fluticasone propion-salmeterol [Wixela Inhub] 250-50 mcg/dose blister with device 1 inh inhalation BID Winrevair 45 mg kit 45 mg subcut .[id number] levothyroxine [Synthroid] 25 mcg tablet 25 mcg PO DAILY Qty: 90 1RF tadalafil 20 mg Tablet 40 mg PO DAILY cholecalciferol (vitamin D3) [Vitamin D3] 2,000 unit Tablet 1,000 unit PO DAILY multivitamin Tablet 1 tablet PO DAILY furosemide 40 mg Tablet 40 mg PO BID mycophenolate mofetil 500 mg Tablet 500 mg PO Q12H hydroxychloroquine 200 mg Tablet 200 mg PO QAM Uptravi 1,600 mcg Tablet 1,600 mcg PO BID Held aspirin 81 mg tablet,delayed release (DR/EC) 81 mg PO DAILY Hold Instructions: Resume on 05/05/25. Talk to your doctor to determine if an aspirin is still necessary. Discontinued ferrous sulfate 325 mg (65 mg iron) tablet 325 mg PO BID Other Ambulatory Orders: Basic Metabolic Panel (Routine) Timeframe: 3 Days Location: Determined by Patient Ordered By: Meredith Agosto Complete Blood Count no Diff (Routine) Timeframe: 3 Days Location: Determined by Patient Ordered By: Meredith Agosto Date of admission: 04/25/25 12:26 Primary Care Provider: Laly Kenny Admitting Provider: Carmel Arias Attending physician on admission: Carmel Arias Condition: Guarded Prognosis
== END 2025-04-28 16:57 | disposition home or self-care (01) | DRG 811 ==
LOC: ANHED 14:56 → ANH3MEDSUR 15:35
PROVIDERS: Internal Medicine Gastroenterology; Nurse Practitioner Acute Care; Nurse Practitioner Gerontology; Admitting Provider Internal Medicine; Emergency Provider General Practice; PCP Family Medicine; Visit Provider Physician Assistant
DX: D50.9 Iron deficiency anemia, unspecified (principal); I50.33 Acute on chronic diastolic (congestive) heart failure; J96.11 Chronic respiratory failure with hypoxia; E87.6 Hypokalemia; Z79.82 Long term (current) use of aspirin; I27.20 Pulmonary hypertension, unspecified; Z85.3 Personal history of malignant neoplasm of breast; F41.9 Anxiety disorder, unspecified; K21.9 Gastro-esophageal reflux disease without esophagitis; E03.9 Hypothyroidism, unspecified; M34.1 CR(E)ST syndrome; M47.812 Spondylosis without myelopathy or radiculopathy, cervical region; Z90.49 Acquired absence of other specified parts of digestive tract; I11.0 Hypertensive heart disease with heart failure
CPT/HCPCS: 36415; 36430; 80048; 80053; 82274; 82607; 82746; 83540; 83550; 84132; 85014; 85018; 85025; 85610; 85730; 86850; 86900; 86901; 86923; 96361; 96374; 96375; 96376; 99285; A9270; G0378; J1756; J1938; J2470; J3480; J7040; J7050; J7517; P9016

== ENCOUNTER 2025-06-25 14:35 | Outpatient (CLI) | payer MEDICARE, SELFPAY ==
--- OUTSIDE RECORDS SUMMARY | 2024-11-12 07:00 | XMS_ITS ---
Author Organization [facility] Address [address] [place], [place] [id number] Care Team Providers Care Operator Technician Name Role Phone Laly Kenny Primary Care Provider UnavailKatrina Mckeon Unavailable [phone] NADJA WATERMAN MD Unavailable Unavailable Elsa Hernandez Unavailable [phone] ALLERGIES No Known Allergies MEDICATIONS Medication SIG (Take, Route, Frequency, Duration) Notes Start Date End Date Status Aspir 81 81 mg 1 tab(s) orally once a day Active Vitamin D3 100 intl units 1 cap(s) orall y once a day Active mycophenolate mofetil 500 mg 1 tab orall y 2 times a day Active omeprazole 20 mg 1 cap(s) orally once a day Active ferrous sulfate 325 mg 1 tab(s) orally 3 times a day Active multivitamin Multiple Vitamins 1 tab(s) orally once a day Active Vitamin B12 500 mcg 1 tab(s) orally once a day Active Uptravi 1600 mcg 1 tab(s) orally 2 ti mes a day Active furosemide 20 mg 2 tab(s) orally once a day Active Opsumit 10 mg 1 tab(s) orally once a day Active Wixela Inhub 250 mcg-50 mcg/inh 1 INH inhaled 2 times a day Active tadalafil 20 mg 2tab(s) orally once a day Active hydroxychloroquine 200 mg 1 tab in the m orning and 1/2 tab in the evening orally once a day for 90 days Active Winrevair csrk 45 mg (1 vial) as directed subcutaneously every 3 weeks Active VITAL SIGNS BMI 19.39 kg/m2 11/12/2024 Blood pressure systolic 120 mm Hg 11/12/19 25 Blood pressure diastolic 52 mm Hg 025 Heart Rate 104 /min 11/12/2024 Height 64 in 11/12/2024 Weight 113 lbs 11/12/2024 Encounters Encounter Location Date Provider [facility] [address] [place], [place] [id number] 11/12/2024 Elsa Hernandez Other press tender long goods (current) drug therapy Z79.899 and CREST syndrome M34.1 ASSESSMENTS Encounter Date Diagnosis Assessment Notes Treatment Notes Treatment Clinical Notes Section Notes 11/12/2024 [facility] (ICD-10 - Z79.899) CREST syndrome- stable with MMF and HCQ. Continue current therapy and eye exams. Recent labs reviewed. Seeing Dr. Mayer regularly. On o2 and diuretics. Raynauds-Keep warm. F/u scheduled. 11/12/2024 CREST syndrome (ICD-10 - M34.1) CREST syndrome- stable with MMF and HCQ. Continue current therapy and eye exams. Recent labs reviewed. Seeing Dr. Mayer regularly. On o2 and diuretics. Raynauds-Keep warm. F/u scheduled. PLAN OF TREATMENT Medication Medication Name Sig Start Date Stop Date Notes Vitamin D3 100 intl units 1 cap(s) orally once a day mycophenolate mofetil 500 mg 1 tab orally 2 times a day omeprazole 20 mg 1 cap(s) orally once a day ferrous sulfate 325 mg 1 tab(s) orally 3 times a day multivitamin Multiple Vitamins 1 tab(s) orally once a day Vitamin B12 500 mcg 1 tab(s) orally once a day Uptravi 1600 mcg 1 tab(s) orally 2 times a day furosemide 20 mg 2 tab(s) orally once a day Opsumit 10 mg 1 tab(s) orally once a day Wixela Inhub 250 mcg-50 mcg/inh 1 INH inhaled 2 times a day tadalafil 20 mg 2tab(s) orally once a day Winrevair csrk 45 mg (1 vial) as directe d subcutaneously every 3 weeks Next Appt Details Follow Up: 3 Months, Reason: Provider Name:Elsa hernandez, 09/09/2025 02:20:00 PM, [address] [facility], [address], [place], [place], [id number], Progress Notes * Examination Category Sub-Category Detail Notes Category Not es General Constitutional: No acute distress HEENT: PERRLA, Neck supple, Normal sclerae and conjunctivae Cardiovascular RSR, Holosystolic mu rmur, , Normal peripheral pulsations, No edema Lungs: clear to ausculation Abdomen: soft, no organomegal y or masses /Rectal: not done Skin: No cutaneous lesions. No subcutaneous nodules noted in the 4 extremities, Telangiectasias to palms and face, , Sclerodactyly, acrocyanosis to both hands, evidence of healed calcinosis to posterior side of right forearm. Scaley skin to cuticle of left index finger Neurological: No focal neurologica l findings Heme/Lymphatic: No cervical, axillar y, or inguinal adenopathy Psych: Alert, oriented x 3, Normal affect Musculoskeletal: Normal strength. No muscle atrophy Joint Exam Shoulders No swelling. No tenderness. NROM. Elbows No swelling. No tend erness. NROM. Wrists No swelling. No tend erness. NROM. Hips No tenderness, ren l ROM, no instability or deformity Knees No swelling, no tend erness, NROM. No instability or deformity Ankles No swelling, no tend erness, NROM., No instability or deformity. All MCPs No swelling, no tend erness, no deformity unless noted below. All PIPs No swelling, no tend erness, no deformity unless noted below. All DIPs No swelling, no tend erness, no deformity unless noted below. All MTPs No swelling, no tend erness, NROM, no deformity unless noted below. History and Physical Notes * HPI (History of Present Illness) Category Sub-Category Detail Notes Category Not es Rheumatology Mrs. Lopez returns today for follow up and treatment of CREST syndrome. Doing ok overall. No issues with HCQ or Cellcept. Up to date with eye exam. She tells me that she will be starting a new medication from her Lodging Facilities Attendant. Winredair is an every 3 week injection. She will also have bloodwork every 3 weeks with it. She also mentions that Brio was changed to Wixela inhaler. She does mention having had an in home wellness screening and is wearing a heart monitor. She denies any heart issues, and acid reflux is stable. Raynauds at baseline. No ulcerations at this time. Seeing Dr. Mayer regularly. Remains on O2 1-2 LNC. She remains on furosemide 20mg twice daily and PRN metolazone if her weight increases. Occasional left hip and left knee pain. She doesn't use anything for pain. She denies any joint pain. No recent fevers/infections. She did have labs done with PCP on 11/07/24- Hgb 8.3, Hct 26.6, Plt 193, WBC 6.3, Vit. D 55, CMP-creat. 1.04 GFR 55, AST 13, ALT 7. Physical Examination Category Sub-Category Detail Notes Section Note s MDHAQ Summary Function (0-10):: 1 Pain (0-10):: 1.5 Patient Global Assessment of Disease Activity (0 -10):: 1.5 RAPID3 Score (0-30):: 4 Physician Global Assessment of Disease Activity (0-10):: 2 Prognosis Good w/tx Erosive Damage No
--- OUTSIDE RECORDS SUMMARY | 2025-02-04 09:00 | XMS_ITS ---
Author Organization [facility] Address [address] [place], [place] [id number] Care Team Providers Care Hostess Host Name Role Phone PericobernardinoLaly Primary Care Provider UnavailKatrina Mckeon Unavailable [phone] NADJA WATERMAN MD Unavailable Unavailable Elsa Hernandez Unavailable [phone] ALLERGIES No Known Allergies RESULTS Component Value Reference Range Notes CBC With Differential/Platel et Reviewed date:03/11/2025 01:41:04 PM Interpretation: Performing Lab:[facility], [address] [facility], [place], Phone - [phone], Director - PhDRicfrancis Notes/Report: WBC 6.8 3.4-10.8 x10E3/uL Verified by repeat analysis RBC 2.52 3.77-5.28 x10E6/uL Hemoglobin 6.9 11.1-15.9 g/dL Client Reques alexa Flag Hematocrit 24.3 34.0-46.6 % MCV 96 79-97 fL MCH 27.4 26.6-33.0 pg MCHC 28.4 31.5-35.7 g/dL RDW 14.9 11.7-15.4 % Platelets 172 150-450 x10E3/uL Neutrophils 77 Not Estab. % Lymphs 10 Not Estab. % Monocytes 8 Not Estab. % Eos 1 Not Estab. % Basos 0 Not Estab. % Immature Cells Neutrophils (Absolute) 5.2 1.4-7.0 x10E3/uL Lymphs (Absolute) 0.7 0.7-3.1 x10E3/uL Monocytes(Absolute) 0.6 0.1-0.9 x10E3/uL Eos (Absolute) 0.1 0.0-0.4 x10E3/uL Baso (Absolute) 0.0 0.0-0.2 x10E3/uL Immature Granulocytes 4 Not Estab. % Immature Grans (Abs) 0.2 0.0-0.1 x10E3/uL (An elevated percentage of Immature Granulocytes has not been found to be clinically significant as a sole clinical predictor of disease. Does NOT include bands or blast cells. associated physiological leukocytosis may also show increased immature granulocytes without clinical significance.) [facility] Hematology Comments: Comp. Metabolic Panel (14) Reviewed date:03/11/2025 01:41:10 PM Interpretation: Performing Lab:[facility] [place], [address] [facility], Phone - [phone], Director - Jenifer Notes/Report: Glucose 92 70-99 mg/dL BUN 43 8-27 mg/dL Creatinine 1.19 0.57-1.00 mg/dL eGFR 47 >59 mL/min/1.73 BUN/Creatinine Ratio 36 12-28 Sodium 136 134-144 mmol/L Potassium 2.9 3.5-5.2 mmol/L Chloride 95 96-106 mmol/L Carbon Dioxide, Total 26 20-29 mmol/L Calcium 9.2 8.7-10.3 mg/dL Protein, Total 5.5 6.0-8.5 g/dL Albumin 4.0 3.8-4.8 g/dL Globulin, Total 1.5 1.5-4.5 g/dL Bilirubin, Total <0.2 0.0-1.2 mg/dL Alkaline Phosphatase 46 44-121 IU/L AST (SGOT) 13 0-40 IU/L ALT (SGPT) 7 0-32 IU/L REASON FOR VISIT 3 mo f/u MEDICATIONS Medication SIG (Take, Route, Frequency, Duration) Notes Start Date End Date Status Wixela Inhub 250 mcg-50 mcg/inh 1 INH inhaled 2 times a day Active tadalafil 20 mg 2tab(s) orally once a day Active multivitamin Multiple Vitamins 1 tab(s) orally once a day Active Vitamin B12 500 mcg 1 tab(s) orally once a day Active furosemide 20 mg 2 tab(s) orally once a day Active Vitamin D3 100 intl units 1 cap(s) orall y once a day Active ferrous sulfate 325 mg 1 tab(s) orally 3 times a day Active mycophenolate mofetil 500 mg 1 tab orall y 2 times a day Active omeprazole 20 mg 1 cap(s) orally once a day Active Uptravi 1600 mcg 1 tab(s) orally 2 ti mes a day Active Aspir 81 81 mg 1 tab(s) orally once a day Active Winrevair csrk 45 mg (1 vial) as directed subcutaneously every 3 weeks Active Opsumit 10 mg 1 tab(s) orally once a day Active hydroxychloroquine 200 mg 1 tab in the m orning and 1/2 tab in the evening orally once a day Active VITAL SIGNS BMI 19.39 kg/m2 02/04/2025 Blood pressure systolic 88 mm Hg 02/05/20 25 Blood pressure diastolic 41 mm Hg 025 Heart Rate 90 /min 02/04/2025 Height 64 in 02/04/2025 Weight 113 lbs 02/04/2025 Encounters Encounter Location Date Provider Diagnosis [facility] [address] [place] [address], [address] [place], [place] [id number] 02/04/2025 Elsa Hernandez Other regional medical director (current) drug therapy Z79.899 ; CREST syndrome M34.1 and Raynaud's syndrome I73.00 ASSESSMENTS Encounter Date Diagnosis Assessment Notes Treatment Notes Treatment Clinical Notes Section Notes 02/04/2025 [facility] drug [facility] (ICD-10 - Z79.899) CREST syndrome-fairl y stable with MMF and HCQ. Continue current therapy and eye exams. Have labs to be done next month faxed. Pulm. per Dr. Mayer. On O2 and diuretics. Remains on Winrevair injections. Raynauds stable. Keep warm. F/u scheduled. 02/04/2025 CREST syndrome (ICD-10 - M34.1) CREST syndrome-fairl y stable with MMF and HCQ. Continue current therapy and eye exams. Have labs to be done next month faxed. Pulm. per Dr. Mayer. On O2 and diuretics. Remains on Winrevair injections. Raynauds stable. Keep warm. F/u scheduled. 02/04/2025 Raynaud's syndrome (ICD-10 - I73.00) CREST syndrome-fairl y stable with MMF and HCQ. Continue current therapy and eye exams. Have labs to be done next month faxed. Pulm. per Dr. Mayer. On O2 and diuretics. Remains on Winrevair injections. Raynauds stable. Keep warm. F/u scheduled. PLAN OF TREATMENT Medication Medication Name Sig Start Date Stop Date Notes Wixela Inhub 250 mcg-50 mcg/inh 1 INH inhaled 2 times a da y tadalafil 20 mg 2tab(s) orally once a day multivitamin Multiple Vitamins 1 tab(s) orally once a day Vitamin B12 500 mcg 1 tab(s) orally once a day furosemide 20 mg 2 tab(s) orally once a day Vitamin D3 100 intl units 1 cap(s) orally once a day ferrous sulfate 325 mg 1 tab(s) orally 3 times a day mycophenolate mofetil 500 mg 1 tab orally 2 times a day omeprazole 20 mg 1 cap(s) orally once a day Aspir 81 81 mg 1 tab(s) orally once a day Winrevair csrk 45 mg (1 vial) as directe d subcutaneously every 3 weeks Opsumit 10 mg 1 tab(s) orally once a day hydroxychloroquine 200 mg 1 tab in the m orning and 1/2 tab in the evening orally once a day Next Appt Details Follow Up: 3 Months, Reason: Provider Name:Elsa Hough , 09/09/2025 02:20:00 PM, [address] [facility], [address], [place], [place], [id number], Progress Notes * Examination Category Sub-Category Detail [...] Up to date with eye exam. She remains on Winrevair injections every [address] Mayer. He is monitoring labs regularly. Recently her Levothyroxine was increased as well. Raynauds at baseline. No ulcerations at this time. Remains on O2 1-2 LNC. She remains on furosemide 20mg twice daily and PRN metolazone if her weight increases. Occasional left hip and left knee pain. Mostly if she is walking or standing too much. She doesn't use anything for pain. No recent fevers/infections. Physical Examination Category Sub-Category Detail Notes Section Note s MDHAQ Summary Function (0-10):: 1.3 Pain (0-10):: 2 Patient Global Assessment of Disease Activity (0 -10):: 2.5 RAPID3 Score (0-30):: 5.8 Physician Global Assessment of Disease Activity (0-10):: 3 Prognosis Good w/tx Erosive Damage No
--- OUTSIDE RECORDS SUMMARY | 2025-03-11 08:41 | XMS_ITS ---
Author Organization [facility] Address [address] [place], [place] [phone] Care Team Providers Care Cross Enterprise Integrator Name Role Phone PericomagalysLaly carmona Primary Care Provider UnavailKatrina Mckeon Unavailable [phone] NADJA WATERMAN MD Unavailable Unavailable Encounters Encounter Location Date Provider Diagnosis [facility] [address], [address] [place], [place] [id number] 03/11/2025 Katrina Grace PLAN OF TREATMENT Next Appt Details Provider Name:Elsa hernandez, 09/09/2025 02:20:00 PM, [address], [address], [place], [place], [id number],
--- OUTSIDE RECORDS SUMMARY | 2025-03-13 06:54 | XMS_ITS ---
Author Organization [facility] Address [address] [place], [place] [id number] Care Team Providers Care Animal Behaviourist Name Role Phone PericomagalysLaly carmona Primary Care Provider UnavailKatrina Mckeon Unavailable [phone] NADJA WATERMAN MD Unavailable Unavailable Encounters Encounter Location Date Provider Diagnosis [facility] [address], [address] [place], [place] [id number] 03/13/2025 Katrina Grace PLAN OF TREATMENT Next Appt Details Provider Name:Elsa hernandez, 09/09/2025 02:20:00 PM, [address], [address], [place], [place], [id number],
--- OUTSIDE RECORDS SUMMARY | 2025-06-10 09:20 | XMS_ITS ---
Author Organization [facility] Address [address] [place], [place] [id number] Care Team Providers Care Retail Property Manager Name Role Phone Pericobernardino Laly Primary Care Provider UnavailKatrina Mckeon Unavailable [phone] NADJA WATERMAN MD Unavailable Unavailable Elsa Hernandez Unavailable [phone] ALLERGIES No Known Allergies RESULTS Component Value Reference Range Notes CBC With Differential/Platel et Reviewed date:06/23/2025 02:49:23 PM Interpretation: Performing Lab:[facility] [place], [address] [facility], [place], Phone - [phone], Director - Jenifer Notes/Report: A courtesy copy of this report has been sent to [facility] WBC 6.0 3.4-10.8 x10E3/uL RBC 3.61 3.77-5.28 x10E6/uL Hemoglobin 11.0 11.1-15.9 g/dL Hematocrit 35.3 34.0-46.6 % MCV 98 79-97 fL MCH 30.5 26.6-33.0 pg MCHC 31.2 31.5-35.7 g/dL RDW 14.5 11.7-15.4 % Platelets 177 150-450 x10E3/uL Neutrophils 75 Not Estab. % Lymphs 12 Not Estab. % Monocytes 7 Not Estab. % Eos 1 Not Estab. % Basos 1 Not Estab. % Immature Cells Neutrophils (Absolute) 4.5 1.4-7.0 x10E3/uL Lymphs (Absolute) 0.7 0.7-3.1 x10E3/uL Monocytes(Absolute) 0.4 0.1-0.9 x10E3/uL Eos (Absolute) 0.1 0.0-0.4 x10E3/uL Baso (Absolute) 0.1 0.0-0.2 x10E3/uL Immature Granulocytes 4 Not Estab. % Immature Grans (Abs) 0.3 0.0-0.1 x10E3/uL (An elevated percentage of Immature Granulocytes has not been found to be clinically significant as a sole clinical predictor of disease. Does NOT include bands or blast cells. associated physiological leukocytosis may also show increased immature granulocytes without clinical significance.) [facility] Hematology Comments: Comp. Metabolic Panel (14) Reviewed date:06/23/2025 02:49:23 PM Interpretation: Performing Lab:[facility] [place], [address] [place] [address], Phone - [phone], Director - Jeniefr Notes/Report: A courtesy copy of this report has been sent to [facility] Glucose 108 70-99 mg/dL BUN 30 8-27 mg/dL Creatinine 1.06 0.57-1.00 mg/dL eGFR 54 >59 mL/min/1.73 BUN/Creatinine Ratio 28 12-28 Sodium 143 134-144 mmol/L Potassium 3.7 3.5-5.2 mmol/L Chloride 104 96-106 mmol/L Carbon Dioxide, Total 23 20-29 mmol/L Calcium 9.3 8.7-10.3 mg/dL Protein, Total 5.5 6.0-8.5 g/dL Albumin 4.1 3.8-4.8 g/dL Globulin, Total 1.4 1.5-4.5 g/dL Bilirubin, Total <0.2 0.0-1.2 mg/dL Alkaline Phosphatase 58 49-135 IU/L Pleas e note reference interval change AST (SGOT) 12 0-40 IU/L ALT (SGPT) 7 0-32 IU/L MEDICATIONS Medication SIG (Take, Route, Frequency, Duration) Notes Start Date End Date Status Vitamin D3 100 intl units 1 cap(s) orall y once a day Active multivitamin Multiple Vitamins 1 tab(s) orally once a day Active furosemide 20 mg 2 tab(s) orally once a day Active Uptravi 1600 mcg 1 tab(s) orally 2 times a day Active ferrous sulfate 325 mg 1 tab(s) orally 3 times a day Active Winrevair csrk 45 mg (1 vial) as directed subcutaneously every 3 weeks Active hydroxychloroquine 200 mg 1 tab in the m orning and 1/2 tab in the evening orally once a day Active mycophenolate mofetil 500 mg 1 tab orally 2 times a day Active Opsumit 10 mg 1 tab(s) orally once a day Active tadalafil 20 mg 2tab(s) orally once a day Active Wixela Inhub 250 mcg-50 mcg/inh 1 INH inhaled 2 times a day Active Potassium 10 meq 1 tab once a day 2x a day Active lansoprazole 30 mg 1 cap(s) orally once a day Active VITAL SIGNS BMI 19.39 kg/m2 06/10/2025 Blood pressure systolic 118 mm Hg 06/10/20 25 Blood pressure diastolic 60 mm Hg 025 Heart Rate 88 /min 06/10/2025 Height 64 in 06/10/2025 Weight 113 lbs 06/10/2025 Encounters Encounter Location Date Provider Diagnosis [facility] [address] [place] [address], [address] [place], [place] [id number] 06/10/2025 Elsa Hernandez CREST syndrome M34.1 and Other group home (current) drug therapy Z79.899 ASSESSMENTS Encounter Date Diagnosis Assessment Notes Treatment Notes Treatment Clinical Notes Section Notes 06/10/2025 CREST syndrome (ICD-10 - M34.1) CREST syndrome-cherry nue HCQ and Cellcept. Reminded to have an eye exam. Lab slip given to monitor medications. Seeing GI and Heme. for esophageal stricture and anemia. Continue seeing Pulm. Dr. Mayer. On O2 and diuretics. Remains on Winrevair injections. Raynauds stable. Keep warm. F/u scheduled. 06/10/2025 Other group home (current) drug therapy (ICD-10 - Z79.899) CREST syndrome-cherry nue HCQ and Cellcept. Reminded to have an eye exam. Lab slip given to monitor medications. Seeing GI and Heme. for esophageal stricture and anemia. Continue seeing Pulm. Dr. Mayer. On O2 and diuretics. Remains on Winrevair injections. Raynauds stable. Keep warm. F/u scheduled. PLAN OF TREATMENT Medication Medication Name Sig Start Date Stop Date Notes Vitamin D3 100 intl units 1 cap(s) orall y once a day multivitamin Multiple Vitamins 1 tab(s) orally once a day furosemide 20 mg 2 tab(s) orally once a day Uptravi 1600 mcg 1 tab(s) orally 2 ti mes a day ferrous sulfate 325 mg 1 tab(s) orally 3 times a day Winrevair csrk 45 mg (1 vial) as directe d subcutaneously every 3 weeks hydroxychloroquine 200 mg 1 tab in the m orning and 1/2 tab in the evening orally once a day mycophenolate mofetil 500 mg 1 tab orall y 2 times a day Opsumit 10 mg 1 tab(s) orally once a day tadalafil 20 mg 2tab(s) orally once a day Wixela Inhub 250 mcg-50 mcg/inh 1 INH inhaled 2 times a day Potassium 10 meq 1 tab once a day 2x a day lansoprazole 30 mg 1 cap(s) orally once a day Next Appt Details Follow Up: 3 Months, Reason: Provider Name:Elsa hernandez, 09/09/2025 02:20:00 PM, [address] [facility], [address], [place], [place], [phone], Progress Notes * Examination Category Sub-Category Detail [...] follow up and treatment of CREST syndrome. States she was hospitalized twice this summer for anemia and hypokalemia. She is taking oral iron and potassium supplement. Had an endoscopy and colonoscopy done with Dr. Farhana Becker. Was noted to have esophageal tightening and that food was in her esophagus. She did have an esophageal dilitation and she was prescribed lansoprazole twice daily. Has a follow up in late Jun. Will be seeing a rigger helper for anemia to assess necessity for iron infusion. Has an appt. with Dr. Chauhan end of Jun. No issues with HCQ or Cellcept. She is up to date with eye exam. Raynauds at baseline. Remains on O2 1-2L NC. She remains on furosemide 20mg twice daily and PRN metolazone if her weight increases. Pain currently manageable. No recent fevers/infections. Physical Examination Category Sub-Category Detail Notes Section Note s MDHAQ Summary Function (0-10):: 1.3 Pain (0-10):: 1 Patient Global Assessment of Disease Activity (0 -10):: 3.5 RAPID3 Score (0-30):: 5.8 Physician Global Assessment of Disease Activity (0-10):: 3 Prognosis Good w/tx Erosive Damage No
--- OUTSIDE RECORDS SUMMARY | 2025-06-25 13:30 | XMS_ITS | Encounter Summary ---
Author Organization [facility]ungo [facility] Address [address] [place] [address] Care Team Providers Care Record Producer Name Role Phone Laly Kenny DO Primary Care Provider [phone]- [phone] Reason for Visit * Reason Comments Establish Care Encounter Details Date Type Department Care Team (Late st Contact Info) Description 06/25/2025 1:30 PM CDT Office Visit [facility] Oncology and Hematology - [place] [address] [place] [address] [facility] [address] [place] [address] Jose Antonio Chauhan MD [address] [facility] [address] [place] [address] Chronic anemia (Primary Dx) Social History Tobacco Use Types Packs/Day Years [...] declined 08/22/2019 How often do you attend protestant or presybeterian serv ices? Patient declined 08/22/2019 Do you belong to any clubs o r organizations such as protestant groups, unions, fraternal or athletic groups, or [...] Sex Assigned at Female 10/03/2024 12:21 PM ASSEMBLING MOTOR BUILDER Legal Sex Female 1:49 PM CDT Gender Identity Female 10/03/2024 12:21 PM ASSEMBLING MOTOR BUILDER Sexual Orientation Choose not to disclose 2024 12:21 PM ASSEMBLING MOTOR BUILDER documented as of this encounter Last Filed Vital Signs Vital Sign Reading Time Taken Comments Blood Pressure 108/53 06/25/2025 1:55 PM CDT Pulse 87 06/25/2025 1:55 PM CDT Temperature 36.7 C (98 F) 06/25/2025 1:55 PM CDT Respiratory Rate 16 06/25/2025 1:55 PM CDT 2 liters O2 Oxygen Saturation 94% 06/25/2025 1:5 5 PM CDT Inhaled Oxygen Concentration - - Weight 52.7 kg (116 lb 3.2 oz) 06/25/20 1:55 PM CDT Height 157.5 cm (5' 2) 06/25/2025 1:55 PM CDT Body Mass Index 21.25 06/25/2025 1:55 PM CDT documented in this encounter Progress Notes * Jose Antonio Chauhan MD - 06/25/2025 2:13 PM CDT Hematology-oncology consult Note Requesting Physician Laly Kenny DO Primary Care Physician Laly Kenny DO Problem list Patient Active Problem List Diagnosis Code Lung infiltrate R91.8 Pulmonary hypertension (CMS/HCC) I27.20 Acute on chronic respiratory failure with hypoxia (CMS/HCC) J96.21 Closed fracture of left femur (CMS/HCC) S72.92XA Hypothyroidism E03.9 Closed fracture of left hip (CMS/HCC) S72.002A Protein-calorie malnutrition, moderate E44.0 SS (systemic sclerosis) (CMS/HCC) M34.9 Previous TREATMENT ? Measurable Disease ? Reason for Visit Christine Ellis is a 79 y.o. female who was referred for consultation for iron deficiency anemia. History of present illness This is a 79-year-old female with history of scleroderma, rectal prolapse, IBS and right-sided breast cancer status post bilateral mastectomy 25 years ago. She also received chemotherapy. She was admitted to the hospital on April 25, 2025 with anemia. She received 1 unit of packed red blood cell. She denies any melena or hematochezia. Iron studies came back compatible with iron deficiency anemia. She received iron infusion and was discharged home on oral iron supplement. Patient had EGD and colonoscopy done at [facility] on May 05, 2025. EGD showed severe esophageal stenosis with candidiasis and reflux esophagitis with bleeding. There was element of gastritis as well. Colonoscopy showed proctitis with erythema another cause for anemia. There was 1 nonbleeding cecal angiodysplastic lesion. Clinically she denies any melena hematochezia. Denies any other complaints. Past Medical History Past Medical History: Diagnosis Date Asthma Breast cancer (CMS/HCC) Breast cancer (CMS/HCC) COPD (chronic obstructive pulmonary disease) (CMS/HCC) CREST (calcinosis, Raynaud's phenomenon, esophageal dysfunction, sclerodactyly, telangiectasia) (CMS/HCC) GERD (gastroesophageal reflux disease) Hypothyroidism Pulmonary hypertension (CMS/HCC) Systemic sclerosis with lung involvement (CMS/HCC) Surgical History Past Surgical History: Procedure Laterality Date BRONCHOSCOPY HX APPENDECTOMY HX COLONOSCOPY 05/05/2025 HX ESOPHAGOGASTRODUODENOSCOPY 05/05/2025 HX MASTECTOMY [place] HEMIARTHROPLASTY HIP PARTIAL Left 11/17/2019 HIP HEMIARTHROPLASTY performed by Alvarez Braxton DO at [facility] Medications Current Outpatient Medications Medication Sig Dispense Refill Winrevair 45 mg Kit INJECT 0.7 ML UNDER THE SKIN EVERY 3 WEEKS 1 Kit 10 furosemide (LASIX) 20 mg tablet TAKE 2 TABLETS BY MOUTH TWICE A DAY 360 Tablet 3 fluticasone propion-salmeteroL (ADVAIR DISKUS,WIXELA INHUB) 250-50 mcg/dose disk inhaler TAKE 1 PUFF BY MOUTH TWICE A DAY 60 Each 11 potassium CHLORIDE (KLOR-CON) 10 mEq Extended Release tablet TAKE 2 TABLETS (20 MEQ) BY MOUTH DAILYWITH BREAKFAST. 60 Tablet 6 macitentan (Opsumit) 10 mg Tablet tablet TAKE 1 TABLET DAILY. 30 Tablet 5 selexipag (Uptravi) 1,600 mcg Tablet Take 1 tablet two times a day 60 Tablet 6 tadalafil (ADCIRCA) 20 mg Tablet tablet TAKE 2 TABLETS BY MOUTH 1 TIME A DAY 180 Tablet 3 albuterol sulfate HFA 90 mcg/actuation aerosol inhaler Take 2 Puffs by inhalation every 6 hours as needed for Shortness of Breath. 8.5 Gram 3 metOLazone (ZAROXOLYN) 2.5 mg tablet TAKE 1 TABLET BY MOUTH DAILY NEEDED FOR 2 - 3 DAYS WHEN WEIGHT IS UP BY 5 LBS. 30 Tablet 3 ferrous sulfate 325 mg (65 mg iron) tablet Take 325 mg by mouth daily. multivitamin (DAILY-ELOISA) tablet 1 tab(s) hydroxychloroquine (PLAQUENIL) 200 mg tablet Take 1 Tablet (200 mg) by mouth daily. (Patient takingdifferently: Take 200 mg by mouth 2 times daily. 1 IN AM 1/2 TAB PM) 30 Tablet 0 levothyroxine 50 mcg tablet Take 1 Tablet (50 mcg) by mouth daily logistics coordinator. 30 Tablet 0 mycophenolate mofetil (CellCept) 500 mg tablet Take 1 Tablet (500 mg) by mouth 2 times daily. 60 Tablet 0 fluticasone propionate (FLONASE) 50 mcg/spray [place], Suspension nasal inhaler Administer 2 Sprays in each nostril daily. omeprazole (PriLOSEC) 20 mg Capsule, Delayed Release(E.C.) Take 20 mg by mouth daily. cholecalciferol, vitamin D3, (VITAMIN D3 ORAL) Take by mouth. cyanocobalamin (VITAMIN B-12) 500 mcg tablet Take 500 mcg by mouth daily. No current facility-administered medications for this visit. Allergies No Known Allergies Immunizations: Immunization History Administered Date(s) Administered INFLUENZA VACCINE HIGH DOSE QUADRIVALENT 65 YR UP PF IM 06/11/2020 Influenza Seasonal Unspecified Formulation IM 07/22/2019 Family History Family History Problem Relation Name Age of Onset Diabetes Mother No Known Problems Sister No Known Problems Sister No Known Problems Sister No Known Problems Son Social History Social History Tobacco Use Smoking status: Never Smokeless tobacco: Never Substance Use Topics Alcohol use: Not Currently Review of Systems Constitutional: Patient did not mention fever; no night sweats; no anorexia; no weight loss; improvement in tiredness and fatigue NEENT: Patient did not mention headache; no change in vision; no change in hearing; no sore throat;no dysphagia Respiratory: Patient did not mention shortness of breath; no pleuritic chest pain; no cough; no hemoptysis Cardiac: Patient did not mention cardiac-like chest pain; no palpitations; no orthopnea; no PND; noDOE Breasts: Patient did not mention tenderness; no masses GI: Patient did not mention abdominal pain; no nausea; no vomiting; no diarrhea; no hematochezia; no melena : Patient did not mention dysuria; no frequency; no hesitancy; no hematuria COMPLAINT SPECIALIST: Musculosketetal: Patient did not mention bone pain; no arthralgia; no joint swelling; no myalgia; Skin: Patient did not mention pruritis; no rash; no petechiae; no ecchymoses Endocrine: Patient did not mention polydipsia; no polyuria; no unusual weight gain Neuro: Patient did not mention headache; no change in vision; no sensory changes; no muscle weakness; no confusion; no seizures Psych: Patient did not mention anxiety; no depression; Physical Exam Vitals: As per nursing note Constitutional: Well developed, well nourished, no acute distress, non-toxic appearance Teeth and gum. No signs of infection or swelling. Eyes: PERRL, conjunctiva normal HEENT: Atraumatic, external ears normal, nose normal, oropharynx moist, no pharyngeal exudates. no sinus tenderness Neck- normal range of motion, no tenderness, supple Respiratory: No respiratory distress, normal breath sounds, no rales, no wheezing Cardiovascular: Normal rate, normal rhythm, no murmurs, no gallops, no rubs GI: Soft, nondistended, normal bowel sounds, nontender, no splenomegaly, no hepatomegaly, no mass, no rebound, no guarding : No costovertebral angle tenderness Musculoskeletal: No edema, no tenderness, no deformities. Back- no tenderness Integument: Well hydrated, no rash, Digits and nails inspection normal Lymphatic: No lymphadenopathy noted Neurologic: Alert & oriented x 3, CN 2-12 normal, normal motor function, normal sensory function, no focal deficits noted Psychiatric: Speech and behavior appropriate ? labs No results found for this or any previous visit (from the past 24 hours). Labs from May 01, 2025 showed creatinine 0.8 iron 27 saturation 7% B12 740 hemoglobin 10.1 Pathology ? Imaging & Other Studies Performance Status? Assessment / Plan: ? Iron deficiency anemia. Patient is a 79-year-old female with history of scleroderma, rectal prolapse, IBS and right-sided breast cancer was admitted to the hospital in April 25, 2025 and was found to be anemic. She received 1 unit of packed red blood cell along with iron infusion. She was dischargedhome on iron 65 mg twice a day.Patient had EGD and colonoscopy done at [facility] onMay 05, 2025. EGD showed severe esophageal stenosis with candidiasis and reflux esophagitis with bleeding. There was element of gastritis as well. Colonoscopy showed proctitis with erythema anothercause for anemia. There was 1 nonbleeding cecal angiodysplastic lesion. She is feeling better. I will order iron studies B12 level CBC and CMP today. Phone visit in 1 week. She will continue oral iron once a day in the meantime and we will decide about iron infusion based on the results. I have answered all the questions the patient satisfaction. Gastritis. Patient is on Prevacid. Esophageal candidiasis. She was started on Mycelex by the director industrial museum with follow-up colonoscopy in 2 weeks. Thank you very much for allowing me to participate in Christine Ellis's evaluation and management. Please feel free to contact if I can be of any further assistance in your patient???s care requiring hematology or oncology evaluation. Sincerely, ? ? Jose Antonio Chauhan M.D. cell TOBACCO COUNSELING She is not a tobacco/nicotine user. Jose Antonio Chauhan MD ,06/25/2025 2:46 PM ? Total time spent 60 minutes, two third of the total time spent counseling patient [id number]. CC:? documented in this encounter Plan of Treatment Upcoming Encounters Date Type Department Care Team (Late st Contact Info) Description 07/02/2025 4:30 PM CDT Telephone Check Up [facility] Oncology and Hematology - [place] [address] [facility] [address] [place] [address] Jose Antonio Chauhan MD [address] [facility] [address] [place] [address] 10/05/2025 2:00 PM ASSEMBLING MOTOR BUILDER Office Visit [facility] Pulmonology [place] [address] [place] [address] Yony Mayer MD [address] [place] [address] Scheduled Orders Name Type Priority Associated Diagnoses Orde r Schedule CBC WITH DIFFERENTIAL Lab Stat Chronic anemia Expected: 06/25/2025, Expires: 06/25/2026 IRON, TIBC, AND PERCENT SATURATION Lab Routine Chronic anemia Expected: 06/25/2025, Expires: 06/25/2026 VITAMIN B12 LEVEL Lab Routine Chronic anemia Expected: 06/25/2025, Expires: 06/25/2026 BASIC METABOLIC PANEL Lab Stat Chronic anemia Expected: 06/25/2025, Expires: 06/25/2026 FERRITIN Lab Routine Chronic anemia Expected: 06/25/2025, Expires: 06/25/2026 documented as of this encounter Visit Diagnoses Diagnosis Chronic anemia- Primary Anemia, unspecified documented in this encounter Care Teams Record Producer Relationship Specialty Start Date End Date Laly Kenny DO [address] [place] [phone] PCP - General Family Practice 05/16/21 documented as of this encounter
[2025-06-25 15:02] LABS: Hematocrit 39.5 % (37.0-47.0); Hemoglobin 11.4 g/dL (12.0-15.0); Immature Granulocyte Percent A 5.3 % (0-0.5); Lymphocytes Absolute Auto 0.68 K/mm3 (0.9-3.2); Mean Corpuscular HGB Conc 28.9 g/dl (32-36); Mean Corpuscular Hemoglobin 30.0 pg (26-34); Mean Corpuscular Volume 103.9 fl (80-100); Nucleated Red Blood Cells Absolute Auto 0.000 K/mm3 (0.0-0.012); Nucleated Red Blood Cells Perc 0.0 % (0.0-0.2); Platelet Count Result 144 k/mm3 (150-375); Red Blood Count 3.80 M/mm3 (4.2-5.4); White Blood Count 6.1 K/mm3 (4.5-10.0)
[2025-06-25 15:10] LABS: Schistocytes None Seen
[2025-06-25 15:13] LABS: Anisocytosis 1+; Hypochromasia 2+; Macrocytosis 1+ (NORMAL); Ovalocytes 1+
[2025-06-25 16:29] LABS: Iron 76 ug/dL (37-170)
[2025-06-25 16:32] LABS: Anion Gap 10 mmol/L (4-12); Blood Urea Nitrogen 32 mg/dL (7-17); Calcium 9.2 mg/dL (8.4-10.2); Carbon Dioxide 26 mmol/L (22-30); Chloride 101 mmol/L (98-107); Estimated Glomerular Filt Rate 52; Glucose 89 mg/dL (65-110); Potassium 4.0 mmol/L (3.4-5.0); Sodium 137 mmol/L (137-145)
[2025-06-25 16:39] LABS: Percent Iron Saturation 23 % (20-50)
--- OUTSIDE RECORDS SUMMARY | 2025-06-25 17:12 | XMS_ITS | Clinical Summary ---
Author Organization [facility] Address [address] [place] [address] Phone Care Team Providers Care Computer Systems Software Architect Name Role Phone Laly Kenny DO Primary Care Provider [phone]- [phone] Allergies No known active allergies Medications fluticasone propionate (FLONASE) 50 mcg/spray [place], Suspension nasal inhaler Administer 2 Sprays in each nostril daily. Active omeprazole (PriLOSEC) 20 mg Capsule, Delayed Release(E.C.) Take 20 mg by mouth daily. Active cholecalciferol , vitamin D3, (VITAMIN D3 ORAL) Take by mouth. Activ e cyanocobalamin (VITAMIN B-12) 500 mcg tablet Take 500 mcg by mouth daily. Active hydroxychloroqu ine (PLAQUENIL) 200 mg tabletIndicatio ns:1 tab in AM an 1/2 Take 1 Tablet (200 mg) by mouth daily. 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 30 Tablet 12/10/19 20 Active mycophenolate mofetil [...] Breath. 8.5 Gram 3 03/14/20 23 Active tadalafil (ADCIRCA) 20 mg Tablet tablet TAKE 2 TABLETS BY MOUTH 1 TIME A DAY 180 Tablet 3 09/11/20 24 Active selexipag (Uptravi) 1,600 mcg Tablet [...] MOUTH TWICE A DAY 60 Each 11 04/20/20 25 Active furosemide (LASIX) 20 mg tabletIndicatio ns:Pulmonary hypertension (CMS/HCC) TAKE 2 TABLETS BY MOUTH TWICE A DAY 360 Tablet 3 04/24/20 25 Active Winrevair 45 mg Kit INJECT 0.7 ML UNDER THE SKIN EVERY 3 WEEKS 1 Kit 10 06/11/20 25 Active sotatercept-yarn salvager k (Winrevair) 45 mg Kit Self inject 0.3 mL every 3 weeks subQ for the first 3 doses. After that increase to target dose of 0.7 mL every 3 weeks subQ 09/15/20 24 025 Discontinued Active Problems Problem Noted Date Diagnosed Date Protein-calorie malnutrition, moderate 0 Hypothyroidism 11/15/2019 Closed fracture of left hip 11/15/2019 Lung infiltrate Pulmonary hypertension Acute on chronic respiratory failure with hypoxi a Closed fracture of left femur SS (systemic sclerosis) Encounters Date Type Department Care Team Description 06/25/2025 1:30 PM CDT Office Visit [facility] Oncology and Hematology - [place] [address] [place] [address] Jose Antonio Chauhan MD Chronic anemia (Primary Dx) 06/15/2025 Orders Only [facility] Pulmonology [address] [place] [address] Yony Mayer MD PAH (pulmonary artery hypertension) ([facility]); Encounter for medication monitoring 06/11/2025 Refill [facility] Pulmonology [address] [place] [address] Yony Mayer MD 05/25/2025 Orders Only [facility] Pulmonology [address] [place] [address] Yony Mayer MD PAH (pulmonary artery hypertension) ([facility]); Encounter for medication monitoring 05/04/2025 Orders Only [facility] Pulmonology [address] [place] [address] Yony Mayer MD PAH (pulmonary artery hypertension) ([facility]/HCC); Encounter for medication monitoring 04/24/2025 Refill [facility] Pulmonology [address] [place] [address] Yony Mayer MD Pulmonary hypertension ([facility]/HCC) 04/20/2025 Refill [facility] Pulmonology [address] [place] [address] Yony Mayer MD Pulmonary hypertension ([facility]/HCC) 04/15/2025 External Device Data STL ABSTRACTION Provider, Abstract 04/14/2025 External Device Data STL ABSTRACTION Provider, Abstract 04/13/2025 Orders Only [facility] Pulmonology [address] [place] [address] Yony Mayer MD PAH (pulmonary artery hypertension) ([facility]/HCC); Encounter for medication monitoring 04/06/2025 Refill [facility] Pulmonology [address] [place] [address] Yony Mayer MD 03/30/2025 Telephone [facility] Pulmonology [place] [address] [place] [address] Yony Mayer MD Results 03/27/2025 1:42 PM CDT - 03/27/2025 11:59 PM CDT Hospital Encounter [facility] Imaging Services [facility] [address] [place] [address] Yony Mayer MD Discharge Disposition: Home or Self Care 03/25/2025 Telephone [facility] Pulmonology [address] [place] [address] Yony Mayer MD Results from Last 3 Months Immunizations Immunization Administration Dates Next Due (PREVNAR 13)(6 WKS UP) PNEUM OCOCCAL CONJUGATE (PCV13) 0.5 ML, IM 11/22/2019() INFLUENZA VACCINE HIGH DOSE QUADRIVALENT 65 YR U P PF IM 06/11/2020 Influenza Seasonal Unspecified Formulation IM Family History Medical History Relation Name Comments Diabetes Mother No Known Problems Sister 1 No Known Problems Sister 2 No Known Problems Sister 3 No Known Problems Son Relation Name Status Comments Brother Alive Mother Sister 1 Alive Sister 2 Alive Sister 3 Alive Son Alive Social History Tobacco Use Types Packs/Day Years [...] declined 08/22/2019 How often do you attend anabaptism or temple serv ices? Patient declined 08/22/2019 Do you belong to any clubs o r organizations such as anabaptism groups, unions, fraternal or athletic groups, or [...] Sex Assigned at Female 10/03/2024 12:21 PM VP DIRECTOR OF CREATIVE STRATEGY Legal Sex Female 1:49 PM CDT Gender Identity Female 10/03/2024 12:21 PM VP DIRECTOR OF CREATIVE STRATEGY Sexual Orientation Choose not to disclose 2024 12:21 PM VP DIRECTOR OF CREATIVE STRATEGY Last Filed Vital Signs Vital Sign Reading [...] Mass Index 21.25 06/25/2025 1:55 PM CDT Plan of Treatment Upcoming Encounters Date Type Department Care Team (Late st Contact Info) Description 07/02/2025 4:30 PM CDT Telephone Check Up [facility] Oncology and Hematology - [place] [address] [facility] [address] [place] [address] Jose Antonio Chauhan MD [email or web address] [facility] [address] [place] [address] 10/05/2025 2:00 PM VP DIRECTOR OF CREATIVE STRATEGY Office Visit [facility] Pulmonology [facility] [address] [place] [address] Yony Mayer MD [address] [place] [address] Health Maintenance Due Date Last Done Comments DTAP/TDAP/TD VACCINES (1 - Tdap) 1964 PNEUMOCOCCAL VACCINE 50+ YEA RS (1 of 2 - PCV) 1966 ZOSTER VACCINE (1 of 2) 1966 RSV VACCINE (60+ or ) (1 - 1-dose 75+ series) 2022 [place] Prev entative Visit/Annual Wellness Visit 10/01/2024 OSTEOPOROSIS SCREENING 02/24/2025 , 06/05/2018, 06/05/2018 INFLUENZA VACCINE (#1) 2025 06/11/2020, 2018 COLORECTAL SCREENING Discontinued 05/05/2025, 05/05/20 Colorectal Cancer Screening Discontinued FIT-DNA Q 3 years Discontinued FIT/FOBT Q 1 year Discontinued Flex Sig/CT Colonography Q 5 years Discontinued Medical Devices Implanted Type Area Loan Service Officer Device Identifier Shelf Expiration Date Model / Serial / Lot Head Fem Mod Cocr 28mm -3mm [id number] - [id number] Implanted:Qty: 1 on 11/17/2019 by Alvarez Braxton DO at [facility] Hip Left: Hip [employer]ESMOND [employer] 10/14/2029 [id number] / / [id number] Stem Fem Echo Pf 13mm [id number] - [id number] Implanted:Qty: 1 on 11/17/2019 by Alvarez Braxton DO at [facility] Hip Left: Hip [employer] 10/30/[id number] / / [id number] Liner Acet Bipolar [id number] Implanted:Qty: 1 on 11/17/2019 by Alvarez Braxton DO at [facility] Hip Left: Hip [employer] 10/06/[id number] / / [id number] Procedures Procedure Name Priority Date/Time Associated Diagnosis [...] lumbar spine, forearm and hip(s) using a [employer] DEXA scanner for bone mineral density determination [...] Geiger DO DICTATION LOCATION: Location 1 - [facility] Procedure Note Mark Geiger DO - 02/25/2020 XR DEXA BONE DENSITY AXIAL 1 OR MORE SITES DATE: 02/25/2020 10:43 AM HISTORY: 74 years old Female with post menopausal symptoms. PROCEDURE: Planar images of the lumbar spine, forearm and hip(s) using a [employer] DEXA scanner for bone mineral density determination [...] Geiger DO DICTATION LOCATION: Location 1 - [facility] Narseen Doe MD DIAGNOSTIC IMAGING [facility] Final Result from Last 3 Months or Most Recently Relevant to Health Maintenance Insurance [facility] Advance Directives For more information, please contact: [phone] * Full Code (Latest Code Status on File) Date Activated Date Inactivated Comments 11/27/2019 3:25 PM 12/11/2019 4:25 PM * Full Code Date Activated Date Inactivated Comments 11/13/2019 12:50 AM 11/27/2019 2:59 PM Care Teams Computer Systems Software Architect Relationship Specialty Start Date End Date Laly Kenny DO [address] [place] [phone] PCP - General Family Practice 05/16/21
--- OUTSIDE RECORDS SUMMARY | 2025-06-25 17:12 | XMS_ITS | Data Portability ---
Author Organization [place] [facility] [employer], Main Office Address [address] [place] [address] Care Team Providers Care Price Economist Name Role Phone RAMONE PORTILLO Primary Care Provider [phone] Assessment No assessment recorded. Plan of Treatment [...] By Organization Details Last Modified Time 11/15/2023 [id number] She is cleared for hearing aids [email or web address] [...] Organization Details Recorded Time Sensorineural hearing loss [id number] Active 2023 Sesar Venegas MD [address] [place] [address], [facility] [address], [place], [address] [place] [address] 4 16:19:55 Problem Notes None recorded. Procedures Surgical History Date Name Laterality Status Provider Name and Address Organization Details Recorded Time Appendectomy completed Sola alanis RN [facility] 11/15/2023 16:05:59 hysterectomy completed Sola alanis RN [facility] 11/15/2023 16:06:09 Masectomy completed Sola Garcia RN [facility] 11/15/2023 16:06:33 Imaging Results None recorded. Procedure [...] Updated DateTime 11/15/2023 160.02 cm 20 kg/m2 25681.94 g 98.8 [degF] Sola Garcia RN [place] [facility] [place] [employer] [facility] 11/15/2023 16:07:10 Social History None [...] Diagnosis SNOMED-CT Code Diagnosis ICD10 Code Diagnosis IMO Codes Diagnosis Note [id number] Sesar Venegas MD [facility] [place] [address] [place] [address] 11/15/2023 15:48:43 11/15/2023 17:01:07 Sensorineural hearing loss 50282706 H90.5 Health Concerns Section Related Observation LastModified [...] AFTER 08/31/2020 (MEDICAID REPLACEMENT - HMO) [facility] [id number] Christine oneal 11/19/2023 1 [employer] (MEDICARE REPLACEMENT/AD VANTAGE - PPO) [id number] Christine [facility] [id number] Christine oneal Notes Date Note Type Note Provider Name and Address Organization Details Recorded Time 11/15/2023 text/html Progressing hearing loss. She is interested in hearing aids. Sesar Venegas MD [address] [place] [address], [address], [address], [place] [facility] 11/15/2023 16:20:37 OBGyn Episode No OBEpisode recorded.
--- OUTSIDE RECORDS SUMMARY | 2025-06-25 17:12 | XMS_ITS | Patient Health Record ---
Author Organization [employer] Address [address] [facility] [address] [place], [place] [id number] Care Team Providers Care Splicer Apprentice Name Role Phone Pericobernardino Laly Primary Care Provider UnavailKatrina Mckeon Unavailable [phone] COLUMBA JOHNSON, NADJA Lacy Unavailable Unavailable Elsa Hernandez Unavailable [phone] ALLERGIES No Known Allergies RESULTS Component Value Reference Range Notes CBC With Differential/Platel et Reviewed date:03/11/2025 01:41:04 PM Interpretation: Performing Lab:[facility], [address] [facility], [place], Phone - [phone], Director - Jenifer Notes/Report: WBC 6.8 3.4-10.8 [...] show increased immature granulocytes without clinical significance.) [facility] Hematology Comments: Comp. Metabolic Panel (14) Reviewed date:03/11/2025 01:41:10 PM Interpretation: Performing Lab:[facility] [place], [address] [facility], Phone - [phone], Director - Jenifer Notes/Report: Glucose 92 70-99 [...] 0-40 IU/L ALT (SGPT) 7 0-32 IU/L CBC With Differential/Platel et Reviewed date:06/23/2025 02:49:23 PM Interpretation: Performing Lab[facility] [facility], Phone - [phone], Director - Jenifer Notes/Report: A courtesy copy of this report has been sent to [facility] WBC 6.0 3.4-10.8 x10E3/uL RBC 3.61 [...] show increased immature granulocytes without clinical significance.) [facility] Hematology Comments: Comp. Metabolic Panel (14) Reviewed date:06/23/2025 02:49:23 PM Interpretation: Performing [facility], [address] [facility] [facility], [place], Phone - [phone], Director - Jenifer Notes/Report: A courtesy copy of this report has been sent to [facility] Glucose 108 70-99 mg/dL BUN 30 [...] cap(s) orall y once a day Active Winrevair csrk 45 mg (1 vial) as directed subcutaneously every 3 weeks Active multivitamin Multiple Vitamins 1 tab(s) orally once a day Active hydroxychloroquine 200 mg 1 tab in the m orning and 1/2 tab in the evening orally once a day Active furosemide 20 mg 2 tab(s) orally once a day Active mycophenolate mofetil [...] tab(s) orally 3 times a day Active PROBLEMS Problem Type ICD Code Onset Dates Problem Status W/U Status Risk SNOMED Code Notes Problem Other detention (current) drug therapy (Z79.899) Active confirmed 220629781 Problem Cervicalgia (M54.2) Active confirmed 90101565 Problem Raynaud's syndrome (I73.00) Active confirmed 426593255 Problem CREST syndrome (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.1) Active confirmed 50617246 Problem Never smoked cigarettes (Z78.9) Active confirmed 948882496 Problem 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) Active confirmed 1157770 VITAL SIGNS Heart Rate 88 /min 06/10/2025 Blood pressure diastolic 60 mm Hg 06/10/2025 Height 64 in 06/10/2025 Blood pressure systolic 118 mm Hg 06/10/2025 Weight 113 lbs 06/10/2025 BMI 19.39 kg/m2 06/10/2025 Encounters Encounter Location Date Provider Diagnosis [facility] Kayley Lambert [facility], [address] [id number] 07/02/2024 Elsa Hernandez CREST syndrome M34.1 and Other termite treater (current) drug therapy Z79.899 [facility] Kayley [address] [id number] 11/12/2024 Elsa Hernandez Other termite treater (current) drug therapy Z79.899 and CREST syndrome M34.1 [facility] [address] [id number] 02/04/2025 Elsa Hernandez Other termite treater (current) drug therapy Z79.899 ; CREST syndrome M34.1 and Raynaud's syndrome I73.00 [facility] [address] [id number] 06/10/2025 Elsa Hernandez CREST syndrome M34.1 and Other detention (current) drug therapy Z79.899 [facility] [address] [phone] 03/11/2025 Katrina Grace [facility] [address] [id number] 03/13/2025 Katrina Grace [facility] [address] [place] [phone] 10/21/2024 Katrina Grace CREST syndrome M34.1 ASSESSMENTS Encounter Date Diagnosis Assessment Notes Treatment Notes Treatment Clinical Notes Section Notes 07/02/2024 Other termite treater (current) drug therapy (ICD-10 [...] D. Keep warm. F/u scheduled. 11/12/2024 Other detention (current) drug therapy (ICD-10 - Z79.899) CREST [...] diuretics. Raynauds-Keep warm. F/u scheduled. 02/04/2025 Other termite treater (current) drug therapy (ICD-10 [...] stable. Keep warm. F/u scheduled. 06/10/2025 Other detention (current) drug therapy (ICD-10 - Z79.899) CREST syndrome-cherry nue HCQ and Cellcept. Reminded to have an eye exam. Lab slip given to monitor medications. Seeing GI and Heme. for esophageal stricture and anemia. Continue seeing Pulm. Dr. Mayer. On O2 and diuretics. Remains on Winrevair injections. Raynauds stable. Keep warm. F/u scheduled. 06/10/2025 CREST syndrome (ICD-10 - M34.1) CREST [...] Complement, Total (CH50) 12/29/2013 CBC With Differential/Platelet 4 CBC With Differential/Platelet 5 CBC With Differential/Platelet 0 Sed Rate - W[place]gren 12/29/2013 Sed Rate - [place]gren 09/13/2015 Sed Rate - [place] 01/13/2020 Complement C3, Serum 12/29/2013 C-Reactive Protein, Quant 01/13/2020 C-Reactive Protein, Quant 12/29/2013 Comp. Metabolic Panel (14) 12/29/2013 MERON Panel (MERON+RAMON+Scl 70+SjoSSA+SjoSSB) 12/29/2013 DsDNA by Crithidia by indirect immunoflo resence 12/29/2013 Lab slip given 01/13/2020 Lab slip given 09/13/2015 Lab slip given 04/13/2022 lab slip given 12/27/2022 lab slip given 06/19/2023 lab slip given 10/26/2023 lab slip given 02/27/2024 Future Test Test Name Order Date Lab slip given 06/08/2020 Urinalysis, Complete 06/08/2020 AST (SGOT) 01/11/2022 Creatinine, Serum 01/11/2022 ALT (SGPT) 01/11/2022 CBC With Differential/Platelet 2 Sed Rate - [place]gren 01/11/2022 C-Reactive Protein, Quant 01/11/2022 Next Appt Details Provider Name:Elsa Hough , 09/09/2025 02:20:00 PM, [address] [facility], [address], [place], [place], [phone], Insurance Providers Payer Name Payer Address Payer Phone Subscriber Number Group Number Insured Name Patient Relationship to Insured Coverage Start Date Coverage End Date [employer] MCR PPO [address] [place] [address] [id number] Christine Davis Self - patient is the insured 4 MEDICAL (GENERAL) HISTORY Medical History History ICD Code loss of hearing Ringing in ears difficulty swallowing hoarseness breast lump poor circulation diarrhea indigestion measles chicken pox Surgical History Surgery Date(Month/Year) hip 2019 bilateral cataract surgery 2018 mastectomy 2000 hysterectomy 1990 laparoscopy 1976 appendectomy 1953 Hospitalization History Reason Date(Month/Year) hip [facility] 11/2019
--- OUTSIDE RECORDS SUMMARY | 2025-06-25 17:12 | XMS_ITS | Clinical Summary ---
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 Gender Identity Not on file Sexual Orientation Not on file Plan of Treatment Health Maintenance Due Date Last Done Comments Hepatitis C Virus (HCV) Screening 1945 TdaP Immunization 1945 Pneumococcal Immunization (50+ years) (1 of 1 - PCV) 1997 Zoster Immunization (1 of 2) 1997 Respiratory Syncytial Virus (RSV) Immunization (Adult) (1 - 1-dose 75+ series) 2022 SARS-COV-2 Immunization ( season) 2024 06/02/2021, 12/07/2020, 11/03/2020 Influenza Immunization (#1) 06/01/202506/01, 07/14/2019, 06/10/2018, Additional history exists DTaP/Tdap/Td Immunization Discontinued 08/29/2018, 11/2004 Hepatitis B Immunization Aged Out No longer eligible based on patient's age to complete this topic Human Papillomavirus (HPV) Immunization Aged Out No longer eligible based on patient's age to complete this topic Meningococcal Immunization (ACWY) Aged Out No longer eligible based on patient's age to complete this topic Rotavirus Immunization Aged Out No lo nger eligible based on patient's age to complete this topic
--- OUTSIDE RECORDS SUMMARY | 2025-06-25 17:12 | XMS_ITS | Clinical Summary ---
Author Organization [place] [id number] [facility] Address [address] [place] [address] Care Team Providers Care Warehouse Shipping Clerk Name Role Phone Laly Kenny Primary Care Provider [phone] Danica Rehman NP Unavailable [phone] Avinash Becker MD Unavailable [phone] Sarthak Mueller MD Unavailable [phone] Allergies No known active allergies Medications aspirin 81 mg enteric coated tablet Take 1 tablet (81 mg total) by mouth daily Active cyanocobalamin (Vitamin B-12) 500 mcg tabletIndications: Prevention of Vitamin B12 Deficiency Take 1 tablet (500 mcg total) by mouth every other day Active hydroxychloroquine (PLAQUENIL) 200 mg tablet Take 1 tablet (200 mg total) by mouth daily Active multivitamin capsule Take 1 capsule by mouth daily Active tadalafiL (CIALIS) 20 mg tablet Take 1 tablet (20 mg total) by mouth 2 (two) times a day Active ferrous sulfate 325 mg (65 mg of elemental iron) tabletIndications: Iron Deficiency Anemia Take 1 tablet (325 mg total) by mouth daily with breakfast Active furosemide (LASIX) 40 mg tablet Take 1 tablet (40 mg total) by mouth 2 (two) times a day Active mycophenolate mofetil (CELLCEPT) 500 mg tablet Take 1 tablet (500 mg total) by mouth 2 (two) times a day Active fluticasone prp-sod.chl,bicarb 50 mcg- 0.9 % kit,spray suspension and spray Active Breo Ellipta 100-25 mcg/dose diskus inhaler INHALE 1 PUFF BY MOUTH EVERY DAY 0 Active levothyroxine (SYNTHROID) 50 mcg tablet Take 1 tablet (50 mcg total) by mouth casing inspector before breakfast Active selexipag (Uptravi) 1,600 mcg tablet 0 Active macitentan (Opsumit) 10 mg tablet 2 Active metOLazone (ZAROXOLYN) 5 mg tablet Take 1 tablet (5 mg total) by mouth 3 (three) times a week Active calcium carbonate-vitamin D3 1,250 mg (500 mg elemental)-400 unit tablet Take by mouth Acti ve lansoprazole (PREVACID SOLUTAB) 30 mg disintegrating tablet Take 1 tablet (30 mg total) by mouth 2 (two) times a day 60 tablet 11 5 Active Active Problems Problem Noted Date Diagnosed Date Nonrheumatic aortic valve stenosis 05/19/2022 Nonrheumatic mitral valve regurgitation 05/19/20 22 Pulmonary HTN (CMS/HCC) 01/30/2020 Chronic respiratory failure with hypoxia (CMS/HC C) 01/30/2020 Scleroderma ([facility]/HCC) 01/30/2020 Chronic right-sided heart failure 01/30/2020 CREST syndrome ([facility]/HCC) 01/30/2020 Anemia 01/30/2020 Acquired hypothyroidism 01/30/2020 History of malignant neoplasm of breast 06/29/20 15 Malignant neoplasm of breast 06/24/2013 Osteopenia 04/29/2012 Malignant neoplasm of upper-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 08/09/2011 Overview (01/10/2018): Description: Malignant Female Breast Neoplasm Of The Upper Outer Quadrant Encounters Date Type Department Care Team Description 05/05/2025 12:00 PM CDT - 05/05/2025 12:45 PM CDT Surgery [facility] [address] [place] [phone] Avinash Becker MD ESOPHAGOGASTRODUODENOSCOPY BALLOON DILATION <30MM 05/05/2025 11:55 AM CDT Anesthesia Event [facility] [place] [address] Demetrius Araya MD McCormack, Maribeth J., CRNA 05/05/2025 11:09 AM CDT - 05/05/2025 1:49 PM CDT Hospital Encounter [facility] [address] [place] [phone] Avinash Becker MD Iron deficiency anemia due to chronic blood loss (Primary Dx); Anemia, unspecified type Discharge Disposition: Discharge to home or self care from Last 3 Months Surgical History Surgery Date Site/Laterality Comments APPENDECTOMY MASTECTOMY Bilateral HYSTERECTOMY BREAST SURGERY 1999 CATARACT EXTRACTION 2018 FRACTURE SURGERY 2019 Medical History Medical History Date Comments Malignant neoplasm of female breast (HCC) Breast cancer - (Added by TW Conv) Acid indigestion Anemia Hypertension Scleroderma GERD (gastroesophageal reflux disease) 1993 Cataract 2018 Autoimmune disease 1994 Pulmonary arterial hypertension (HCC) Family History Medical History Relation Name Comments [...] 0.6 oz pur e alcohol) Very rarely AUDIT-C Answer Date Recorded Q1: How often do you have a drink containing alc ohol? 2-4 times a month 05/05/2025 Q2: How many drinks containi ng alcohol do you have on a typical day when you are drinking? 1 or 2 05/05/2025 Q3: How often do you have si x or more drinks on one occasion? Never 05/05/2025 Personal Safety Answer Date Recorded Have you ever been in or are you currently in a harmful physical or emotional relationship or is someone making you feel afraid or unsafe? 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 Sexual Orientation Not on file Obstetrics History Last Filed Vital Signs Vital Sign Reading Time Taken Comments Blood Pressure 110/51 05/05/2025 1:25 PM CDT Pulse 73 05/05/2025 1:30 PM CDT Temperature 36.8 C (98.2 F) 05/05/2025 11:33 AM CDT Respiratory Rate 15 05/05/2025 1:30 PM CDT Oxygen Saturation 92% 05/05/2025 1:30 PM CDT Inhaled Oxygen Concentration - - Weight 50.8 kg (112 lb) 05/05/2025 11:33 AM CDT Height 157.5 cm (5' 2) 05/05/2025 11:33 AM CDT Body Mass Index 20.49 05/05/2025 11:33 AM CDT Plan of Treatment Upcoming Encounters Date Type Department Care Team (Late st Contact Info) Description 06/30/2025 1:30 PM CDT Hospital Encounter [facility] [address] [place] [phone] [place] [address] [place] [address] 06/30/2025 1:30 PM CDT - 06/30/2025 2:00 PM CDT Surgery [facility] [address] [place] [phone] [place] [address] [place], [place] [id number] EGD Scheduled Procedures Name Priority Associated Diagnoses Date/Ti me ESOPHAGOGASTRODUODENOSCOPY Stricture esophagus 06/30/2025 1:30 PM CDT Health Maintenance Due Date Last Done Comments [...] 2025 9, 07/14/2019, 06/10/2018, Additional history exists Colon Cancer Screening-CT Colonography Discontinued 05/05/2025 Colon Cancer Screening-Colonoscopy Discontinued 05/05/2025 Colon Cancer Screening-DNA Stool Discontinued 05/05/20 Colon Cancer Screening-FIT Discontinued 05/05/2025 Colon Cancer Screening-FOBT Discontinued 05/05/2025 Colon Cancer Screening-Sigmoidoscopy Discontinued 05/05/2025 Colorectal Cancer Screening Discontinued Procedures Procedure Name Priority Date/Time Associated Diagnosis Comments SURGICAL PATHOLOGY Routine 05/05/2025 12:14 PM CDT Anemia, unspecified type ENDO ADD ON ESOPHAGOGASTRODUODENOSCOPY BIOPSY 05/05/2025 11:55 AM CDT Anemia, unspecified type COLON BIOPSY 05/05/2025 11:55 AM CDT Anemia, unspecified type ESOPHAGOGASTRODUODENOSCOPY BALLOON DILATION <30MM 05/05/2025 11:55 AM CDT Anemia, unspecified type EGD 05/05/2025 11:38 AM CDT COLONOSCOPY 05/05/2025 11:38 AM CDT DEXA AXIAL SKELETON BONE DENSITY 1 OR MORE SITES Schedule Routine, Read Routine (OP Routine) 06/05/2018 10:14 AM CDT Post-menopause from Last 3 Months or Most Recently Relevant to Health Maintenance Results * Surgical pathology (05/05/2025 12:14 PM CDT) Tissue (Gastric/Stomach biopsy) 05/05/2025 12:14 PM CDT Tissue specimen (specimen) (Colon, Biopsy) 05/05/2025 12:29 PM CDT Narrative PATHOLOGY [facility] - 05/06/2025 10:07 AM CDT [place] [id number] [facility], [place], [place] [address] Tele: Karolina Knox MD - Merchandise Flow Team Member Note to Patients: This report may contain a detailed description of human tissue sent by a health care provider to the laboratory for pathologic evaluation. The content of this report is essential for diagnosis and may provide important critical findings. This information may be unfamiliar to patients to review without a medical professional present. It is advised that the patient review this report in the presence of a health care provider who can answer questions and explain the details. SURGICAL PATHOLOGY REPORT Patient Name: CHRISTINE CAMPOS Address: [address] [place] [address] Gender: F : 1945 (Age: 79) Service: Gastro Location: [facility], Hospital #: [id number] Patient Type: [facility] SAME DAY SURGERY Taken: 05/05/2025 Received 05/05/2025 Reported: 05/06/2025 Physician(s): Laura Johnston DO Raymond K. Weber, M.D. DIAGNOSIS: Stomach, biopsy: - No histopathologic abnormality Large intestine, sigmoid, biopsy: - Erosion, acute inflammation, reactive changes, and crypt disarray (see comment) [facility]/05/06/2025 10:07 Examining Pathologist: Rianna Connolly M.D. Report Reviewed and Electronically Signed By Rianna Connolly M.D. DIAGNOSIS COMMENT: The findings favor mucosal prolapse in the appropriate clinical context. SPECIMEN TYPE: A: GASTRIC BX B: SIGMOID BX CLINICAL IMPRESSION AND HISTORY: Iron-deficiency anemia in a patient with a history of AVMs of the right colon and rectal prolapse. Upper endoscopy shows a benign-appearing stenosis upper third of the esophagus, patchy white plaques in the upper and middle third of the esophagus, food in the middle third of the esophagus, reflux esophagitis, and congestion and erythema in the antrum. Colonoscopy shows an area of congested, erythematous and vascular pattern decreased mucosa in the rectum GROSS DESCRIPTION: The tissue is received in two containers of formalin all labeled with the patient's name CHRISTINE RODAS. A. The first container is additionally labeled gastric biopsy and contains two tissue fragments measuring 1 x 0.3 x 0.1 cm in aggregate. Due to the color and size of the specimen, eosin is used. The specimen is filtered and submitted entirely in cassette A1. B. The second container is additionally labeled sigmoid biopsy and contains two tissue fragments measuring 0.6 x 0.2 x 0.1 cm in aggregate. Due to the color and size of the specimen, eosin is used. The specimen is filtered and submitted entirely in cassette B1. [facility]/05/05/2025 17:01 [facility] MICROSCOPIC DESCRIPTION: Sections of the gastric biopsy show focal red blood cell extravasation in the superficial lamina propria but are otherwise unremarkable. There is no inflammation or intestinal metaplasia. Sections of the sigmoid biopsy show erosion, acute inflammation, reactive changes, some crypt disarray with focal serration, and hypertrophy of the muscularis mucosae. Viral inclusions are not seen. There is no malignancy. Clerical Data Follows A; 54013 B; 32906 REPORT IMAGES AND/OR SCANNED DOCUMENTS ONLY VIEWABLE IN PDF FORMAT The immunohistochemical test(s) cited in this report, if any, was developed and its performance characteristics determined by [facility]. It has not been cleared or approved by the U.S. Food and Drug Administration. The FDA has determined that such clearance or approval is not necessary. This test is used for clinical purposes. It should not be regarded as investigational or for research. [facility] is certified under the Clinical Laboratory Improvement Amendments of 1988 (CLIA) as qualified to perform high complexity testing. Immunostains were performed on formalin-fixed paraffin embedded tissue using a polymer diaminobenzidine chromogen detection system. Antibodies used may include clone SP1 (rabbit monoclonal, estrogen receptor), clone 1E2 (rabbit monoclonal progesterone receptor), Ki-67 (rabbit monoclonal, 30-9), CD117 (rabbit polyclonal, c-kit), and anti-Her-2/kelsey (4B5) (rabbit monoclonal primary antibody). In the event that immunohistochemistry or special stains have been performed, attending physician has confirmed appropriateness of controls. Frozen section, operating room consultation, gross examination and dissection, and case sign out may have been performed in part or completely in the following laboratories: [facility], [address] [facility], [place], [place] [address] [place] [address], [address], [place] [address]. us Avinash Becker MD LAB PATHOLOGY ORDERABLES Final Result PATHOLOGY [facility] Receiving [address] [place] [address] * EGD (05/05/2025 11:38 AM CDT) Anatomical Region Laterality Modality Other Narrative Procedure Note Avinash Becker MD - 05/05/2025 11:38 AM CDT ENDOSCOPY LAB Patient Name: Christine Rodas Procedure Date: 05/05/2025 11:38 AM Admit Type: Outpatient Room: [facility] Date of : 1945 Instrument Name: [id number] Gender: Female Note Status: Finalized Procedure: Upper GI endoscopy Indications: Iron deficiency anemia Comorbidities scleroderma, dysphagia - throat area Providers: Avinash Becker M.D. Referring MD: Laly Kenny D.O. Medicines: Propofol per Anesthesia Complications: No immediate complications. Estimated Blood Loss: Estimated blood loss: none. Procedure: The benefits, risks, and alternatives to theprocedure and sedation were discussed and informed consentwas obtained. The scope was passed under direct vision. The Endoscope was introduced through the mouth, and advanced to the third part of duodenum. The upperGI endoscopy was accomplished without difficulty. The patient tolerated the procedure well. Findings: One benign-appearing, intrinsic severe stenosis was found in theupper third of the esophagus. This stenosis measured 7 mm (inner diameter)x 3 cm (in length). The stenosis was traversed after dilation. A TTSdilator was passed through the scope. Dilation with an 8-9-10 mm x 5.5 cm CRE balloon (to a maximum balloon size of 10 mm) dilator was performed.The dilation site was examined following endoscope reinsertion and showed mild mucosal disruption. Estimated blood loss: none. Patchy, white plaques were found in the upper third of the esophagusand in the middle third of the esophagus. Food was found in the middle third of the esophagus. Removal was accomplished with a push method. LA Grade C (one or more mucosal breaks continuous between tops of 2or more mucosal folds, less than 75% circumference) esophagitis with bleeding was found in the lower third of the esophagus. Diffuse moderate inflammation characterized by congestion (edema) and erythema was found in the gastric antrum. Biopsies were taken with a cold forceps for histology. The examined duodenum was normal. 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 Dilated with an 8-9-10mm x 5.5 cm CRE balloon (to a maximum balloon size of10 mm). - Esophageal plaques were found, consistent with candidiasis. - Soft food in the middle third of the esophagus. Removal was successful. - Severe reflux esophagitis with bleeding. One possible cause of anemia - Gastritis, characterized by congestion (edema)and erythema. Biopsied. - Normal examined duodenum. Recommendation: - Prevacid (lansoprazole) solutable tabs 30 mgtwice a day - in place of prilosec - Do not swallow the steroid spray - also afteruse, swish in mouth and gargle and spit out. - Mycelex (clotrimazole) 10 mg lozenge 5x/day for 1 week. - Repeat upper endoscopy in 2 weeks for more dilatation - clear liquids for the last nignt mealthe night before endoscopy - Sleep with head of bed elevation Electronically signed by Avinash Becker MD Avinash Becker M.D. 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 Referring MD: Laly Kenny D.O. Medicines: Monitored Anesthesia Care Complications: No immediate complications. Estimated Blood Loss: Estimated blood loss: none. Procedure: Pre-Anesthesia Assessment: - Prior to the procedure, a History and Physicalwas performed, and patient medications and allergieswere reviewed. The patient is competent. The risks and benefits of the procedure and the sedation optionsand risks were discussed with the patient. Allquestions were answered and informed consent was obtained. Patient identification and proposed procedure were verified by the nurse in the procedure room. Mental Status Examination: alert and oriented. Airway Examination: normal oropharyngeal airway and neck mobility. Respiratory Examination: clear to auscultation. CV Examination: normal. Prophylactic Antibiotics: The patient does not requireprophylactic antibiotics. Prior Anticoagulants: The patient has taken no anticoagulant or antiplatelet agents. ASA Grade Assessment: III - A patient with severesystemic disease. After reviewing the risks and benefits,the patient was deemed in satisfactory condition to undergo the procedure. The anesthesia plan was touse moderate sedation / analgesia (conscious sedation). Immediately prior to administration of medications, the patient was re-assessed for adequacy to receive sedatives. The heart rate, respiratory rate, oxygen saturations, blood pressure, adequacy of pulmonary ventilation, and response to care were monitored throughout the procedure. The physical status ofthe patient was re-assessed after the procedure. - The risks and benefits of the procedure and the sedation options and risks were discussed with the patient. All questions were answered and informed consent was obtained. The benefits, risks and alternatives of theprocedure and sedation were discussed and informed consentwas obtained. All questions were answered. Please referto the signed informed consent document in the medical record. The scope was passed under direct vision.The Colonoscope was introduced through the anus and advanced to the the cecum, identified byappendiceal orifice and ileocecal valve. The colonoscopy was performed without difficulty. The patient tolerated the procedure well. The quality of the bowel preparation was good. The quality of the bowel preparation was evaluated using the BBPS (BostonBowel Preparation Scale) with scores of: Right Colon = 3, Transverse Colon = 3 and Left Colon = 3 (entiremucosa seen well with no residual staining, smallfragments of stool or opaque liquid). The total BBPS score equals 9. The bowel preparation used waspolyethylene glycol (PEG) via split dose instruction. Bowel prep was administered using a split dose. AI Technologywas utilized during the procedure to aid in polyp detection. Findings: Multiple small-mouthed diverticula were found in the sigmoid colon. A few patchy angioectasias without bleeding were found in theascending colon. One small angiodysplastic lesion without bleeding was found in thececum. A diffuse area of severely congested, erythematous and zjvmouxx-uclnquv-rjvwitfxw mucosa was found in the rectum. Biopsieswere taken with a cold forceps for histology. The exam was otherwise without abnormality. Impression: - Proctitis - congested, erythematous and fugkfkrg-ugogxmh-bejjltpdi mucosa in the rectum. Biopsied. Another possible cause for anemia - A few non-bleeding ascending colonicangioectasias. - One non-bleeding cecal angiodysplastic lesion. - The examination was otherwise normal. - Diverticulosis in the sigmoid colon. Recommendation: - Await pathology results to determine treatment of rectum -- probable rectal prolapse --- I advised keeping stool soft and not straining . - Repeat colonoscopy is not recommended forscreening purposes. Electronically signed by Avinash Becker MD Avinash Becker M.D. 05/05/2025 12:50:21 PM Number of Addenda: 0 Note Initiated On: 05/05/2025 11:38 AM Scope Withdrawal Time: 0 hours 6 minutes 47 seconds Scope In: 12:18:06 PM Scope Out: 12:32:12 PM us Avinash Becker MD ENDOSCOPY PROCEDURES Maynor alexa Result - Final * Dexa Axial Skeleton Bone Density 1 [...] Most Recently Relevant to Health Maintenance Insurance * Guarantor: Christine Campos Account Type Relation to Patient Date of Phone Billing Address Personal/Family Self [address] [place] [phone] T MEDICARE * Guarantor: Christine Campos Account Type Relation to Patient Date of Phone Billing Address Personal/Family Self [address] [place] [phone] T MEDICARE * Guarantor: Christine Campos Account Type Relation to Patient Date of Phone Billing Address Personal/Family Self [address] [place] [phone] T MEDICARE Care Teams Warehouse Shipping 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
[2025-06-25 17:26] LABS: Vitamin B12 662.0 pg/mL (239-931)
== END 2025-06-25 14:36 | disposition home or self-care (01) ==
LOC: ANHLAB 14:36
PROVIDERS: PCP Family Medicine; Visit Provider Internal Medicine Hematology & Oncology
DX: D64.9 Anemia, unspecified (principal)
CPT/HCPCS: 36415; 80048; 82607; 83540; 83550; 85025